=== PATIENT | male | born 1970 | race Caucasian/White ===

== ENCOUNTER 2016-04-18 11:05 | Emergency (ER) | payer MEDICARE, MEDICAID ==
[~2016-04-18 11:05] MED LIST: CIPR-232 PO; GEMF600T3 PO; INSU100V7 SUBQ; INSU500V SUBQ; LISI40TA PO; METO25TA6 PO; METR500T PO; SITA1TAB6 PO; marijuana INH
[2016-04-18 11:09] VITALS: BP 174/76; PULSE 115; RESP 18; O2SAT 95
[2016-04-18 11:33] LABS: BASOPHILS % (AUTO) 0.2 % (0-3); EOSINOPHILS % (AUTO) 1.5 % (0-5); MONOCYTES % (AUTO) 6.5 % (4-12); Mean Corpuscular Hemoglobin 29.2 pg (27.0-35.0); Mean Corpuscular Volume 80.1 fL (81-100); Platelet Count 170 bil/L (150-400)
[2016-04-18 11:44] LABS: Magnesium 1.5 mg/dL (1.6-2.6)
[2016-04-18] MEDS ORDERED: Ondansetron 2 mg/mL 2 mL Inj IVPUSH ONE (11:50)
--- NOTE | 2016-04-18 12:01 | ED.REPORT ---
HPI-General Illness Date of Service Apr 18, 2016 ED Provider: Terence Douglas PA-C Josiah 45-year-old male presents with chief complaint of nausea and vomiting. Patient states his symptoms began last night he felt very fatigued and he "almost passed out." Reports that vomiting and diarrhea began this morning with 6-7 episodes of vomiting without blood to 3 episodes of loose stools without blood. States the family is extremely dehydrated and about to pass out so he called ambulance. Reports that the paramedics measured a fever approximately 101. Patient also complains that "my heart keeps going faster and faster like is going to explode." He also admits through the history of slightly productive cough. Denies chest pain, shortness of breath, wheezing. Denies abdominal pain but states that "something is wrong in there." Reports a history of poorly controlled type II diabetes with left forefoot amputation several years ago and kidney injury in January. Nursing Notes Stated Complaint: NAUSEA FEVER Chief Complaint: Male Abdominal Pain Nursing Notes Reviewed: Yes Allergies: Coded Allergies: No Known Allergies (Verified Allergy, Unknown, 04/18/16) Scheduled Gemfibrozil (Gemfibrozil) 600 Mg Tablet 600 MG PO BID Insulin Glargine (Lantus U100 Insulin Vial) 100 Unit/Ml Vial 60 UNIT SUBQ BID Insulin Regular, Human (HUMulin-R U-500 Insulin Vial) 500 Unit/1 Ml Vial 30-40 UNIT SUBQ TIDWM Lisinopril (Lisinopril) 40 Mg Tablet 40 MG PO DAILY Metoprolol Tartrate (Metoprolol Tartrate) 25 Mg Tablet 25 MG PO BID Ondansetron ODT (Ondansetron ODT) 8 Mg Tab.rapdis 8 MG PO QID Sitagliptin/Metformin 50-1000 mg (Janumet 50-1000 mg) 1 Each Tablet 1 TABLET PO BID Scheduled PRN ([marijuana]) 1 DOSE INH BID PRN PRN For Pain General Time Seen by MD: 11:35 Chief Complaint Other (nausea) Past Medical History Past Medical History Notes: PCP: Dr. Madrid Past Medical History severe peripheral neuropathy Reports: Asthma, Diabetes mellitus, Hypertension Past Surgical History Multiple toe amputations, being followed by wound care Smoking History Former Smoker Social History Alcohol Use: Denies alcohol use Drug Use: THC Ambulatory Status Wheelchair Review of Systems General: Admits fever, malaise. HEENT: Denies congestion, headache, sore throat. Respiratory: Admits cough. Denies dyspnea, shortness of breath, wheezing. Cardiovascular: Admits palpitations. Denies chest pain. Gastrointestinal: Admits denies vomiting, diarrhea, abdominal pain. Genitourinary: Denies frequency, urgency, dysuria, hematuria. Otherwise as noted in HPI. Physical Exam General: Well developed, well nourished, moderate distress. Head: Atraumatic, normocephalic. Eyes: No scleral icterus or injection. No discharge. Vision grossly intact. ENT: Voice clear, hearing grossly intact. Respiratory: Regular rate and rhythm. Breath sounds present, clear to auscultation and equal bilaterally. Cardiovascular: Tachycardic with regular rhythm, without murmur, gallop or rub. No pedal edema. Gastrointestinal: Obese abdomen non-tender without guarding or rebound. Bowel sounds are hypoactive. Lower limbs: Left forefoot amputation with 3 cm nonhealing ulceration. No signs of infection. Right fifth digit amputated and distal phalanx of digits 1 through 4. One 1 cm nonhealing ulceration on the volar aspect of first digit, one 1 cm diameter ulceration volar aspect of the third MTP joint. No signs of infection. DP and PT pulses present and equal bilaterally Skin: Warm and dry. Neurological: Grossly nonfocal. Psychological: alert and oriented. Speech appropriate, linear and logical. Behavior appropriate. . Vital Signs Vital Signs Date Time Temp Pulse Resp B/P Pulse Ox O2 Delivery O2 Flow Rate FiO2 04/18/16 15:57 37.2 100 19 132/70 97 Room Air 04/18/16 15:44 100 132/70 97 Room Air 04/18/16 15:43 37.2 102 04/18/16 15:11 38.8 94 19 119/62 96 Room Air 04/18/16 13:12 38.4 117 19 165/73 96 Room Air 04/18/16 11:09 38.0 115 18 174/76 95 Room Air Initial VS: Reviewed Interpretation & Diagnostics Lab Results Interpretation Result Diagram: 04/18/16 1129 04/18/16 1129 Test 04/18/16 11:29 White Blood Count 8.6th/mm3 (3.8-10.1) Red Blood Count 5.44mil/mm3 (4.40-5.80) Hemoglobin 15.9g/dL (13.8-17.2) Hematocrit 43.6% (41.0-50.0) Mean Corpuscular Volume 80.1fL (81-100) Mean Corpuscular Hemoglobin 29.2pg (27.0-35.0) Mean Corpuscular Hemoglobin Concent 36.5% (32.0-37.0) Red Cell Distribution Width 12.9% (12.3-15.4) Platelet Count 170bil/L (150-400) Neutrophils (%) (Auto) 86.0% (40-74) Lymphocytes (%) (Auto) 5.7% (14-46) Monocytes (%) (Auto) 6.5% (4-12) Eosinophils (%) (Auto) 1.5% (0-5) Basophils (%) (Auto) 0.2% (0-3) D-Dimer 0.5mg/L (<0.50) Sodium Level 136mEq/L (134-144) Potassium Level 3.7mEq/L (3.5-5.2) Chloride Level 97mEq/L (97-108) Carbon Dioxide Level 25mmol/L (18-29) Blood Urea Nitrogen 10mg/dL (6-24) Creatinine 1.01mg/dL (0.76-1.27) Estimat Glomerular Filtration Rate 85mL/min (>59) Glucose Level 200mg/dL (60-99) Calcium Level 9.3mg/dL (8.5-10.1) Magnesium Level 1.5mg/dL (1.6-2.6) Total Bilirubin 0.5mg/dL (0.0-1.2) Aspartate Amino Transf (AST/SGOT) 17U/L (0-50) Alanine Aminotransferase (ALT/SGPT) 16U/L (0-44) Alkaline Phosphatase 83U/L (25-150) Troponin T < 0.010ug/L (0.0-0.011) Total Protein 7.4g/dL (6.4-8.4) Albumin 3.6g/dL (3.4-5.0) Lipase 27U/L (13-60) Lab Results Interpretation: Liver enzymes and kidney function within normal limits. ECG Interpretation ECG Interpretation: No prior ECG available. Anterior Q waves present Time: 12:35 Interpreted by: ED physician Normal ECG Interpretation: Normal sinus rhythm, No acute ischemic changes, Normal axis, Normal intervals Abnormal Rate: 130 X-Ray Chest Interpretation Chest Xray Interpretation: PROCEDURE: X-RAY CHEST ONE VIEW, PORTABLE ([id number]) INDICATIONS: chest pain, tachycardia IMPRESSION: No acute pulmonary process Interpretation / Wet Read by: Interpret - ED physician, Interpret - Radiologist, Interp - AHP Re-Eval/Medical Decision Med Decision/Clinical Course In brief this is a 45-year-old male with a history of poorly controlled type II diabetes resulting in forefoot and toe amputations who presents with approximately one-day history of nausea vomiting and diarrhea. He presents as highly anxious and states that since last night he felt like he has been about to pass out. He also is complaining of chest tightness. Concern over cardiac causes was reduced by normal EKG, troponin, chest x-ray. The patient's initial tachycardia and borderline SPO2 saturation cause me to consider the possibility of pulmonary embolus. This seemed unlikely considering the lack of complaint of shortness of breath, lack of risk factors and no indication of DVT. Normal white count is reassuring that there is unlikely to be a systemic infection. Following several hours in the department 3 L of normal saline, Tylenol and antinausea medications: The patient feels much better, fevers reduced, tachycardia reduced patient's stated baseline of approximately 100 bpm, and he was able to ambulate well in the department. He felt ready to be discharged to home and agreed to follow up with his primary care provider in the next couple of days. I discussed case with Dr. wang, who met with and examined the patient and agrees with the plan. Discharge & Departure Primary Impression: Gastroenteritis Disposition: Home Discharge Condition All VS Reviewed: Yes Condition: Stable Patient Instructions: Gastroenteritis (ED) Additional Instructions: Evaluation for nausea and vomiting in the emergency department. History, physical, EKG and blood tests are reassuring that this is not caused by a cardiac event. Kidney and liver function are within normal limits. Your blood glucose is high at 200 unlikely to be the cause of your symptoms. Initial tachycardia and fever responded well to Tylenol and IV fluids. Able to drink fluids and walk safely around the ED. We believe you are stable and safe for discharge home. your symptoms are most likely caused by a viral gastroenteritis , which should resolve on its own in a few days. Rest and drink small amounts of fluid throughout the day. Small servings of bland food as tolerated. I will provide you with a prescription for antinausea medications. Take 1000 mg of Tylenol every 6 hours to treat the fever. Follow-up with wound care as scheduled and contact your primary care provider in the morning to arrange follow-up in a few days to be sure your recovery is progressing as expected. Return to emergency department for new or worsening symptoms including high fever, chest pain, shortness of breath. Referrals: Thompson Madrid MD (PCP) EDSupervising Provider for APC: Justin Wang MD Attending Statement Attending attestation: I saw this patient in conjunction with Terence Douglas PA-C. I was present for all paredes portions of the history taking and physical examination. I agree with the workup, evaluation, treatment and disposition. Terence Guzman MD, PA-C Apr 18, 2016 12:01 Justin Wang MD Apr 18, 2016 14:23
[2016-04-18] MEDS ORDERED: 0.9% Sodium Chloride 1,000 ML IV ONE ×2 (12:30→13:55)
[2016-04-18 13:12] VITALS: BP 165/73; PULSE 117; RESP 19; O2SAT 96
--- NOTE | 2016-04-18 14:18 | DRSVH ---
PROCEDURE: X-RAY CHEST ONE VIEW, PORTABLE ([id number]) INDICATIONS: chest pain, tachycardia TECHNIQUE: One view of the chest was acquired. COMPARISON: [facility], CR, XR CHEST 1VW (PORTABLE), 02/22/2016, 13:53. FINDINGS: Surgical changes and devices: None. Lungs and pleura: No pleural effusions or pneumothorax. Lungs are clear. Mediastinum: Mediastinal contours appear normal. Heart size is normal. Bones and chest wall: No suspicious bony lesions. Overlying soft tissues appear unremarkable. IMPRESSION: No acute pulmonary process. Dictated by: Ilene Pina M.D. on 04/18/2016 at 14:16 Approved by: Ilene Pina M.D. on 04/18/2016 at 14:16
[2016-04-18 15:11] VITALS: BP 119/62; PULSE 94; RESP 19; O2SAT 96
[2016-04-18 15:43] VITALS: PULSE 102
[2016-04-18 15:44] VITALS: BP 132/70; PULSE 100; O2SAT 97
[2016-04-18] MEDS ORDERED: ONDA8TAB10 PO (15:54)
[2016-04-18 15:57] VITALS: BP 132/70; PULSE 100; RESP 19; O2SAT 97
== END 2016-04-18 15:57 | disposition home or self-care (01) ==
LOC: SED 11:05 → EDBD 11:05 → SED 15:57
DX: K52.9 Noninfective gastroenteritis and colitis, unspecified (principal); E11.40 Type 2 diabetes mellitus with diabetic neuropathy, unspecified; J45.909 Unspecified asthma, uncomplicated; I10 Essential (primary) hypertension; Z89.432 Acquired absence of left foot; Z87.891 Personal history of nicotine dependence; Z79.4 Long term (current) use of insulin; Z79.84 Long term (current) use of oral hypoglycemic drugs
CPT/HCPCS: 36415; 71010; 80053; 83690; 83735; 84484; 85025; 85379; 93005; 96361; 96374; 99285; J2405; J7030

== ENCOUNTER 2016-04-19 22:07 | Inpatient (IN) | payer MEDICARE, MEDICAID ==
[~2016-04-19] VITALS: Ht 198.1 cm; Wt 141.9 kg
[~2016-04-19 22:07] MED LIST changes: -CIPR-232 PO; -METR500T PO; +ONDA8TAB10 PO
[2016-04-19 22:35] VITALS: BP 183/97; PULSE 91; RESP 16; O2SAT 98
--- NOTE | 2016-04-19 22:52 | ED.REPORT ---
HPI-Abd Pain M 40 and Over Date of Service Apr 19, 2016 ED Provider: Julian Hennessy MD The patient is a 45 year old male with history of HTN, diabetes, and multiple toe amputations with chronic ulcerations (followed by wound care) who presents to the ED complaining of continued nausea and vomiting since his visit yesterday for the same symptoms. Associated symptoms of diarrhea and mild hematemesis. He denies hematochezia and any other symptoms at this times. The patient reports that he smokes marijuana on a daily basis. Nursing Notes Stated Complaint: CHEST PAIN Chief Complaint: Male Abdominal Pain Nursing Notes Reviewed: Yes Allergies: Coded Allergies: No Known Allergies (Verified Allergy, Unknown, 04/18/16) Scheduled Gemfibrozil (Gemfibrozil) 600 Mg Tablet 600 MG PO BID Insulin Glargine (Lantus U100 Insulin Vial) 100 Unit/Ml Vial 60 UNIT SUBQ BID Insulin Regular, Human (HUMulin-R U-500 Insulin Vial) 500 Unit/1 Ml Vial 30-40 UNIT SUBQ TIDWM Lisinopril (Lisinopril) 40 Mg Tablet 40 MG PO DAILY Metoprolol Tartrate (Metoprolol Tartrate) 25 Mg Tablet 25 MG PO BID Ondansetron ODT (Ondansetron ODT) 8 Mg Tab.rapdis 8 MG PO QID Sitagliptin/Metformin 50-1000 mg (Janumet 50-1000 mg) 1 Each Tablet 1 TABLET PO BID Scheduled PRN ([marijuana]) 1 DOSE INH BID PRN PRN For Pain General Time Seen by MD: 22:48 Chief Complaint Nausea, Other (Vomiting) Hx Obtained From: Patient Arrived By: Walk-in Sudden in Onset?: No Onset Occurred: 5 days ago Symptom Duration: Since onset Progression since Onset: Unchanged Location: : Diffuse Severity: Current: Mild Severity: Maximum: Moderate Recent Healthcare: No recent hospitalization, Recent doctor visit, Recent testing, Previous diagnosis Similar Sx Previous: Yes Past Medical History Past Medical History Notes: PCP: Dr. Madrid Past Medical History severe peripheral neuropathy Reports: Asthma, Diabetes mellitus, Hypertension Past Surgical History Multiple toe amputations, being followed by wound care Smoking History Former Smoker Social History Alcohol Use: Denies alcohol use Drug Use: THC Ambulatory Status Wheelchair Review of Systems Constitutional: Denies: Chills, Fever Respiratory: Denies: Shortness of breath Cardiovascular: Denies: Chest pain GI: Reports: Abdominal pain, Belching, Diarrhea, Hematemesis, Nausea, Vomiting , Denies: Constipation, Hematochezia, Mucousy stool Complete sys rev & neg: except as marked. Physical Exam Initial Vital Signs Vital Signs (First) Date Time Temp Pulse Resp B/P Pulse Ox O2 Delivery O2 Flow Rate FiO2 04/19/16 22:35 36.7 91 16 183/97 98 Room Air Initial VS: Reviewed, Vital signs abnormal Head / Eyes: Atraumatic, Normocephalic, PERRL Neck: Supple, Non-tender, Full range of motion Extremities: Vascular intact, Neuro intact, No swelling, No tenderness Neurologic: Alert, Oriented, Nonfocal Psychiatric: Mood/affect normal, Behavior normal, Normal thought content General/Constitutional: Awake, Alert Distress / Hydration: Positive: Distress moderate Respiratory / Chest: Atraumatic, Breath sounds NL, Breath sounds = bilat, No respiratory distress Cardiovascular: Regular rhythm, Heart sounds NL Heart Rate / Rhythm: Positive: Tachycardia Abdomen: Atraumatic, Soft Tenderness/Guarding/Rebound: Positive: Tender diffuse Back: Atraumatic, Inspection NL, Full range of motion, Painless range of motion , Non-tender ENT: Atraumatic, Airway patent Mouth: Positive: Mucous membranes dry Skin: Atraumatic Generalized pallor Interpretation & Diagnostics Lab Results Interpretation Result Diagram: 04/19/16224404/19/162244 Test 04/19/16 22:45 04/20/16 00:00 04/20/16 00:10 04/20/16 00:20 White Blood Count 6.6th/mm3 (3.8-10.1) Red Blood Count 5.55mil/mm3 (4.40-5.80) Hemoglobin 15.6g/dL (13.8-17.2) Hematocrit 43.7% (41.0-50.0) Mean Corpuscular Volume 78.7fL (81-100) Mean Corpuscular Hemoglobin 28.1pg (27.0-35.0) Mean Corpuscular Hemoglobin Concent 35.7% (32.0-37.0) Red Cell Distribution Width 13.1% (12.3-15.4) Platelet Count 146bil/L (150-400) Neutrophils (%) (Auto) 85.5% (40-74) Lymphocytes (%) (Auto) 8.1% (14-46) Monocytes (%) (Auto) 5.7% (4-12) Eosinophils (%) (Auto) 0% (0-5) Basophils (%) (Auto) 0.2% (0-3) Sodium Level 131mEq/L (134-144) Potassium Level 4.4mEq/L (3.5-5.2) Chloride Level 93mEq/L (97-108) Carbon Dioxide Level 18mmol/L (18-29) Blood Urea Nitrogen 14mg/dL (6-24) Creatinine 1.13mg/dL (0.76-1.27) Estimat Glomerular Filtration Rate 75mL/min (>59) Glucose Level 328mg/dL (60-99) Lactic Acid Level 2.0mmol/L (0.4-2.0) Calcium Level 8.8mg/dL (8.5-10.1) Phosphorus Level 2.0mg/dL (2.5-4.9) Magnesium Level 1.4mg/dL (1.6-2.6) Total Bilirubin 1.0mg/dL (0.0-1.2) Aspartate Amino Transf (AST/SGOT) 47U/L (0-50) Alanine Aminotransferase (ALT/SGPT) 31U/L (0-44) Alkaline Phosphatase 67U/L (25-150) Total Protein 6.9g/dL (6.4-8.4) Albumin 3.1g/dL (3.4-5.0) Lipase 15U/L (13-60) Hold Spivey Top Tube Received (Received) Urine Opiates Screen Negative Urine Methadone Screen Negative Urine Barbiturates Screen Negative Urine Amphetamines Screen Negative Urine Benzodiazepines Screen Negative Urine Cocaine Metabolite Screen Negative Urine Cannabinoids Screen Positive Hold Urine Received (Received) Lab Results Interpretation: Elevated blood glucose without evidence of acidosis or ketosis. CT Abd / Pelvis Interpretation CONCLUSION: 1. Normal appendix. No free air, bowel obstruction, or gross intestinal inflammation. 2. Moderate splenomegaly of uncertain etiology. Small right renal cyst. Study type: Abdominal CT IV contrast Interpretation / Wet Read by: Interpret - Radiologist Re-Eval/Medical Decision Med Decision/Clinical Course 45-year-old male who has had several days of nausea vomiting and just not feeling well. He has not been taking his insulin or measuring his blood sugars. He does smoke marijuana on a daily basis but says that he has cut back a little bit. He has had recurring similar episodes of this in the past. He was given fluids and multiple medicines for nausea and pain without good effect. He continues to retch and hiccup. He will be admitted to the hospitalist service. Source of Hx: Old records Time of Eval: 00:08 Re-Evaluation/Progress Note: Rechecked the patient who reports that his symptoms have improved but not resolved. He appears to be greatly improved from arrival, but due to his continued pain will consider abdominal CT. Time of Eval: 02:28 Re-Evaluation/Progress Note: Rechecked the patient to discuss abdominal CT. He reports that his symptoms have still not resolved and he wishes to be admitted to the hospital. Consultation : Referral / Consult Name: Shabnam Pulido MD Call Returned at: 02:39 Note: Discussed the patient's history and symptoms in detail with Dr. Pulido, hospitalist, who agrees to admit the patient. Counseled Regarding: Diagnosis, Lab results, Need for admission, Other (imaging ) Discharge & Departure Primary Impression: Intractable abdominal pain Additional Impression: Intractable vomiting with nausea Vomiting type: unspecified Qualified Code: R11.2 - Nausea with vomiting, unspecified Disposition: ADMITTED TO HOSPITAL Vital Signs - All Vital Signs Date Time Temp Pulse Resp B/P Pulse Ox O2 Delivery O2 Flow Rate FiO2 04/19/16 22:35 36.7 91 16 183/97 98 Room Air )( All Prior VS Reviewed: Yes Condition: Stable Referrals: Thompson Madrid MD (PCP) Anita Attestation Portions of this note were transcribed by Bernardo Leon. I, Dr. Hennessy, personally performed the history, physical exam, and medical decision-making; I reviewed and confirmed the accuracy of the information in the transcribed note. Signed by: Anita Yeager, 04/20/16 02:49. copies to: Thompson Madrid MD, Howard L MD Apr 19, 2016 22:52 BERNARDO LEON Apr 19, 2016 23:11
[2016-04-19 23:04] LABS: BASOPHILS % (AUTO) 0.2 % (0-3); EOSINOPHILS % (AUTO) 0 % (0-5); MONOCYTES % (AUTO) 5.7 % (4-12); Mean Corpuscular Hemoglobin 28.1 pg (27.0-35.0); Mean Corpuscular Volume 78.7 fL (81-100); NEUTROPHILS % (AUTO) 85.5 % (40-74); Platelet Count 146 bil/L (150-400)
[2016-04-19] MEDS ORDERED: 0.9% Sodium Chloride 1,000 ML IV ONE (23:07)
[2016-04-19] MEDS ORDERED: Pantoprazole 4 mg/mL 10 mL Inj IVPUSH ONE (23:10)
[2016-04-19 23:30] LABS: Magnesium 1.4 mg/dL (1.6-2.6)
[2016-04-19] MEDS: HYDROmorphone 0.5 mg/0.5 mL iSecure Syringe IVPUSH PRN (23:30)
[2016-04-19] MEDS: Ondansetron 2 mg/mL 2 mL Inj IVPUSH PRN (23:30)
[2016-04-20] VITALS (9 sets, daily range): BP systolic 111–208; BP diastolic 65–111; PULSE 79–109; RESP 16–20; O2SAT 93–98
[2016-04-20] MEDS: HYDROmorphone 0.5 mg/0.5 mL iSecure Syringe IVPUSH PRN ×3 (00:29→03:40)
[2016-04-20] MEDS: Ondansetron 2 mg/mL 2 mL Inj IVPUSH PRN ×8 (00:37→23:33)
[2016-04-20] MEDS ORDERED: Haloperidol 5 mg/mL Inj IVPUSH ONE (02:30)
[2016-04-20] MEDS ORDERED: Magnesium Sulf 4 Gm/100 mL H2O 4 GM in IV Premix 1 EACH IV ONE (03:15)
--- NOTE | 2016-04-20 03:20 | PCM.HPMED ---
Subjective Date of Service Apr 20, 2016 Primary Provider: Admitting Physician: Shabnam Pulido MD Primary Care Physician: Thompson Madrid MD Attending Physician: Shabnam Pulido MD Admit Status: From the Emergency Department, 23-Hour Observation, Non-Telemetry Chief Complaint: Intractable nausea vomiting and abdominal pain History of Present Illness: Is a 45-year-old male who was in the emergency room yesterday and again today with complaints of intractable nausea vomiting and abdominal pain. He notes he had loose stool a few days ago and has had none since. He notes that he had a fever at home. 101. He feels like his heart has been going faster he has not been able to really keep anything down. He is not been taking his insulin and has not been checking his blood sugars at home. He has a history of type II diabetes. He notes no sick contacts. Patient denies any chest pain or shortness of breath. Patient denies any coffee-ground or bloody emesis. He denies any blood or maroon-colored stool. He describes his abdominal pain as cramping. Review of Systems: He denies any urinary frequency or burning. All other review of systems are reviewed and are negative except for as in history of present illness. Allergies Coded Allergies: No Known Allergies (Verified Allergy, Unknown, 04/18/16) Home Medications Scheduled Gemfibrozil (Gemfibrozil) 600 Mg Tablet 600 MG PO BID Insulin Glargine (Lantus U100 Insulin Vial) 100 Unit/Ml Vial 60 UNIT SUBQ BID Insulin Regular, Human (HUMulin-R U-500 Insulin Vial) 500 Unit/1 Ml Vial 30-40 UNIT SUBQ TIDWM Lisinopril (Lisinopril) 40 Mg Tablet 40 MG PO DAILY Metoprolol Tartrate (Metoprolol Tartrate) 25 Mg Tablet 25 MG PO BID Ondansetron ODT (Ondansetron ODT) 8 Mg Tab.rapdis 8 MG PO QID Sitagliptin/Metformin 50-1000 mg (Janumet 50-1000 mg) 1 Each Tablet 1 TABLET PO BID Scheduled PRN ([marijuana]) 1 DOSE INH BID PRN PRN For Pain PMH Past Medical History Notes: PCP: Dr. Madrid Past Medical History Type II diabetes Hyperlipidemia Hypertension severe peripheral neuropathy Reports: Asthma, Diabetes mellitus, Hypertension Past Surgical History Multiple toe amputations, being followed by wound care Social History Hx Alcohol Use: No Hx Substance Use: Yes (daily marijuana-) Hx Tobacco Use: Yes Smoking Status: Former Smoker Living Arrangement: with Family Exam Vital Signs Vital Sign - Last Date Time Temp Pulse Resp B/P Pulse Ox O2 Delivery O2 Flow Rate FiO2 04/19/16 22:35 36.7 91 16 183/97 98 Room Air Exam Constitutional: Middle-aged male in pain distress Head: Normocephalic atraumatic Eyes: PERRLA DC EOMI Mouth: Dry mucosa Neck: No adenopathy Chest: Clear to auscultation Cor: Regular rate and rhythm S1-S2 without murmur Abdomen: Soft mild diffuse tenderness no rebound no guarding bowel sounds are present Extremities: No pedal edema noted Skin: No rashes Psych: Mood and affect are appropriate Neuro: Alert and oriented 3 and moves all extremities equally Lab and Diagnostics Labs Laboratory Tests 72 Hours Test 04/19/16 22:45 04/20/16 00:10 04/20/16 00:20 White Blood Count 6.6th/mm3 (3.8-10.1) Red Blood Count 5.55mil/mm3 (4.40-5.80) Hemoglobin 15.6g/dL (13.8-17.2) Hematocrit 43.7% (41.0-50.0) Mean Corpuscular Volume 78.7fL (81-100) Mean Corpuscular Hemoglobin 28.1pg (27.0-35.0) Mean Corpuscular Hemoglobin Concent 35.7% (32.0-37.0) Red Cell Distribution Width 13.1% (12.3-15.4) Platelet Count 146bil/L (150-400) Neutrophils (%) (Auto) 85.5% (40-74) Lymphocytes (%) (Auto) 8.1% (14-46) Monocytes (%) (Auto) 5.7% (4-12) Eosinophils (%) (Auto) 0% (0-5) Basophils (%) (Auto) 0.2% (0-3) Sodium Level 131mEq/L (134-144) Potassium Level 4.4mEq/L (3.5-5.2) Chloride Level 93mEq/L (97-108) Carbon Dioxide Level 18mmol/L (18-29) Blood Urea Nitrogen 14mg/dL (6-24) Creatinine 1.13mg/dL (0.76-1.27) Estimat Glomerular Filtration Rate 75mL/min (>59) Glucose Level 328mg/dL (60-99) Calcium Level 8.8mg/dL (8.5-10.1) Magnesium Level 1.4mg/dL (1.6-2.6) Total Bilirubin 1.0mg/dL (0.0-1.2) Aspartate Amino Transf (AST/SGOT) 47U/L (0-50) Alanine Aminotransferase (ALT/SGPT) 31U/L (0-44) Alkaline Phosphatase 67U/L (25-150) Total Protein 6.9g/dL (6.4-8.4) Albumin 3.1g/dL (3.4-5.0) Lipase 15U/L (13-60) Hold Spivey Top Tube Received (Received) Hold Urine Received (Received) Result Diagram: 04/19/16224404/19/162244 X-Rays, CTs and MRIs CT of abdomen by [facility] reading reveals normal appendix no free air, bowel obstruction, or gross intestinal inflammation. Moderate splenomegaly of uncertain etiology. Small right renal cyst present. Additional Diagnostics: Urine dip per ER note and report is negative including negative ketones. Assessment & Plan # Intractable nausea vomiting and abdominal pain, acute, present on admission Unclear etiology but may be viral versus bacterial gastroenteritis However WBCs is not elevated hence would lean more towards viral. Check stool PCR Give IV fluids and clear liquid diet Zofran when necessary and morphine when necessary pain Check lactic acid level # Hypomagnesemia, acute, present on admission We will replete with IV magnesium sulfate We will also check phosphate level # Hyponatremia, acute, present on admission Most likely secondary to dehydration so will give IV fluid hydration # Hyperglycemia and type II diabetic, acute, present on admission He has not been taking his Lantus and usually takes 60 units subcutaneous twice a day and will dose 30 units subcutaneous twice a day Also place on regular insulin subcutaneous protocol Check 4 times a day blood sugars # DVT prophylaxis Use SCDs in place on subcutaneous prophylactic Lovenox # CODE STATUS Patient is full code Pain Evaluation: Adequate Pain Control GI Prophylaxis: H2 francisco VTE Prophylaxis: Sub-Q Enoxaparin VTE Mechanical Devices: Intermittant Pneumatic CD Resuscitation Status: CPR: Attempt Resuscitation Time spent 60 minutes Shabnam Pulido MD Apr 20, 2016 03:20
--- NOTE | 2016-04-20 04:00 | NUR ---
Isolation Pt is on isolation due to history of MRSA.
[2016-04-20] MEDS: 0.9% Sodium Chloride 1,000 ML IV SCH ×4 (04:27→19:39)
--- NOTE | 2016-04-20 05:10 | NUR ---
Admit Report given and transported via wheelchair by Jenny Wakefield RN at [phone]
--- NOTE | 2016-04-20 08:01 | NUR ---
Elevated BP Contacted Dr. Juwan Mccall with the following cook page: Patient's current BP is 190/111. Please advise. Thank you. Lisa BUENROSTRO
[2016-04-20] MEDS: Famotidine Inj 20 MG in IV Premix 1 EACH IV SCH ×2 (08:02→20:13)
[2016-04-20] MEDS: Insulin Human REGular 300 Unit/3 mL Inj SUBQ SCH ×3 (08:04→21:35)
--- NOTE | 2016-04-20 08:06 | DRSVH ---
PROCEDURE: CT ABDOMEN AND PELVIS WITH CONTRAST (PNL-7102) INDICATIONS: abd pain and vomiting TECHNIQUE: After the administration of intravenous contrast, 5 mm thick sections acquired from the diaphragm to the symphysis. 5 mm coronal and sagittal reformats were acquired. For radiation dose reduction, the following was used: automated exposure control, adjustment of mA and/or kV according to patient ambika nelson COMPARISON: [facility], CT, CT ABD PELVIS W CON, 02/22/2016, 14:32. FINDINGS: Image quality: Excellent. ABDOMEN: Lung bases: Presumed 4 mm calcified granuloma in the left lung base, unchanged. Solid organs: Liver grossly unremarkable. Spleen is enlarged as before. No focal splenic lesion. Ga llbladder unremarkable. Biliary system is non dilated. Pancreas enhances normally. No adrenal nodu les. Kidneys demonstrate normal size and enhancement, without hydronephrosis. Simple appearing right renal cyst measuring 2.2 cm as before Peritoneum and bowel: Bowel loops demonstrate normal wall thickness and caliber. No free fluid or a ir. Normal appendix. Rectum decompressed otherwise unremarkable. Nodes and vessels: No retroperitoneal or mesenteric adenopathy by size criteria. Aorta and inferior vena cava are normal in size. Miscellaneous: No ventral hernias. PELVIS: Genitourinary: Bladder wall thickness is normal. Miscellaneous: No inguinal hernias or adenopathy. Bones: No suspicious bony lesions. Multiple subacute/chronic left rib fractures as before No verteb ral body compression fractures. IMPRESSION: No acute abnormality. Normal appearance of the appendix. No evidence of bowel obstruction. Moderate splenomegaly. Right renal cyst. Dictated by: Adán Jean M.D. on 04/20/2016 at 8:04 Approved by: Adán Jean M.D. on 04/20/2016 at 8:04
[2016-04-20] MEDS ORDERED: Insulin GLARgine 100 Unit/mL Syringe SUBQ ONE ×3 (08:30→13:35)
[2016-04-20] MEDS ORDERED: hydrALAZINE 20 mg/mL Inj IV SCH (08:30)
--- NOTE | 2016-04-20 10:37 | NUR ---
Morning Rounds Staffed patient's case with Dr. Mccall and case management. Patient will be changed from observation status to inpatient status, no plan for discharge at this time.
--- NOTE | 2016-04-20 10:58 | NUR ---
[facility] signed
--- NOTE | 2016-04-20 11:25 | PCM.PNMED ---
Subjective Date of Service Apr 20, 2016 Subjective He is still having a lot of nausea and epigastric abdominal pain. He was having some diarrhea midweek but none now. He is having some difficulty breathing cancer discomfort. No palpitations. Exam Vital Signs Vital Sign - Last Date Time Temp Pulse Resp B/P Pulse Ox O2 Delivery O2 Flow Rate FiO2 04/20/16 10:52 153/78 04/20/16 08:47 36.5 89 18 95 Room Air Intake and Output 04/19/16 04/19/16 04/20/16 Cumulative From/Thru 15:00 23:00 07:00 04/20/16 04:04 - 04/20/16 06:10 Intake Total 47 ml 47 ml Output Total 0 ml 0 ml Balance 47 ml 47 ml Intake Oral 0 ml 0 ml IV Total 47 ml 47 ml Output Urine Total 0 ml 0 ml # Bowel Movements 0 0 Exam He is uncomfortable in appearance but alert and oriented. Fluent speech Anicteric sclerae. Neck supple. Lungs are clear. Heart is regular. Abdomen is slightly distended tender normal bowel tones no guarding. Extremities are notable for 1+ edema. The left forefoot is wrapped. IVs and Medications Medications Reviewed: Medications were reviewed in detail Lab and Diagnostics Result Diagram: 04/19/16224404/19/162244 X-Rays, CTs and MRIs CT of abdomen by [facility] reading reveals normal appendix no free air, bowel obstruction, or gross intestinal inflammation. Moderate splenomegaly of uncertain etiology. Small right renal cyst present. Additional Diagnostics Urine dip per ER note and report is negative including negative ketones. Assessment & Plan 1. Intractable nausea vomiting and abdominal pain, acute, present on admission. Abdominal CAT scan was unremarkable. Unclear etiology but may be viral versus bacterial gastroenteritis However WBCs is not elevated hence would lean more towards viral. Check stool PCR Give IV fluids and clear liquid diet Zofran when necessary and morphine when necessary pain 2. Hypomagnesemia, acute, present on admission Repleted, we will follow levels. 3. Hyponatremia, acute, present on admission Euvolemic. We will replete with saline and follow. 4. Hyperglycemia and type II diabetic, acute, present on admission He has not been taking his Lantus and usually takes 60 units subcutaneous twice a day and will dose 30 units subcutaneous twice a day Also place on regular insulin subcutaneous protocol Check 4 times a day blood sugars. The patient remains hyperglycemic on the morning of April 20. We will add an additional 15 of Lantus and continue correctional lispro. We will continue volume repletion. # DVT prophylaxis Use SCDs in place on subcutaneous prophylactic Lovenox # CODE STATUS Patient is full code Pain Evaluation: Adequate Pain Control GI Prophylaxis: H2 francisco VTE Prophylaxis: Sub-Q Enoxaparin VTE Mechanical Devices: Intermittant Pneumatic CD Resuscitation Status: CPR: Attempt Resuscitation Time spent 25 minutes Juwan Mccall MD Apr 20, 2016 11:25
--- NOTE | 2016-04-20 12:36 | NUR ---
Order Clarification Contacted Dr. Mccall with the following cook page: Need to clarify Hydralazine order, it appears to be schedule q 4 h and not prn. Please clarify if this is to be an ongoing schedule Rx or needs to be PRN. Thank you. Lisa BUENROSTRO
--- NOTE | 2016-04-20 13:31 | NUR ---
BP recheck Patient's BP was elevated, but he had just been vomiting, waited and rechecked BP and it is now 111/65, did not give Hydralazine at this time.
--- NOTE | 2016-04-20 13:53 | NUR ---
Social Work Note: Screen Note Data& Assessment: EMR reviewed. Josiah Wilkes is a 45 year old male admitted on 04/20/2015 for Intractable nausea, vomiting and diabetes. Pt has Medicare for primary and [facility] Supp. For insurance coverage. Patients primary care physician is Dr. Thompson [place]. Patient NOK is Iona Masterson [phone]. Patient lives in [place] is independent at baseline. Patient is currently SBA in his room. No discharge needs identified at this time. Patients does not have a readmit score. SW to continue to follow in case any needs arise. Plan: Anticipated discharge home via POV when medically ready. No discharge needs identified at this time. SW to continue to follow in case any needs arise. Jeanne Nixon, SUMA, ACM
[2016-04-20 16:57] LABS: Mean Corpuscular Hemoglobin 28.5 pg (27.0-35.0); Mean Corpuscular Volume 79.8 fL (81-100)
[2016-04-20] MEDS: hydrALAZINE 20 mg/mL Inj IV PRN (20:13)
[2016-04-21] VITALS (7 sets, daily range): BP systolic 158–224; BP diastolic 84–111; PULSE 71–91; RESP 16–18; O2SAT 96–98
[2016-04-21] MEDS: 0.9% Sodium Chloride 1,000 ML IV SCH ×5 (01:15→22:45)
[2016-04-21] MEDS: Ondansetron 2 mg/mL 2 mL Inj IVPUSH PRN ×3 (03:56→14:14)
[2016-04-21] MEDS ORDERED: Insulin Human REGular 300 Unit/3 mL Inj SUBQ SCH (07:30)
--- NOTE | 2016-04-21 07:44 | NUR ---
Uncontrolled Nausea/Insulin Needs Contacted Dr. Hamlin with the following cook page: Patient's nausea is not controlled with Zofran, would Phenergan be another option? Patient was on Lantus yesterday, but none ordered today and blood sugar still high, can sliding scale be increased if Lantus is not added? Please advise. Thank you. Nazia BUENROSTRO Addendum: 04/21/16 at 0756 by NAZIA FERNANDEZ RN Dr. Hamlin was listed as the Red Team Hospitalist in the the computer call list, but the doctor for Red Team today is actually Dr. Gates.
[2016-04-21] MEDS ORDERED: Promethazine Inj 25 MG in Dextrose 5%-Pha MIX 50 ML IV ONE (08:00)
--- NOTE | 2016-04-21 08:10 | PCM.PNMED ---
Subjective Date of Service Apr 21, 2016 Subjective continues severe N/V and generalized abdomen pain. Relieved by morphine. Limited stool output x 4days. No fever. No prior history of chronic N/V or gastroparesis. Exam Vital Signs Vital Sign - Last Date Time Temp Pulse Resp B/P Pulse Ox O2 Delivery O2 Flow Rate FiO2 04/21/16 01:40 36.6 91 18 158/91 96 Room Air Intake and Output 04/20/16 04/20/16 04/21/16 Cumulative From/Thru 15:00 23:00 07:00 04/20/16 04:04 - 04/21/16 05:58 Intake Total 3305 ml 1927 ml 5279 ml Output Total 3275 ml 725 ml 4000 ml Balance 30 ml 1202 ml 1279 ml Intake Oral 1276 ml 1276 ml IV Total 2029 ml 1927 ml 4003 ml Output Urine Total 3275 ml 725 ml 4000 ml # Bowel Movements 0 0 Exam General: Obese man sitting forward moderate distress HEENT: sclerae anicteric, oral mucosa moist Neck: no JVD Chest: clear to auscultation Cardiac: S1S2, no murmur Abdomen: BS present, non-tender to palpate Extremities: No edema; bilateral bandaged foot ulcers with status post amputation right forefoot; no erythema swelling or redness Neuro: A&O, cranial nerves symmetric, motor strength 5/5, IVs and Medications Medications Reviewed: Medications were reviewed in detail Lab and Diagnostics Result Diagram: 04/20/16 1645 04/20/16 1645 X-Rays, CTs and MRIs PROCEDURE: CT ABDOMEN AND PELVIS WITH CONTRAST ([id number]) IMPRESSION: No acute abnormality. Normal appearance of the appendix. No evidence of bowel obstruction. Moderate splenomegaly. Right renal cyst. Dictated by: Adán Jean M.D. on 04/20/2016 at 8:04 Additional Diagnostics Urine dip per ER note and report is negative including negative ketones. Assessment & Plan 1. Intractable nausea vomiting and abdominal pain, acute, present on admission. Abdominal CAT scan was unremarkable. Possible marijuana-related vomiting versus gastroenteritis. No fever or diarrhea. Abdomen pain seems related to nausea and vomiting. - Parenteral and oral antiemetics to achieve symptom control - Clear liquid diet until symptom control - Patient counseled to minimize morphine use - Discharge home when patient is able to take oral intake 2. Hypomagnesemia, acute, present on admission - Repleted, we will follow levels. 3. Hyponatremia, acute, present on admission - Euvolemic. We will replete with saline and follow. Resolving as of 04/21- 4. Hyperglycemia and type II diabetic, acute, present on admission He has not been taking his Lantus and usually takes 60 units subcutaneous twice a day - Check 4 times a day blood sugars. - Continue Lantus at two thirds of normal dose (40 units twice a day) - Increase regular insulin correctional scale to high dose 5. Peripheral vascular disease with diabetic foot ulcers. No signs of systemic infection - Wound care consult # DVT prophylaxis Use SCDs in place on subcutaneous prophylactic Lovenox # CODE STATUS Patient is full code Discharge plan: Expect improved symptom control with IV hydration and additional antiemetics, then discharge when able to take oral diet. Likely 1-2 days. GI Prophylaxis: H2 francisco VTE Prophylaxis: Sub-Q Enoxaparin VTE Mechanical Devices: Intermittant Pneumatic CD Resuscitation Status: CPR: Attempt Resuscitation Time spent 30 minutes Jn Gaets MD Apr 21, 2016 08:10
[2016-04-21] MEDS: Famotidine Inj 20 MG in IV Premix 1 EACH IV SCH ×2 (08:30→19:44)
[2016-04-21 08:38] LABS: BASOPHILS % (AUTO) 0.2 % (0-3); EOSINOPHILS % (AUTO) 0.9 % (0-5); MONOCYTES % (AUTO) 9.2 % (4-12); Mean Corpuscular Hemoglobin 28.3 pg (27.0-35.0); Mean Corpuscular Volume 80.4 fL (81-100); NEUTROPHILS % (AUTO) 75.9 % (40-74); Platelet Count 163 bil/L (150-400)
[2016-04-21] MEDS: hydrALAZINE 20 mg/mL Inj IV PRN (08:54)
[2016-04-21 09:02] LABS: Magnesium 1.8 mg/dL (1.6-2.6)
[2016-04-21] MEDS: Insulin GLARgine 100 Unit/mL Syringe SUBQ SCH ×2 (09:08→19:44)
--- NOTE | 2016-04-21 09:10 | NUR ---
BP recheck First SBP over 200, gave Hydralazine, recheck of BP was 160/84.
--- NOTE | 2016-04-21 10:01 | NUR ---
Morning Rounds Staffed patient's case with Dr. Gates. He stated he would like to get patient's nausea under control, stated to keep diet at Clear Liquids for today, stated he has ordered Ativan and would like to try this over Morphine. Stated if the nausea is controlled, patient could likely discharge tomorrow.
[2016-04-21] MEDS: LORazepam 0.5 mg Tablet PO PRN ×2 (11:43→19:57)
[2016-04-21] MEDS: Insulin Human REGular 300 Unit/3 mL Inj SUBQ SCH ×3 (11:44→22:30)
--- NOTE | 2016-04-21 12:01 | NUR ---
Elevated BP Contacted Dr. Gaets with the following cook page: Patient's BP is 224/111, rechecked in other arm and it was 210/101. It is too soon to give another dose of Hydralazine. Please advise. Thank you. Lisa BUENROSTRO
[2016-04-21] MEDS: Labetalol 5 mg/mL 4 mL Inj IVPUSH PRN ×2 (13:03→17:16)
[2016-04-21] MEDS: Enalaprilat 1.25 mg/mL 2 mL Inj IVPUSH SCH ×2 (14:15→19:42)
--- NOTE | 2016-04-21 14:32 | NUR ---
Clonidine Patch/R Upper Arm Scheduled Clonidine patch was applied on patient's right upper arm.
--- NOTE | 2016-04-21 15:36 | NUR ---
Persistent Hiccups/Patient requesting Rx Contacted Dr. Gates with the following cook page: Patient has persistent hiccups that he reports is causing pain and is requesting something to alleviate them, he asked for antacid. Please advise. Thank you. Lisa BUENROSTRO
[2016-04-21] MEDS: Donnatal-Lido-Mylant 1:1:1 15 mL Syringe PO PRN ×2 (17:32→23:04)
[2016-04-22 01:11] VITALS: BP 192/87; PULSE 78; RESP 18; O2SAT 96
[2016-04-22] MEDS: Enalaprilat 1.25 mg/mL 2 mL Inj IVPUSH SCH ×3 (01:12→13:06)
[2016-04-22] MEDS: Ondansetron 2 mg/mL 2 mL Inj IVPUSH PRN ×2 (03:28→20:09)
--- NOTE | 2016-04-22 04:19 | NUR ---
Pain Pt slept wrong on broken left ribs which caused increased pain. Pt nausea also increased and pt vomited approx 50 ml brown bile. While vomiting the pt suffered a bloody nose. Medications given, linens changed. Care continues.
[2016-04-22] MEDS: LORazepam 0.5 mg Tablet PO PRN (05:04)
[2016-04-22 06:26] VITALS: BP 195/104; PULSE 86; RESP 19; O2SAT 96
--- NOTE | 2016-04-22 06:38 | NUR ---
Pain Pt is complaining of pain. Pt has already received his 2mg morphine Q2H. paged.
[2016-04-22] MEDS: 0.9% Sodium Chloride 1,000 ML IV SCH ×5 (07:20→21:30)
[2016-04-22] MEDS: Insulin Human REGular 300 Unit/3 mL Inj SUBQ SCH ×4 (09:15→20:22)
[2016-04-22] MEDS: Insulin GLARgine 100 Unit/mL Syringe SUBQ SCH ×2 (09:16→20:22)
[2016-04-22] MEDS: Famotidine Inj 20 MG in IV Premix 1 EACH IV SCH ×2 (09:16→19:32)
[2016-04-22] MEDS: hydrALAZINE 20 mg/mL Inj IV PRN ×2 (09:18→23:40)
[2016-04-22 10:40] VITALS: BP 157/83; PULSE 92; RESP 22; O2SAT 94
[2016-04-22] MEDS: Donnatal-Lido-Mylant 1:1:1 15 mL Syringe PO PRN ×2 (11:24→23:53)
--- NOTE | 2016-04-22 13:19 | NUR ---
Pain/BP/Hiccups Called MD to report continued hiccups and discomfort. New orders to start compazine and increase IVP MS to 2-4mg.
--- NOTE | 2016-04-22 13:52 | NUR ---
04/22/16 Wound Care Patient seen for wound evaluation. Patient reports worsening of great toe wound. Reports plantar aspect has been open but area to distal tip of toe is new, and he is concerned about infection. Patient found with right distal great toe open area 0.4cmW x 0.4xmL x 0.4cmD with undermining of 0.2cm around except 0.7cm at 5:00. No tunnel noted connecting distal toe wound to plantar toe wound. Wound base appears red. Minimal yellow/brown purulent drainage noted. Culture obtained and sent to lab. Right plantar great toe wound measures 0.7cmW x 1.4cmL x 0.4cmD with 95% yellow slough and 5% dusky red tissue. Minimal brown drainage noted. Wound to lateral plantar 5th met head measures 1.2cmW x 1.5cmL x 0.2cmD with 100% yellow wound base and minimal brown drainage. Cleaned all wounds with saline and covered with Aquacel AG. Covered with 4x4s and secured with 3" conform. Left foot wound at site of transmetatarsal amputation. Entire wound area, including non-viable callous, measures 5.3cmW x 2.8cmL x 0.2cmD. Actual open area measures 0.2cmW x 0.2cmL x 0.1cmD, 100% dusky red tissue and minimal brown drainage. Callous to periwound is black. Patient reports silver nitrate use during outpatient wound care. Cleaned wound area with saline, applied aquacel AG and covered with 4x4 and 1/2 ABD pad, secured with tape. Nursing to change dressings as above every 24 to 48 hours and as needed for soiling. Wound care to follow as needed.
--- NOTE | 2016-04-22 14:27 | PCM.PNMED ---
Subjective Date of Service Apr 22, 2016 Subjective Pt seen and examined. Patient has continual hiccups and rib pain, however patients nausea and vomiting has decreased immensely. Patient additionally has peripheral foot wound ulcers that need to be evaluated. Exam Vital Signs Vital Sign - Last Date Time Temp Pulse Resp B/P Pulse Ox O2 Delivery O2 Flow Rate FiO2 04/22/16 10:40 39.3 92 22 157/83 94 Room Air Intake and Output 04/21/16 04/21/16 04/22/16 Cumulative From/Thru 15:00 23:00 07:00 04/19/16 23:30 - 04/22/16 06:17 Intake Total 2363 ml 2305 ml 89771 ml Output Total 800 ml 1825 ml 6625 ml Balance 1563 ml 480 ml 4322 ml Intake Oral 240 ml 400 ml 1916 ml IV Total 2123 ml 1905 ml 9031 ml Output Urine Total 800 ml 1775 ml 6575 ml Emesis 50 ml 50 ml # Bowel Movements 0 Exam Exam General: Obese man, lying in the position, continuously hiccuping HEENT: sclerae anicteric, oral mucosa moist Neck: no JVD Chest: clear to auscultation Cardiac: S1S2, no murmur Abdomen: BS present, non-tender to palpate Extremities: No edema; bilateral bandaged foot ulcers with status post amputation right forefoot; no erythema swelling or redness Neuro: A&O, cranial nerves symmetric, motor strength 5/5, IVs and Medications Medications Reviewed: Medications were reviewed in detail Lab and Diagnostics Result Diagram: 04/21/1671304/21/16713 X-Rays, CTs and MRIs PROCEDURE: CT ABDOMEN AND PELVIS WITH CONTRAST (PNL-7102) IMPRESSION: No acute abnormality. Normal appearance of the appendix. No evidence of bowel obstruction. Moderate splenomegaly. Right renal cyst. Dictated by: Adán Jean M.D. on 04/20/2016 at 8:04 Additional Diagnostics Urine dip per ER note and report is negative including negative ketones. Assessment & Plan 1. Intractable nausea vomiting and abdominal pain, acute, present on admission. Abdominal CAT scan was unremarkable. Possible marijuana-related vomiting versus gastroenteritis. No fever or diarrhea. Abdomen pain seems related to nausea and vomiting. - Parenteral and oral antiemetics to achieve symptom control - Clear liquid diet until symptom control - given new onset of hiccups, will start compazine for control 2. Hyponatremia, acute, present on admission - Euvolemic. We will replete with saline and follow. - resolved 4. Hyperglycemia and type II diabetic, acute, present on admission He has not been taking his Lantus and usually takes 60 units subcutaneous twice a day - Check 4 times a day blood sugars. - Continue Lantus at two thirds of normal dose (40 units twice a day) - Increase regular insulin correctional scale to high dose 5. Peripheral vascular disease with diabetic foot ulcers. No signs of systemic infection - Wound care consult and podiatry consult - podiatry consult called # DVT prophylaxis Use SCDs in place on subcutaneous prophylactic Lovenox # CODE STATUS Patient is full code Discharge plan: Expect improved symptom control with IV hydration and additional antiemetics, then discharge when able to take oral diet. Likely 1-2 days. GI Prophylaxis: H2 francisco VTE Prophylaxis: Sub-Q Enoxaparin VTE Mechanical Devices: Intermittant Pneumatic CD Resuscitation Status: CPR: Attempt Resuscitation Rajesh Shannon MD Apr 22, 2016 14:27
[2016-04-22 15:29] VITALS: BP 152/68; PULSE 78; RESP 18; O2SAT 94
--- NOTE | 2016-04-22 15:31 | NUR ---
Wound Care/Blood Culture/Temp MD ordered wound cultures based on evaluation and patient now with temp and chills. Blood cultures ordered. IVF infusing. Will monitor vital signs closely.
[2016-04-22 19:34] VITALS: BP 176/85; PULSE 79; RESP 18; O2SAT 96
[2016-04-22] MEDS: Labetalol 5 mg/mL 4 mL Inj IVPUSH PRN (19:53)
[2016-04-22 23:42] VITALS: BP 190/87; PULSE 76; RESP 16; O2SAT 97
--- NOTE | 2016-04-23 00:05 | NUR ---
HTN: pt. has had elevated bp's 170-190's systolic pt. given prn labetolol and prn hydralazine.
[2016-04-23] MEDS: 0.9% Sodium Chloride 1,000 ML IV SCH ×5 (03:27→22:10)
[2016-04-23 04:00] VITALS: BP 169/96; PULSE 89; RESP 16; O2SAT 95
[2016-04-23] MEDS: hydrALAZINE 20 mg/mL Inj IV PRN (04:42)
[2016-04-23 08:18] VITALS: BP 162/80; PULSE 83; RESP 19; O2SAT 95
[2016-04-23] MEDS: Insulin GLARgine 100 Unit/mL Syringe SUBQ SCH ×2 (09:07→20:17)
[2016-04-23] MEDS: Insulin Human REGular 300 Unit/3 mL Inj SUBQ SCH ×4 (09:07→20:16)
[2016-04-23] MEDS: Famotidine Inj 20 MG in IV Premix 1 EACH IV SCH ×2 (09:08→20:03)
[2016-04-23] MEDS: Ondansetron 2 mg/mL 2 mL Inj IVPUSH PRN ×3 (11:10→20:04)
--- NOTE | 2016-04-23 11:14 | NUR ---
Social Work Initial Assessment: SW met with patient at bedside to conduct initial assessment. Patient is a 45 year old male admitted don 04/20/16 for intractable nausea, vomiting, and diabetes. Patient payer as Medicare and [facility]. Patient PCP as MD [place]. Patient resides in [place] with 14 year old son. Emergency contact as mother Iona, . Patient states having no previous HHC history. Patient has a walker, cane and wheelchair at home. Patient states being diabetic and on insulin. Patient states pharmacy of choice as [facility]. Patient denied having AD and declined completion. Patient being followed by wound care. SW to follow wound care notes to determine discharge recommendations. SW to rule out HHC for wound care related needs if patient unable to manage wound needs to toe wound. SW to follow. PLAN: Home with family via POV with r/o of HHC, pending clinical course and wound care needs. SW to follow. Sandy SHEEHAN Addendum: 04/23/16 at 1120 by PALMIRA KATHLEEN Amended: Links added.
--- NOTE | 2016-04-23 12:54 | PCM.CHPPOD ---
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 Patient is a known patient of Dr. Reveles. Patient denies any significant foot pain. He states that he last saw Dr. Reveles in the wound care center a few weeks ago. Patient denies any recent history of fevers chills nausea or vomiting. Allergy Allergies: Coded Allergies: No Known Allergies (Verified Allergy, Unknown, 04/18/16) Medications ([marijuana]) 1 DOSE INH BID PRN PRN For Pain Gemfibrozil (Gemfibrozil) 600 Mg Tablet 600 MG PO BID Insulin Glargine (Lantus U100 Insulin Vial) 100 Unit/Ml Vial 60 UNIT SUBQ BID Insulin Regular, Human (HUMulin-R U-500 Insulin Vial) 500 Unit/1 Ml Vial 30-40 UNIT SUBQ TIDWM Lisinopril (Lisinopril) 40 Mg Tablet 40 MG PO DAILY Metoprolol Tartrate (Metoprolol Tartrate) 25 Mg Tablet 25 MG PO BID Ondansetron ODT (Ondansetron ODT) 8 Mg Tab.rapdis 8 MG PO QID Sitagliptin/Metformin 50-1000 mg (Janumet 50-1000 mg) 1 Each Tablet 1 TABLET PO BID Past Medical History Surgeries: Yes (TOE AMPUTATION) Medical History: Surgical History: Social History Hx Alcohol Use: No Hx Substance Use: Yes (daily marijuana-) Hx Tobacco Use: Yes Smoking Status: Former Smoker Podiatry Consult Exam Vital Signs Vital Sign - Last Date Time Temp Pulse Resp B/P Pulse Ox O2 Delivery O2 Flow Rate FiO2 04/23/16 08:18 37.0 83 19 162/80 95 Room Air Intake and Output 04/22/16 04/22/16 04/23/16 Cumulative From/Thru 15:00 23:00 07:00 04/19/16 23:30 - 04/23/16 05:20 Intake Total 1786 ml 1320 ml 71133 ml Output Total 1200 ml 7825 ml Balance 586 ml 1320 ml 6228 ml Intake Oral 780 ml 2696 ml IV Total 1006 ml 1320 ml 59895 ml Output Urine Total 1200 ml 7775 ml Emesis 50 ml # Voids 4 4 # Bowel Movements 0 0 Result Diagram: 04/21/16 0714 04/21/16 0714 Lab Test 04/19/16 22:45 04/20/16 00:00 04/20/16 00:10 04/20/16 00:20 Lactic Acid Level 2.0mmol/L (0.4-2.0) Phosphorus Level 2.0mg/dL (2.5-4.9) Hold Spivey Top Tube Received (Received) Hemoglobin A1c 9.8% (4.8-5.6) Urine Opiates Screen Negative Urine Methadone Screen Negative Urine Barbiturates Screen Negative Urine Amphetamines Screen Negative Urine Benzodiazepines Screen Negative Urine Cocaine Metabolite Screen Negative Urine Cannabinoids Screen Positive Hold Urine Received (Received) Test 04/20/16 16:45 04/21/16 07:14 Lipase 25U/L (13-60) White Blood Count 6.5th/mm3 (3.8-10.1) Red Blood Count 5.16mil/mm3 (4.40-5.80) Hemoglobin 14.6g/dL (13.8-17.2) Hematocrit 41.5% (41.0-50.0) Mean Corpuscular Volume 80.4fL (81-100) Mean Corpuscular Hemoglobin 28.3pg (27.0-35.0) Mean Corpuscular Hemoglobin Concent 35.2% (32.0-37.0) Red Cell Distribution Width 13.3% (12.3-15.4) Platelet Count 163bil/L (150-400) Neutrophils (%) (Auto) 75.9% (40-74) Lymphocytes (%) (Auto) 13.6% (14-46) Monocytes (%) (Auto) 9.2% (4-12) Eosinophils (%) (Auto) 0.9% (0-5) Basophils (%) (Auto) 0.2% (0-3) Sodium Level 140mEq/L (134-144) Potassium Level 3.8mEq/L (3.5-5.2) Chloride Level 103mEq/L (97-108) Carbon Dioxide Level 23mmol/L (18-29) Blood Urea Nitrogen 14mg/dL (6-24) Creatinine 0.90mg/dL (0.76-1.27) Estimat Glomerular Filtration Rate 97mL/min (>59) Glucose Level 232mg/dL (60-99) Calcium Level 8.3mg/dL (8.5-10.1) Magnesium Level 1.8mg/dL (1.6-2.6) Total Bilirubin 0.4mg/dL (0.0-1.2) Aspartate Amino Transf (AST/SGOT) 23U/L (0-50) Alanine Aminotransferase (ALT/SGPT) 23U/L (0-44) Alkaline Phosphatase 63U/L (25-150) Total Protein 5.8g/dL (6.4-8.4) Albumin 2.8g/dL (3.4-5.0) Exam General: Alert, Oriented X3, No Acute Distress Lower Extremity Pulses: Palpable: Left Dorsalis Pedis Left Posterior Tibal Right Dorsalis Pedis Right Posterior Tibal Podiatry WOUND : Wound Location/Description Left foot transmetatarsal amputation site hyperkeratoses without open ulceration. No surrounding erythema and no signs of acute abscess formation. Right hallux ulceration full-thickness to subcutaneous tissue with mild overlying hyperkeratoses. This wound measures 3 cm x 1.5 cm x 0.4 cm in depth and is 100% fibrotic there is no exposed bone or tendon there is mild yellow drainage and a moderate amount of malodor no signs of abscess formation. Right sub-met 4 full-thickness ulceration measuring 1.5 cm x 1.5 cm x 0.5 cm in depth the wound bed is 100% fibrotic there is no surrounding erythema and mild malodor and mild yellow drainage noted. No exposed bone or tendon Partial limitation of the right first second and third digit complete application of the right fourth digit and partial fifth ray amputation Assessment & Plan Assessment Chronic right lower extremity ulcerations without signs of deep abscess formation Problems: Plan Detailed evaluation today full-thickness excisional debridement of the right hallux and sub-met 4 ulceration with removal of all fibrotic and nonviable soft tissue. These wounds were copiously flushed. Sharp debridement of left foot hyperkeratoses. No underlying ulceration noted to the distal left foot amputation site. The right lower 70 ulcerations were dressed with Betadine soaked gauze and dry sterile gauze Kerlix and a loosely applied Helio bandage. There is mild malodor however no signs of abscess formation. No immediate surgical intervention is necessary. Suggest transition to outpatient care with oral antibiotic therapy for 1-2 weeks. This patient should follow-up with Dr. Citlali Norton at the wound care center within 5 days of discharged. Right lower extremity dressing is to remain clean dry and intact until follow-up. Podiatry will continue to follow this patient while he is admitted. VTE Prophylaxis: Sub-Q Enoxaparin VTE Mechanical Devices: Intermittant Pneumatic CD Thony Cordero DPM Apr 23, 2016 12:54
[2016-04-23 13:06] VITALS: BP 159/74; PULSE 86; RESP 18; O2SAT 94
--- NOTE | 2016-04-23 14:31 | NUR ---
NUTRITION ASSESSMENT Assess: 45 you M w/ intractable nausea/vomiting, hyponatremia, and hyperglycemia. Chronic rt lower extremity ulcerations also present. Pt has been on a clear liquid diet x3 days. Pt states he still feels quite nauseous. He notes that he still has an appetite but does not eat very much because he knows it will cause him to vomit. 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 Glu 232, Ca 8.3, Albumin 2.8 MEDICATIONS: Reviewed. Insulin, Compazine, Zofran DIET: Clear liquid x3 days, PO 0-10% of most meals NUTRITION FOCUSED PHYSICAL ASSESSMENT: GI symptoms/stool: No BM notedBraden: 21 Skin integrity: Chronic lower extremity ulcerations Overall Appearance: Overweight man sitting in bed ANTHROPOMETRICS: Current Wt: 134.2 kgBMI: 34.2 kgAdmit Wt: 134.2 kg IBW: 97.3 kgRecent wt changes: 6.7 kg wt loss x2 months (5% = not significant) ESTIMATED NEEDS: BMI Calories: 3012-9719 kcal/d (20-22 kcal/kg/d) Protein: 115-145 g/d (1.2-1.5 g/kg/d IBW) Fluids: 9540-8767 ml/d (1 ml/kcal/d) NUTRITION DIAGNOSIS: 1) Inadequate oral intake related to GI abnormalities as evidenced by intractable nausea/vomiting and need for clear liquid diet. 2) Altered nutrition related lab values related to type 2 diabetes as evidenced by A1c of 9.8 INTERVENTION: 1) Will send Fruit Punch Gelatein and Ensure Clear TID to promote supplement protein intake. 2) Diabetic education prior to discharge MONITOR/EVALUATE: Diet adv/julio, PO intake, Labs, Wt, GI, Nutrition status, POC. Will follow per high nutrition risk guidelines.
[2016-04-23 15:03] LABS: APPEARANCE,URINE HAZY (CLEAR,HAZY); COLOR,URINE YELLOW (YELLOW); OCCULT BLOOD,URINE MODERATE (NEGATIVE); PH,URINE 6.5 (5.0-8.0)
--- NOTE | 2016-04-23 15:34 | NUR ---
Blood cultures The lab called and notified that the pt had 2 positive blood cultures. Doctor notified.
--- NOTE | 2016-04-23 15:45 | PCM.PNMED ---
Subjective Date of Service Apr 23, 2016 Subjective Pt seen and examined. Patient has no complaints at the moment. Patient has had decreased hiccups since compazine was started. Patient was seen by podiatry today. Exam Vital Signs Vital Sign - Last Date Time Temp Pulse Resp B/P Pulse Ox O2 Delivery O2 Flow Rate FiO2 04/23/16 13:06 37.1 86 18 159/74 94 Room Air Intake and Output 04/22/16 04/22/16 04/23/16 Cumulative From/Thru 15:00 23:00 07:00 04/19/16 23:30 - 04/23/16 05:20 Intake Total 1786 ml 1320 ml 69090 ml Output Total 1200 ml 7825 ml Balance 586 ml 1320 ml 6228 ml Intake Oral 780 ml 2696 ml IV Total 1006 ml 1320 ml 04826 ml Output Urine Total 1200 ml 7775 ml Emesis 50 ml # Voids 4 4 # Bowel Movements 0 0 Exam General: Obese man sitting forward moderate distress HEENT: sclerae anicteric, oral mucosa moist Neck: no JVD Chest: clear to auscultation Cardiac: S1S2, no murmur Abdomen: BS present, non-tender to palpate Extremities: No edema; bilateral bandaged foot ulcers with status post amputation right forefoot; minor erythema, Neuro: A&O, cranial nerves symmetric, motor strength 5/5, IVs and Medications Medications Reviewed: Medications were reviewed in detail Lab and Diagnostics Result Diagram: 04/21/1671304/21/16713 X-Rays, CTs and MRIs PROCEDURE: CT ABDOMEN AND PELVIS WITH CONTRAST ([id number]) IMPRESSION: No acute abnormality. Normal appearance of the appendix. No evidence of bowel obstruction. Moderate splenomegaly. Right renal cyst. Dictated by: Adán Jean M.D. on 04/20/2016 at 8:04 Additional Diagnostics Urine dip per ER note and report is negative including negative ketones. Assessment & Plan 1. Intractable nausea vomiting and abdominal pain, acute, present on admission. Abdominal CAT scan was unremarkable. Possible marijuana-related vomiting versus gastroenteritis. No fever or diarrhea. Abdomen pain seems related to nausea and vomiting. - Pt is improving in terms of his nausea and vomiting - Pt was able to take in more clear liquids and his hiccups have subsided - will work to wean patient off of anti emetics 2. Hyponatremia, acute, present on admission - Euvolemic. We will replete with saline and follow. - resolved 4. Hyperglycemia and type II diabetic, acute, present on admission He has not been taking his Lantus and usually takes 60 units subcutaneous twice a day - Check 4 times a day blood sugars. - Continue Lantus at two thirds of normal dose (40 units twice a day) - Increase regular insulin correctional scale to high dose 5. Peripheral vascular disease with diabetic foot ulcers. No signs of systemic infection - Wound care consult and podiatry consult - podiatry consult called - wounds debrided at bedside - will start augmentin as per podiatry recommendations # DVT prophylaxis Use SCDs in place on subcutaneous prophylactic Lovenox # CODE STATUS Patient is full code Discharge plan: Expect improved symptom control with IV hydration and additional antiemetics, then discharge when able to take oral diet. Likely 1-2 days. GI Prophylaxis: H2 francisco VTE Prophylaxis: Sub-Q Enoxaparin VTE Mechanical Devices: Intermittant Pneumatic CD Resuscitation Status: CPR: Attempt Resuscitation Rajesh Shannon MD Apr 23, 2016 15:44
[2016-04-23 18:20] VITALS: BP 168/87; PULSE 88; RESP 18; O2SAT 96
[2016-04-23] MEDS: Labetalol 5 mg/mL 4 mL Inj IVPUSH PRN (18:25)
[2016-04-23] MEDS: Amoxicillin-Clav 875-125 mg Tablet PO SCH (20:03)
[2016-04-23] MEDS: LORazepam 0.5 mg Tablet PO PRN (20:04)
[2016-04-23 22:00] VITALS: BP 156/75; PULSE 83; RESP 18; O2SAT 94
[2016-04-24] VITALS (8 sets, daily range): BP systolic 155–202; BP diastolic 77–88; PULSE 80–90; RESP 18–20; O2SAT 95–96
[2016-04-24] MEDS: hydrALAZINE 20 mg/mL Inj IV PRN (02:44)
[2016-04-24] MEDS: 0.9% Sodium Chloride 1,000 ML IV SCH ×3 (03:51→18:28)
[2016-04-24] MEDS: Insulin Human REGular 300 Unit/3 mL Inj SUBQ SCH ×4 (07:30→21:12)
[2016-04-24] MEDS: Insulin GLARgine 100 Unit/mL Syringe SUBQ SCH ×2 (07:58→21:07)
[2016-04-24 08:11] LABS: BASOPHILS % (AUTO) 0.1 % (0-3); EOSINOPHILS % (AUTO) 0.7 % (0-5); MONOCYTES % (AUTO) 10.5 % (4-12); Mean Corpuscular Hemoglobin 28.8 pg (27.0-35.0); Mean Corpuscular Volume 79.2 fL (81-100); Platelet Count 195 bil/L (150-400)
[2016-04-24] MEDS: Famotidine Inj 20 MG in IV Premix 1 EACH IV SCH ×2 (08:55→20:55)
[2016-04-24] MEDS: Sucralfate 100 mg/mL 10 mL Suspension PO SCH ×4 (08:56→21:07)
[2016-04-24] MEDS: Amoxicillin-Clav 875-125 mg Tablet PO SCH ×2 (08:56→21:07)
--- NOTE | 2016-04-24 09:07 | NUR ---
[facility] signed @ [id number]
[2016-04-24] MEDS ORDERED: Vancomycin Dose per Pharmacist XX SCH (11:10)
[2016-04-24] MEDS: Labetalol 5 mg/mL 4 mL Inj IVPUSH PRN ×2 (11:33→21:24)
--- NOTE | 2016-04-24 15:10 | NUR ---
Pain- Patient complained of left rib pain this am, rating it 8/10, and being unable to get comfortable in bed. Denied feeling nauseated. IV Toradol given and has been effective for most of discomfort. Patient able to get up and shower, and appears to be moving better. Tolerating clear liquids. Dr Norton in to change bilateral foot dressings. Patient denies discomfort in feet.
--- NOTE | 2016-04-24 16:44 | PCM.PNMED ---
Subjective Date of Service Apr 24, 2016 Subjective Pt seen and examined this am. Patient is improving significantly and has not had any bouts of emesis for the past 24 hours. Will continue to taper down the pain medications and slowly advance diet. Exam Vital Signs Vital Sign - Last Date Time Temp Pulse Resp B/P Pulse Ox O2 Delivery O2 Flow Rate FiO2 04/24/16 14:39 83 96 Room Air 04/24/16 12:24 158/86 04/24/16 08:00 37.2 20 Intake and Output 04/23/16 04/23/16 04/24/16 Cumulative From/Thru 15:00 23:00 07:00 04/19/16 23:30 - 04/24/16 06:35 Intake Total 120 ml 2132 ml 1985 ml 12706 ml Output Total 1200 ml 1800 ml 2100 ml 25691 ml Balance -1080 ml 332 ml -115 ml 5365 ml Intake Oral 120 ml 600 ml 880 ml 4296 ml IV Total 1532 ml 1105 ml 51664 ml Output Urine Total 1200 ml 1800 ml 2100 ml 30299 ml Emesis 50 ml # Voids 4 # Bowel Movements 0 0 Exam General: Obese man in no apparent distress HEENT: sclerae anicteric, oral mucosa moist Neck: no JVD Chest: clear to auscultation Cardiac: S1S2, no murmur Abdomen: BS present, non-tender to palpate Extremities: No edema; bilateral bandaged foot ulcers with status post amputation right forefoot; no erythema swelling or redness Neuro: A&O, cranial nerves symmetric, motor strength 5/5, IVs and Medications Medications Reviewed: Medications were reviewed in detail Lab and Diagnostics Result Diagram: 04/24/1645 04/24/16 0745 X-Rays, CTs and MRIs PROCEDURE: CT ABDOMEN AND PELVIS WITH CONTRAST ([id number]) IMPRESSION: No acute abnormality. Normal appearance of the appendix. No evidence of bowel obstruction. Moderate splenomegaly. Right renal cyst. Dictated by: Adán Jean M.D. on 04/20/2016 at 8:04 Additional Diagnostics Urine dip per ER note and report is negative including negative ketones. Assessment & Plan 1. Intractable nausea vomiting and abdominal pain, acute, present on admission. Abdominal CAT scan was unremarkable. Possible marijuana-related vomiting versus gastroenteritis. No fever or diarrhea. Abdomen pain seems related to nausea and vomiting. - Pt is improving in terms of his nausea and vomiting - Pt was able to take in more clear liquids and his hiccups have subsided - will work to wean patient off of anti emetics 2. Hyponatremia, acute, present on admission - Euvolemic. We will replete with saline and follow. - resolved 4. Hyperglycemia and type II diabetic, acute, present on admission He has not been taking his Lantus and usually takes 60 units subcutaneous twice a day - Check 4 times a day blood sugars. - Continue Lantus at two thirds of normal dose (40 units twice a day) - Increase regular insulin correctional scale to high dose 5. Peripheral vascular disease with diabetic foot ulcers with positive blood cultures - Wound care consult and podiatry consult - podiatry consult called - wounds debrided at bedside - will start augmentin as per podiatry recommendations - blood cultures growing group b strep # DVT prophylaxis Use SCDs in place on subcutaneous prophylactic Lovenox # CODE STATUS Patient is full code Discharge plan: Expect improved symptom control with IV hydration and additional antiemetics, then discharge when able to take oral diet. Likely 1-2 days. GI Prophylaxis: H2 francisco VTE Prophylaxis: Sub-Q Enoxaparin VTE Mechanical Devices: Intermittant Pneumatic CD Resuscitation Status: CPR: Attempt Resuscitation Rajesh Shannon MD Apr 24, 2016 16:42
[2016-04-24] MEDS: Ondansetron 2 mg/mL 2 mL Inj IVPUSH PRN (17:26)
--- NOTE | 2016-04-24 17:58 | PCM.PNPOD ---
Subjective Date of Service: Apr 24, 2016 Date of Service: Apr 24, 2016 Visit Information: Reason for Visit Intractable Nausea/Vomiting/Diabetes/Hyperglycemia Surgery/Surgery Date Post-Op Day # Date of Admission: Apr 20, 2016 at 03:17 Hospital Day # Subjective: The patient is seen at bedside today for reevaluation of bilateral foot ulcers. Tunneling area of purulence showed up on his right great toe and excised the tunneling area yesterday. He has been off of his feet for about 5 days in his left foot ulceration appears to be completely healed. Gastrointestinal: Tolerating Oral Feedings, Complains of Nausea (improved) Neurological: Numbness (peripheral neuropathy at baseline) Objective Vital Sign - Last Date Time Temp Pulse Resp B/P Pulse Ox O2 Delivery O2 Flow Rate FiO2 04/24/16 14:39 83 96 Room Air 04/24/16 12:24 158/86 04/24/16 08:00 37.2 20 Intake and Output 04/23/16 04/23/16 04/24/16 Cumulative From/Thru 15:00 23:00 07:00 04/19/16 23:30 - 04/24/16 06:35 Intake Total 120 ml 2132 ml 1985 ml 51046 ml Output Total 1200 ml 1800 ml 2100 ml 21946 ml Balance -1080 ml 332 ml -115 ml 5365 ml Intake Oral 120 ml 600 ml 880 ml 4296 ml IV Total 1532 ml 1105 ml 80880 ml Output Urine Total 1200 ml 1800 ml 2100 ml 06196 ml Emesis 50 ml # Voids 4 # Bowel Movements 0 0 Result Diagram: 04/24/16 0745 04/24/16 0745 Lab Test 04/19/16 22:45 04/20/16 00:00 04/20/16 00:10 04/20/16 00:20 Lactic Acid Level 2.0mmol/L (0.4-2.0) Phosphorus Level 2.0mg/dL (2.5-4.9) Hold Spivey Top Tube Received (Received) Hemoglobin A1c 9.8% (4.8-5.6) Urine Opiates Screen Negative Urine Methadone Screen Negative Urine Barbiturates Screen Negative Urine Amphetamines Screen Negative Urine Benzodiazepines Screen Negative Urine Cocaine Metabolite Screen Negative Urine Cannabinoids Screen Positive Hold Urine Received (Received) Test 04/20/16 16:45 04/21/16 07:14 04/23/16 14:20 04/24/16 07:45 Lipase 25U/L (13-60) Magnesium Level 1.8mg/dL (1.6-2.6) Urine Color Yellow (YELLOW) Urine Appearance Hazy (CLEAR,HAZY) Urine pH 6.5 (5.0-8.0) Urine Specific [place] 1.025 (1.003-1.035) Urine Protein 300mg/dL (NEG,TRACE) Urine Glucose (UA) 100mg/dL (NEGATIVE) Urine Ketones 40mg/dL (NEGATIVE) Urine Occult Blood Moderate (NEGATIVE) Urine Nitrite Negative (NEGATIVE) Urine Bilirubin Negative (NEGATIVE) Urine Urobilinogen 2.0mg/dL (NORMAL) Urine Leukocyte Esterase Negative (NEGATIVE) White Blood Count 12.2th/mm3 (3.8-10.1) Red Blood Count 4.80mil/mm3 (4.40-5.80) Hemoglobin 13.8g/dL (13.8-17.2) Hematocrit 38.0% (41.0-50.0) Mean Corpuscular Volume 79.2fL (81-100) Mean Corpuscular Hemoglobin 28.8pg (27.0-35.0) Mean Corpuscular Hemoglobin Concent 36.3% (32.0-37.0) Red Cell Distribution Width 12.8% (12.3-15.4) Platelet Count 195bil/L (150-400) Neutrophils (%) (Auto) 80.0% (40-74) Lymphocytes (%) (Auto) 7.9% (14-46) Monocytes (%) (Auto) 10.5% (4-12) Eosinophils (%) (Auto) 0.7% (0-5) Basophils (%) (Auto) 0.1% (0-3) Sodium Level 134mEq/L (134-144) Potassium Level 3.6mEq/L (3.5-5.2) Chloride Level 97mEq/L (97-108) Carbon Dioxide Level 28mmol/L (18-29) Blood Urea Nitrogen 7mg/dL (6-24) Creatinine 0.79mg/dL (0.76-1.27) Estimat Glomerular Filtration Rate 113mL/min (>59) Glucose Level 161mg/dL (60-99) Calcium Level 7.8mg/dL (8.5-10.1) Total Bilirubin 0.6mg/dL (0.0-1.2) Aspartate Amino Transf (AST/SGOT) 14U/L (0-50) Alanine Aminotransferase (ALT/SGPT) 12U/L (0-44) Alkaline Phosphatase 87U/L (25-150) Total Protein 5.0g/dL (6.4-8.4) Albumin 2.3g/dL (3.4-5.0) Diagnostics Microbiology specimens yielded heavy growth of beta Streptococcus, Staphylococcus aureus, Enterobacter cloacae complex Exam Physical Exam The patient is sitting up in bed, alert oriented and cooperative, in no acute distress General: Alert, Oriented X3, No Acute Distress Lungs: Clear to Auscultation Lower Extremity Pulses: Palpable: Left Dorsalis Pedis Left Posterior Tibal Right Dorsalis Pedis Right Posterior Tibal Podiatry WOUND : Wound Location/Description Left transmetatarsal amputation with postulcerative callus. No open ulceration. Right foot plantar fourth metatarsal head ulceration is granular, moist and appears clean. Right plantar great toe ulceration is granular and clean and extends distally to the distal tip of the toe, indicating that this was the previous extension of infection. Assessment & Plan Problems: (1) Diabetic foot ulcer associated with type 2 diabetes mellitus Qualifiers: Laterality: bilateral Qualified Code: E11.621 - Type 2 diabetes mellitus with foot ulcer Plan: The patient's ulcerations thoroughly debrided yesterday. I cleansed them with normal saline and Betadine mixture today. Wet to dry dressing was applied using the same mixture and finishing with an Helio wrap. It is beneficial for the patient to stay on IV antibiotics for another day or 2 can stay in the hospital as he is more prone for a reopening the same ulcerations when he returns home. Dr. Cordero will be back tomorrow for inpatient rounds. I do not anticipate any further debridement will be necessary. He is currently scheduled to be seen as an outpatient in the wound care center. It is important that he follows up within 1 week of discharge. Status: Chronic ICD Code: E11.621 (2) Cellulitis of right foot Plan: At this point, due to multimicrobial infection including staph aureus the patient is on vancomycin. It is thought that staph aureus at this point is the most important player. He has been treated for streptococcal infection as outpatient, but that did not solve the problem. Proper shoe gear and offloading will be permanently important for this patient to prevent further ulcerations and infections. Status: Acute ICD Code: L03.115 VTE Prophylaxis: Sub-Q Enoxaparin Citlali Norton DPM Apr 24, 2016 17:58
[2016-04-25] VITALS (10 sets, daily range): BP systolic 151–201; BP diastolic 68–94; PULSE 73–84; RESP 16–18; O2SAT 95–97
[2016-04-25] MEDS: Ondansetron 2 mg/mL 2 mL Inj IVPUSH PRN ×2 (03:04→09:25)
[2016-04-25] MEDS: 0.9% Sodium Chloride 1,000 ML IV SCH ×3 (03:11→20:14)
[2016-04-25] MEDS: hydrALAZINE 20 mg/mL Inj IV PRN ×2 (04:26→12:08)
[2016-04-25] MEDS: LORazepam 0.5 mg Tablet PO PRN ×2 (05:29→12:08)
--- NOTE | 2016-04-25 05:50 | NUR ---
N/V/Pain per pt he awake and vomited 10 ml yellow in color emesis. administered 8mg of Zofran IVP. Pt not vomiting, but still nauseated. administered Reglan PO. On assessment pt state " it's not just the nausea, the infection is going up into my gut. I was expecting to receive IV ABX per told me instead of oral". reassured pt, gave PO Ativan. C/O abdominal and rib pain related to N/V. Administered IVP Morphine. pt respond pain reduced to 6/10. administered IVP Toradol. pt report pain relief 4/10 which is his tolerable level and state " it comes and goes." Bed is locked and in low position. call light within reach. will continue to monitor.
[2016-04-25] MEDS: Insulin Human REGular 300 Unit/3 mL Inj SUBQ SCH ×3 (07:30→17:00)
--- NOTE | 2016-04-25 08:23 | NUR ---
Antibiotic Clarification Contacted Dr. Shannon with the following cook page: Patient is stating his antibiotic was supposed to be changed to IV Vancomycin, but Augmentin is still ordered. Please advise. Thank you. Lisa BUENROSTRO
[2016-04-25] MEDS: Insulin GLARgine 100 Unit/mL Syringe SUBQ SCH ×2 (08:26→21:21)
[2016-04-25] MEDS: Sucralfate 100 mg/mL 10 mL Suspension PO SCH ×4 (08:28→21:21)
[2016-04-25] MEDS: Famotidine Inj 20 MG in IV Premix 1 EACH IV SCH ×2 (08:29→21:21)
--- NOTE | 2016-04-25 08:42 | NUR ---
Computer Issues Unable to scan most medications this morning, even when scanning patient's ID band, the message would say "scan ID band first". Called [employer] for assistance, was asked to turn the system off and then on, seems to be working again now, but will call for assistance again if problem persists.
[2016-04-25] MEDS: Amoxicillin-Clav 875-125 mg Tablet PO SCH (09:25)
[2016-04-25] MEDS: Labetalol 5 mg/mL 4 mL Inj IVPUSH PRN (09:25)
--- NOTE | 2016-04-25 10:48 | NUR ---
Morning Rounds Staffed patient's case with Dr. Shannon, social work and case management. Dr. Shannon stated patient will hopefully remain on oral antibiotics, but patient has had a return of vomiting and if this persists he would like to obtain a small bowel series for patient. Otherwise, Dr. Shannon stated he would like to discharge patient by 04/27/16.
--- NOTE | 2016-04-25 12:49 | NUR ---
Elevated BP/Uncontrolled Nausea/Vomiting Contacted Dr. Shannon with the following cook page: Patient's current BP 191/81, which is after PRN Hydralazine was given. Have given PRN Labetalol and Hydralazine, but BP still elevated. Also, patient's nausea not controlled, still vomiting, have given Zofran, Ativan and Reglan. Please advise. Thank you. Lisa BUENROSTRO
[2016-04-25] MEDS ORDERED: Promethazine 25 mg/mL Inj IM PRN (13:15)
[2016-04-25] MEDS ORDERED: Labetalol 5 mg/mL 4 mL Inj IVPUSH PRN (13:35)
[2016-04-25] MEDS ORDERED: Promethazine 12.5 mg/50 mL D5W IV PRN ×2 (13:35)
--- NOTE | 2016-04-25 16:40 | PCM.PNMED ---
Subjective Date of Service Apr 25, 2016 Subjective Patient seen and examined. Patient was doing well last night until he developed a sudden onset of vomiting and nausea last night around 3 am. Patient has been nauseous since then. Patient is otherwise doing well. Exam Vital Signs Vital Sign - Last Date Time Temp Pulse Resp B/P Pulse Ox O2 Delivery O2 Flow Rate FiO2 04/25/16 16:25 36.8 84 18 163/71 95 Room Air Intake and Output 04/24/16 04/24/16 04/25/16 Cumulative From/Thru 15:00 23:00 07:00 04/19/16 23:30 - 04/25/16 06:04 Intake Total 2030 ml 1822 ml 09053 ml Output Total 1200 ml 860 ml 10674 ml Balance 830 ml 962 ml 7157 ml Intake Oral 940 ml 400 ml 5636 ml IV Total 1090 ml 1422 ml 63861 ml Output Urine Total 1200 ml 850 ml 03887 ml Emesis 10 ml 60 ml # Voids 4 # Bowel Movements 1 0 1 Exam General: Obese man in no apparent distress HEENT: sclerae anicteric, oral mucosa moist Neck: no JVD Chest: clear to auscultation Cardiac: S1S2, no murmur Abdomen: BS present, non-tender to palpate Extremities: No edema; bilateral bandaged foot ulcers with status post amputation right forefoot; no erythema swelling or redness Neuro: A&O, cranial nerves symmetric, motor strength 5/5, IVs and Medications Medications Reviewed: Medications were reviewed in detail Lab and Diagnostics Result Diagram: 04/24/1674404/24/16744 X-Rays, CTs and MRIs PROCEDURE: CT ABDOMEN AND PELVIS WITH CONTRAST (PNL-7102) IMPRESSION: No acute abnormality. Normal appearance of the appendix. No evidence of bowel obstruction. Moderate splenomegaly. Right renal cyst. Dictated by: Adán Jean M.D. on 04/20/2016 at 8:04 Additional Diagnostics Urine dip per ER note and report is negative including negative ketones. Assessment & Plan 1. Intractable nausea vomiting and abdominal pain, acute, present on admission. Abdominal CAT scan was unremarkable. Possible marijuana-related vomiting versus gastroenteritis. No fever or diarrhea. Abdomen pain seems related to nausea and vomiting. - Pt has decompensated in terms of his vomiting 8 hours after eating dinner last night - Given his history and lack of resolution will consider the possibility of a gastric emptying study - pt is currently back on clear liquid diet. - will continue to monitor, the earliest it can be done is friday - will avoid reglan 48 hours before and morphine 6 hours before 2. Hyponatremia, acute, present on admission - Euvolemic. We will replete with saline and follow. - resolved 4. Hyperglycemia and type II diabetic, acute, present on admission He has not been taking his Lantus and usually takes 60 units subcutaneous twice a day - Check 4 times a day blood sugars. - Continue Lantus at two thirds of normal dose (40 units twice a day) - Increase regular insulin correctional scale to high dose 5. Peripheral vascular disease with diabetic foot ulcers with positive blood cultures - Wound care consult and podiatry consult - podiatry consult called - wounds debrided at bedside - will start augmentin as per podiatry recommendations - blood cultures growing group b strep - infectious disease consult pending # DVT prophylaxis Use SCDs in place on subcutaneous prophylactic Lovenox # CODE STATUS Patient is full code Discharge plan: Expect improved symptom control with IV hydration and additional antiemetics, then discharge when able to take oral diet. Likely 1-2 days. GI Prophylaxis: H2 francisco VTE Prophylaxis: Sub-Q Enoxaparin VTE Mechanical Devices: Intermittant Pneumatic CD Resuscitation Status: CPR: Attempt Resuscitation Rajesh Shannon MD Apr 25, 2016 16:37
--- NOTE | 2016-04-25 17:05 | NUR ---
Blood Sugars/Insulin Needs Contacted Dr. Shannon with the following cook page: Patient has Lantus 40 units scheduled BID, his blood sugars have been 101, 99 and now 93. Please review scheduled Lantus and high dose sliding scale for possible reduction. Thank you. Lisa BUENROSTRO
[2016-04-25] MEDS ORDERED: Promethazine 25 mg/mL Inj IV PRN (17:15)
--- NOTE | 2016-04-25 17:28 | PCM.PNPOD ---
Subjective Date of Service: Apr 25, 2016 Date of Service: Apr 25, 2016 Visit Information: Reason for Visit Intractable Nausea/Vomiting/Diabetes/Hyperglycemia Surgery/Surgery Date Post-Op Day # Date of Admission: Apr 20, 2016 at 03:17 Hospital Day # Subjective: 45 year old male eval at bedside in NAD. No new events overnight Postop General: No Complaints Gastrointestinal: Good Appetite Pain Management: PO Objective Vital Sign - Last Date Time Temp Pulse Resp B/P Pulse Ox O2 Delivery O2 Flow Rate FiO2 04/25/16 16:25 36.8 84 18 163/71 95 Room Air Intake and Output 04/24/16 04/24/16 04/25/16 Cumulative From/Thru 15:00 23:00 07:00 04/19/16 23:30 - 04/25/16 06:04 Intake Total 2030 ml 1822 ml 42435 ml Output Total 1200 ml 860 ml 50803 ml Balance 830 ml 962 ml 7157 ml Intake Oral 940 ml 400 ml 5636 ml IV Total 1090 ml 1422 ml 39247 ml Output Urine Total 1200 ml 850 ml 74557 ml Emesis 10 ml 60 ml # Voids 4 # Bowel Movements 1 0 1 Result Diagram: 04/24/16 0745 04/24/16 0745 Lab Test 04/19/16 22:45 04/20/16 00:00 04/20/16 00:10 04/20/16 00:20 Lactic Acid Level 2.0mmol/L (0.4-2.0) Phosphorus Level 2.0mg/dL (2.5-4.9) Hold Spivey Top Tube Received (Received) Hemoglobin A1c 9.8% (4.8-5.6) Urine Opiates Screen Negative Urine Methadone Screen Negative Urine Barbiturates Screen Negative Urine Amphetamines Screen Negative Urine Benzodiazepines Screen Negative Urine Cocaine Metabolite Screen Negative Urine Cannabinoids Screen Positive Hold Urine Received (Received) Test 04/20/16 16:45 04/21/16 07:14 04/23/16 14:20 04/24/16 07:45 Lipase 25U/L (13-60) Magnesium Level 1.8mg/dL (1.6-2.6) Urine Color Yellow (YELLOW) Urine Appearance Hazy (CLEAR,HAZY) Urine pH 6.5 (5.0-8.0) Urine Specific [place] 1.025 (1.003-1.035) Urine Protein 300mg/dL (NEG,TRACE) Urine Glucose (UA) 100mg/dL (NEGATIVE) Urine Ketones 40mg/dL (NEGATIVE) Urine Occult Blood Moderate (NEGATIVE) Urine Nitrite Negative (NEGATIVE) Urine Bilirubin Negative (NEGATIVE) Urine Urobilinogen 2.0mg/dL (NORMAL) Urine Leukocyte Esterase Negative (NEGATIVE) White Blood Count 12.2th/mm3 (3.8-10.1) Red Blood Count 4.80mil/mm3 (4.40-5.80) Hemoglobin 13.8g/dL (13.8-17.2) Hematocrit 38.0% (41.0-50.0) Mean Corpuscular Volume 79.2fL (81-100) Mean Corpuscular Hemoglobin 28.8pg (27.0-35.0) Mean Corpuscular Hemoglobin Concent 36.3% (32.0-37.0) Red Cell Distribution Width 12.8% (12.3-15.4) Platelet Count 195bil/L (150-400) Neutrophils (%) (Auto) 80.0% (40-74) Lymphocytes (%) (Auto) 7.9% (14-46) Monocytes (%) (Auto) 10.5% (4-12) Eosinophils (%) (Auto) 0.7% (0-5) Basophils (%) (Auto) 0.1% (0-3) Sodium Level 134mEq/L (134-144) Potassium Level 3.6mEq/L (3.5-5.2) Chloride Level 97mEq/L (97-108) Carbon Dioxide Level 28mmol/L (18-29) Blood Urea Nitrogen 7mg/dL (6-24) Creatinine 0.79mg/dL (0.76-1.27) Estimat Glomerular Filtration Rate 113mL/min (>59) Glucose Level 161mg/dL (60-99) Calcium Level 7.8mg/dL (8.5-10.1) Total Bilirubin 0.6mg/dL (0.0-1.2) Aspartate Amino Transf (AST/SGOT) 14U/L (0-50) Alanine Aminotransferase (ALT/SGPT) 12U/L (0-44) Alkaline Phosphatase 87U/L (25-150) Total Protein 5.0g/dL (6.4-8.4) Albumin 2.3g/dL (3.4-5.0) Exam General: Alert, Oriented X3, No Acute Distress Lungs: Clear to Auscultation Lower Extremity Pulses: Palpable: Left Dorsalis Pedis Left Posterior Tibal Right Dorsalis Pedis Right Posterior Tibal Podiatry WOUND : Wound Location/Description right hallux ulceration full thickness to deeptissue without exposed bone or tendon. wound bed in 100% granular no signs of infection right sub met 4 full thickness ulcer 50% fibrotic. no mal odor. no erythema, no signs of infection. minimal serosanguinous drainage. Assessment & Plan Impression stable right foot ulcerations without signs of acute infection. Problems: (1) Diabetic foot ulcer associated with type 2 diabetes mellitus Qualifiers: Laterality: bilateral Qualified Code: E11.621 - Type 2 diabetes mellitus with foot ulcer Plan: dressing changed today wet to dry dressing applied. no signs of infection clinically. xray ordered today. continue ABX per Dr. Waldemar hancock. Podiatry will follow daily. Status: Chronic ICD Code: E11.621 (2) Cellulitis of right foot Status: Acute ICD Code: L03.115 VTE Prophylaxis: Sub-Q Enoxaparin Thony Cordero DPM Apr 25, 2016 17:28
--- NOTE | 2016-04-25 18:15 | NUR ---
Blood Sugars/Insulin Needs Re-paged Dr. Shannon with the following cook page: Patient has Lantus 40 units scheduled BID, his blood sugars have been 101, 99 and 93. Please review scheduled Lantus and high dose sliding scale for possible reduction. Thank you. Lisa BUENROSTRO
--- NOTE | 2016-04-25 20:12 | CONS ---
[address] [address] CONSULTATION REPORT PATIENT: KENNY JOHNSON : 1970 MR#: [id number] ADMIT: 04/20/2016 JOB ID: [id number] DATE OF SERVICE: 04/25/[address] Shannon for this timely consult. REASON FOR CONSULTATION: Group G streptococcal bacteremia. HISTORY OF PRESENT ILLNESS: The patient is an unfortunate, 45-year-old gentleman who is disabled by complications of diabetes. The patient in addition to diabetes has severe peripheral neuropathy which has led to a wide variety of foot problems including osteo abscesses and soft tissue infections. This finally culminated in a TMA on the left and multiple procedures on the right including debridement of the right great toe, resection of the 5th toe and 5th ray as well. The patient also has recently had an episode of acute renal failure precipitated apparently by dehydration and has also recently fallen and broken some ribs on the left. The current admission starts back on April 20 when the patient was admitted through the emergency department with intractable nausea, vomiting, fever and chills. Patient stated at that time, he had a temperature to 101 at home and that he was unable to keep any fluid down and was therefore skipping his insulin because of concerns about his blood sugars. There was no obvious focal source of this nausea, vomiting and fever and chills at the time of his admission and attention was directed toward his abdomen as well as his lower extremity. Over the course of the past several days, the patient has had a variety of studies done including cultures of blood and his right foot which have yielded a variety of organisms including blood cultures positive for a high-grade group G strep bacteremia. He has been treated with antibiotics which currently include oral Augmentin and is improving clinically even though some of his labs are actually going the opposite direction. ID consultation is requested regarding antibiotic management at this time. This evening, we interviewed the patient in his room with Dr. Cordero of Podiatry. The patient related that his left foot seems to be healing up well after his TMA which was done in the recent past. The patient has insensate feet so he is not completely up-to-date on what is going on with his right foot, but he has been receiving frequent wound dressings and re-evaluations by Dr. Cordero, Dr. Norton, and the [facility]. In fact, this evening he denies additional fevers or chills. His nausea and vomiting seems better though he still has a little bit of nausea and he is constipated. PAST MEDICAL HISTORY: 1. Type 2 diabetes with hemoglobin A1c around 10. 2. Severe peripheral neuropathy with insensate feet. 3. History of multiple foot infections eventually requiring left foot TMA as well as debridement of the right toe with loss of the 5th ray and 5th toe. 4. Obesity. 5. Depression. 6. Hypertension. SOCIAL HISTORY: The patient is disabled. He lives with a roommate and some pets in the local area. He does not smoke cigarettes anymore, but used to. He still smokes marijuana on a frequent basis and is not a drinker. FAMILY HISTORY: The patient's family history is positive for diabetes, coronary artery disease and lung cancer. REVIEW OF SYSTEMS: Was done. The patient does have a continued headache. He has some nasal drainage. No ocular complaints that are new. No sore throat or trouble swallowing. He is not having significant cough, chest pain, or shortness of breath. He has some residual nausea, but it is better than admission. No vomiting currently. He has constipation rather than diarrhea. The patient has no troubles with urination. He urinates normal amounts without dysuria. He is unaware of any problems with his feet but, of course, they are insensate and therefore cause him no trouble. He has not noticed any unusual drainage or swelling in his feet and that he probably would notice. No new neurologic complaints. PHYSICAL EXAMINATION: Reveals a gentleman who is sitting in bed in no acute distress. His BMI is 35.6, so he does meet barely the definition of obesity. His temperature is 36.8, and he has been as high as 39.3 on the . Pulse 84, respiratory rate 18, blood pressure 163/71, he is saturating 95% on room air. He is awake and alert. His eyes are without conjunctivitis. His oral cavity is notable for poor dentition. No thrush or pharyngitis is noted. His neck is reasonably supple without adenopathy. His lungs are clear posteriorly. Cardiac tones: Regular rate and rhythm without murmur. Abdomen: Perhaps somewhat obese distended, basically nontender without organomegaly though he does have a small amount of left lower quadrant tenderness. He also has some left chest wall tenderness which he attributes to his recent rib fractures from a fall. He does not have a Chung catheter nor does he have suprapubic distention. His upper legs are relatively normal-appearing with no cellulitis, edema or ischemia. His lower legs have excellent posterior tibial and dorsal pedal pulses which are actually quite startling given his past medical history. His left foot has undergone a TMA and is well healed. The right foot has had debridement of the great toe and there are small open areas there, but these appear uninfected. The 2nd, 3rd and 4th toes appear benign with the 5th toe having been removed. There is also small ulcer on the lateral plantar aspect of the foot which we carefully examined with Dr. Cordero and did not appear to be infected either. The patient's feet are totally insensate and he really has no idea if someone is manipulating his feet. Neurologically, the patient is intact otherwise except for his insensate feet. LABORATORIES: Include a white count that was normal from the to the and then yesterday jumped to 12,000 with a neutrophil percentage of 80. His creatinine is 0.79. His LFTs are normal. Albumin 2.3. Urinalysis negative. Urine tox screen positive for cannabinoids. Blood cultures times 2/4 bottles from April 22 grew group G strep. Right foot culture grew group G strep and Enterobacter which was quite susceptible including being susceptible to ceftriaxone and MSSA. Respiratory viral panel was negative. There has been no significant imaging this admission though he did have a CT scan of the abdomen which just showed moderate splenomegaly. IMPRESSION: This is an interesting case of an unfortunate, 45-year-old man who has been ravaged by diabetes and has terrible neuropathy with recurrent foot infections. His nausea and vomiting, I suspect, on admission were due to sepsis as he had undoubtedly bacteremic group G strep infection. The question now is where did the group G strep come from. It is possible this arose from his right great toe, but that area does not look too bad and we carefully examined him with Dr. Cordero. There is no deep ulceration and no probe to bone present so bacteremic osteomyelitis or severe soft tissue infection of the right foot seems unlikely. Another potential source for the group G strep would be endocarditis, and I think that possibility needs to be evaluated at least a bit more. Group G streps typically cause soft tissue infections, bone infections and occasionally endocarditis. RECOMMENDATIONS: 1. I would transition the patient's antibiotics from oral Augmentin to ceftriaxone 2 g a day as this will provide good coverage for the group G strep in the blood as well as Enterobacter and MSSA in the foot. 2. An x-ray of the foot should be done and Dr. Cordero has indicated he will order that. 3. Repeat blood cultures x2 should be done. 4. A transthoracic echo should be done at least to start with to make sure there is no obvious evidence of endocarditis. 5. The duration of ceftriaxone or similar therapy will depend on what we find in terms of possible osteo and/or endocarditis in this complex patient. Thank you very much for this consult.
[2016-04-26] VITALS (8 sets, daily range): BP systolic 160–184; BP diastolic 77–95; PULSE 73–91; RESP 18–20; O2SAT 94–97
[2016-04-26] MEDS: 0.9% Sodium Chloride 1,000 ML IV SCH ×3 (00:42→16:55)
--- NOTE | 2016-04-26 06:53 | NUR ---
Nausea c/o nausea x1 this shift. Prn zofran given and effective without any further complaints.
[2016-04-26] MEDS: Sucralfate 100 mg/mL 10 mL Suspension PO SCH ×4 (08:11→21:54)
[2016-04-26] MEDS: Ondansetron 2 mg/mL 2 mL Inj IVPUSH PRN (08:12)
[2016-04-26] MEDS: Famotidine Inj 20 MG in IV Premix 1 EACH IV SCH ×2 (08:16→20:19)
[2016-04-26] MEDS: Insulin GLARgine 100 Unit/mL Syringe SUBQ SCH ×2 (08:17→21:54)
[2016-04-26] MEDS: hydrALAZINE 20 mg/mL Inj IV PRN ×2 (08:25→17:17)
--- NOTE | 2016-04-26 09:40 | NUR ---
[facility] Signed 066fm
--- NOTE | 2016-04-26 10:02 | DRSVH ---
PROCEDURE: X-RAY RIGHT FOOT COMPLETE, MINIMUM THREE VIEWS ([id number]) INDICATIONS: chronic wounds TECHNIQUE: 3 views of the foot were acquired. COMPARISON: [facility], CR, XR FOOT 3VW RT, 03/22/2016, 15:09. FINDINGS: Bones: Postsurgical changes are redemonstrated status post multiple amputations including the 1st di stal phalanx, 2nd middle and distal phalanges, 3rd and 4th distal phalanges, and through the level of the 5th mid metatarsal shaft. No new erosions or periosteal reaction. No changes in alignment. No acute fracture or subluxation. Soft tissues: No suspicious soft tissue calcifications. No definite soft tissue gas. IMPRESSION: 1. Extensive post surgical changes redemonstrated as described without definite radiographic evidenc e of osteomyelitis. Dictated by: Arnoldo Parker M.D. on 04/26/2016 at 10:00 Approved by: Arnoldo Parker M.D. on 04/26/2016 at 10:00
[2016-04-26] MEDS: cefTRIAXone Inj 2,000 MG in IV Premix 1 EACH IV SCH (10:20)
--- NOTE | 2016-04-26 12:05 | DRSVH ---
[facility] [address] [place] [address] Echocardiogram Report Name: KENNY JOHNSON CStudy Date : 04/26/2016 Height: 78 in Hospital Exam Location: [facility] Weight: 310 lb Gender: Male BSA: 2.7 m2 : 1970 Age: 45 yrs BP: 180/87 mmHg Reason For Study: BACTEREMIA Ordering Physician: HOSPITALIST [facility] Performed By: John Mackey Referring Physician: CARROLL RUELAS Interpretation Summary 1. Normal left ventricular size with evidence for moderate concentric hypertrophy and normal to hyperdynamic systolic function with an estimated EF in the range of 65 to 70% 2. Normal right ventricular size and systolic function. 3. No evidence for significant valvular pathology compared to the previous study (images and report reviewed), no significant change Procedure: A two-dimensional transthoracic echocardiogram with color flow and Doppler was performed. The study quality was technically adequate. Comparison is made with the echocardiogram of 09/26/14. The patient was in normal sinus rhythm during the exam. Left Ventricle: There is moderate concentric left ventricular hypertrophy. The left ventricle is normal in size. Elevated LVOT velocities at 1.4 m/s. The ejection fraction is estimated to be 65-70%. Left ventricular wall motion is normal. Right Ventricle: The right ventricle is normal in size, thickness and function. Atria: The left atrial size is normal. Right atrium is small. No color doppler evidence for an ASD. Mitral Valve: The mitral valve is normal. Trivial MR. Aortic Valve: The aortic valve is trileaflet. The aortic valve opens well. No aortic regurgitation is present. Tricuspid Valve: The tricuspid valve leaflets are thin and pliable. Pulmonary artery pressures cannot be estimated because of the lack of a measurable TR jet velocity. trivial insufficiency. Pulmonic Valve: The pulmonic valve is not well seen, but is grossly normal. The pulmonic valve is not well visualized. There is no pulmonic valvular regurgitation. Great Vessels: The aortic root is normal size. The dimensions of the ascending aorta are normal. The pulmonary artery is normal size. The IVC is dilated (diameter is greater than 2.1 cm) and it collapses less than 50% with a sniff. This suggests a high right atrial pressure of 15 mm Hg. Pericardium/ Pleura There is no pericardial effusion. There is no pleural effusion. MMode/2D Measurements & Calculations LVIDd: 4.4 cm RA long axis LVOT diam: 2.1 cm LVIDs: 2.7 cm LA A2 area: 16.9 cm AoV Openin.9 cm FS: 39.6 % LA A4 area: 18.9 cm RA area Ao root diam: 3.5 cm EPSS: 0.39 cm LA length (vol) asc Aorta Diam IVSd: 1.5 cm : 13.9 cm LVPWd: 1.6 cm LA vol: 52.1 ml RA vol Ao Arch Diam LA vol index : 36.5 ml (Proximal trans.) RA : 13.4 mm2 IVC diam: 3.0 cm LV hernandez. diameter/BSALV sys. diameter/BSA TAPSE: 2.4 cm (cm/m^2): 1.6 (cm/m^2): 0.98 Doppler Measurements & Calculations Ao V2 max: 159.7 cm/secMV E max bharat MV E/A: 1.4 PA V2 max Ao max P.2 mmHg : 119.4 cm/sec Med Peak E' Bharat : 98.4 cm/sec Ao mean P.8 mmHg MV A max bharat PA mean PG LVOT Max Bharat : 82.8 cm/sec E/E' med: 23.1 : 2.5 mmHg : 138.8 cm/sec Lat Peak E' Bharat SEGUN(I,D): 3.4 cm E/E' lat: 13.2 sev ratio: 0.95 MV dec time: 0.14 sec Ao V2 mean LV V1 max PG PA V2 mean : 103.1 cm/sec : 76.8 cm/sec Ao V2 VTI: 28.2 cm LV V1 VTI: 26.7 cmPA pr(Accel) SEGUN(V,D): 3.1 cm2 : 8.9 mmHg SEGUN indexed to BSA E/e' average (cm^2/m^2): 1.2 : 18.2 Reading Physician:12:04 PM
--- NOTE | 2016-04-26 14:17 | NUR ---
NUTRITION FOLLOW-UP: Assess: 45 you M w/ intractable nausea/vomiting, hyponatremia, and hyperglycemia. Chronic rt lower extremity ulcerations also present-podiatry is following. Pt continues to experience some n/v but reported that he was able to tolerate a chicken salad sandwich with no problems today. His diet is Diabetic but due to n/v his PO intake has been variable from refused-100%. 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 (last labs 04/24) Glu 161, Ca 7.8, Alb 2.3 MEDICATIONS: Reviewed. Insulin, Compazine, Zofran DIET: Diabetic, PO 0-100% GI symptoms/stool: BMx1 04/24 Skin integrity: Chronic lower extremity ulcerations ANTHROPOMETRICS: Current Wt: 140.8kg BMI: 35.9 kg Admit Wt: 134.2 kg IBW: 97.3 kg Recent wt changes: 6.7 kg wt loss x2 months (5% = not significant) ESTIMATED NEEDS: BMI (based off admit wt) Calories: 5303-8570 kcal/d (20-22 kcal/kg/d) Protein: 115-145 g/d (1.2-1.5 g/kg/d IBW) Fluids: 9813-2274 ml/d (1 ml/kcal/d) NUTRITION DIAGNOSIS: 1) Inadequate oral intake related to GI abnormalities as evidenced by intractable nausea/vomiting and need for clear liquid diet.--PERSISTS 2) Altered nutrition related lab values related to type 2 diabetes as evidenced by A1c of 9.3- Diet ed completed 04/26 INTERVENTION: 1) Continue on Diabetic Diet. Pt was encourage to continue ordering meals that sound appetizing and will not promote increased nausea (bland foods) 2) Diabetic diet education provided 04/26 MONITOR/EVALUATE: Diet julio, PO intake, Labs, Wt, GI, Nutrition status, POC. Will follow per moderate nutrition risk guidelines.
--- NOTE | 2016-04-26 15:15 | NUR ---
Blood Pressure Pt blood pressure 184/95. Scheduled PO Lisinopril given. PRN IV Hydralazine given, BP continued to be elevated 184/77. PRN IV Labetalol given, BP 169/77 after IV push. MD notified at rounds. Verbal order received to resume home BP medications.
--- NOTE | 2016-04-26 15:43 | DRSVH ---
PROCEDURE: X-RAY CHEST, TWO VIEWS ([id number]) INDICATIONS: Chest Pain TECHNIQUE: 2 views of the chest were acquired. COMPARISON: [facility], , CHEST 1VW (PORTABLE), 09/20/2011, 22:24. [facility], CR, CHEST 1VW (PORTABLE), 08/08/2014, 19:02. FINDINGS: Surgical changes and devices: None. Lungs and pleura: No pleural effusions or pneumothorax. There are a few small dense nodules redemon strated bilaterally compatible with small calcified granulomas. No acute consolidation. Mediastinum: Mediastinal contours are unchanged. Heart size is normal. Bones and chest wall: No suspicious bony abnormalities. Soft tissues appear unremarkable. IMPRESSION: 1. No acute cardiopulmonary disease. Dictated by: Arnoldo Parker M.D. on 04/26/2016 at 15:41 Approved by: Arnoldo Parker M.D. on 04/26/2016 at 15:41
[2016-04-26] MEDS: Insulin Human REGular 300 Unit/3 mL Inj SUBQ SCH ×2 (17:00→21:53)
--- NOTE | 2016-04-26 17:22 | NUR ---
Temperature Pt temp 38.3 at 1708. notified. Blood cultures ordered.
--- NOTE | 2016-04-26 17:24 | NUR ---
Isolation Per Dr. Medeiros, pt contact isolation d/c'd. 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 MRSA nasal swab ordered. Does not need to be on isolation while results are pending b/c hx MRSA greater than 1yr.
--- NOTE | 2016-04-26 17:36 | PROG NOTE ---
[address] [address] PROGRESS NOTE PATIENT: KENNY JOHNSON : 1970 MR#: [id number] ADMIT: 04/20/2016 JOB ID: [id number] DATE: 04/26/2016 INFECTIOUS DISEASE FOLLOWUP NOTE: REASON FOR FOLLOWUP: Bacteremic group G streptococcal infection secondary to infected left foot. INTERVAL HISTORY: Over the past 24 hours the patient reports he has been feeling a bit better, feeling stronger. He has had some low-grade temperatures by his description but has not felt overly feverish and has had no chills. His breathing and GI functions have been stable and he has no pain in his foot. PHYSICAL EXAMINATION: Reveals a gentleman who just now is 38.3 degrees which represents his first fever spike in the past four days. His pulse is 76, respiratory rate is stable at about 18, blood pressure 174/86. He is in no acute distress. Awake and alert. Oral cavity is benign. Lungs relatively clear. Cardiac tones without new murmur. Abdomen benign. His left foot, which we carefully examined yesterday with the power station operator, is now dressed and I did not see a reason to unwrap it as we carefully examined it yesterday.. LABORATORY: No new labs are available. His white count is 11,000 but that was two days ago. Likewise we have no new creatinine. Repeat blood cultures from the are negative. The initial blood cultures from the are positive for group G strep. Recall that the foot culture grew group G strep, as well as Enterobacter and Staph aureus, all susceptible to ceftriaxone. The x-ray that was ordered yesterday of his foot shows no evidence of osteo, though there has obviously been a lot of surgery on the foot. A chest x-ray shows no infiltrates. Also note an echo showed no evidence of vegetations. IMPRESSION: This is a patient we saw in consult yesterday for bacteremic group G streptococcal infection. It would appear that the group G strep arose from his foot, as we have no evidence of endocarditis in that his echo is negative, he does not have a new murmur, and his blood cultures quickly turned negative. It is a bit odd that he became bacteremic from this chronically infected left foot, however, because the infection appears quite minimal with respect to the foot and there is certainly no radiographic or clinical evidence of osteomyelitis. RECOMMENDATIONS: 1. This case discussed in person with Dr. Grimm of the hospitalist service. 2. We plan to order an MRI scan of the foot to make absolutely sure there is no underlying osteo or abscess contributing to this bacteremia. 3. If the MRI is negative, and the patient defervesces and looks good for 48 hours or so, I think he could be discharged on oral amoxicillin. If, on the other hand, the patient's MRI shows osteo, we will have to make provisions for long-term IV therapy for presumably a group G streptococcal osteomyelitis. 4. We saw the patient just before his 1700 fever was taken and I optimistically told the patient she could be home in a day or two. Obviously if the fevers continue to be documented we will have to push back that time line.
--- NOTE | 2016-04-26 23:17 | PCM.PNMED ---
Subjective Date of Service Apr 26, 2016 Subjective Patient had no new complaints earlier the day however late in the afternoon he developed a fever. The nurse checked his temperature and it was 38.3F. Exam Vital Signs Vital Sign - Last Date Time Temp Pulse Resp B/P Pulse Ox O2 Delivery O2 Flow Rate FiO2 04/26/16 22:01 74 160/82 04/26/16 20:26 37.2 20 94 Room Air Intake and Output 04/25/16 04/25/16 04/26/16 Cumulative From/Thru 15:00 23:00 07:00 04/19/16 23:30 - 04/26/16 06:25 Intake Total 2235 ml 1961 ml 00416 ml Output Total 800 ml 600 ml 11432 ml Balance 1435 ml 1361 ml 9953 ml Intake Oral 750 ml 700 ml 7086 ml IV Total 1485 ml 1261 ml 70865 ml Output Urine Total 800 ml 600 ml 24580 ml Emesis 60 ml # Voids 4 # Bowel Movements 1 Exam General: Patient is in no apparent distress and appears quite comfortable sitting in bed earlier in the day. Later in the day he had a fever. HEENT: Head is atraumatic normocephalic. Eyes: Pupils are equally round and reactive to light and accommodation. Extraocular muscles are intact. Sclera are white anicteric. Subconjunctival mucosa is pink. Ears and nose are unremarkable. Oropharynx: There is no mucosal lesions, there is no thrush, there is no pharyngitis. Neck: Is supple, there are no nodes or masses or tenderness. Chest: Is clear to auscultation and percussion. There are no rales, rhonchi, wheezes or rubs. Heart: Rate , rhythm is regular. There is no murmur, rub or gallop. Abdomen: Good bowel sounds are present. Abdomen is soft, nontender, no organomegaly or masses were appreciated. Extremities: Are symmetrical and well perfused. There is no edema, there is no cellulitis, no rash. The right fifth toe is missing and amputation site is unremarkable. The right first toe dressing is clean dry and intact. Neurologic: There are no focal neurological deficits. Cranial nerves II through XII are intact. There are no sensory or motor deficits. Psychiatric: Patients mood is calm and shows no sign of agitation. Genital: Deferred Rectal: Deferred Lab and Diagnostics Result Diagram: 04/24/16 0745 04/24/16 0745 X-Rays, CTs and MRIs PROCEDURE: CT ABDOMEN AND PELVIS WITH CONTRAST ([id number]) IMPRESSION: No acute abnormality. Normal appearance of the appendix. No evidence of bowel obstruction. Moderate splenomegaly. Right renal cyst. Dictated by: Adán Jean M.D. on 04/20/2016 at 8:04 Cardiac Echo Impressions Echocardiogram Report Name: KENNY JOHNSON CStudy Date : 04/26/2016 Height: 78 in Hospital Exam Location: [facility] Weight: 310 lb Gender: Male BSA: 2.7 m2 : 1970 Age: 45 yrs BP: 180/87 mmHg Reason For Study: BACTEREMIA Ordering Physician: HOSPITALIST [facility] Performed By: John Mackey Referring Physician: CARROLL RUELAS Interpretation Summary 1. Normal left ventricular size with evidence for moderate concentric hypertrophy and normal to hyperdynamic systolic function with an estimated EF in the range of 65 to 70% 2. Normal right ventricular size and systolic function. 3. No evidence for significant valvular pathology compared to the previous study (images and report reviewed), no significant change Additional Diagnostics Urine dip per ER note and report is negative including negative ketones. Assessment & Plan Is a 45-year-old male who was in the emergency room yesterday and again today with complaints of intractable nausea vomiting and abdominal pain. He notes he had loose stool a few days ago and has had none since. He notes that he had a fever at home. 101. He feels like his heart has been going faster he has not been able to really keep anything down. He is not been taking his insulin and has not been checking his blood sugars at home. He has a history of type II diabetes. He notes no sick contacts. Patient denies any chest pain or shortness of breath. Patient denies any coffee-ground or bloody emesis. He denies any blood or maroon-colored stool. He describes his abdominal pain as cramping. 1. Intractable nausea vomiting and abdominal pain, acute, present on admission. Abdominal CAT scan was unremarkable. Possible marijuana-related vomiting versus gastroenteritis. No fever or diarrhea. Abdomen pain seems related to nausea and vomiting. - Pt has decompensated in terms of his vomiting 8 hours after eating dinner last night - Given his history and lack of resolution will consider the possibility of a gastric emptying study - pt is currently back on clear liquid diet. - will continue to monitor, the earliest it can be done is friday - will avoid reglan 48 hours before and morphine 6 hours before 2. Hyponatremia, acute, present on admission - Euvolemic. We will replete with saline and follow. - resolved 4. Hyperglycemia and type II diabetic, acute, present on admission He has not been taking his Lantus and usually takes 60 units subcutaneous twice a day - We will continue to Check 4 times a day blood sugars. - Continue Lantus at two thirds of normal dose (40 units twice a day) - The regular insulin correctional scale to high dose 5. Peripheral vascular disease with diabetic foot ulcers with positive blood cultures - Wound care consult and podiatry consult - Podiatry consult appreciated - Wounds debrided at bedside - Blood cultures growing group b strep and patient remains febrile today - Infectious disease consult pre-shaded and Dr. Medeiros's recommendations are as follows: Clinical IMPRESSION: This is a patient we saw in consult yesterday for bacteremic group G streptococcal infection. It would appear that the group G strep arose from his foot, as we have no evidence of endocarditis in that his echo is negative, he does not have a new murmur, and his blood cultures quickly turned negative. It is a bit odd that he became bacteremic from this chronically infected left foot, however, because the infection appears quite minimal with respect to the foot and there is certainly no radiographic or clinical evidence of osteomyelitis. RECOMMENDATIONS: 1. This case discussed in person with Dr. Grimm of the hospitalist service. 2. We plan to order an MRI scan of the foot to make absolutely sure there is no underlying osteo or abscess contributing to this bacteremia. 3. If the MRI is negative, and the patient defervesces and looks good for 48 hours or so, I think he could be discharged on oral amoxicillin. If, on the other hand, the patient's MRI shows osteo, we will have to make provisions for long-term IV therapy for presumably a group G streptococcal osteomyelitis. 4. We saw the patient just before his 1700 fever was taken and I optimistically told the patient she could be home in a day or two. Obviously if the fevers continue to be documented we will have to push back that time line." Appreciate infectious disease consultation. Will continue with Dr. Medeiros' s recommendations with IV ceftriaxone. However, due to fever will add Flagyl IV to cover anaerobic bacteria that may be present in this diabetic foot infection. # DVT prophylaxis Use SCDs in place on subcutaneous prophylactic Lovenox # CODE STATUS Patient is full code Discharge plan: As patient remains febrile despite the above antibody changes this will put his length of stay out of bit longer. Pain Evaluation: Adequate Pain Control GI Prophylaxis: H2 francisco VTE Prophylaxis: Sub-Q Enoxaparin VTE Mechanical Devices: Intermittant Pneumatic CD Resuscitation Status: CPR: Attempt Resuscitation Paolo Grimm MD Apr 26, 2016 23:17
[2016-04-27 00:33] VITALS: BP 159/74; PULSE 71; RESP 16; O2SAT 95
[2016-04-27] MEDS: metroNIDAZOLE Inj 500 MG in IV Premix 1 EACH IV SCH ×3 (00:40→16:46)
[2016-04-27 04:33] VITALS: BP 159/80; PULSE 77; RESP 16; O2SAT 96
--- NOTE | 2016-04-27 04:57 | NUR ---
New ABX Pt given first dose of flagyl at 0030, pt teaching regarding adverse reactions and to call for any s/sx. Pt asymptomatic during infusion and continues to report no reaction or new sx.
[2016-04-27] MEDS: 0.9% Sodium Chloride 1,000 ML IV SCH (05:52)
[2016-04-27] MEDS: Insulin Human REGular 300 Unit/3 mL Inj SUBQ SCH ×4 (07:28→20:52)
[2016-04-27 07:40] LABS: BASOPHILS % (AUTO) 0.3 % (0-3); EOSINOPHILS % (AUTO) 2.7 % (0-5); MONOCYTES % (AUTO) 13.9 % (4-12); Mean Corpuscular Hemoglobin 27.7 pg (27.0-35.0); Mean Corpuscular Volume 79.3 fL (81-100); NEUTROPHILS % (AUTO) 63.1 % (40-74); Platelet Count 264 bil/L (150-400)
[2016-04-27 08:02] LABS: Magnesium 1.7 mg/dL (1.6-2.6); Phosphorus 2.9 mg/dL (2.5-4.9)
[2016-04-27] MEDS: Sucralfate 100 mg/mL 10 mL Suspension PO SCH ×4 (08:22→21:28)
[2016-04-27] MEDS: Lisinopril 40 Tablet PO SCH (08:25)
[2016-04-27] MEDS: Insulin GLARgine 100 Unit/mL Syringe SUBQ SCH ×2 (08:26→20:51)
[2016-04-27] MEDS: Famotidine Inj 20 MG in IV Premix 1 EACH IV SCH ×2 (09:15→19:45)
[2016-04-27 10:10] VITALS: BP 176/93; PULSE 65; RESP 16; O2SAT 96
--- NOTE | 2016-04-27 10:50 | PCM.PNPOD ---
Subjective Date of Service: Apr 27, 2016 Date of Service: Apr 27, 2016 Visit Information: Reason for Visit Intractable Nausea/Vomiting/Diabetes/Hyperglycemia Surgery/Surgery Date Post-Op Day # Date of Admission: Apr 20, 2016 at 03:17 Hospital Day # Subjective: 45-year-old male admitted to [facility] for intractable pain and possible sepsis evaluated resting comfortably in bed in no acute distress. Patient denies any change in his past medical health history no new issues or complaints overnight. Postop General: No Complaints Gastrointestinal: Good Appetite Objective Vital Sign - Last Date Time Temp Pulse Resp B/P Pulse Ox O2 Delivery O2 Flow Rate FiO2 04/27/16 10:10 37.1 65 16 176/93 96 04/27/16 00:33 Room Air Intake and Output 04/26/16 04/26/16 04/27/16 Cumulative From/Thru 15:00 23:00 07:00 04/19/16 23:30 - 04/27/16 06:41 Intake Total 1766 ml 1953 ml 09611 ml Output Total 1450 ml 1725 ml 54226 ml Balance 316 ml 228 ml 82426 ml Intake Oral 636 ml 872 ml 8594 ml IV Total 1130 ml 1081 ml 38816 ml Output Urine Total 1450 ml 1725 ml 01178 ml Emesis 60 ml # Voids 4 # Bowel Movements 1 Result Diagram: 04/27/16 0702 04/27/16 0702 Lab Test 04/19/16 22:45 04/20/16 00:10 04/20/16 00:20 04/20/16 16:45 Lactic Acid Level 2.0mmol/L (0.4-2.0) Urine Opiates Screen Negative Urine Methadone Screen Negative Urine Barbiturates Screen Negative Urine Amphetamines Screen Negative Urine Benzodiazepines Screen Negative Urine Cocaine Metabolite Screen Negative Urine Cannabinoids Screen Positive Hold Urine Received (Received) Lipase 25U/L (13-60) Test 04/23/16 14:20 04/25/16 19:12 04/27/16 07:02 Urine Color Yellow (YELLOW) Urine Appearance Hazy (CLEAR,HAZY) Urine pH 6.5 (5.0-8.0) Urine Specific [place] 1.025 (1.003-1.035) Urine Protein 300mg/dL (NEG,TRACE) Urine Glucose (UA) 100mg/dL (NEGATIVE) Urine Ketones 40mg/dL (NEGATIVE) Urine Occult Blood Moderate (NEGATIVE) Urine Nitrite Negative (NEGATIVE) Urine Bilirubin Negative (NEGATIVE) Urine Urobilinogen 2.0mg/dL (NORMAL) Urine Leukocyte Esterase Negative (NEGATIVE) Hemoglobin A1c 9.3% (4.8-5.6) Hold Spivey Top Tube Received (Received) White Blood Count 6.8th/mm3 (3.8-10.1) Red Blood Count 4.44mil/mm3 (4.40-5.80) Hemoglobin 12.3g/dL (13.8-17.2) Hematocrit 35.2% (41.0-50.0) Mean Corpuscular Volume 79.3fL (81-100) Mean Corpuscular Hemoglobin 27.7pg (27.0-35.0) Mean Corpuscular Hemoglobin Concent 34.9% (32.0-37.0) Red Cell Distribution Width 12.7% (12.3-15.4) Platelet Count 264bil/L (150-400) Neutrophils (%) (Auto) 63.1% (40-74) Lymphocytes (%) (Auto) 19.0% (14-46) Monocytes (%) (Auto) 13.9% (4-12) Eosinophils (%) (Auto) 2.7% (0-5) Basophils (%) (Auto) 0.3% (0-3) Erythrocyte Sedimentation Rate 59mm/hr (0-15) Sodium Level 141mEq/L (134-144) Potassium Level 3.3mEq/L (3.5-5.2) Chloride Level 104mEq/L (97-108) Carbon Dioxide Level 26mmol/L (18-29) Blood Urea Nitrogen 9mg/dL (6-24) Creatinine 0.85mg/dL (0.76-1.27) Estimat Glomerular Filtration Rate 104mL/min (>59) Glucose Level 116mg/dL (60-99) Calcium Level 7.7mg/dL (8.5-10.1) Phosphorus Level 2.9mg/dL (2.5-4.9) Magnesium Level 1.7mg/dL (1.6-2.6) Total Bilirubin 0.3mg/dL (0.0-1.2) Aspartate Amino Transf (AST/SGOT) 23U/L (0-50) Alanine Aminotransferase (ALT/SGPT) 20U/L (0-44) Alkaline Phosphatase 97U/L (25-150) C-Reactive Protein 3.2mg/dL (0.0-0.5) Total Protein 5.0g/dL (6.4-8.4) Albumin 2.2g/dL (3.4-5.0) Triglycerides Level 136mg/dL (0-149) Cholesterol Level 143mg/dL (100-199) LDL Cholesterol, Calculated 97.800mg/dL (0-99) VLDL Cholesterol 27.200mg/dL HDL Cholesterol 18mg/dL (>39) Cholesterol/HDL Ratio 7.94 (0.0-4.4) Procalcitonin 0.26ng/mL (See Comment) Exam General: Alert, Oriented X3, No Acute Distress Lungs: Clear to Auscultation Lower Extremity Pulses: Palpable: Left Dorsalis Pedis Left Posterior Tibal Right Dorsalis Pedis Right Posterior Tibal Postop Sensory Motor: Motor 5/5, Decreased Sensation Podiatry WOUND : Wound Location/Description Left transmetatarsal amputation site dorsal lateral ulceration measures 1 cm x 1 cm and is superficial in nature is 100% granular there is no signs of infection or surrounding erythema and there is mild surrounding hyperkeratoses. Right hallux ulceration measuring 2.8 cm x 0.5 cm x 0.2 cm in depth is 50% fibrotic and 50% red firm granulation tissue there is no surrounding erythema minimal surrounding hyperkeratoses no signs of acute infection. Right sub-met 4 full-thickness ulceration to subcutaneous tissue without exposed bone or tendon there is no malodor no signs of acute infectionaround erythema minimal serosanguineous drainage is noted this wound bed is 80% fibrotic with 20% red firm granulation tissue this wound measures 1.3 cm x 1 cm x 0.2 cm in depth Assessment & Plan Impression Stable bilateral lower extremity ulcerations without signs of acute infection Problems: (1) Diabetic foot ulcer associated with type 2 diabetes mellitus Qualifiers: Laterality: bilateral Qualified Code: E11.621 - Type 2 diabetes mellitus with foot ulcer Plan: Chronic ulceration bilateral lower extremity without signs of acute infection. Wound dressings changed today. Dressing replaced with a Betadine soaked gauze dressing dry sterile 4 x 4's Kerlix and Helio bandage bilaterally. These wounds appear stable at this time and are unlikely source of this patient' s previous leukocytosis. X-rays reviewed with the patient today, no signs of acute osteomyelitis Weightbearing as tolerated bilateral heel Continue to follow Dr. Medeiros recommendation for antibiotic regimen Patient is stable for discharge to outpatient care from podiatry standpoint follow-up with Dr. Norton within 5 days of discharge Bilateral lower extremity dressings may be left intact for up to 1 week and are to be kept clean dry and intact. Podiatry will continue to follow while admitted and will perform dressing changes every 48-72 hours Status: Chronic ICD Code: E11.621 (2) Cellulitis of right foot Status: Acute ICD Code: L03.115 VTE Prophylaxis: Sub-Q Enoxaparin Thony Cordero DPM Apr 27, 2016 10:50
[2016-04-27] MEDS: cefTRIAXone Inj 2,000 MG in IV Premix 1 EACH IV SCH (11:55)
--- NOTE | 2016-04-27 12:00 | NUR ---
Elevated BP Pt's BP elevated at 1010 at 176/93. Pt soon left for MRI and hydralazine was not administered. Upon return from MRI, BP was 162/77. Will continue to monitor. Addendum: 04/27/16 at 1233 by WILLI PATEL RN Per MILI Mendoza not to give IV labetolol for current BP (pt is not on tele). Pt will be given hydralazine if systolic BP is greater than 170.
--- NOTE | 2016-04-27 12:09 | DRSVH ---
PROCEDURE: MRI FOREFOOT RIGHT WITH AND WITHOUT CONTRAST ([id number]) INDICATIONS: diabetic foot infection with persistent fevers TECHNIQUE: Noncontrast sagittal T1 spin echo and T2 fast spin echo with fat saturation, long-axis T1 spin echo a nd T2 fast spin echo with fat saturation; short-axis T1 spin echo, proton density fast spin echo, and T2 fast spin echo with fat saturation through the forefoot. Post-contrast short axis, long axis, an d sagittal T1 spin echo with fat saturation through the forefoot. COMPARISON: [facility], CR, XR FOOT 3VW RT, 04/25/2016, 18:14. [facility], C R, FOOT 2VW (RT), 09/23/2014, 10:42. FINDINGS: Image quality: Diagnostic. Bones and joints: Postoperative changes are present involving all of the toes. The distal phalanges of the first, third, and fourth toes are noted to have been amputated. The middle and distal phalan ges of the second toe has been amputated. All of the fifth toe phalanges are amputated and there is partial amputation of the fifth metatarsal. No osseous erosions are appreciated involving the toes. There are [id number] degenerative changes involving the midfoot joints. No suspicious osseous lesions are identified. Mild bone marrow edema and corresponding enhancement is present involving the first and second proxim al phalangeal heads. There is also mild marrow edema and enhancement involving the head of the proxi mal phalanx of the fourth toe and diffusely throughout the middle phalanx of the fourth toe. There i s questionable enhancement and edema involving the head of the proximal phalanx of the third toe. No additional areas of suspicious marrow edema or enhancement are evident. Specifically, the metatarsa ls do not appear to be involved. Soft tissues: Extensive subcutaneous edema about the right forefoot is identified, that is more prom inent overlying the dorsum of the toes and is slightly more pronounced over the second and third toes . No loculated fluid collections or drainable abscess ease are evident. No soft tissue masses are iden tified. There is atrophy of the intrinsic muscles of the forefoot. The imaged tendons are grossly w ithin normal limits. Although, there may be mild flexor tendinopathy. IMPRESSION: 1. Postoperative changes of the forefoot related to multifocal amputations. 2. Mild edema and enhancement of the 1st - 4th proximal phalangeal heads. There is questionable sub tle edema/enhancement of the middle phalanx of the third toe. There is edema and enhancement of the middle phalanx of the fourth toe. These findings are suspicious for osteomyelitis. 3. Extensive cellulitis of the forefoot. No drainable abscess. Dictated by: Pedro Oneill M.D. on 04/27/2016 at 11:07 Approved by: Pedro Oneill M.D. on 04/27/2016 at 11:07
[2016-04-27 12:10] VITALS: BP 162/77; PULSE 63
[2016-04-27] MEDS ORDERED: Magnesium Hydroxide 10 mL Oral Concentration PO PRN (14:10)
[2016-04-27 15:42] VITALS: BP 149/62; PULSE 74; RESP 16; O2SAT 96
--- NOTE | 2016-04-27 15:47 | NUR ---
Elevated temp Pt's temp is 38 Celsius. Hospitalist notified.
--- NOTE | 2016-04-27 18:54 | PCM.PNMED ---
Subjective Date of Service Apr 27, 2016 Subjective Patient continues to have fever with a temperature of 38C today. Exam Vital Signs Vital Sign - Last Date Time Temp Pulse Resp B/P Pulse Ox O2 Delivery O2 Flow Rate FiO2 04/27/16 16:57 37.5 04/27/16 15:42 74 16 149/62 96 Room Air Intake and Output 04/26/16 04/26/16 04/27/16 Cumulative From/Thru 15:00 23:00 07:00 04/19/16 23:30 - 04/27/16 06:41 Intake Total 1766 ml 1953 ml 74189 ml Output Total 1450 ml 1725 ml 21854 ml Balance 316 ml 228 ml 21820 ml Intake Oral 636 ml 872 ml 8594 ml IV Total 1130 ml 1081 ml 03490 ml Output Urine Total 1450 ml 1725 ml 69772 ml Emesis 60 ml # Voids 4 # Bowel Movements 1 Exam General: Patient is in no apparent distress and appears quite comfortable sitting in bed earlier in the day. Later in the day he had a fever again today. HEENT: Head is atraumatic normocephalic. Patient has normal male pattern baldness. Eyes: Pupils are equally round and reactive to light and accommodation. Extraocular muscles are intact. Sclera are white anicteric. Subconjunctival mucosa is pink. Ears and nose are unremarkable. Oropharynx: There is no mucosal lesions, there is no thrush, there is no pharyngitis. Neck: Is supple, there are no nodes or masses or tenderness. Chest: Is clear to auscultation and percussion. There are no rales, rhonchi, wheezes or rubs. Heart: Rate , rhythm is regular. There is no murmur, rub or gallop. Abdomen: Good bowel sounds are present. Abdomen is soft, nontender, no organomegaly or masses were appreciated. Extremities: Dr. Thony Jenkins perform dressing changes on both of the patient's feet today and his physical exam findings are as follows: " Left transmetatarsal amputation site dorsal lateral ulceration measures 1 cm x 1 cm and is superficial in nature is 100% granular there is no signs of infection or surrounding erythema and there is mild surrounding hyperkeratoses. Right hallux ulceration measuring 2.8 cm x 0.5 cm x 0.2 cm in depth is 50% fibrotic and 50% red firm granulation tissue there is no surrounding erythema minimal surrounding hyperkeratoses no signs of acute infection. Right sub-met 4 full-thickness ulceration to subcutaneous tissue without exposed bone or tendon there is no malodor no signs of acute infectionaround erythema minimal serosanguineous drainage is noted this wound bed is 80% fibrotic with 20% red firm granulation tissue this wound measures 1.3 cm x 1 cm x 0.2 cm in depth" Currently dressings are clean dry and intact. The remainder of the extremities are unremarkable. Neurologic: There are no focal neurological deficits. Cranial nerves II through XII are intact. There are no sensory or motor deficits. Psychiatric: Patients mood is calm and shows no sign of agitation. Genital: Deferred Rectal: Deferred Lab and Diagnostics Result Diagram: 04/27/1670104/27/16701 Microbiology RUN DATE: 04/25/16 [facility] LIVE PAGE 1 RUN TIME: 1115 Specimen Inquiry PHYSICIAN Name: ALEXKENNY Cresencio Age/Sex: 45/M Attend Dr: Shabnam Pulido MD Acct: [id number] Unit: [id number] Status: ADM IN [place] [facility] [place] 240-1 Re04/20/16 Disch: Specimen: [id number] Collected: 04/22/16-1199 Status: COMP Req#: [id number] Received: 04/22/16-1356 Source: FOOT Sp Desc : Subm Dr: Rajesh Shannon MD Ordered: CS & GS Comments: Collected by Nurse/Unit? Y/N Y Procedure Result Verified Site Microbiology BIJU GS (GRAM STAIN) Final 04/23/16-0937 GRAM STAIN RESULT FEW POLYS NO ORGANISMS SEEN BIJU CULT AEROBIC Final 04/25/16-1115 Organism 1 BETA STREPTOCOCCUS GROUP G COLONY COUNT/QUANTITY HEAVY GROWTH Organism 2 ENTEROBACTER CLOACAE COMPLEX COLONY COUNT/QUANTITY HEAVY GROWTH Organism 3 STAPHYLOCOCCUS AUREUS COLONY COUNT/QUANTITY HEAVY GROWTH BETA STREPTOCOCCUS GROUP G "Penicillin and ampicillin continues to be the drugs of choice for treatment of B-hemolytic streptoccal infections. Susceptibility testing of penicillin and other B-lactams approved by the FDA for treatment of B-hemolytic streptococcal infections need not be performed routinely. because non-susceptible isolates (ie. penicillin BIJU's >0.12 and ampicillin MICs >0.25 ug/ml) are extremely rare in any B-hemolytic streptococcal isolate and have not been reported for Streptococcus pyogenes. (CLSI Z430-O11 VOL.31 NO 1 2010) STAPHYLOCOCCUS AUREUS Oxacillin Susceptible Penicillin Resistant Staph spp. are Susceptible to Penicillin stable penicillins, Blactam/Blactamase inhibitor combinations, antistaphyloccal cephems, and carbapenems. CONTINUED ON NEXT PAGE RUN DATE: 04/25/16 [facility] LIVE PAGE 2 RUN TIME: 1115 Specimen Inquiry PHYSICIAN Patient: KENNY JOHNSON Cresencio [id number] (Continued) Specimen: [id number] Collected: 04/22/16-1199 Received: 04/22/16-205 (Continued) Procedure Result Verified Site BIJU CULT AEROBIC Final (continued) 04/25/16-1629 2. ENTEROBACTER CLOACAE COMPLEX M.I.C Interp --------- ------ * AMIKACIN <=2 S * CEFAZOLIN >=64 R * CEFEPIME <=1 S * CEFOXITIN >=64 R * CEFTRIAXONE <=1 S * CIPROFLOXACIN <=0.25 S * ERTAPENEM <=0.5 S * GENTAMICIN <=1 S * MEROPENEM <=0.25 S * TOBRAMYCIN <=1 S * TRIMETHOPRIM/SULFAMETHOXAZOLE <=20 S 3. STAPHYLOCOCCUS AUREUS M.I.C Interp --------- ------ * CEFAZOLIN S * CLINDAMYCIN <=0.25 S * ERYTHROMYCIN <=0.25 S * LINEZOLID 2 S * MOXIFLOXACIN <=0.25 S * OXACILLIN BIJU <=0.25 S * RIFAMPIN <=0.5 S * TETRACYCLINE <=1 S * TRIMETHOPRIM/SULFAMETHOXAZOLE <=10 S * VANCOMYCIN 1 S X-Rays, CTs and MRIs PROCEDURE: CT ABDOMEN AND PELVIS WITH CONTRAST ([id number]) IMPRESSION: No acute abnormality. Normal appearance of the appendix. No evidence of bowel obstruction. Moderate splenomegaly. Right renal cyst. Dictated by: Adán Jean M.D. on 04/20/2016 at 8:04 Patient Name: KENNY JOHNSON MR#: [id number] [place] [facility] [place]ing Phys: Paolo Grimm MD Date of Service: 04/27/16 0500 PROCEDURE: MRI FOREFOOT RIGHT WITH AND WITHOUT CONTRAST (21650) INDICATIONS: diabetic foot infection with persistent fevers TECHNIQUE: Noncontrast sagittal T1 spin echo and T2 fast spin echo with fat saturation, long-axis T1 spin echo and T2 fast spin echo with fat saturation; short-axis T1 spin echo, proton density fast spin echo, and T2 fast spin echo with fat saturation through the forefoot. Post-contrast short axis, long axis, and sagittal T1 spin echo with fat saturation through the forefoot. COMPARISON: [facility], CR, XR FOOT 3VW RT, 04/25/2016, 18:14. [facility], CR, FOOT 2VW (RT), 09/23/2014, 10:42. FINDINGS: Image quality: Diagnostic. Bones and joints: Postoperative changes are present involving all of the toes. The distal phalanges of the first, third, and fourth toes are noted to have been amputated. The middle and distal phalanges of the second toe has been amputated. All of the fifth toe phalanges are amputated and there is partial amputation of the fifth metatarsal. No osseous erosions are appreciated involving the toes. There are vbyy-up-pyvvtxbo degenerative changes involving the midfoot joints. No suspicious osseous lesions are identified. Mild bone marrow edema and corresponding enhancement is present involving the first and second proximal phalangeal heads. There is also mild marrow edema and enhancement involving the head of the proximal phalanx of the fourth toe and diffusely throughout the middle phalanx of the fourth toe. There is questionable enhancement and edema involving the head of the proximal phalanx of the third toe. No additional areas of suspicious marrow edema or enhancement are evident. Specifically, the metatarsals do not appear to be involved. Soft tissues: Extensive subcutaneous edema about the right forefoot is identified, that is more prominent overlying the dorsum of the toes and is slightly more pronounced over the second and third toes. No loculated fluid collections or drainable abscess ease are evident. No soft tissue masses are identified. There is atrophy of the intrinsic muscles of the forefoot. The imaged tendons are grossly within normal limits. Although, there may be mild flexor tendinopathy. IMPRESSION: 1. Postoperative changes of the forefoot related to multifocal amputations. 2. Mild edema and enhancement of the 1st - 4th proximal phalangeal heads. There is questionable subtle edema/enhancement of the middle phalanx of the third toe. There is edema and enhancement of the middle phalanx of the fourth toe. These findings are suspicious for osteomyelitis. 3. Extensive cellulitis of the forefoot. No drainable abscess. Dictated by: Pedro Oneill M.D. on 04/27/2016 at 11:07 Approved by: Pedro Oneill M.D. on 04/27/2016 at 11:07 Cardiac Echo Impressions Echocardiogram Report Name: KENNY JOHNSON CStudy Date : 04/26/2016 Height: 78 in Hospital Exam Location: [facility] Weight: 310 lb Gender: Male BSA: 2.7 m2 : 1970 Age: 45 yrs BP: 180/87 mmHg Reason For Study: BACTEREMIA Ordering Physician: HOSPITALIST [facility] Performed By: John Mackey Referring Physician: CARROLL RUELAS Interpretation Summary 1. Normal left ventricular size with evidence for moderate concentric hypertrophy and normal to hyperdynamic systolic function with an estimated EF in the range of 65 to 70% 2. Normal right ventricular size and systolic function. 3. No evidence for significant valvular pathology compared to the previous study (images and report reviewed), no significant change Additional Diagnostics Urine dip per ER note and report is negative including negative ketones. Assessment & Plan Is a 45-year-old male who was in the emergency room yesterday and again today with complaints of intractable nausea vomiting and abdominal pain. He notes he had loose stool a few days ago and has had none since. He notes that he had a fever at home. 101. He feels like his heart has been going faster he has not been able to really keep anything down. He is not been taking his insulin and has not been checking his blood sugars at home. He has a history of type II diabetes. He notes no sick contacts. Patient denies any chest pain or shortness of breath. Patient denies any coffee-ground or bloody emesis. He denies any blood or maroon-colored stool. He describes his abdominal pain as cramping. 1. Intractable nausea vomiting and abdominal pain, acute, present on admission. I suspect this was due to sepsis from a diabetic foot infection with possible osteomyelitis and bacteremia. - Abdominal CAT scan was unremarkable. Possible marijuana-related vomiting versus gastroenteritis. No fever or diarrhea. Abdomen pain seems related to nausea and vomiting. - Pt has decompensated in terms of his vomiting 8 hours after eating dinner last night - Given his history will consider the possibility of a gastric emptying study and however, symptoms have improved. - Patient is now on a diabetic diet. - Gastric emptying study would be done on Friday if it is to be done. - Will avoid reglan 48 hours before and morphine 6 hours before 2. Hyponatremia, acute, present on admission resolved - Now with hypokalemia. Will add when necessary IV potassium. - We will change IV normal saline to IV normal saline with 20 mg K CL that 75 mL an hour maintenance fluids. 4. Hyperglycemia and type II diabetic, acute, present on admission was less than optimal control. - He has not been taking his Lantus and usually takes 60 units subcutaneous twice a day. And his hemoglobin A1c was 9.3 - We will continue to Check 4 times a day blood sugars. - The regular insulin correctional scale to high dose 5. Peripheral vascular disease with diabetic foot ulcers with positive blood cultures - Wound care consult and podiatry consult - Podiatry consult appreciated - Wounds debrided at bedside - Blood cultures growing group b strep and patient remains febrile today - Infectious disease consult was obtained and Dr. Medeiros's recommendations are as follows: Clinical IMPRESSION: This is a patient we saw in consult yesterday for bacteremic group G streptococcal infection. It would appear that the group G strep arose from his foot, as we have no evidence of endocarditis in that his echo is negative, he does not have a new murmur, and his blood cultures quickly turned negative. It is a bit odd that he became bacteremic from this chronically infected left foot, however, because the infection appears quite minimal with respect to the foot and there is certainly no radiographic or clinical evidence of osteomyelitis. RECOMMENDATIONS: 1. This case discussed in person with Dr. Grimm of the hospitalist service. 2. We plan to order an MRI scan of the foot to make absolutely sure there is no underlying osteo or abscess contributing to this bacteremia. 3. If the MRI is negative, and the patient defervesces and looks good for 48 hours or so, I think he could be discharged on oral amoxicillin. If, on the other hand, the patient's MRI shows osteo, we will have to make provisions for long-term IV therapy for presumably a group G streptococcal osteomyelitis. 4. We saw the patient just before his 1700 fever was taken and I optimistically told the patient she could be home in a day or two. Obviously if the fevers continue to be documented we will have to push back that time line." Appreciate infectious disease consultation. Will continue with Dr. Medeiros' s recommendations with IV ceftriaxone. However, due to fever will add Flagyl IV to cover anaerobic bacteria that may be present in this diabetic foot infection. Unfortunately for the patient, the MRI is suggestive of significant amount of cellulitis of the right forefoot with osteomyelitis. Please see report. The Rocephin should provide adequate coverage for the group G strep the Enterobacter and the methicillin sensitive staph aureus. The Flagyl should provide adequate coverage for any anaerobes that may be present in this diabetic foot infection. Patient may need debridement, especially if fevers persist which they appear to be persisting with a temperature of 38 today. Recommend discussion with Dr. Medeiros and podiatry.. # DVT prophylaxis Use SCDs in place on subcutaneous prophylactic Lovenox # CODE STATUS Patient is full code Discharge plan: As patient remains febrile despite the above antibody changes this will put his length of stay out of bit longer. Pain Evaluation: Adequate Pain Control GI Prophylaxis: H2 francisco VTE Prophylaxis: Sub-Q Enoxaparin VTE Mechanical Devices: Intermittant Pneumatic CD Resuscitation Status: CPR: Attempt Resuscitation Paolo Grimm MD Apr 27, 2016 18:54
[2016-04-27] MEDS ORDERED: Magnesium Sulf 4 Gm/100 mL H2O 4 GM in IV Premix 1 EACH IV ONE (18:55)
[2016-04-27] MEDS: hydrALAZINE 20 mg/mL Inj IV PRN (19:43)
[2016-04-27] MEDS: Senna-Docusate 8.6-50 mg Tablet PO SCH (19:44)
[2016-04-27] MEDS: Potassium Chloride 20 mEq SR Tablet PO SCH (19:44)
[2016-04-27] MEDS: 0.9% NaCl + KCl 20 mEq/L 1,000 ML IV SCH (20:23)
[2016-04-27 20:33] VITALS: BP 174/86; PULSE 77; RESP 16; O2SAT 97
[2016-04-28] VITALS (8 sets, daily range): BP systolic 147–186; BP diastolic 72–94; PULSE 64–80; RESP 10–16; O2SAT 95–99
[2016-04-28] MEDS: metroNIDAZOLE Inj 500 MG in IV Premix 1 EACH IV SCH ×3 (00:44→16:05)
[2016-04-28] MEDS: hydrALAZINE 20 mg/mL Inj IV PRN ×4 (00:58→19:56)
--- NOTE | 2016-04-28 04:58 | NUR ---
HTN/VS BP through the night were hypertensive, 2 doses of hydralazine given. AM BP was 147/72, pt was sleeping and well relaxed. Labetalol avoided r/t pt not on tele. Addendum: 04/28/16 at 0501 by TYRESE BLANCA RN Pt has been afebrile all night as well.
[2016-04-28] MEDS: Insulin Human REGular 300 Unit/3 mL Inj SUBQ SCH ×4 (07:30→21:07)
[2016-04-28] MEDS: Sucralfate 100 mg/mL 10 mL Suspension PO SCH ×4 (08:05→21:06)
[2016-04-28] MEDS: 0.9% NaCl + KCl 20 mEq/L 1,000 ML IV SCH (08:09)
[2016-04-28] MEDS: Lisinopril 40 Tablet PO SCH (08:10)
[2016-04-28] MEDS: Potassium Chloride 20 mEq SR Tablet PO SCH ×2 (08:10→19:56)
[2016-04-28] MEDS: Senna-Docusate 8.6-50 mg Tablet PO SCH ×2 (08:11→19:57)
[2016-04-28] MEDS: Insulin GLARgine 100 Unit/mL Syringe SUBQ SCH ×2 (08:14→21:07)
[2016-04-28] MEDS: cefTRIAXone Inj 2,000 MG in IV Premix 1 EACH IV SCH (08:20)
[2016-04-28] MEDS: Famotidine Inj 20 MG in IV Premix 1 EACH IV SCH (08:20)
[2016-04-28 09:19] LABS: BASOPHILS % (AUTO) 0.3 % (0-3); EOSINOPHILS % (AUTO) 1.8 % (0-5); MONOCYTES % (AUTO) 10.4 % (4-12); Mean Corpuscular Hemoglobin 28.2 pg (27.0-35.0); NEUTROPHILS % (AUTO) 71.1 % (40-74); Platelet Count 295 bil/L (150-400)
[2016-04-28 09:56] LABS: ERYTHROCYTE SEDIMENTATION RATE 16 mm/hr (0-15)
--- NOTE | 2016-04-28 10:13 | NUR ---
Swallowing Pt has baseline issues, states medications are much easier tolerated in applesauce. meds given in applesauce, tolerated breakfast w/o issue. Addendum: 04/28/16 at 1057 by WILIAN ELIZALDE RN wrong pt, disregard
--- NOTE | 2016-04-28 10:58 | NUR ---
Roel TERESA aware of recent INR 1.33. POC is to wait for INR to be therapeutic prior to dc. Pt stable and w/o complaints. Addendum: 04/28/16 at 1059 by WILIAN ELIZALDE RN wrong pt, disregard
--- NOTE | 2016-04-28 10:59 | NUR ---
Roel Dang notified of continued elevated BP. Hydralazine is already on emar prn. MD to d/c prn labetolol due to need for tele for Iv labetolol. Md to also address fluids and possibly dc. Notified of k 3.5 this am, per MD request this am po K given with current fluids orders (NS with 20K). Md to switch pepcid to po. Pt has no complaints today. Will be assessed by podiatry tomorrow 04/29. Continues on Iv antibiotics.
--- NOTE | 2016-04-28 12:03 | PCM.PNMED ---
Subjective Date of Service Apr 28, 2016 Subjective He has no new symptoms to discuss today. He seems to be stable, just waiting for the antibiotics and the podiatry follow-up to be able to see a discharge plan on the horizon. The MRI scan showed osteomyelitis in the foot, and so he will need IV antibiotics for a number of weeks or months, presumably. Exam Vital Signs Vital Sign - Last Date Time Temp Pulse Resp B/P Pulse Ox O2 Delivery O2 Flow Rate FiO2 04/28/16 11:13 70 179/85 96 Room Air 04/28/16 07:55 36.9 10 Intake and Output 04/27/16 04/27/16 04/28/16 Cumulative From/Thru 15:00 23:00 07:00 04/19/16 23:30 - 04/28/16 06:13 Intake Total 2482 ml 1500 ml 63672 ml Output Total 1900 ml 2400 ml 58907 ml Balance 582 ml -900 ml 03053 ml Intake Oral 1554 ml 400 ml 85577 ml IV Total 928 ml 1100 ml 53183 ml Output Urine Total 1900 ml 2400 ml 11200 ml Emesis 60 ml # Voids 4 8 # Bowel Movements 3 1 5 Exam Alert and oriented 3, in no apparent distress. Heart is regular rate and rhythm without murmur. Lungs are clear to auscultation bilaterally. The right foot elastic wrap is removed and then replaced and the gauze dressing is noted to be relatively clean, pending change by podiatry later on. There is no ankle edema. Lab and Diagnostics Result Diagram: 04/28/1690604/28/16906 Microbiology RUN DATE: 04/25/16 [facility] LAB LIVE PAGE 1 RUN TIME: 1115 Specimen Inquiry PHYSICIAN Name: ALEXKENNY Age/Sex: 45/M Attend Dr: Shabnam Pulido MD Acct: [id number] Unit: [id number] Status: [place] IN [place] [facility] [place] 240-1 Re04/20/16 Disch: Specimen: [id number] Collected: 04/22/16 Status: COMP Req#: [id number] Received: 04/22/16 Source: FOOT Sp Desc : Subm Dr: Rajesh Shannon MD Ordered: CS & GS Comments: Collected by Nurse/Unit? Y/N Y Procedure Result Verified Site Microbiology BIJU GS (GRAM STAIN) Final 04/23/16-936 GRAM STAIN RESULT FEW POLYS NO ORGANISMS SEEN BIJU CULT AEROBIC Final 04/25/16-111 Organism 1 BETA STREPTOCOCCUS GROUP G COLONY COUNT/QUANTITY HEAVY GROWTH Organism 2 ENTEROBACTER CLOACAE COMPLEX COLONY COUNT/QUANTITY HEAVY GROWTH Organism 3 STAPHYLOCOCCUS AUREUS COLONY COUNT/QUANTITY HEAVY GROWTH BETA STREPTOCOCCUS GROUP G "Penicillin and ampicillin continues to be the drugs of choice for treatment of B-hemolytic streptoccal infections. Susceptibility testing of penicillin and other B-lactams approved by the FDA for treatment of B-hemolytic streptococcal infections need not be performed routinely. because non-susceptible isolates (ie. penicillin BIJU's >0.12 and ampicillin MICs >0.25 ug/ml) are extremely rare in any B-hemolytic streptococcal isolate and have not been reported for Streptococcus pyogenes. (CLSI U517-Q99 VOL.31 NO 1 2010) STAPHYLOCOCCUS AUREUS Oxacillin Susceptible Penicillin Resistant Staph spp. are Susceptible to Penicillin stable penicillins, Blactam/Blactamase inhibitor combinations, antistaphyloccal cephems, and carbapenems. CONTINUED ON NEXT PAGE RUN DATE: 04/25/16 [facility] LIVE PAGE 2 RUN TIME: 1115 Specimen Inquiry PHYSICIAN Patient: KENNY JOHNSON [id number] (Continued) Specimen: [id number] Collected: 04/22/16-1200 Received: 04/22/16-1356 (Continued) Procedure Result Verified Site BIJU CULT AEROBIC Final (continued) 04/25/16-1115 2. ENTEROBACTER CLOACAE COMPLEX M.I.C Interp --------- ------ * AMIKACIN <=2 S * CEFAZOLIN >=64 R * CEFEPIME <=1 S * CEFOXITIN >=64 R * CEFTRIAXONE <=1 S * CIPROFLOXACIN <=0.25 S * ERTAPENEM <=0.5 S * GENTAMICIN <=1 S * MEROPENEM <=0.25 S * TOBRAMYCIN <=1 S * TRIMETHOPRIM/SULFAMETHOXAZOLE <=20 S 3. STAPHYLOCOCCUS AUREUS M.I.C Interp --------- ------ * CEFAZOLIN S * CLINDAMYCIN <=0.25 S * ERYTHROMYCIN <=0.25 S * LINEZOLID 2 S * MOXIFLOXACIN <=0.25 S * OXACILLIN BIJU <=0.25 S * RIFAMPIN <=0.5 S * TETRACYCLINE <=1 S * TRIMETHOPRIM/SULFAMETHOXAZOLE <=10 S * VANCOMYCIN 1 S X-Rays, CTs and MRIs PROCEDURE: CT ABDOMEN AND PELVIS WITH CONTRAST ([id number]) IMPRESSION: No acute abnormality. Normal appearance of the appendix. No evidence of bowel obstruction. Moderate splenomegaly. Right renal cyst. Dictated by: Adán Jean M.D. on 04/20/2016 at 8:04 Patient Name: KENNY JOHNSON MR#: [id number] [place] [facility] [place] Ordering Phys: Paolo Grimm MD Date of Service: 04/27/16 0500 PROCEDURE: MRI FOREFOOT RIGHT WITH AND WITHOUT CONTRAST ([id number]) INDICATIONS: diabetic foot infection with persistent fevers TECHNIQUE: Noncontrast sagittal T1 spin echo and T2 fast spin echo with fat saturation, long-axis T1 spin echo and T2 fast spin echo with fat saturation; short-axis T1 spin echo, proton density fast spin echo, and T2 fast spin echo with fat saturation through the forefoot. Post-contrast short axis, long axis, and sagittal T1 spin echo with fat saturation through the forefoot. COMPARISON: [facility], CR, XR FOOT 3VW RT, 04/25/2016, 18:14. [facility], CR, FOOT 2VW (RT), 09/23/2014, 10:42. FINDINGS: Image quality: Diagnostic. Bones and joints: Postoperative changes are present involving all of the toes. The distal phalanges of the first, third, and fourth toes are noted to have been amputated. The middle and distal phalanges of the second toe has been amputated. All of the fifth toe phalanges are amputated and there is partial amputation of the fifth metatarsal. No osseous erosions are appreciated involving the toes. There are [id number]-gg-[id number] degenerative changes involving the midfoot joints. No suspicious osseous lesions are identified. Mild bone marrow edema and corresponding enhancement is present involving the first and second proximal phalangeal heads. There is also mild marrow edema and enhancement involving the head of the proximal phalanx of the fourth toe and diffusely throughout the middle phalanx of the fourth toe. There is questionable enhancement and edema involving the head of the proximal phalanx of the third toe. No additional areas of suspicious marrow edema or enhancement are evident. Specifically, the metatarsals do not appear to be involved. Soft tissues: Extensive subcutaneous edema about the right forefoot is identified, that is more prominent overlying the dorsum of the toes and is slightly more pronounced over the second and third toes. No loculated fluid collections or drainable abscess ease are evident. No soft tissue masses are identified. There is atrophy of the intrinsic muscles of the forefoot. The imaged tendons are grossly within normal limits. Although, there may be mild flexor tendinopathy. IMPRESSION: 1. Postoperative changes of the forefoot related to multifocal amputations. 2. Mild edema and enhancement of the 1st - 4th proximal phalangeal heads. There is questionable subtle edema/enhancement of the middle phalanx of the third toe. There is edema and enhancement of the middle phalanx of the fourth toe. These findings are suspicious for osteomyelitis. 3. Extensive cellulitis of the forefoot. No drainable abscess. Dictated by: Pedro Oneill M.D. on 04/27/2016 at 11:07 Approved by: Pedro Oneill M.D. on 04/27/2016 at 11:07 Cardiac Echo Impressions Echocardiogram Report Name: KENNY JOHNSON CStudy Date : 04/26/2016 Height: 78 in Hospital Exam Location: [facility] Weight: 310 lb Gender: Male BSA: 2.7 m2 : 1970 Age: 45 yrs BP: 180/87 mmHg Reason For Study: BACTEREMIA Ordering Physician: HOSPITALIST [facility] Performed By: John Mackey Referring Physician: CARROLL RUELAS Interpretation Summary 1. Normal left ventricular size with evidence for moderate concentric hypertrophy and normal to hyperdynamic systolic function with an estimated EF in the range of 65 to 70% 2. Normal right ventricular size and systolic function. 3. No evidence for significant valvular pathology compared to the previous study (images and report reviewed), no significant change Assessment & Plan 1. Intractable nausea vomiting and abdominal pain, acute, present on admission. I suspect this was due to sepsis from a diabetic foot infection with possible osteomyelitis and bacteremia. - Abdominal CAT scan was unremarkable. Possible marijuana-related vomiting versus gastroenteritis. No fever or diarrhea. Abdomen pain seems related to nausea and vomiting. - Pt has decompensated in terms of his vomiting 8 hours after eating dinner last night - Given his history will consider the possibility of a gastric emptying study and however, symptoms have improved. - Patient is now on a diabetic diet. - Gastric emptying study will be confirmed for tomorrow. - Will avoid reglan 48 hours before and morphine 6 hours before 2. Hyponatremia, acute, present on admission resolved, 3.5 today. - Now with hypokalemia. Continue 20 mg of oral potassium twice a day and recheck potassium level tomorrow -Stopping IV fluid and IV potassium for now. 4. Hyperglycemia and type II diabetic, acute, present on admission was less than optimal control. - He has not been taking his Lantus and usually takes 60 units subcutaneous twice a day. And his hemoglobin A1c was 9.3 - We will continue to Check 4 times a day blood sugars. - Continue Lantus at 30 units twice a day along with high-dose correctional scale. High dose 5. Peripheral vascular disease with diabetic foot ulcers with positive blood cultures - Wound care consult and podiatry consult - Podiatry consult appreciated - Wounds debrided at bedside - Blood cultures growing group G strep - Infectious disease consult was obtained and Dr. Medeiros's recommendations are as follows: Clinical IMPRESSION: This is a patient we saw in consult yesterday for bacteremic group G streptococcal infection. It would appear that the group G strep arose from his foot, as we have no evidence of endocarditis in that his echo is negative, he does not have a new murmur, and his blood cultures quickly turned negative. It is a bit odd that he became bacteremic from this chronically infected left foot, however, because the infection appears quite minimal with respect to the foot and there is certainly no radiographic or clinical evidence of osteomyelitis. RECOMMENDATIONS: 1. This case discussed in person with Dr. Grimm of the hospitalist service. 2. We plan to order an MRI scan of the foot to make absolutely sure there is no underlying osteo or abscess contributing to this bacteremia. 3. If the MRI is negative, and the patient defervesces and looks good for 48 hours or so, I think he could be discharged on oral amoxicillin. If, on the other hand, the patient's MRI shows osteo, we will have to make provisions for long-term IV therapy for presumably a group G streptococcal osteomyelitis. Appreciate infectious disease consultation. Will continue with Dr. Medeiros' s recommendations with IV ceftriaxone. However, due to fever will add Flagyl IV to cover anaerobic bacteria that may be present in this diabetic foot infection. Unfortunately for the patient, the MRI is suggestive of significant amount of cellulitis of the right forefoot with osteomyelitis. Please see report. The Rocephin should provide adequate coverage for the group G strep the Enterobacter and the methicillin sensitive staph aureus. The Flagyl should provide adequate coverage for any anaerobes that may be present in this diabetic foot infection. Patient may need debridement, especially if fevers persist which they appear to be persisting with a temperature of 38 yesterday. Recommend discussion with Dr. Medeiros and podiatry.. # DVT prophylaxis Use SCDs in place on subcutaneous prophylactic Lovenox # CODE STATUS Patient is full code Discharge plan: Long-term IV antibiotics are in his future, most likely at a [facility] facility or at home with home health IV infusion. The duration to be determined on follow-up by infectious disease tomorrow. GI Prophylaxis: H2 francisco VTE Prophylaxis: Sub-Q Enoxaparin VTE Mechanical Devices: Intermittant Pneumatic CD Resuscitation Status: CPR: Attempt Resuscitation Tatyana Gonzalez MD Apr 28, 2016 11:59
--- NOTE | 2016-04-28 16:18 | NUR ---
Social Work Note: Continued Discharge Planning Data& Assessment: Pt is not medically ready for discharge at this time. SW met with pt at bedside to assess for any unmet needs. Pt confirmed plan to discharge home when medically ready. SW to continue to follow to r/o home health services if recommended and appropriate. Per MD in morning rounds, per MRI, pt has osteomyelitis. SW to continue to follow for MD recommendations. Pt denies any needs at this time. SW to continue to follow if any needs arise. Plan: Anticipated discharge home via POV when medically ready. SW to follow to r/o home health services. SW to continue to follow for MD recommendations. Pt denies any needs at this time. SW to continue to follow if any needs arise. AGUILA Menchaca
--- NOTE | 2016-04-28 16:18 | NUR ---
KATIUSKA Signed AGUILA Menchaca
--- NOTE | 2016-04-28 17:41 | NUR ---
Blood pressure Pt's blood pressure was 180/91 at 1600. IV hydralazine given per PRN orders. Blood pressure was rechecked and was 186/92 a hour later. Pt complained of a headache was was given tylenol. Doctor notified of BP. Continue to monitor.
[2016-04-29] VITALS (7 sets, daily range): BP systolic 162–176; BP diastolic 81–96; PULSE 71–80; RESP 12–18; O2SAT 96–97
[2016-04-29] MEDS ORDERED: 0.9% Sodium Chloride 100 ML ONE (00:14)
[2016-04-29] MEDS: metroNIDAZOLE Inj 500 MG in IV Premix 1 EACH IV SCH ×2 (00:17→08:01)
[2016-04-29] MEDS: hydrALAZINE 20 mg/mL Inj IV PRN ×2 (00:35→14:00)
--- NOTE | 2016-04-29 06:24 | NUR ---
NPO Pt now NPO as of midnight for gastric emptying study. Pt doing well.
[2016-04-29] MEDS: Insulin Human REGular 300 Unit/3 mL Inj SUBQ SCH ×4 (07:30→22:18)
[2016-04-29] MEDS: Sucralfate 100 mg/mL 10 mL Suspension PO SCH ×4 (07:30→22:11)
[2016-04-29] MEDS: Lisinopril 40 Tablet PO SCH (07:59)
[2016-04-29] MEDS: Insulin GLARgine 100 Unit/mL Syringe SUBQ SCH ×2 (08:00→20:35)
[2016-04-29] MEDS: cefTRIAXone Inj 2,000 MG in IV Premix 1 EACH IV SCH (08:01)
[2016-04-29] MEDS: Senna-Docusate 8.6-50 mg Tablet PO SCH ×2 (08:30→20:30)
--- NOTE | 2016-04-29 09:37 | NUR ---
Gastric emptying study Pt taken down at 0905. Given cardiac/Bp meds and tylenol per ok from nuc med. Pt stable. Addendum: 04/29/16 at 1349 by WILIAN ELIZALDE RN Pt stable and back from study at 1340.
[2016-04-29] MEDS: Potassium Chloride 20 mEq SR Tablet PO SCH ×2 (13:59→20:34)
--- NOTE | 2016-04-29 14:45 | NUR ---
BP Md notified via cook page that hydralazine appears ineffective at lowering SBP. Pt trends high. Otherwise stable and resting in bed, to be seen by podiatry today after [address] Cordero.
--- NOTE | 2016-04-29 14:48 | DRSVH ---
PROCEDURE: [place] GASTRIC EMPTYING STUDY (70201) RADIOPHARMACEUTICAL: 0.407 mCi Tc-99m sulfur colloid in an egg sandwich. INDICATIONS: POSSIBLE GASTROPORESIS TECHNIQUE: A Tc-99m labeled sulfur colloid labeled egg sandwich or oatmeal was served to the patient. Anterior and posterior planar images of the abdomen were obtained at 0 minutes and 30 minutes, then at hourly intervals up to 4 hours. The patient was upright and ambulating during the interval. COMPARISON: None. FINDINGS: The stomach has normal size, morphology, and position. There is normal emptying of solid gastric con tents from the stomach by visual inspection. No gastroesophageal reflux is visualized. The percentage of tracer retained at specific time points are as follows: Time point Percent gastric retention Normal range 30 minutes 100% 70% or more 1 hour 75% 30% to 90% 2 hours 41% 60% or less 3 hours 24% 30% or less 4 hours 10% 10% or less Gastric retention of less than 70% at 30 minutes, or less than 30% at 1 hour, would suggest abnormall y rapid gastric emptying (dumping). IMPRESSION: Normal study as above Dictated by: Adán Jean M.D. on 04/29/2016 at 14:46 Approved by: Adán Jean M.D. on 04/29/2016 at 14:46
[2016-04-29] MEDS ORDERED: hydrALAZINE 20 mg/mL Inj IV PRN (15:20)
--- NOTE | 2016-04-29 16:59 | PROG NOTE ---
[address] [address] PROGRESS NOTE PATIENT: KENNY JOHNSON : 1970 MR#: [id number] ADMIT: 04/20/2016 JOB ID: [id number] DATE: 04/29/2016 REASON FOR FOLLOWUP: Bacteremic group G strep osteomyelitis. INTERVAL HISTORY: Over the weekend, the patient has felt relatively well. He has had no significant fevers, chills or pulmonary symptoms. No notable GI symptoms. He did undergo a gastric emptying study today which proved to be normal. He has no pain in his feet but, of course, his feet are completely insensate so this is not a good measure of how impacted his feet are by possible infection. We discussed the patient's prior experiences with home IV antibiotic therapy and the patient is certainly aware of the risks and benefits of such therapy. He agrees to have a PICC line placed and undergo six weeks of IV antibiotic therapy for what we believe to be bacteremic osteo. PHYSICAL EXAMINATION: Reveals an afebrile gentleman, temperature 37.1, blood pressure 172/96. He is saturating well on room air. No acute distress. Oral cavity negative. Lungs clear. Abdomen benign. We examined his right foot after we carefully removed the dressings. The lesions present around the right great toe as well as the right 4th plantar metatarsophalangeal joint are little changed. Overall, one would think by looking at it, his foot is not especially infected. I see no evidence for cellulitis. IMAGING: The MRI scan of the foot was done over the weekend, as we had previously discussed. It shows mild edema and enhancement of the first 4th proximal phalangeal heads with subtle enhancement of the middle phalanx of the third toe. There is also edema and enhancement of the middle phalanx of the 4th toe which the radiologist felt was suspicious for osteo. Surprisingly, the radiologist also reports extensive cellulitis of the forefoot. This is not in any way visible on physical examination, and, rather, he has some brawny, dry appearance to the forefoot which is entirely nontender and not warm. IMPRESSION: We are forced to conclude that the patient's high-grade group G strep bacteremia combined with a culture from his right great toe that yielded group G strep and these findings consistent with osteo make it more likely than not that the patient has a bacteremic group G streptococcal osteomyelitis. This process will require a full six weeks of IV antibiotic therapy. The patient has had many prior episodes of serious foot infection which has led to the TMA on the left and missing 5th ray and other structures on other portions of other toes on the right foot and is now prepared to undergo this repeat prolonged IV antibiotic therapy. Given the fact that his renal function is fine, I see no reason to avoid the use of PICC lines in this gentleman as this would be the most expedient way to give him the antibiotics. RECOMMENDATIONS: 1. A PICC line has been ordered today. 2. I agree with the Flagyl that was started over the weekend because of a possible anaerobic infection, but I would confine the dose to 500 mg p.o. b.i.d. to be given for four weeks which would take us through May 23. 3. The patient should continue on ceftriaxone 2 g a day through May 30 including the therapy he has received here. This will complete six weeks of therapy. 4. I have ordered outpatient weekly labs to include CMP, CBC, CRP to be faxed to my office. 5. The patient should follow up with me on May 08. 6. I see no reason not to discharge the patient tomorrow once the PICC line is in place and the arrangements for home health and home IV antibiotics have been made. If the patient is still here, I will make an effort to come by and see him tomorrow to make sure all is ready.
--- NOTE | 2016-04-29 18:23 | PCM.PNMED ---
Subjective Date of Service Apr 29, 2016 Subjective 45-year-old man with diabetes peripheral vascular disease and osteomyelitis. No new symptoms today. Nausea and vomiting has abated. Taking by mouth well. Anticipating discharge with outpatient antibiotic plan. Exam Vital Signs Vital Sign - Last Date Time Temp Pulse Resp B/P Pulse Ox O2 Delivery O2 Flow Rate FiO2 04/29/16 07:40 37.1 77 12 172/90 97 Room Air Intake and Output 04/28/16 04/28/16 04/29/16 Cumulative From/Thru 15:00 23:00 07:00 04/19/16 23:30 - 04/29/16 06:31 Intake Total 1388 ml 820 ml 40954 ml Output Total 3150 ml 1500 ml 10589 ml Balance -1762 ml -680 ml 7737 ml Intake Oral 1257 ml 700 ml 58196 ml IV Total 131 ml 120 ml 92673 ml Output Urine Total 3150 ml 1500 ml 55798 ml Emesis 60 ml # Voids 8 # Bowel Movements 5 Exam Alert and oriented 3, in no apparent distress. Vital signs noted - hypertensive Heart regular without murmur. Lungs are clear to auscultation bilaterally. Abdomen benign Right foot wound and bandage. A pitting pedal edema Lab and Diagnostics Result Diagram: 04/28/16 0907 04/28/16 1241 Microbiology RUN DATE: 04/25/16 [facility] LAB LIVE PAGE 1 RUN TIME: 1115 Specimen Inquiry PHYSICIAN Name: KENNY JOHNSON Age/Sex: 45/M Attend Dr: Shabnam Pulido MD Acct: [id number] Unit: [id number] Status: ADM IN Location: [facility] 240-1 Re04/20/16 Disch: Specimen: [id number] Collected: 04/22/16 Status: CYRIL Maher#: [id number] Received: 04/22/16 Source: FOOT Sp Desc : Subm Dr: Rajesh Shannon MD Ordered: CS & GS Comments: Collected by Nurse/Unit? Y/N Y Procedure Result Verified Site Microbiology BIJU GS (GRAM STAIN) Final 04/23/16-936 GRAM STAIN RESULT FEW POLYS NO ORGANISMS SEEN BIJU CULT AEROBIC Final 04/25/16-111 Organism 1 BETA STREPTOCOCCUS GROUP G COLONY COUNT/QUANTITY HEAVY GROWTH Organism 2 ENTEROBACTER CLOACAE COMPLEX COLONY COUNT/QUANTITY HEAVY GROWTH Organism 3 STAPHYLOCOCCUS AUREUS COLONY COUNT/QUANTITY HEAVY GROWTH BETA STREPTOCOCCUS GROUP G "Penicillin and ampicillin continues to be the drugs of choice for treatment of B-hemolytic streptoccal infections. Susceptibility testing of penicillin and other B-lactams approved by the FDA for treatment of B-hemolytic streptococcal infections need not be performed routinely. because non-susceptible isolates (ie. penicillin BIJU's >0.12 and ampicillin MICs >0.25 ug/ml) are extremely rare in any B-hemolytic streptococcal isolate and have not been reported for Streptococcus pyogenes. (CLSI Y730-R38 VOL.31 NO 1 2010) STAPHYLOCOCCUS AUREUS Oxacillin Susceptible Penicillin Resistant Staph spp. are Susceptible to Penicillin stable penicillins, Blactam/Blactamase inhibitor combinations, antistaphyloccal cephems, and carbapenems. CONTINUED ON NEXT PAGE RUN DATE: 04/25/16 [facility] LIVE PAGE 2 RUN TIME: 1115 Specimen Inquiry PHYSICIAN Patient: KENNY JOHNSON [id number] (Continued) Specimen: [id number] Collected: 04/22/16-1199 Received: 04/22/16-1356 (Continued) Procedure Result Verified Site BIJU CULT AEROBIC Final (continued) 04/25/16-1115 2. ENTEROBACTER CLOACAE COMPLEX M.I.C Interp --------- ------ * AMIKACIN <=2 S * CEFAZOLIN >=64 R * CEFEPIME <=1 S * CEFOXITIN >=64 R * CEFTRIAXONE <=1 S * CIPROFLOXACIN <=0.25 S * ERTAPENEM <=0.5 S * GENTAMICIN <=1 S * MEROPENEM <=0.25 S * TOBRAMYCIN <=1 S * TRIMETHOPRIM/SULFAMETHOXAZOLE <=20 S 3. STAPHYLOCOCCUS AUREUS M.I.C Interp --------- ------ * CEFAZOLIN S * CLINDAMYCIN <=0.25 S * ERYTHROMYCIN <=0.25 S * LINEZOLID 2 S * MOXIFLOXACIN <=0.25 S * OXACILLIN BIJU <=0.25 S * RIFAMPIN <=0.5 S * TETRACYCLINE <=1 S * TRIMETHOPRIM/SULFAMETHOXAZOLE <=10 S * VANCOMYCIN 1 S X-Rays, CTs and MRIs PROCEDURE: CT ABDOMEN AND PELVIS WITH CONTRAST ([id number]) IMPRESSION: No acute abnormality. Normal appearance of the appendix. No evidence of bowel obstruction. Moderate splenomegaly. Right renal cyst. Dictated by: Adán Jean M.D. on 04/20/2016 at 8:04 Patient Name: KENNY JOHNSON MR#: [id number] Location: [facility] Ordering Phys: Paolo Grimm MD Date of Service: 04/27/16 0500 PROCEDURE: MRI FOREFOOT RIGHT WITH AND WITHOUT CONTRAST ([id number]) INDICATIONS: diabetic foot infection with persistent fevers TECHNIQUE: Noncontrast sagittal T1 spin echo and T2 fast spin echo with fat saturation, long-axis T1 spin echo and T2 fast spin echo with fat saturation; short-axis T1 spin echo, proton density fast spin echo, and T2 fast spin echo with fat saturation through the forefoot. Post-contrast short axis, long axis, and sagittal T1 spin echo with fat saturation through the forefoot. COMPARISON: [facility], CR, XR FOOT 3VW RT, 04/25/2016, 18:14. [facility], CR, FOOT 2VW (RT), 09/23/2014, 10:42. FINDINGS: Image quality: Diagnostic. Bones and joints: Postoperative changes are present involving all of the toes. The distal phalanges of the first, third, and fourth toes are noted to have been amputated. The middle and distal phalanges of the second toe has been amputated. All of the fifth toe phalanges are amputated and there is partial amputation of the fifth metatarsal. No osseous erosions are appreciated involving the toes. There are muxy-fo-bozmsyyd degenerative changes involving the midfoot joints. No suspicious osseous lesions are identified. Mild bone marrow edema and corresponding enhancement is present involving the first and second proximal phalangeal heads. There is also mild marrow edema and enhancement involving the head of the proximal phalanx of the fourth toe and diffusely throughout the middle phalanx of the fourth toe. There is questionable enhancement and edema involving the head of the proximal phalanx of the third toe. No additional areas of suspicious marrow edema or enhancement are evident. Specifically, the metatarsals do not appear to be involved. Soft tissues: Extensive subcutaneous edema about the right forefoot is identified, that is more prominent overlying the dorsum of the toes and is slightly more pronounced over the second and third toes. No loculated fluid collections or drainable abscess ease are evident. No soft tissue masses are identified. There is atrophy of the intrinsic muscles of the forefoot. The imaged tendons are grossly within normal limits. Although, there may be mild flexor tendinopathy. IMPRESSION: 1. Postoperative changes of the forefoot related to multifocal amputations. 2. Mild edema and enhancement of the 1st - 4th proximal phalangeal heads. There is questionable subtle edema/enhancement of the middle phalanx of the third toe. There is edema and enhancement of the middle phalanx of the fourth toe. These findings are suspicious for osteomyelitis. 3. Extensive cellulitis of the forefoot. No drainable abscess. Dictated by: Pedro Oneill M.D. on 04/27/2016 at 11:07 Approved by: Pedro Oneill M.D. on 04/27/2016 at 11:07 Cardiac Echo Impressions Echocardiogram Report Name: KENNY JOHNSON CStudy Date : 04/26/2016 Height: 78 in Hospital Exam Location: [facility] Weight: 310 lb Gender: Male BSA: 2.7 m2 : 1970 Age: 45 yrs BP: 180/87 mmHg Reason For Study: BACTEREMIA Ordering Physician: [facility] Performed By: John Mackey Referring Physician: CARROLL RUELAS Interpretation Summary 1. Normal left ventricular size with evidence for moderate concentric hypertrophy and normal to hyperdynamic systolic function with an estimated EF in the range of 65 to 70% 2. Normal right ventricular size and systolic function. 3. No evidence for significant valvular pathology compared to the previous study (images and report reviewed), no significant change Additional Diagnostics Urine dip per ER note and report is negative including negative ketones. Assessment & Plan 1. Peripheral vascular disease with diabetic foot ulcers with positive blood cultures - Podiatry consult appreciated - Wounds debrided at bedside - Blood cultures growing group G strep - MRI positive osteomyelitis right third fourth and use - Infectious disease to determine antibiotic choice and duration 2. Intractable nausea vomiting and abdominal pain, acute, present on admission. I suspect this was due to sepsis from a diabetic foot infection with possible osteomyelitis and bacteremia. - Abdominal CAT scan was unremarkable. Possible marijuana-related vomiting versus gastroenteritis. No fever or diarrhea. Abdomen pain seems related to nausea and vomiting. - Given his history will consider the possibility of a gastric emptying study and however, symptoms have improved. - Gastric emptying study confirmed for 04/29 - Will avoid reglan 48 hours before and morphine 6 hours before 2. Hypertension. Poorly controlled despite high-dose lisinopril, metoprolol, clonidine and when necessary hydralazine - Added amlodipine on 04/29 - Increased correctional hydralazine - Patient probably needs a thiazide at time of discharge 2. Hyponatremia, acute, present on admission resolved, -Resolved 4. Hyperglycemia and type II diabetic, acute, present on admission was less than optimal control. - He has not been taking his Lantus and usually takes 60 units subcutaneous twice a day. And his hemoglobin A1c was 9.3 - We will continue to Check 4 times a day blood sugars. - Continue Lantus at 30 units twice a day along with high-dose correctional scale. High dose 5. DVT prophylaxis Use SCDs in place on subcutaneous prophylactic Lovenox # CODE STATUS Patient is full code Discharge plan: Long-term IV antibiotics are in his future, most likely at a [facility] facility or at home with home health IV infusion. The duration to be determined on follow-up by infectious disease program evaluation consultant. Expect discharge when antibiotic plan is established. GI Prophylaxis: H2 francisco VTE Prophylaxis: Sub-Q Enoxaparin VTE Mechanical Devices: Intermittant Pneumatic CD Resuscitation Status: CPR: Attempt Resuscitation Time spent 25 minutes Jn Gates MD Apr 29, 2016 11:11
[2016-04-30 00:30] VITALS: BP 175/91; PULSE 74; RESP 16; O2SAT 97
[2016-04-30 04:31] VITALS: BP 142/77; PULSE 86; RESP 16; O2SAT 95
--- NOTE | 2016-04-30 05:38 | NUR ---
Blood pressure Pt's blood pressure at 0030 was 175/91. PRN IV hydralazine given per orders. Blood pressure was rechecked at 0431 and it was 142/77. pt afebrile. Bed is locked and in low position. call light within reach. Continue to monitor.
[2016-04-30 08:05] VITALS: BP 169/89; PULSE 79; RESP 20; O2SAT 96
[2016-04-30] MEDS: Potassium Chloride 20 mEq SR Tablet PO SCH (08:15)
[2016-04-30] MEDS: Sucralfate 100 mg/mL 10 mL Suspension PO SCH ×2 (08:15→12:32)
[2016-04-30] MEDS: Lisinopril 40 Tablet PO SCH (08:16)
[2016-04-30] MEDS: Senna-Docusate 8.6-50 mg Tablet PO SCH (08:30)
[2016-04-30] MEDS ORDERED: cefTRIAXone Inj 2,000 MG in Dextrose 5% Minibag Plus 50 ML IV SCH (08:30)
[2016-04-30] MEDS: Insulin Human REGular 300 Unit/3 mL Inj SUBQ SCH ×2 (08:35→12:33)
[2016-04-30] MEDS: Insulin GLARgine 100 Unit/mL Syringe SUBQ SCH (08:36)
--- NOTE | 2016-04-30 11:42 | NUR ---
Social Work Continued Discharge Plan: DOROTHEA following on discharge plan. DOROTHEA met with patient at bedside to discuss discharge plan. Patient states plan as home with IV abx for Ceftriaxone 2 gm until May 30. Patient states choice as [facility] and Critical access hospital. [facility] choice list offered and declined. Patient states being on IV abx previously and states being able to manage again. DOROTHEA spoke to [facility] rep Yessica, who was advised of order and to verify benefits. DOROTHEA faxed order to [facility] [phone]. DOROTHEA provided access to Critical access hospital and [facility]. DOROTHEA spoke to Critical access hospital rep Lonny and provided face to face. Patient to obtain picc line today. SW to follow. PLAN: Home with [facility] and Critical access hospital, pending clinical course. DOROTHEA following for Medicare auth for abx. SW to follow. Sandy SHEEHAN Addendum: 04/30/16 at 1429 by PALMIRA KATHLEEN Per [facility], patient has no covered benefit for outpt abx. 1 week of abx is $682.20. DOROTHEA discussed with patient. Patient states having no available funds. Patient states being able to report outpatient for abx treatments. MO advised and scheduled outpatient appointment for tomorrow at 3pm. No other needs. PLAN: Home with outpt abx follow up at outpatient MO at 3pm. Sandy SHEEHAN
--- NOTE | 2016-04-30 13:50 | PROG NOTE ---
[address] [address] PROGRESS NOTE PATIENT: KENNY JOHNSON : 1970 MR#: [id number] ADMIT: 04/20/2016 JOB ID: [id number] DATE: 04/30/2016 INFECTIOUS DISEASE FOLLOW UP NOTE: REASON FOR FOLLOWUP: Bacteremic group G streptococcal osteomyelitis. INTERVAL HISTORY: Overnight, the patient reports he has been feeling quite well. No fevers, chills, or sweats. No specific pulmonary or GI symptoms. He has not yet received his PICC line and I discussed this with the PICC team. They plan to put in sometime after noon today and he can be discharged at that time. I also discussed this case with Dr. Cordero of Podiatry. He told me that he is surprised that the MRI was read as osteo but he nonetheless thinks we probably should at least treat for four weeks rather than the full six weeks. PHYSICAL EXAMINATION: Reveals an afebrile gentleman, in no acute distress. Temperature 37.4, pulse 79, respiratory rate 20, blood pressure 169/89. He is saturating well on room air. Examination of the oral cavity unremarkable. Lungs fairly clear. Cardiac tones without new murmur. Abdomen benign. The feet are dressed and I did not remove those dressings. Last white blood count 7300, was two days ago. Last procalcitonin 0.15 two days ago and last CRP 1.8 two days ago. We have no new cultures available. Recall that both blood in the foot grew group G strep. The foot also grew some Enterobacter as well as Staph aureus which were sensitive to ceftriaxone. The MRI of the foot was discussed yesterday but appeared to show osteomyelitis. IMPRESSION: Bacteremic group G strep osteomyelitis in a patient with severe underlying diabetes. RECOMMENDATIONS: 1. IV ceftriaxone through May 30. 2. Weekly laboratories which were ordered yesterday. 3. The patient will be seeing me in clinic one time on November 05. 4. The patient can be discharged at any time today once his PICC line is placed. 5. ID will be signing off on this case at this time.
--- NOTE | 2016-04-30 14:12 | NUR ---
NUTRITION FOLLOW-UP: Assess: 45 you M w/ intractable nausea/vomiting, hyponatremia, and hyperglycemia. Chronic rt lower extremity ulcerations also present-podiatry is following. Pt's N/V has resolved. Plan is to have PICC placed for home IV antibiotics. PO has improved to 100% most meals. 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 (04/28/16) Glu 152, Ca 8.1, Alb 2.3 MEDICATIONS: Reviewed. Insulin, Zofran DIET: Diabetic, PO 100% GI symptoms/stool: BMx1 04/28 Skin integrity: Chronic lower extremity ulcerations ANTHROPOMETRICS: Current Wt: 141.9kg BMI: 36.2 kg Admit Wt: 134.2 kg IBW: 97.3 kg Recent wt changes: 6.7 kg wt loss x2 months (5% = not significant) ESTIMATED NEEDS: BMI (based off admit wt) Calories: 4719-8371 kcal/d (20-22 kcal/kg/d) Protein: 115-145 g/d (1.2-1.5 g/kg/d IBW) Fluids: 7904-4670 ml/d (1 ml/kcal/d) NUTRITION DIAGNOSIS: 1) Inadequate oral intake related to GI abnormalities as evidenced by intractable nausea/vomiting and need for clear liquid diet.--RESOLVED 2) Altered nutrition related lab values related to type 2 diabetes as evidenced by A1c of 9.3- Diet ed completed 04/26 INTERVENTION: 1) Continue on Diabetic Diet. PO adequate for needs. 2) Diabetic diet education provided 04/26 MONITOR/EVALUATE: Diet julio, PO intake, Labs, Wt, GI, Nutrition status, POC. Will follow per low nutrition risk guidelines.
[2016-04-30] MEDS ORDERED: AMLO5TAB2 PO (14:53)
--- NOTE | 2016-04-30 14:57 | PCM.DIMED ---
Discharge Instructions Date of Service Apr 30, 2016 Dates of Hospitalization Apr 20, 2016 at 03:17 Discharge Diagnosis Discharge Diagnosis Diabetic foot infection; osteomyelitis; hypertension; type II diabetes mellitus poorly controlled Medication Instructions Your blood pressure was not at the goal of 130/80. An additional prescription for amlodipine 10 mg daily has been faxed to your pharmacy. You will receive home infusion of ceftriaxone antibiotic for your foot infection to complete after the dose on 05/30. Test Results Hemoglobin A1c 9.3, 9.8%. Goal less than 7% Diet Diabetic Patient Instructions Podiatry follow-up: Patient is stable for discharge to outpatient care from podiatry standpoint follow-up with Dr. Norton within 5 days of discharge Bilateral lower extremity dressings may be left intact for up to 1 week and are to be kept clean dry and intact. Follow-up plan Discharge home with home health to include home infusion services. Follow-up Provider: Thompson Madrid MD Follow-up with PCP in: 1 week Provider: Citlali Norton DPM Follow-up in: 1 week Jn Gates MD Apr 30, 2016 14:57
--- NOTE | 2016-04-30 15:05 | NUR ---
Picc suite Pt taken to Picc suite for line placement prior to discharge.
--- NOTE | 2016-04-30 15:07 | PCM.DC.MED ---
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 RECOMMENDATIONS: 1. IV ceftriaxone through May 30. 2. Weekly laboratories which were ordered yesterday. 3. The patient will be seeing me in clinic one time on November 05. 4. The patient can be discharged at any time today once his PICC line is placed. 5. ID will be signing off on this case at this time. Jordy Medeiros MD 04/30/16 1324 Podiatry: Impression Stable bilateral lower extremity ulcerations without signs of acute infection Problems: (1) Diabetic foot ulcer associated with type 2 diabetes mellitus Qualifiers: Laterality: bilateral Qualified Code: E11.621 - Type 2 diabetes mellitus with foot ulcer Plan: Chronic ulceration bilateral lower extremity without signs of acute infection. Wound dressings changed today. Dressing replaced with a Betadine soaked gauze dressing dry sterile 4 x 4's Kerlix and Helio bandage bilaterally. These wounds appear stable at this time and are unlikely source of this patient' s previous leukocytosis. Weightbearing as tolerated bilateral heel Continue to follow Dr. Medeiros recommendation for antibiotic regimen Patient is stable for discharge to outpatient care from podiatry standpoint follow-up with Dr. Norton within 5 days of discharge Bilateral lower extremity dressings may be left intact for up to 1 week and are to be kept clean dry and intact. Status: Chronic ICD Code: E11.621 (2) Cellulitis of right foot Status: Acute ICD Code: L03.115 VTE Prophylaxis: Sub-Q Enoxaparin Thony Cordero DPM Apr 27, 2016 10:50 <Electronically signed by Thony Cordero DPM> 04/27/16 1050 . Procedures XRay, CTs & MRIs PROCEDURE: CT ABDOMEN AND PELVIS WITH CONTRAST ([id number]) IMPRESSION: No acute abnormality. Normal appearance of the appendix. No evidence of bowel obstruction. Moderate splenomegaly. Right renal cyst. Dictated by: Adán Jean M.D. on 04/20/2016 at 8:04 Patient Name: KENNY JOHNSON MR#: [id number] Location: [facility] [place] Ordering Phys: Paolo Grimm MD Date of Service: 04/27/16 0500 PROCEDURE: MRI FOREFOOT RIGHT WITH AND WITHOUT CONTRAST ([id number]) INDICATIONS: diabetic foot infection with persistent fevers TECHNIQUE: Noncontrast sagittal T1 spin echo and T2 fast spin echo with fat saturation, long-axis T1 spin echo and T2 fast spin echo with fat saturation; short-axis T1 spin echo, proton density fast spin echo, and T2 fast spin echo with fat saturation through the forefoot. Post-contrast short axis, long axis, and sagittal T1 spin echo with fat saturation through the forefoot. COMPARISON: [facility], CR, XR FOOT 3VW RT, 04/25/2016, 18:14. [facility], CR, FOOT 2VW (RT), 09/23/2014, 10:42. FINDINGS: Image quality: Diagnostic. Bones and joints: Postoperative changes are present involving all of the toes. The distal phalanges of the first, third, and fourth toes are noted to have been amputated. The middle and distal phalanges of the second toe has been amputated. All of the fifth toe phalanges are amputated and there is partial amputation of the fifth metatarsal. No osseous erosions are appreciated involving the toes. There are [id number] degenerative changes involving the midfoot joints. No suspicious osseous lesions are identified. Mild bone marrow edema and corresponding enhancement is present involving the first and second proximal phalangeal heads. There is also mild marrow edema and enhancement involving the head of the proximal phalanx of the fourth toe and diffusely throughout the middle phalanx of the fourth toe. There is questionable enhancement and edema involving the head of the proximal phalanx of the third toe. No additional areas of suspicious marrow edema or enhancement are evident. Specifically, the metatarsals do not appear to be involved. Soft tissues: Extensive subcutaneous edema about the right forefoot is identified, that is more prominent overlying the dorsum of the toes and is slightly more pronounced over the second and third toes. No loculated fluid collections or drainable abscess ease are evident. No soft tissue masses are identified. There is atrophy of the intrinsic muscles of the forefoot. The imaged tendons are grossly within normal limits. Although, there may be mild flexor tendinopathy. IMPRESSION: 1. Postoperative changes of the forefoot related to multifocal amputations. 2. Mild edema and enhancement of the 1st - 4th proximal phalangeal heads. There is questionable subtle edema/enhancement of the middle phalanx of the third toe. There is edema and enhancement of the middle phalanx of the fourth toe. These findings are suspicious for osteomyelitis. 3. Extensive cellulitis of the forefoot. No drainable abscess. Dictated by: Pedro Oneill M.D. on 04/27/2016 at 11:07 Approved by: Pedro Oneill M.D. on 04/27/2016 at 11:07 Cardiac Echo Impression Echocardiogram Report Name: KENNY JOHNSON CStudy Date : 04/26/2016 Height: 78 in Hospital Exam Location: [facility] Weight: 310 lb Gender: Male BSA: 2.7 m2 : 1970 Age: 45 yrs BP: 180/87 mmHg Reason For Study: BACTEREMIA Ordering Physician: HOSPITALIST [facility] Performed By: John Mackey Referring Physician: CARROLL RUELAS Interpretation Summary 1. Normal left ventricular size with evidence for moderate concentric hypertrophy and normal to hyperdynamic systolic function with an estimated EF in the range of 65 to 70% 2. Normal right ventricular size and systolic function. 3. No evidence for significant valvular pathology compared to the previous study (images and report reviewed), no significant change Other Diagnostics Urine dip per ER note and report is negative including negative ketones. Brief History History of Present Illness (per admission note): Is a 45-year-old male who was in the emergency room yesterday and again today with complaints of intractable nausea vomiting and abdominal pain. He notes he had loose stool a few days ago and has had none since. He notes that he had a fever at home. 101. He feels like his heart has been going faster he has not been able to really keep anything down. He is not been taking his insulin and has not been checking his blood sugars at home. He has a history of type II diabetes. He notes no sick contacts. Patient denies any chest pain or shortness of breath. Patient denies any coffee-ground or bloody emesis. He denies any blood or maroon-colored stool. He describes his abdominal pain as cramping. Hospital Course 1. Peripheral vascular disease with diabetic foot ulcers with positive blood cultures - Wounds debrided at bedside - Blood cultures growing group G strep - MRI positive osteomyelitis right third fourth and use - Infectious disease advises daily ceftriaxone infusion by home infusion service to finish on 05/30/16 2. Intractable nausea vomiting and abdominal pain, acute, present on admission. I suspect this was due to sepsis from a diabetic foot infection with possible osteomyelitis and bacteremia. - Abdominal CAT scan was unremarkable. Possible marijuana-related vomiting versus gastroenteritis. No fever or diarrhea. Abdomen pain seems related to nausea and vomiting. - Gastric emptying study was unremarkable 3. Hypertension. Poorly controlled despite high-dose lisinopril, metoprolol, clonidine and when necessary hydralazine - Added amlodipine on 04/29 - Added amlodipine - Patient probably needs a thiazide to be considered by PCP 4. Hyponatremia, acute, present on admission resolved, -Resolved 5. Hyperglycemia and type II diabetic, acute, present on admission was less than optimal control. Blood sugars were controlled with basal bolus insulin while admitted. - He has not been taking his Lantus and usually takes 60 units subcutaneous twice a day. And his hemoglobin A1c was 9.8% - Defer changes in his diabetic regimen to his PCP # CODE STATUS Patient is full code Discharge plan: Long-term IV antibiotics are in his future, most likely at a nursing home facility or at home with home health IV infusion. The duration to be determined on follow-up by infectious disease internet consultant. Expect discharge when antibiotic plan is established. Exam Vital Signs (Last) Date Time Temp Pulse Resp B/P Pulse Ox O2 Delivery O2 Flow Rate FiO2 04/30/16 08:05 37.4 79 20 169/89 96 Room Air Exam General: Comfortable appearing and foot bandages, no acute distress HEENT: sclerae anicteric, oral mucosa moist Neck: no JVD, supple Chest: clear to auscultation Cardiac: S1S2, regular Abdomen: BS normal, non-tender Extremities: Bilateral foot bandages, status post forefoot amputation Neuro: A&O, cranial nerves symmetric, motor strength 5/5, coordination normal Test 04/19/16 22:45 04/20/16 00:10 04/20/16 00:20 1/7/17 16:45 Lactic Acid Level 2.0mmol/L (0.4-2.0) Urine Opiates Screen Negative Urine Methadone Screen Negative Urine Barbiturates Screen Negative Urine Amphetamines Screen Negative Urine Benzodiazepines Screen Negative Urine Cocaine Metabolite Screen Negative Urine Cannabinoids Screen Positive Hold Urine Received (Received) Lipase 25U/L (13-60) Test 04/23/16 14:20 04/25/16 19:12 04/27/16 07:02 04/28/16 09:07 Urine Color Yellow (YELLOW) Urine Appearance Hazy (CLEAR,HAZY) Urine pH 6.5 (5.0-8.0) Urine Specific [place] 1.025 (1.003-1.035) Urine Protein 300mg/dL (NEG,TRACE) Urine Glucose (UA) 100mg/dL (NEGATIVE) Urine Ketones 40mg/dL (NEGATIVE) Urine Occult Blood Moderate (NEGATIVE) Urine Nitrite Negative (NEGATIVE) Urine Bilirubin Negative (NEGATIVE) Urine Urobilinogen 2.0mg/dL (NORMAL) Urine Leukocyte Esterase Negative (NEGATIVE) Hemoglobin A1c 9.3% (4.8-5.6) Hold Spivey Top Tube Received (Received) Phosphorus Level 2.9mg/dL (2.5-4.9) Triglycerides Level 136mg/dL (0-149) Cholesterol Level 143mg/dL (100-199) LDL Cholesterol, Calculated 97.800mg/dL (0-99) VLDL Cholesterol 27.200mg/dL HDL Cholesterol 18mg/dL (>39) Cholesterol/HDL Ratio 7.94 (0.0-4.4) White Blood Count 7.3th/mm3 (3.8-10.1) Red Blood Count 4.75mil/mm3 (4.40-5.80) Hemoglobin 13.4g/dL (13.8-17.2) Hematocrit 38.0% (41.0-50.0) Mean Corpuscular Volume 80.0fL (81-100) Mean Corpuscular Hemoglobin 28.2pg (27.0-35.0) Mean Corpuscular Hemoglobin Concent 35.3% (32.0-37.0) Red Cell Distribution Width 12.7% (12.3-15.4) Platelet Count 295bil/L (150-400) Neutrophils (%) (Auto) 71.1% (40-74) Lymphocytes (%) (Auto) 15.9% (14-46) Monocytes (%) (Auto) 10.4% (4-12) Eosinophils (%) (Auto) 1.8% (0-5) Basophils (%) (Auto) 0.3% (0-3) Erythrocyte Sedimentation Rate 16mm/hr (0-15) Magnesium Level 2.0mg/dL (1.6-2.6) Total Bilirubin 0.3mg/dL (0.0-1.2) Aspartate Amino Transf (AST/SGOT) 20U/L (0-50) Alanine Aminotransferase (ALT/SGPT) 18U/L (0-44) Alkaline Phosphatase 96U/L (25-150) C-Reactive Protein 1.8mg/dL (0.0-0.5) Total Protein 5.4g/dL (6.4-8.4) Albumin 2.3g/dL (3.4-5.0) Procalcitonin 0.15ng/mL (See Comment) Test 04/28/16 12:41 Sodium Level 137mEq/L (134-144) Potassium Level 3.7mEq/L (3.5-5.2) Chloride Level 102mEq/L (97-108) Carbon Dioxide Level 24mmol/L (18-29) Blood Urea Nitrogen 7mg/dL (6-24) Creatinine 0.77mg/dL (0.76-1.27) Estimat Glomerular Filtration Rate 117mL/min (>59) Glucose Level 152mg/dL (60-99) Calcium Level 8.1mg/dL (8.5-10.1) Microbiology Results RUN DATE: 04/25/16 [facility] LIVE PAGE 1 RUN TIME: 1115 Specimen Inquiry PHYSICIAN Name: KENNY JOHNSON Age/Sex: 45/M Attend Dr: Shabnam Pulido MD Acct: [id number] Unit: [id number] Status: ADM IN Location: [place] [address]-1 Re04/20/16 Disch: Specimen: [id number] Collected: 04/22/16 Status: COMP Req#: [id number] Received: 04/22/16 Source: FOOT Sp Desc : Subm Dr: Rajesh Shannon MD Ordered: CS & GS Comments: Collected by Nurse/Unit? Y/N Y Procedure Result Verified Site Microbiology BIJU GS (GRAM STAIN) Final 04/23/16 GRAM STAIN RESULT FEW POLYS NO ORGANISMS SEEN BIJU CULT AEROBIC Final 04/25/16-111 Organism 1 BETA STREPTOCOCCUS GROUP G COLONY COUNT/QUANTITY HEAVY GROWTH Organism 2 ENTEROBACTER CLOACAE COMPLEX COLONY COUNT/QUANTITY HEAVY GROWTH Organism 3 STAPHYLOCOCCUS AUREUS COLONY COUNT/QUANTITY HEAVY GROWTH BETA STREPTOCOCCUS GROUP G "Penicillin and ampicillin continues to be the drugs of choice for treatment of B-hemolytic streptoccal infections. Susceptibility testing of penicillin and other B-lactams approved by the FDA for treatment of B-hemolytic streptococcal infections need not be performed routinely. because non-susceptible isolates (ie. penicillin BIJU's >0.12 and ampicillin MICs >0.25 ug/ml) are extremely rare in any B-hemolytic streptococcal isolate and have not been reported for Streptococcus pyogenes. (CLSI R544-Z86 VOL.31 NO 1 2010) STAPHYLOCOCCUS AUREUS Oxacillin Susceptible Penicillin Resistant Staph spp. are Susceptible to Penicillin stable penicillins, Blactam/Blactamase inhibitor combinations, antistaphyloccal cephems, and carbapenems. CONTINUED ON NEXT PAGE RUN DATE: 04/25/16 [facility] LIVE PAGE 2 RUN TIME: 1115 Specimen Inquiry PHYSICIAN Patient: KENNY JOHNSON [id number] (Continued) Specimen: [id number] Collected: 04/22/16-1200 Received: 04/22/16-1356 (Continued) Procedure Result Verified Site BIJU CULT AEROBIC Final (continued) 04/25/16-1114 2. ENTEROBACTER CLOACAE COMPLEX M.I.C Interp --------- ------ * AMIKACIN <=2 S * CEFAZOLIN >=64 R * CEFEPIME <=1 S * CEFOXITIN >=64 R * CEFTRIAXONE <=1 S * CIPROFLOXACIN <=0.25 S * ERTAPENEM <=0.5 S * GENTAMICIN <=1 S * MEROPENEM <=0.25 S * TOBRAMYCIN <=1 S * TRIMETHOPRIM/SULFAMETHOXAZOLE <=20 S 3. STAPHYLOCOCCUS AUREUS M.I.C Interp --------- ------ * CEFAZOLIN S * CLINDAMYCIN <=0.25 S * ERYTHROMYCIN <=0.25 S * LINEZOLID 2 S * MOXIFLOXACIN <=0.25 S * OXACILLIN BIJU <=0.25 S * RIFAMPIN <=0.5 S * TETRACYCLINE <=1 S * TRIMETHOPRIM/SULFAMETHOXAZOLE <=10 S * VANCOMYCIN 1 S Discharge Medications Discharge Medications Amlodipine (Amlodipine) 5 Mg Tablet 10 MG PO DAILY Prescribed by: EPHRAIM KISER MD Gemfibrozil (Gemfibrozil) 600 Mg Tablet 600 MG PO BID (Reported) Insulin Glargine (Lantus U100 Insulin Vial) 100 Unit/Ml Vial 60 UNIT SUBQ BID ( Reported) Insulin Regular, Human (HUMulin-R U-500 Insulin Vial) 500 Unit/1 Ml Vial 30-40 UNIT SUBQ TIDWM (Reported) Lisinopril (Lisinopril) 40 Mg Tablet 40 MG PO DAILY (Reported) Metoprolol Tartrate (Metoprolol Tartrate) 25 Mg Tablet 25 MG PO BID (Reported) Ondansetron ODT (Ondansetron ODT) 8 Mg Tab.rapdis 8 MG PO QID Prescribed by: ROBINSON SANTANA Sitagliptin/Metformin 50-1000 mg (Janumet 50-1000 mg) 1 Each Tablet 1 TABLET PO BID (Reported) As needed ([marijuana]) 1 DOSE INH BID PRN PRN For Pain (Reported) Additional med instructions Your blood pressure was not at the goal of 130/80. An additional prescription for amlodipine 10 mg daily has been faxed to your pharmacy. You will receive home infusion of ceftriaxone antibiotic for your foot infection to complete after the dose on 05/30. Followup Plan Follow-up plan Discharge home with home health to include home infusion services. Discharge Diet: Diabetic Patient Instructions Podiatry follow-up: Patient is stable for discharge to outpatient care from podiatry standpoint follow-up with Dr. Norton within 5 days of discharge Bilateral lower extremity dressings may be left intact for up to 1 week and are to be kept clean dry and intact. Follow-up Provider: Thompson Madrid MD Follow-up with PCP in: 1 week Provider: Citlali Norton DPM Follow-up in: 1 week Time spent 35 minutes copies to: Thompson Madrid MD; Citlali Norton DPM, Jeffrey W MD Apr 30, 2016 15:06
--- NOTE | 2016-04-30 15:49 | DRSVH ---
PROCEDURE: X-RAY PICC LINE PLACEMENT BY NURSE ([id number]) INDICATIONS: EXTRACORPOREAL CIRCULATION SPECIALIST IV ANTIBIOTICS COMPARISON: [facility], , PICC LINE PLACE BY NURSE (FREDRICK), 09/29/2014, 11:11. FINDINGS: PICC was placed by the intravenous therapy team from the left side. Fluoroscopic spot tashia m demonstrates tip projected over the lower SVC. IMPRESSION: Tip of PICC projected over the lower SVC . Dictated by: Rafal FIERRO Interpreted: Ilene Pina MD on 04/30/2016 at 15:49 Transcribed by: PETRA on 04/30/2016 at 15:49 Approved by: Ilene Pina M.D. on 04/30/2016 at 16:29
--- NOTE | 2016-04-30 16:20 | NUR ---
Discharge Reviewed DC instructions with patient. Script faxed electronically by MD to pharmacy of choice. Stated understanding. All belongings taken. Friend took patient out in w/ch, to home in private auto Aware of need to come to OP MOC for abx daily.
== END 2016-04-30 16:20 | disposition home health service (06) | DRG 464 ==
LOC: SED 22:07 → MOC 04-20 03:17 → OBSVTOIN 04-20 03:17 → MOC 04-20 03:48
PROVIDERS: ADMIT Specialist; ATTEND Specialist
PROC: 0HBMXZZ Excision of Right Foot Skin, External Approach (ICD-10-PCS; principal; 2016-04-23)
DX: M86.8X7 Other osteomyelitis, ankle and foot (principal); E87.1 Hypo-osmolality and hyponatremia; L03.115 Cellulitis of right lower limb; R78.81 Bacteremia; E11.621 Type 2 diabetes mellitus with foot ulcer; R11.2 Nausea with vomiting, unspecified; E11.65 Type 2 diabetes mellitus with hyperglycemia; L97.519 Non-pressure chronic ulcer of other part of right foot with unspecified severity; B95.4 Other streptococcus as the cause of diseases classified elsewhere; I10 Essential (primary) hypertension; Z79.4 Long term (current) use of insulin

== ENCOUNTER 2016-11-09 18:36 | Emergency (ER) | payer MEDICARE, MEDICAID ==
[~2016-11-09 18:36] MED LIST changes: +AMLO5TAB2 PO
[2016-11-09 18:44] VITALS: BP 198/98; PULSE 76; RESP 26; O2SAT 100
--- NOTE | 2016-11-09 20:26 | ED.REPORT ---
HPI-General Illness Date of Service Nov 09, 2016 ED Provider: Doc,Ed MD Nursing Notes Stated Complaint: NAUSEA/INFECTION ON FOOT Chief Complaint: General Complaint Allergies: Coded Allergies: No Known Allergies (Verified Allergy, Unknown, 11/09/16) Scheduled Amlodipine (Amlodipine) 5 Mg Tablet 10 MG PO DAILY Gemfibrozil (Gemfibrozil) 600 Mg Tablet 600 MG PO BID Insulin Glargine (Lantus U100 Insulin Vial) 100 Unit/Ml Vial 60 UNIT SUBQ BID Insulin Regular, Human (HUMulin-R U-500 Insulin Vial) 500 Unit/1 Ml Vial 30-40 UNIT SUBQ TIDWM Lisinopril (Lisinopril) 40 Mg Tablet 40 MG PO DAILY Metoprolol Tartrate (Metoprolol Tartrate) 25 Mg Tablet 25 MG PO BID Ondansetron ODT (Ondansetron ODT) 8 Mg Tab.rapdis 8 MG PO QID Sitagliptin/Metformin 50-1000 mg (Janumet 50-1000 mg) 1 Each Tablet 1 TABLET PO BID Scheduled PRN ([marijuana]) 1 DOSE INH BID PRN PRN For Pain General Time Seen by MD: 20:26 Past Medical History Past Medical History Notes: PCP: Dr. Madrid Past Medical History severe peripheral neuropathy Reports: Asthma, Diabetes mellitus, Hypertension Past Surgical History Multiple toe amputations, being followed by wound care Smoking History Former Smoker Social History Alcohol Use: Denies alcohol use Drug Use: THC Ambulatory Status Wheelchair Physical Exam Vital Signs Vital Signs Date Time Temp Pulse Resp B/P Pulse Ox O2 Delivery O2 Flow Rate FiO2 11/09/16 18:44 37.0 76 26 198/98 100 Room Air Discharge & Departure Referrals: Thompson Madrid MD (PCP) Ashvin Robert MD Nov 09, 2016 20:26
== END 2016-11-09 19:40 | disposition left against medical advice (07) ==
LOC: SED 18:36
DX: R11.0 Nausea (principal); Z53.21 Procedure and treatment not carried out due to patient leaving prior to being seen by health care provider

== ENCOUNTER 2016-11-10 09:49 | Inpatient (IN) | payer MEDICAID, MEDICARE ==
[~2016-11-10] VITALS: Ht 198.1 cm; Wt 133.3 kg
[2016-11-10] VITALS (7 sets, daily range): BP systolic 128–206; BP diastolic 66–97; PULSE 59–87; RESP 13–22; O2SAT 96–98
--- NOTE | 2016-11-10 09:58 | ED.REPORT ---
HPI-Extremity Problem Lower Date of Service Nov 10, 2016 ED Provider: Kali Salvador MD The patient is a 46-year-old gentleman with type 2 diabetes and peripheral neuropathy, bilateral partial forefoot amputations and recurrent ulcerations who presents to the ED c/o of right posterior foot abscess worsening for the past 2 days. Associated symptoms include diaphoresis, fever, abdominal pain, weakness, and dizziness. Pt has been unable to eat due to vomiting, his last meal was 2 days ago. Last night, pt's sugar was in the 400's. Pt was seen at [facility] yesterday evening and given fluids for his nausea and vomiting. His wound care is monitored by Dr. Citlali Norton who told him to come to the ED if his symptoms became any worse. Nursing Notes Stated Complaint: FOOT INFECTION,UNABLE TO EAT Chief Complaint: General Complaint Nursing Notes Reviewed: Yes ([employer] not reconciled) Allergies: Coded Allergies: No Known Allergies (Verified Allergy, Unknown, 11/09/16) Scheduled Amlodipine (Amlodipine) 5 Mg Tablet 10 MG PO DAILY Gemfibrozil (Gemfibrozil) 600 Mg Tablet 600 MG PO BID Insulin Glargine (Lantus U100 Insulin Vial) 100 Unit/Ml Vial 60 UNIT SUBQ BID Insulin Regular, Human (HUMulin-R U-500 Insulin Vial) 500 Unit/1 Ml Vial 30-40 UNIT SUBQ TIDWM Lisinopril (Lisinopril) 40 Mg Tablet 40 MG PO DAILY Metoprolol Tartrate (Metoprolol Tartrate) 25 Mg Tablet 25 MG PO BID Ondansetron ODT (Ondansetron ODT) 8 Mg Tab.rapdis 8 MG PO QID Sitagliptin/Metformin 50-1000 mg (Janumet 50-1000 mg) 1 Each Tablet 1 TABLET PO BID Scheduled PRN ([marijuana]) 1 DOSE INH BID PRN PRN For Pain General Time Seen by MD: 09:56 Chief Complaint Foot injury right Hx Obtained From: Patient Arrived By: Walk-in Onset Occurred: 2 days ago Symptom Duration: Since onset Location: : Foot right Quality: Painful Severity: Current: Mild Associated with: Reports: Nausea, Vomiting, Weakness Recent Healthcare: Recent doctor visit, Recent hospitalization Similar Sx Previous: Yes Past Medical History Past Medical History Notes: PCP: Dr. Madrid Past Medical History severe peripheral neuropathy last admission in April 2016 for diabetic foot infection Reports: Asthma, Diabetes mellitus, Hypertension Past Surgical History Multiple toe amputations, being followed by wound care Smoking History Former Smoker Social History Alcohol Use: Denies alcohol use Drug Use: THC Ambulatory Status Wheelchair Review of Systems Review of Systems Note: inability to eat Constitutional: Reports: Chills, Fever Musculoskeletal: Reports: Extremity pain, Denies: Joint pain, Joint swelling, Neck pain Skin: Reports Diaphoresis, Reports Swelling Neurologic: Reports: Dizziness, Weakness, Denies: Bladder dysfunction, Bowel dysfunction, Change LOC, Numbness, Syncope Complete sys rev & neg: except as marked. GI: Reports: Abdominal pain, Nausea, Vomiting Physical Exam Initial Vital Signs Vital Signs (First) Date Time Temp Pulse Resp B/P Pulse Ox O2 Delivery O2 Flow Rate FiO2 11/10/16 09:55 37.5 87 191/97 96 11/10/16 11:22 13 Room Air Initial VS: Reviewed, Unavailable (none on chart, ordered) Lower Extremity / Pelvis / MS: Pelvis stable Right Foot: Positive: Swelling present... left partial forefoot amputation several ulceration that have been packed packing ist still there foul smell but no surrounding warmth ,cellulitis, purulence decreased pulses and sensation chronically insensate General/Constitutional: Awake sitting upright wretching appears miserable Respiratory / Chest: Breath sounds = bilat, No respiratory distress tachypneic Cardiovascular: Heart rate NL, Regular rhythm, Heart sounds NL Head / Eyes: Atraumatic, Normocephalic, PERRL ENT: Atraumatic, Mucous membranes moist Abdomen: Atraumatic, Soft, Non-tender Upper Extremity / MS: Atraumatic, Full range of motion, No deformity Wrist / Hand: Atraumatic, Full range of motion, No deformity Interpretation & Diagnostics Lab Results Interpretation Result Diagram: 11/10/16 1017 11/10/16 1017 Test 11/10/16 10:17 White Blood Count 9.9th/mm3 (3.8-10.1) Red Blood Count 6.05mil/mm3 (4.40-5.80) Hemoglobin 17.3g/dL (13.8-17.2) Hematocrit 48.2% (41.0-50.0) Mean Corpuscular Volume 79.7fL (81-100) Mean Corpuscular Hemoglobin 28.6pg (27.0-35.0) Mean Corpuscular Hemoglobin Concent 35.9% (32.0-37.0) Red Cell Distribution Width 13.2% (12.3-15.4) Platelet Count 242bil/L (150-400) Neutrophils (%) (Auto) 81.8% (40-74) Lymphocytes (%) (Auto) 8.9% (14-46) Monocytes (%) (Auto) 8.8% (4-12) Eosinophils (%) (Auto) 0.1% (0-5) Basophils (%) (Auto) 0.1% (0-3) Sodium Level 134mEq/L (134-144) Potassium Level 4.0mEq/L (3.5-5.2) Chloride Level 97mEq/L (97-108) Carbon Dioxide Level 16mmol/L (18-29) Blood Urea Nitrogen 24mg/dL (6-24) Creatinine 1.30mg/dL (0.76-1.27) Estimat Glomerular Filtration Rate 63mL/min (>59) Glucose Level 449mg/dL (60-99) Lactic Acid Level 2.9mmol/L (0.4-2.0) Calcium Level 9.0mg/dL (8.5-10.1) Total Bilirubin 0.5mg/dL (0.0-1.2) Aspartate Amino Transf (AST/SGOT) 14U/L (0-50) Alanine Aminotransferase (ALT/SGPT) 12U/L (0-44) Alkaline Phosphatase 67U/L (25-150) Total Protein 7.4g/dL (6.4-8.4) Albumin 3.5g/dL (3.4-5.0) Lab Results Interpretation: CBC normal CMP low CO2, mild renal insufficiency, mild hyperglycemia calculated anion gap is 21 consistent with very mild DKA Glucose: 399 on fingerstick Lactic Acid: 2.9 Blood vCultures 2 pending Cultures positive for Streptococcus Group B ECG Interpretation ECG Interpretation: no ischemic changes no signs of hyperkalemia markedly improved from prior Time: 12:29 Interpreted by: ED physician Normal ECG Interpretation: Normal sinus rhythm (rate 75) X-Ray Interpretation Xray Interpretation: RIGHT FOOT X-RAY IMPRESSION: Sequelae of multiple previous right toe amputation surgeries. No radiographic evidence for advanced bone infection. Radiographs would have decreased sensitivity for early osteomyelitis. Dictated by: Erick Taveras M.D. on 11/10/2016 at 10:30 Approved by: Erick Taveras M.D. on 11/10/2016 at 10:32 X-Ray Ordered: Foot right Interpretation / Wet Read by: Interpret - Radiologist Re-Eval/Medical Decision Med Decision/Clinical Course This is a 46-year-old male insulin-dependent diabetic with peripheral neuropathy and is status post a foot and toe amputations who is followed by podiatry Doctor Errol who reportedly performed an abscess incision and drainage of his ulcers on his right foot on Friday. He is reportedly started on Bactrim. She was worried and advised to come in if he is having any troubles-80s been having increasing discomfort, subjective fevers and chills, then developed nausea and vomiting. He reports that she was concerned that if he was having any difficulties he would need to be admitted and her partner Dr. Cordero might see him in the chance of additional intervention was high. Reports he tried to commit to [facility] yesterday, but saw that it was very busy and left went to [facility] received some IV fluids. he rePorts he is now continue to have ongoing nausea vomiting and inability to take by mouth since Friday. Her sugars remain elevated. And certainly return to the emergency department today. He is retching severely when he enters the ED. He appears very fatigued, but not toxic. He is status post transmetatarsal amputation on the left just bandaged. His right foot was unwrapped, there are several ulcers have been recently debrided, there is packing in place, but no gross purulence-although the smell is poor, there is no gross cellulitis are marked swelling. His feet are insensate from the diabetic neuropathy. there Is no ascending lymphangitis. Patient had an IV placed, received pain and nausea medicine-although reports no allergies, he states that Zofran does not work for him and received promethazine. Plain radiographs demonstrated no gross abnormality or Ostermeier as per my interpretation. Blood work is notable for mild diabetic ketoacidosis with a calculated anion gap of 21. His potassium is normal. In addition IV fluids, the patient received his initial insulin per his report his sliding scale. With his labs returning suggestive very mild DKA, an insulin drip has been ordered. IV antibiotic being initiated with vancomycin and Zosyn. Podiatry has been consulted and the case is discussed with Dr. Cordero who will see the patient today. The patient's diabetic ketoacidosis is quite mild, per hospital policy and protocol the patient is being admitted to the CCU for initial management. Source of Hx: Old records Re-Evaluation/Progress : Time of Eval: 10:48 Re-Evaluation/Progress Note: Pt rechecked. Nausea is much improved. Removed bandanges from right foot and rewrapped bandages. Consultation #1: Referral / Consult Name: ThierryezequielThony Lino DPM Call Returned at: 11:30 Endless Belt Finisher: Agrees with eval, Agrees with plan Note: Case discussed with podiatry. Dr. Cordero will see the patient. Consultation #2: Referral / Consult Name: Betty Borja DO Consulted With: Hospitalist Call Returned at: 11:57 Endless Belt Finisher: Agrees with eval, Agrees with plan Note: Case discussed. She accepts admit. Differential Diagnosis: Positive: Abscess (R foot (suspected)), Negative: Abrasion, Compartment syndrome, Knee ligament injury, Nail bed laceration, Venous thromboembolism Counseled Regarding: Diagnosis, Lab results, Need for admission Discharge & Departure Impression: Primary Impression: Diabetic infection of right foot Additional Impressions: DKA (diabetic ketoacidoses) Diabetes mellitus type: type 2 Diabetes mellitus complication detail: without coma Qualified Code: E13.10 - Other specified diabetes mellitus with ketoacidosis without coma Intractable vomiting with nausea Vomiting type: unspecified Qualified Code: R11.2 - Nausea with vomiting, unspecified Disposition: ADMITTED TO HOSPITAL Discharge Condition All VS Reviewed: Yes Condition: Stable Referrals: Thompson Madrid MD (PCP) Crit Care Except Billable Proc Time Spent: 30-74 minutes Services Performed: Patient management by me, Time spent at bedside, Reviewing test results, Reviewing imaging, Discussing patient care, Documentation in record Scribe Attestation Portion of this note were transcribed by Jerrica Barahona. I, Dr. Salvador, personally performed the history, physical exam, and medical decision-making: I reviewed and confirmed the accuracy for the information in the transcribed note. Signed by: eyal Arroyo, 11/10/16 1200 copies to: Thompson Madrid MD, Matthew F MD Nov 10, 2016 09:58 Jerrica Barahona Nov 10, 2016 10:11
[2016-11-10] MEDS ORDERED: Ondansetron 2 mg/mL 2 mL Inj ONE (10:02)
[2016-11-10] MEDS ORDERED: Promethazine Inj 25 MG in Dextrose 5%-Pha MIX 50 ML IV ONE ×2 (10:10→11:15)
[2016-11-10] MEDS ORDERED: 0.9% Sodium Chloride 1,000 ML IV ONE ×2 (10:10→11:30)
[2016-11-10] MEDS: HYDROmorphone 0.5 mg/0.5 mL iSecure Syringe IVPUSH PRN ×5 (10:25→20:18)
--- NOTE | 2016-11-10 10:34 | DRSVH ---
PROCEDURE: X-RAY RIGHT FOOT COMPLETE, MINIMUM THREE VIEWS ([id number]) INDICATIONS: 46 year-old male with posterior right foot abscess, fevers. TECHNIQUE: 3 views of the foot were acquired. COMPARISON: [facility], CR, XR FOOT MIN 3VW WT [place] RT, 09/06/2016, 15:28. [facility], CR, XR FOOT 3VW RT, 04/25/2016, 18:14. [facility], CR, XR FOOT 3VW RT, 12/2015, 15:09. FINDINGS: Bones: Patient is status post amputation of distal first through fourth toes, as well as the entire fifth toe and distal fifth metatarsal. No bony erosions or destruction. No fractures or dislocations. No suspicious bony lesions. Soft tissues: No soft tissue gas. No radiopaque soft tissue foreign bodies. No tibiotalar joint effu sean. Achilles tendon appears normal. IMPRESSION: Sequelae of multiple previous right toe amputation surgeries. No radiographic evidence fo r advanced bone infection. Radiographs would have decreased sensitivity for early osteomyelitis. Dictated by: Erick Taveras M.D. on 11/10/2016 at 10:30 Approved by: Erick Taveras M.D. on 11/10/2016 at 10:32
[2016-11-10 10:45] LABS: BASOPHILS % (AUTO) 0.1 % (0-3); EOSINOPHILS % (AUTO) 0.1 % (0-5); MONOCYTES % (AUTO) 8.8 % (4-12); Mean Corpuscular Hemoglobin 28.6 pg (27.0-35.0); Mean Corpuscular Volume 79.7 fL (81-100); NEUTROPHILS % (AUTO) 81.8 % (40-74); Platelet Count 242 bil/L (150-400)
[2016-11-10] MEDS ORDERED: Piperacillin-Tazo 3.375 Gm Inj 3.375 GM in Dextrose 5% Minibag Plus 50 ML IV ONE (11:15)
[2016-11-10] MEDS ORDERED: (U-500) Insulin Regluar, Human 500 Unit/mL Syringe SUBQ ONE (11:15)
[2016-11-10] MEDS ORDERED: Vancomycin Dose per Pharmacist XX ONE (11:15)
[2016-11-10] MEDS ORDERED: Vancomycin Inj 2,000 MG in 0.9% Sodium Chloride 500 ML IV ONE (11:30)
[2016-11-10] MEDS ORDERED: Insulin Human REGular 300 Unit/3 mL Inj SUBQ ONE (11:30)
[2016-11-10] MEDS ORDERED: 0.9% Sodium Chloride 50 ML ONE (11:31)
[2016-11-10] MEDS ORDERED: Insulin Human REGular Inj 100 UNIT in 0.9% Sodium Chloride-Pha MIX 100 ML IV ONE (11:50)
[2016-11-10] MEDS ORDERED: Dextrose 10% 250 ML IV PRN (11:50)
[2016-11-10] MEDS ORDERED: 0.9% Sodium Chloride 1,000 ML IV SCH (12:27)
[2016-11-10] MEDS ORDERED: Ondansetron 2 mg/mL 2 mL Inj IVPUSH PRN (12:30)
[2016-11-10] MEDS ORDERED: Alum-Mag Hydrox-Simeth 30 mL Suspension PO PRN (12:30)
[2016-11-10] MEDS ORDERED: Polyethylene Glycol (PEG) 17 Gm Powder PO PRN (12:40)
[2016-11-10] MEDS ORDERED: Insulin Human REGular 300 Unit/3 mL Inj IV PRN (12:50)
[2016-11-10] MEDS ORDERED: Insulin Human REGular 100 Units/100 mL NS IV SCH ×2 (12:50)
[2016-11-10] MEDS ORDERED: Insulin Human REGular Inj 100 UNIT in 0.9% Sodium Chloride-Pha MIX 100 ML IV SCH (12:54)
[2016-11-10] MEDS ORDERED: Promethazine 25 mg/mL Inj IM PRN (12:55)
[2016-11-10] MEDS ORDERED: PROMETHAZINE IV PRN (13:00)
[2016-11-10] MEDS ORDERED: SODIUM CHLORIDE 0.9% IV PRN (13:00)
[2016-11-10] MEDS: 0.9% Sodium Chloride 1,000 ML IV SCH (13:05)
--- NOTE | 2016-11-10 13:07 | PCM.HPMED ---
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 He presented to [facility] yesterday with similar symptoms and was given IV hydration and discharged. He returns to [facility] for further evaluation. 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 He is a patient of Dr. Norton from podiatry. He states that he has been unable to eat for the past 2 days secondary to his intractable nausea and vomiting. He endorses fever, chills, nausea, vomiting, diaphoresis, and dizziness. He denies chest pain, palpitations , cough, SOB, or diarrhea. The patient was recently evaluated by podiatry who cultured the wound on his foot which grew out topete sensitive GBS. In the ED the patient was found to have an elevated blood sugar at 449, an anion gap of 21, normal WBC, and elevated lactic Acid at 2.9. Review of Systems: Comprehensive ROS negative except as listed above in the HPI Allergies Coded Allergies: No Known Allergies (Verified Allergy, Unknown, 11/09/16) Home Medications Amlodipine (Amlodipine) 5 Mg Tablet 10 MG PO DAILY Gemfibrozil (Gemfibrozil) 600 Mg Tablet 600 MG PO BID Insulin Glargine (Lantus U100 Insulin Vial) 100 Unit/Ml Vial 60 UNIT SUBQ BID Insulin Regular, Human (HUMulin-R U-500 Insulin Vial) 500 Unit/1 Ml Vial 30-40 UNIT SUBQ TIDWM Lisinopril (Lisinopril) 40 Mg Tablet 40 MG PO DAILY Metoprolol Tartrate (Metoprolol Tartrate) 25 Mg Tablet 25 MG PO BID Ondansetron ODT (Ondansetron ODT) 8 Mg Tab.rapdis 8 MG PO QID Sitagliptin/Metformin 50-1000 mg (Janumet 50-1000 mg) 1 Each Tablet 1 TABLET PO BID PMH severe peripheral neuropathy last admission in April 2016 for diabetic foot infection Reports: Asthma, Diabetes mellitus, Hypertension . Surgical History Multiple toe amputations, being followed by wound care Trans metatarsal amputation Family History Family history of DM in multiple family members Social History Hx Alcohol Use: No Hx Substance Use: Yes (daily marijuana-) Hx Tobacco Use: Yes Smoking Status: Former Smoker (Quit 10 years ago previous 1PPD for 17 years) Exam Vital Signs Vital Sign - Last Date Time Temp Pulse Resp B/P Pulse Ox O2 Delivery O2 Flow Rate FiO2 11/10/16 11:22 36.8 78 13 206/86 96 Room Air Exam Gen: mildly obtunded a/o x3 pleasant cooperative gentleman in NAD Neck: supple, non tender, no thyromegaly, no JVD HEENT: PERRL, EOMI, no scleral icterus, no conjunctival pallor, small 3mm pupils BL CV: RRR, no murmurs rubs or gallops Resp: Lungs CTA BL, no wheezing rales or rhonchi, no Kassmaul breathing Abd: Soft, non tender, no rebound or guarding, no organomegaly Extr: Left transmetatarsal amputation, right diabetic ulcer on plantar surface of great toe, right foot heavily bandaged this was not disturbed given impending podiatry evaluation Neuro: CN 2-12 grossly intact, no focal neurologic deficit Psych: Pleasant and appropriate mood and affect . Lab and Diagnostics Labs Item Value Date Time Red Blood Count 6.05 mil/mm3 H 11/10/16 1017 Mean Corpuscular Volume 79.7 fL L 11/10/16 1017 Mean Corpuscular Hemoglobin 28.6 pg 11/10/16 1017 Mean Corpuscular Hemoglobin Concent 35.9 % 11/10/16 1017 Red Cell Distribution Width 13.2 % 11/10/16 1017 Neutrophils (%) (Auto) 81.8 % H 11/10/16 1017 Lymphocytes (%) (Auto) 8.9 % L 11/10/16 1017 Monocytes (%) (Auto) 8.8 % 11/10/16 1017 Eosinophils (%) (Auto) 0.1 % 11/10/16 1017 Basophils (%) (Auto) 0.1 % 11/10/16 1017 Erythrocyte Sedimentation Rate 4 mm/hr 11/10/16 1017 Estimat Glomerular Filtration Rate 63 mL/min 11/10/16 1017 Lactic Acid Level 2.9 mmol/L H 11/10/16 1017 Calcium Level 9.0 mg/dL 11/10/16 1017 Total Bilirubin 0.5 mg/dL 11/10/16 1017 Aspartate Amino Transf (AST/SGOT) 14 U/L 11/10/16 1017 Alkaline Phosphatase 67 U/L 11/10/16 1017 Alanine Aminotransferase (ALT/SGPT) 12 U/L 11/10/16 1017 Total Protein 7.4 g/dL 11/10/16 1017 Albumin 3.5 g/dL 11/10/16 1017 Result Diagram: 11/10/16 1017 11/10/16 1017 Microbiology Recent cultures of wounds include MSSA in August, and group G beta-hemolytic strep on this admission X-Rays, CTs and MRIs X-RAY RIGHT FOOT COMPLETE, MINIMUM THREE VIEWS IMPRESSION: Sequelae of multiple previous right toe amputation surgeries. No radiographic evidence for advanced bone infection. Radiographs would have decreased sensitivity for early osteomyelitis. Dictated by: Erick Taveras M.D. on 11/10/2016 at 10:30 Approved by: Erick Taveras M.D. on 11/10/2016 at 10:32 . Assessment & Plan Josiah Landin is a 46 year old poorly controlled diabetic with a history of multiple non healing ulcers and subsequent amputations who presents with a worsening infection of the right forefoot and mild DKA. Right foot infected diabetic ulcer, POA, acute on chronic. Active -Recent cultures indicate beta hemolytic Group G strep, likely sensitive to beta -lactams -Zosyn Q8 -will continue to track CBCs -Dr. Cordero from podiatry will evaluate the patient's wound -Will defer surgical management and wound care to podiatry -Will obtain Trop to ensure that infection and DKA not precipitated by ACS Diabetic Ketoacidosis, present on admission, chronic. ongoing -Mild DKA, anion gap 21, BG 449 upon presentation -Dose insulin 0.1U/kg until the anion gap closes -If blood sugar drops below 250, and the patient still has an AG, give D50 until the AG closes. -Once the gap closes, bridge to SC insulin per home dosing -Give 40mEq KCl if the K falls below 4.5 before the AG closes, Hold fluids if K is above 5.2 -IV Dilaudid for initial pain control, will transition to PO once acute phase is over -Zofran and Phenergan for nausea -Give NS @ 150mls/hr -CMP, fingerstick, and ABG every two hours until normalized Lactic Acidosis, POA, acute. Active -LA 2.9 upon presentation, likely secondary to DKA and infection -IVF as above -Will continue to trend until normalized HTN, POA, chronic. Active -Continue home Amlodipine -Continue home Lisinopril -Continue home Metoprolol -Will withhold diuretic while actively hydrating Disposition: Inpatient, anticipated length of stay >2 midnights due to severity of condition and complexity of treatment plan. Pain Evaluation: Adequate Pain Control GI Prophylaxis: H2 francisco VTE Prophylaxis Indicated: Contraindicated (actively weeping infected foot wound, do not want ot aggravate bleeding) VTE Prophylaxis: Other VTE Mechanical Devices: Intermittant Pneumatic CD Resuscitation Status: CPR: Attempt Resuscitation Attending Statement The patient was seen and examined together with Dr. Maravilla on 11/10/16 and I have added additional information to the note above. Prudencio Maravilla DO Nov 10, 2016 13:07 Betty Borja DO Nov 10, 2016 16:22
--- NOTE | 2016-11-10 15:11 | ABG ---
DateTimeAnalyzed 15:01:01 -_ pH ____7.395 - pCO2 ___41.0__ -mmHg pO2 ___40.6__ -mmHg HCO3- ___25.1__ -mmol/L 22.0 26.0 ABE ____0.1__ -mmol/L tHb ___17.2__ -g/dL O2Hb ___72.5__ -% COHb ____1.5__ -% 1.5 MetHb ____0.0__ -% sO2 ___73.6__ -% FIO2 ___21.0__ -% Drawn By lab - Date/Time Notified____ 15:11:00 -_ Oxygen Device 1 _ROOM AIR - Notified By nb - Notified Whom DR Maravilla - K+ ____3.7__ -mmol/L tO2 ___17.5__ -Vol%
[2016-11-10] MEDS: Piperacillin-Tazo 3.375 Gm Inj 3.375 GM in Dextrose 5% Minibag Plus 50 ML IV SCH (16:55)
[2016-11-10] MEDS ORDERED: (U-500) Insulin Regluar, Human 500 Unit/mL Syringe SUBQ SCH (17:30)
--- NOTE | 2016-11-10 18:10 | NUR ---
Admit/DKA/pain Pt arrived to floor at 1315 in stable condition. Able to transfer himself from [facility] to CCU bed with minimal assistance. A&O x3, vitals stable with O2 97% on RA. Insulin gtt started with DKA protocol, initial sugar 358. N&V resolving with anti-nausea meds and dilaudid. Frequent rounding and BG checks continue.
[2016-11-10] MEDS: MetoCLOpramide 5 mg/mL 2 mL Inj IVPUSH PRN (19:58)
[2016-11-10] MEDS ORDERED: Insulin Human REGular 300 Unit/3 mL Inj SUBQ SCH (20:30)
[2016-11-10] MEDS ORDERED: Insulin GLARgine 100 Unit/mL Syringe SUBQ SCH (20:30)
[2016-11-10] MEDS: Insulin GLARgine 100 Unit/mL Syringe SUBQ SCH (20:48)
[2016-11-10] MEDS: Insulin LISPRO High-Dose Scale SUBQ SCH (20:51)
[2016-11-10] MEDS: Alum-Mag Hydrox-Simeth 30 mL Suspension PO PRN (21:15)
[2016-11-10] MEDS: SODIUM CHLORIDE 0.9% IV PRN (21:16)
[2016-11-10] MEDS: PROMETHAZINE IV PRN (21:16)
[2016-11-11] VITALS (8 sets, daily range): BP systolic 151–203; BP diastolic 85–113; PULSE 61–79; RESP 12–24; O2SAT 94–99
--- NOTE | 2016-11-11 00:23 | NUR ---
nausea/abd pain pt a/o times three, mari, moves self independently in bed, pt c/o abd pain, dilaudid effective for abd pain, pt c/o nausea, sl emesis/dry heaves, pt states zofran makes him feel worse, reglan and benadryl combination order given, ineffective for nausea, phenergan given much more effective, aware of pt's nausea, lantus given per orders, hs pu=776, pt's bp while harawvhuf=721's/80's-90's, bp while comfortable and at rest= 120's-140's/70's, lopressor given, pt able to tolerate hs meds, aware of pt's c/o nausea/abd pain and htn, bmp and lipase done, aware of results, no new orders except to do finger blood sugar check at 0100, ns infusing at 75ml/hr, tele= sr, hr 70's-80's, denies cp, denies sob, ls-clear, ra sats upper 90's, feet warm, difficult to get pulses, distal half of left foot amputated with scab area on end of foot, right foot wrapped in cdi dressing, tips of toes hx of amputation and right fifth toe amputated per pt report, voiding per urinal, no bm, see assessment charting, report given to next rn at approx 2345,
[2016-11-11] MEDS: Piperacillin-Tazo 3.375 Gm Inj 3.375 GM in Dextrose 5% Minibag Plus 50 ML IV SCH ×4 (01:05→23:32)
[2016-11-11] MEDS ORDERED: Insulin LISPRO 300 Unit/3 mL Inj SUBQ ONE (01:45)
[2016-11-11] MEDS: HYDROmorphone 0.5 mg/0.5 mL iSecure Syringe IVPUSH PRN ×3 (01:57→08:15)
[2016-11-11 02:36] LABS: BASOPHILS % (AUTO) 0.2 % (0-3); EOSINOPHILS % (AUTO) 0.6 % (0-5); MONOCYTES % (AUTO) 7.3 % (4-12); Mean Corpuscular Hemoglobin 28.9 pg (27.0-35.0); Mean Corpuscular Volume 81.4 fL (81-100); NEUTROPHILS % (AUTO) 79.5 % (40-74); Platelet Count 232 bil/L (150-400)
[2016-11-11 02:47] LABS: INR 1.02 ratio
[2016-11-11 03:55] LABS: Magnesium 1.8 mg/dL (1.6-2.6); Phosphorus 2.7 mg/dL (2.5-4.9)
[2016-11-11] MEDS: 0.9% Sodium Chloride 1,000 ML IV SCH ×3 (04:23→18:39)
--- NOTE | 2016-11-11 07:57 | NUR ---
BG/Pain Blood sugar checked at 0100 per orders, bedside result was 261, notified, ordered Lispro 5 units one time dose. Pt given Dilaudid PRN for abdominal pain which worsened w/ hiccups. Dilaudid effective as pt appeared to sleep some after admin, though only for short periods of time.
[2016-11-11] MEDS: Insulin GLARgine 100 Unit/mL Syringe SUBQ SCH ×2 (08:12→23:15)
[2016-11-11] MEDS: Insulin LISPRO High-Dose Scale SUBQ SCH ×4 (08:12→22:00)
[2016-11-11] MEDS: MetoCLOpramide 5 mg/mL 2 mL Inj IVPUSH PRN ×2 (08:16→17:32)
[2016-11-11 08:20] LABS: APPEARANCE,URINE CLEAR (CLEAR,HAZY); COLOR,URINE YELLOW (YELLOW); OCCULT BLOOD,URINE MODERATE (NEGATIVE); UROBILINOGEN,URINE NORMAL (NORMAL)
--- NOTE | 2016-11-11 08:25 | PCM.CHPPOD ---
Subjective Date of service Nov 11, 2016 History of Present Illness 46-year-old neuropathic diabetic male with history of left transmetatarsal amputation and multiple previous bilateral lower extremity ulcerations is admitted to [facility] with an abscess of the right plantar foot. Patient was recently evaluated by Dr. Norton 48 hours ago with an ascending abscess of the right plantar foot. Patient states that he began to feel nauseous and develop fevers over the weekend. He reported to [facility] on Friday was given fluids and discharged from the emergency department. Patient states that he is currently lethargic and in significant discomfort involving his lower extremity. Allergy Allergies: Coded Allergies: No Known Allergies (Verified Allergy, Unknown, 11/09/16) Medications ([marijuana]) 1 DOSE INH BID PRN PRN For Pain Amlodipine (Amlodipine) 5 Mg Tablet 10 MG PO DAILY Gemfibrozil (Gemfibrozil) 600 Mg Tablet 600 MG PO BID Insulin Glargine (Lantus U100 Insulin Vial) 100 Unit/Ml Vial 60 UNIT SUBQ BID Insulin Regular, Human (HUMulin-R U-500 Insulin Vial) 500 Unit/1 Ml Vial 30-40 UNIT SUBQ TIDWM Lisinopril (Lisinopril) 40 Mg Tablet 40 MG PO DAILY Metoprolol Tartrate (Metoprolol Tartrate) 25 Mg Tablet 25 MG PO BID Ondansetron ODT (Ondansetron ODT) 8 Mg Tab.rapdis 8 MG PO QID Sitagliptin/Metformin 50-1000 mg (Janumet 50-1000 mg) 1 Each Tablet 1 TABLET PO BID Past Medical History Surgeries: Yes (multiple TOE AMPUTATION) Medical History: Surgical History: Social History Hx Alcohol Use: No Hx Substance Use: Yes (daily marijuana-) Hx Tobacco Use: Yes Smoking Status: Former Smoker (Quit 10 years ago previous 1PPD for 17 years) Podiatry Consult Exam Vital Signs Vital Sign - Last Date Time Temp Pulse Resp B/P Pulse Ox O2 Delivery O2 Flow Rate FiO2 11/11/16 04:05 36.1 65 24 151/89 95 Room Air Intake and Output 11/10/16 11/10/16 11/11/16 Cumulative From/Thru 15:00 23:00 07:00 11/10/16 09:55 - 11/11/16 06:16 Intake Total 1611 ml 1611 ml Output Total 1250 ml 1250 ml Balance 361 ml 361 ml Intake Oral 300 ml 300 ml IV Total 1311 ml 1311 ml Output Urine Total 1250 ml 1250 ml # Voids 3 3 Result Diagram: 11/11/1620911/11/16209 Lab Test 11/10/16 10:17 11/10/16 15:00 11/10/16 21:33 11/11/16 02:10 Erythrocyte Sedimentation Rate 4mm/hr (0-15) Troponin T < 0.010ug/L (0.0-0.011) Lactic Acid Level 2.0mmol/L (0.4-2.0) Lipase 85U/L (13-60) White Blood Count 9.8th/mm3 (3.8-10.1) Red Blood Count 5.64mil/mm3 (4.40-5.80) Hemoglobin 16.3g/dL (13.8-17.2) Hematocrit 45.9% (41.0-50.0) Mean Corpuscular Volume 81.4fL (81-100) Mean Corpuscular Hemoglobin 28.9pg (27.0-35.0) Mean Corpuscular Hemoglobin Concent 35.5% (32.0-37.0) Red Cell Distribution Width 13.3% (12.3-15.4) Platelet Count 232bil/L (150-400) Neutrophils (%) (Auto) 79.5% (40-74) Lymphocytes (%) (Auto) 12.2% (14-46) Monocytes (%) (Auto) 7.3% (4-12) Eosinophils (%) (Auto) 0.6% (0-5) Basophils (%) (Auto) 0.2% (0-3) Prothrombin Time 10.9sec (8.1-12.5) Prothromb Time International Ratio 1.02ratio Sodium Level 137mEq/L (134-144) Potassium Level 4.1mEq/L (3.5-5.2) Chloride Level 102mEq/L (97-108) Carbon Dioxide Level 20mmol/L (18-29) Blood Urea Nitrogen 20mg/dL (6-24) Creatinine 1.01mg/dL (0.76-1.27) Estimat Glomerular Filtration Rate 85mL/min (>59) Glucose Level 288mg/dL (60-99) Calcium Level 8.3mg/dL (8.5-10.1) Phosphorus Level 2.7mg/dL (2.5-4.9) Magnesium Level 1.8mg/dL (1.6-2.6) Total Bilirubin 0.4mg/dL (0.0-1.2) Aspartate Amino Transf (AST/SGOT) 14U/L (0-50) Alanine Aminotransferase (ALT/SGPT) 10U/L (0-44) Alkaline Phosphatase 59U/L (25-150) Total Protein 6.5g/dL (6.4-8.4) Albumin 2.9g/dL (3.4-5.0) Test 11/11/16 07:32 Exam General: Alert, Oriented X3, Cooperative, No Acute Distress Lower Extremities: Bilateral: Extremity warm Lower Extremity Pulses: Palpable: Left Dorsalis Pedis Left Posterior Tibal Right Dorsalis Pedis Right Posterior Tibal Podiatry WOUND : Wound Location/Description History of transmetatarsal amputation of the left lower extremity with hyperkeratoses of the distal plantar stump. No open ulceration is noted of the left distal foot. Right hallux ulceration full-thickness to subcutaneous tissue without exposed bone or tendon. The wound bed is 80% fibrotic with 20% red firm granulation tissue. There is mild surrounding hyperkeratoses. This wound measures approximately 1.2 cm x 1.2 cm x 0.2 cm in depth. There is no surrounding erythema and no sign of acute infection. No exposed bone or tendon. Right plantar foot incision and drainage wound site which tunnels to an adjacent ulceration approximately 3 cm in length. There is a minimal amount of serous drainage with a minimal amount of purulent discharge from the most proximal wound. Minimal malodor no surrounding erythema no fluctuance noted no exposed bone or tendon. Incision General Appearence: No Erythemia Assessment & Plan Assessment Stable right plantar foot ulcerations without signs of acute actively spreading infection Problems: Plan Dressing removed today. The right plantar foot wound was flushed with a copious amount of normal saline. The plantar foot wound of the right foot was packed with packing gauze dressed with dry sterile gauze Kerlix and an Helio bandage. Moist to dry sterile gauze bandage applied to the right plantar hallux ulceration. These dressings will be changed every 24-48 hours by the podiatry service. Continue broad-spectrum antibiotics Nonweightbearing right plantar foot This patient will be evaluated by Dr. Norton November 11. At this time this wound is not likely require further surgical intervention however that ultimate decision will be left up to Dr. Norton podiatry will continue to follow daily VTE Prophylaxis: Other VTE Mechanical Devices: Intermittant Pneumatic CD Thony Cordero DPM Nov 11, 2016 08:25
[2016-11-11] MEDS: Ondansetron 2 mg/mL 2 mL Inj IVPUSH PRN ×2 (11:50→20:50)
[2016-11-11] MEDS: oxyCODONE-Acetamin 10-325 mg Tablet PO PRN ×3 (11:53→20:45)
--- NOTE | 2016-11-11 16:05 | PCM.PNMED ---
Subjective Date of Service Nov 11, 2016 Subjective Nurse reports pt BG above 250. 5U Lispro given. Patient c/o ABD pain w/ Dilaudid given which helped the pain. Patient was removed from insulin drip @ 1700 11/10 Patient recheck: Patient sitting up in bed c/o ABD pain because he has not eaten in the last two days. Denies N/V. C/o mild chest pain that is intermittent. ROS reviewed and otherwise negative unless noted above. Exam Vital Signs Vital Sign - Last Date Time Temp Pulse Resp B/P Pulse Ox O2 Delivery O2 Flow Rate FiO2 11/11/16 12:24 36.8 79 22 170/85 94 Room Air Intake and Output 11/10/16 11/10/16 11/11/16 Cumulative From/Thru 15:00 23:00 07:00 11/10/16 09:55 - 11/11/16 06:16 Intake Total 1611 ml 1611 ml Output Total 1250 ml 1250 ml Balance 361 ml 361 ml Intake Oral 300 ml 300 ml IV Total 1311 ml 1311 ml Output Urine Total 1250 ml 1250 ml # Voids 3 3 Exam Constitutional: Awake and alert. in no acute distress Head: normocephalic and atraumatic Eyes: EOMI. no scleral icterus Heart: regular rate and rhythm. No peripheral edema Lungs: clear to auscultation bilaterally ABD: soft. mildly tender to palpation throughout. bowel sounds present throughout. Musculoskeletal: moves all four extremities appropriately Neuro: CN II-XII intact. No focal deficits Psych: appropriate mood and affect. IVs and Medications IV Fluids 2L NS received in the last 24 hours Medications Reviewed: Medications were reviewed in detail Medications High Risk IV Medications. Zosyn Promethazine Insulin Lab and Diagnostics Item Value Date Time Red Blood Count 5.64 mil/mm3 11/11/16 021 Mean Corpuscular Volume 81.4 fL 11/11/16 021 Mean Corpuscular Hemoglobin 28.9 pg 11/11/16 021 Mean Corpuscular Hemoglobin Concent 35.5 % 11/11/16 021 Red Cell Distribution Width 13.3 % 11/11/16 021 Neutrophils (%) (Auto) 79.5 % H 11/11/16 021 Lymphocytes (%) (Auto) 12.2 % L 11/11/16 021 Monocytes (%) (Auto) 7.3 % 11/11/16209 Eosinophils (%) (Auto) 0.6 % 11/11/16209 Basophils (%) (Auto) 0.2 % 11/11/16209 Estimat Glomerular Filtration Rate 85 mL/min 11/11/16209 Calcium Level 8.3 mg/dL L 11/11/16209 Phosphorus Level 2.7 mg/dL 11/11/16209 Total Bilirubin 0.4 mg/dL 11/11/16209 Magnesium Level 1.8 mg/dL 11/11/16209 Aspartate Amino Transf (AST/SGOT) 14 U/L 11/11/16209 Alanine Aminotransferase (ALT/SGPT) 10 U/L 11/11/16209 Alkaline Phosphatase 59 U/L 11/11/16209 Total Protein 6.5 g/dL 11/11/16209 Albumin 2.9 g/dL L 11/11/16209 Lipase 37 U/L 11/11/16209 Result Diagram: 11/11/1620911/11/16209 Microbiology Recent cultures of wounds include MSSA in August, and group G beta-hemolytic strep on this admission X-Rays, CTs and MRIs X-RAY RIGHT FOOT COMPLETE, MINIMUM THREE VIEWS IMPRESSION: Sequelae of multiple previous right toe amputation surgeries. No radiographic evidence for advanced bone infection. Radiographs would have decreased sensitivity for early osteomyelitis. Dictated by: Erick Taveras M.D. on 11/10/2016 at 10:30 Approved by: Erick Taveras M.D. on 11/10/2016 at 10:32 . Assessment & Plan Josiah Landin is a 46 year old poorly controlled diabetic with a history of multiple non healing ulcers and subsequent amputations who presents with a worsening infection of the right forefoot and mild DKA. Right foot infected diabetic ulcer, POA, acute on chronic. Active -Recent cultures indicate beta hemolytic Group G strep, likely sensitive to beta -lactams -Zosyn Q8 -will continue to track CBCs -Dr. Cordero from podiatry evaluated the patient's wound. Patient will be evaluated by Dr. Norton 11/11, awaiting further recommendations. Wound is not likely require further surgical intervention. -Will defer surgical management and wound care to podiatry -Will obtain Trop to ensure that infection and DKA not precipitated by ACS Diabetic Ketoacidosis, present on admission, chronic. ongoing -AG 15 as of 10/23 - Patient receiving Lantus 80U HS and Lispro 20U prandial with gtt - Dilaudid IV discontinued. Pt on Oxycodone 10-325mg PO PRN pain Q4 -Zofran and Phenergan for nausea -Give NS @ 75mls/hr -CMP, fingerstick, and ABG every two hours until normalized Intractable Nausea, Present on Admission, Ongoing - Patient not tolerating PO foods, reports nausea with meals for the past three to four weeks. -Zofran and Phenergan as above - Consider outpatient gastric emptying study for gastroparesis. Patient received reglan today @17:32 and would not eligible for accurate study until (11/13) Lactic Acidosis, POA, acute. Active -LA 2 as of (11/10) -IVF as above -Will continue to trend until normalized HTN, POA, chronic. Active -Continue home Amlodipine -Continue home Lisinopril -Continue home Metoprolol -Will withhold diuretic while actively hydrating Disposition: Patient now receiving SubQ insulin, however still nauseous with meals and not tolerating PO foods, pending on patient improvement plan for d/c to home in the next 2 days. GI Prophylaxis: H2 francisco VTE Prophylaxis: Other VTE Mechanical Devices: Intermittant Pneumatic CD Resuscitation Status: CPR: Attempt Resuscitation Attending Statement The patient was seen and examined together with Dr. Solis on 11/11/2016 and I agree with the history, exam and plan as outlined in the note above. . Hank Solis DO Nov 11, 2016 16:05 Thompson Ring MD Nov 14, 2016 08:00
--- NOTE | 2016-11-11 16:30 | NUR ---
Social Work Note: Initial Assessment Data& Assessment: EMR reviewed. SW met with pt at bedside to confirm discharge plan and assess for any unmet needs, SW role explained and discharge planning checklist provided. Josiah Landin is a 46 year old male admitted on 11/10/2016 for diabetic foot with infection. Pt has Medicare insurance coverage and sees Thompson Madrid MD for primary care. Pt lives in [place] with his family and is Independent with ADL's and drives at baseline. Pt owns a cane and wheelchair if needed. Pt does not have HH or SNF hx. PT does not have LTC insurance or VA insurance. Wound Care following. No MD orders identified at this time. SW to continue to follow. Plan: Anticipated discharge home via POV when medically ready. No MD orders identified at this time. SW to continue to follow. AGUILA Menchaca Addendum: 11/11/16 at 1634 by THALIA KATHLEEN Amended: Links added.
--- NOTE | 2016-11-11 18:11 | NUR ---
Pain/Nausea, BP Pt reports pain, mostly in abdomen. Pt tearful with pain. Pt also reports nausea, which he says he is only experiencing because of his severe pain. Pt states that he needs reglan to be accompanied by IV benadryl. When asked why, pt states "I don't know", and that he might be willing to try reglan without benadryl "next time, but not now, I'm kind of desperate". Medicated as appropriate. Pt also reports a vague feeling in his chest. Denies pain or pressure or other sensations, unable to describe the feeling, but thinks it may be anxiety. States that he has felt this way "all day", though was able to sleep for several hours after pain medication and benadryl. Throughout shift has been inconsistent in describing pain/nausea/anxiety, and occasionally unable to give answer regarding pain scale. Will continue to medicate as appropriate. Held AM metoprolol d/t bradycardia. BP elevated in evening. Gave dose of metoprolol in evening. BP improved after benadryl administration. Hospitalist team aware.
[2016-11-11] MEDS: Alum-Mag Hydrox-Simeth 30 mL Suspension PO PRN ×2 (18:41→23:32)
[2016-11-11] MEDS: PROMETHAZINE IV PRN (23:59)
[2016-11-11] MEDS: SODIUM CHLORIDE 0.9% IV PRN (23:59)
[2016-11-12] VITALS (9 sets, daily range): BP systolic 157–209; BP diastolic 72–100; PULSE 58–85; RESP 13–20; O2SAT 93–99
[2016-11-12] MEDS: oxyCODONE-Acetamin 10-325 mg Tablet PO PRN ×5 (00:53→23:12)
[2016-11-12 03:35] LABS: BASOPHILS % (AUTO) 0.4 % (0-3); EOSINOPHILS % (AUTO) 0.9 % (0-5); MONOCYTES % (AUTO) 10.1 % (4-12); Mean Corpuscular Hemoglobin 28.6 pg (27.0-35.0); Mean Corpuscular Volume 80.4 fL (81-100); NEUTROPHILS % (AUTO) 68.8 % (40-74); Platelet Count 259 bil/L (150-400)
--- NOTE | 2016-11-12 06:33 | NUR ---
Pain, nausea, Hiccups pt complaint of constant nausea, with on going hiccups, medicated with zofran, given Maalox, and then phenergan, which appeared to have the best results for pt and he was able to sleep for a few hours, takes very little PO, IVF NS at 75 mls hour, see flow records
[2016-11-12] MEDS: 0.9% Sodium Chloride 1,000 ML IV SCH ×2 (06:47→13:57)
--- NOTE | 2016-11-12 06:58 | NUR ---
pt refused his BID HS dose lopressor 25mg 11-11-16
--- NOTE | 2016-11-12 07:26 | PCM.PNPOD ---
Subjective Date of Service: Nov 11, 2016 Visit Information: Reason for Visit Diabetic Foot With Infection/Hyperglycemic Date of Admission: Nov 10, 2016 at 12:00 Hospital Day # Subjective: Patient somewhat sedated, blunt affect, but cooperative during my visit. He was complaining of some chest tightness to the primary team. Objective Vital Sign - Last Date Time Temp Pulse Resp B/P Pulse Ox O2 Delivery O2 Flow Rate FiO2 11/12/16 06:56 63 16 209/100 98 Room Air 11/12/16 03:50 36.9 Intake and Output 11/11/16 11/11/16 11/12/16 Cumulative From/Thru 15:00 23:00 07:00 11/10/16 09:55 - 11/12/16 05:10 Intake Total 2854 ml 1700 ml 6165 ml Output Total 1650 ml 2100 ml 5000 ml Balance 1204 ml -400 ml 1165 ml Intake Oral 1800 ml 800 ml 2900 ml IV Total 1054 ml 900 ml 3265 ml Output Urine Total 1650 ml 2100 ml 5000 ml # Voids 3 Result Diagram: 11/12/16 0250 11/12/16 0250 Lab Test 11/10/16 10:17 11/10/16 15:00 11/11/16 02:10 11/11/16 07:32 Erythrocyte Sedimentation Rate 4mm/hr (0-15) Hemoglobin A1c 9.9% (4.8-5.6) Troponin T < 0.010ug/L (0.0-0.011) Lactic Acid Level 2.0mmol/L (0.4-2.0) Prothrombin Time 10.9sec (8.1-12.5) Prothromb Time International Ratio 1.02ratio Phosphorus Level 2.7mg/dL (2.5-4.9) Magnesium Level 1.8mg/dL (1.6-2.6) Lipase 37U/L (13-60) Urine Color Yellow (YELLOW) Urine Appearance Clear (CLEAR,HAZY) Urine pH 6.0 (5.0-8.0) Urine Specific [place] 1.025 (1.003-1.035) Urine Protein 300mg/dL (NEG,TRACE) Urine Glucose (UA) 1000mg/dL (NEGATIVE) Urine Ketones 15mg/dL (NEGATIVE) Urine Occult Blood Moderate (NEGATIVE) Urine Nitrite Negative (NEGATIVE) Urine Bilirubin Negative (NEGATIVE) Urine Urobilinogen Normalmg/dL (NORMAL) Urine Leukocyte Esterase Negative (NEGATIVE) Urine RBC 11-50/hpf (0-2) Urine WBC 0-5/hpf (0-5) Urine Epithelial Cells Occasional/hpf (NONE-MOD) Urine Crystals None seen (NONE SEEN) Urine Bacteria None/hpf (NONE-FEW) Urine Hyaline Casts None/lpf (NONE) Urine Granular Casts None seen (NONE SEEN) Urine Waxy Casts None seen (NONE SEEN) Urine Red Blood Cell Casts None seen (NONE SEEN) Urine White Blood Cell Casts None seen (NONE SEEN) Urine Mucus None seen (None Seen) Urine Trichomonas None seen (NONE SEEN) Urine Yeast None (NONE SEEN) Urinalysis Comment None Urine Culture Reflexed Not indicated Test 11/12/16 02:50 White Blood Count 9.9th/mm3 (3.8-10.1) Red Blood Count 5.66mil/mm3 (4.40-5.80) Hemoglobin 16.2g/dL (13.8-17.2) Hematocrit 45.5% (41.0-50.0) Mean Corpuscular Volume 80.4fL (81-100) Mean Corpuscular Hemoglobin 28.6pg (27.0-35.0) Mean Corpuscular Hemoglobin Concent 35.6% (32.0-37.0) Red Cell Distribution Width 12.8% (12.3-15.4) Platelet Count 259bil/L (150-400) Neutrophils (%) (Auto) 68.8% (40-74) Lymphocytes (%) (Auto) 19.6% (14-46) Monocytes (%) (Auto) 10.1% (4-12) Eosinophils (%) (Auto) 0.9% (0-5) Basophils (%) (Auto) 0.4% (0-3) Sodium Level 137mEq/L (134-144) Potassium Level 3.7mEq/L (3.5-5.2) Chloride Level 100mEq/L (97-108) Carbon Dioxide Level 23mmol/L (18-29) Blood Urea Nitrogen 14mg/dL (6-24) Creatinine 1.07mg/dL (0.76-1.27) Estimat Glomerular Filtration Rate 79mL/min (>59) Glucose Level 153mg/dL (60-99) Calcium Level 8.4mg/dL (8.5-10.1) Total Bilirubin 0.4mg/dL (0.0-1.2) Aspartate Amino Transf (AST/SGOT) 13U/L (0-50) Alanine Aminotransferase (ALT/SGPT) 8U/L (0-44) Alkaline Phosphatase 57U/L (25-150) Total Protein 5.9g/dL (6.4-8.4) Albumin 2.7g/dL (3.4-5.0) Exam General: Alert, Oriented X3, Cooperative, No Acute Distress Lower Extremities: Bilateral: Extremity warm (improving erythema and edema, resolved lymphangitis) Lower Extremity Pulses: Palpable: Left Dorsalis Pedis Left Posterior Tibal Right Dorsalis Pedis Right Posterior Tibal Podiatry WOUND : Wound Location/Description Right plantar 4th metatarsal head area ulcer and tracking sinus are improving. No purulence. Mild fibrin, less drainage. Right great toe ulcer is stable. Left distal TMA ulcer is healed Postulcerative callus in distal area (due to equinus). Assessment & Plan Problems: (1) Diabetic infection of right foot Plan: Patient is need of a more definitive procedure to decrease equinus on his forefoot bilaterally, but that is not going to be the goal of this hospitalization. Continue IV antibiotics until at least 11/13/16, mainly due to recurrence of infections outpatient. He should not be discharged on PO medication due to inconsistency of taking it, especially when he is affected mentally by anxiety, DKA, etc. Ulcer and sinus tract were irrigated with NS, re-packed with NS moistened gauze , dressed with gauze and Kerlix, Xeroform was placed on the right great toe ulcer. I will change it all tomorrow and debride at bedside. No OR planned. Status: Acute ICD Code: E11.69 VTE Prophylaxis: Other Citlali Norton DPM Nov 12, 2016 07:26
[2016-11-12] MEDS: Insulin LISPRO High-Dose Scale SUBQ SCH ×5 (08:00→22:00)
[2016-11-12] MEDS: Piperacillin-Tazo 3.375 Gm Inj 3.375 GM in Dextrose 5% Minibag Plus 50 ML IV SCH ×2 (08:54→17:06)
[2016-11-12] MEDS: Alum-Mag Hydrox-Simeth 30 mL Suspension PO PRN ×2 (08:55→17:07)
[2016-11-12] MEDS: MetoCLOpramide 5 mg/mL 2 mL Inj IVPUSH PRN (08:56)
[2016-11-12] MEDS: Insulin GLARgine 100 Unit/mL Syringe SUBQ SCH ×2 (09:01→20:30)
--- NOTE | 2016-11-12 11:10 | PCM.DIMED ---
Hank Solis DO 11/12/16 1110: Discharge Instructions Date of Service Nov 13, 2016 Dates of Hospitalization Nov 10, 2016 at 12:00 Discharge Diagnosis Discharge Diagnosis Diabetic Ketoacidosis Right foot infected diabetic ulcer Intractable Nausea Lactic Acidosis HTN Medication Instructions Additional med instructions I will be adjusting your diabetic medications. Continue taking your Metforming 1000mg dose twice a day.. Stop taking your Janumet. I am adjusting your insulin regiment. You will take the Lantus 80 units twice a day. You will take your Lispro (Humalog) 20 units before breakfast, 20 units before lunch, and 20 unit before dinner, and you will continue to use your sliding scale as before. I am going to prescribe you with Hydrochlorothiazide 12.5 mg tablets to take by mouth for your blood pressure. I will be sending you home with Metoclopramide 5mg tablet to take 4 times a day. This will help with your nausea. Stop taking this if you start experiencing difficulty speaking, muscle twitching or an uncomfortable sensation in your mouth. Diet Discharge Diet: Diabetic Activity Discharge Activity: No restrictions Call your provider Call your provider for: Fever or Chills, Shortness of breath, Bleeding, Chest pain, Vomitting, Excessive diarrhea, Weakness (unilateral) Patient Instructions Patient Instructions Please follow a very strict no carb diet. Substitute your carbs with proteins and green vegetables. Follow-up plan Please follow up with your primary care provider in one week, and follow up with wound care as directed through your treatment plan with podiatry. Follow-up Provider: Thompson Madrid MD Follow-up with PCP in: 1 week Thompson Ring MD 11/14/16 0801: Discharge Instructions Attending's Statement The patient was seen and examined together with Dr. Solis on 11/13/2016 and I agree with the history, exam and plan as outlined in the note above. . Hank Solis DO Nov 12, 2016 11:10 Thompson Ring MD Nov 14, 2016 08:01
[2016-11-12] MEDS ORDERED: HYDR12.55 PO (11:34)
[2016-11-12] MEDS ORDERED: INSU100V7 SUBQ (11:34)
[2016-11-12] MEDS ORDERED: INSLIS SUBQ (11:34)
[2016-11-12] MEDS ORDERED: MTC5T PO (11:45)
--- NOTE | 2016-11-12 14:21 | NUR ---
NUTRITION ASSESSMENT: ASSESS: Pt is a 46yo M admitted for diabetic foot infection. Podiatry is following, no plans for OR. He has been experiencing persistent n/v for the past couple weeks. He has been on CL dietx1 day with good po of 100%. Diet has been advanced to Diabetic today. PMHX: DM, peripheral neuropathy, HTN LABS: Reviewed. Glu 153, Ca 8.4, Alb 2.7, A1C 9.9 MEDS: Reviewed. zofran GI: persistent n/v SKIN: diabetic foot wound, podiatry following CURRENT WTS: 133.3kg, BMI 34kg/m2, admit wt 133.3kg, IBW: 97.2kg DIET: Diabetic EST. NEEDS: BMI Kcals: 2665-2935kcal/day (20-22kcal/kg) Pro: 100-120g/day (1.0-1.2g/kg IBW) NUTRITION DIAGNOSIS: 1.) Altered nutrition related lab values related to endocrine dysfunction as evidence by A1C of 9.9. NUTRITION INTERVENTION: 1.) Will monitor for PO intake/tolerance 2.) Attempted DM ed but pt was nauseous pt requested RD return tomorrow. Will f/u with ed. Of note, pt has been through oupt DM education classes twice. Last received Inpt DM ed 04/26/16 MONITOR / EVAL: PO, GI, ed, wt, labs, POC, nutrition status. Will continue to monitor per moderate nutrition risk guidelines
--- NOTE | 2016-11-12 15:24 | DRSVH ---
PROCEDURE: US ABDOMEN INDICATIONS: RUQ pain, tenderness. TECHNIQUE: Real-time scanning was performed of the abdominal and retroperitoneal organs, with image documentatio n. COMPARISON: [facility], US, ABDOMEN SONOGRAM, 01/22/2013, 7:56. FINDINGS: Liver length: 18.66 cm Gallbladder Wall Thickness: 3.40 mm CBD: 5.90 mm Spleen length: 15.46 cm Right kidney length: 15.12 cm Left kidney length: 13.52 cm Aorta(Proximal): 2.33 cm Aorta(Mid): 2.18 cm Aorta(Distal): 1.94 cm RCIA: 1.19 cm LCIA: 1.21 cm Liver: Liver is diffusely increased in echogenicity. No focal hepatic abnormalities identified. No rmal hepatic size. Gallbladder: Multiple gallstones present. No gallbladder wall thickening or pericholecystic fluid. Positive sonographic Rondon sign. Biliary ducts: Intrahepatic bile ducts are non-dilated. Extrahepatic bile duct caliber is normal. Normal is 6-7 mm or less in diameter, or 10 mm or less post-cholecystectomy. Pancreas: Visualized portions of the pancreas are sonographically normal. Spleen: Spleen is normal in size and homogeneous in echotexture. Kidneys: Kidneys are normal in size and echotexture. No hydronephrosis or nephrolithiasis. No pamela d masses. Aorta: Visualized aorta is normal in caliber at less than 3 cm. Iliacs: Proximal common iliac arteries are normal in caliber at less than 2.5 cm. IVC: Intrahepatic inferior vena cava is patent. Miscellaneous: No free abdominal fluid. IMPRESSION: 1. Increased hepatic echogenicity noted likely related to fatty infiltration of the liver but other s ources of hepatocellular disease cannot be excluded. Recommend clinical correlation. 2. Cholelithiasis with positive sonographic Rondon sign and prominence of the gallbladder wall. Otilio y developing cholecystitis cannot be excluded and clinical correlation and followup is recommended. Dictated by: Rafal KAISERA Interpreted: Natacha Kang MD on 11/12/2016 at 14:37 Approved by: Natacha Kang MD, PhD on 11/12/2016 at 15:20
--- NOTE | 2016-11-12 17:20 | NUR ---
Intermittent nausea, abd discomfort relieved with Percocet, Maalox, small meals, Reglan. Sitting up bedside most of day, amb'd in room. Vital signs stable, continued hypertension despite anti-hypertensives. Brisk UOP via urinal. Afebrile. Poor appetite. BG's 101, 127 this shift, 1/2 insulin dosage given due to poor PO intake/patient collaboration. Possible discharge home this evening, awaiting Podiatry to see. Abd ultrasound done today.
--- NOTE | 2016-11-12 18:04 | PCM.PNPOD ---
Subjective Date of Service: Nov 12, 2016 Visit Information: Reason for Visit Diabetic Foot With Infection/Hyperglycemic Surgery/Surgery Date Post-Op Day # Date of Admission: Nov 10, 2016 at 12:00 Hospital Day # Subjective: Patient is in mild distress due to nausea and stomach pain. His feet have not been bothering him. Gastrointestinal: Complains of Nausea Pain Management: Continued Pain Issues (stomach) Objective Vital Sign - Last Date Time Temp Pulse Resp B/P Pulse Ox O2 Delivery O2 Flow Rate FiO2 11/12/16 15:52 37.0 67 18 157/72 97 Room Air Intake and Output 11/11/16 11/11/16 11/12/16 Cumulative From/Thru 15:00 23:00 07:00 11/10/16 09:55 - 11/12/16 05:10 Intake Total 2854 ml 1700 ml 6165 ml Output Total 1650 ml 2100 ml 5000 ml Balance 1204 ml -400 ml 1165 ml Intake Oral 1800 ml 800 ml 2900 ml IV Total 1054 ml 900 ml 3265 ml Output Urine Total 1650 ml 2100 ml 5000 ml # Voids 3 Result Diagram: 11/12/16 0250 11/12/16 0250 Lab Test 11/10/16 10:17 11/10/16 15:00 11/11/16 02:10 11/11/16 07:32 Erythrocyte Sedimentation Rate 4mm/hr (0-15) Hemoglobin A1c 9.9% (4.8-5.6) Troponin T < 0.010ug/L (0.0-0.011) Lactic Acid Level 2.0mmol/L (0.4-2.0) Prothrombin Time 10.9sec (8.1-12.5) Prothromb Time International Ratio 1.02ratio Phosphorus Level 2.7mg/dL (2.5-4.9) Magnesium Level 1.8mg/dL (1.6-2.6) Lipase 37U/L (13-60) Urine Color Yellow (YELLOW) Urine Appearance Clear (CLEAR,HAZY) Urine pH 6.0 (5.0-8.0) Urine Specific [place] 1.025 (1.003-1.035) Urine Protein 300mg/dL (NEG,TRACE) Urine Glucose (UA) 1000mg/dL (NEGATIVE) Urine Ketones 15mg/dL (NEGATIVE) Urine Occult Blood Moderate (NEGATIVE) Urine Nitrite Negative (NEGATIVE) Urine Bilirubin Negative (NEGATIVE) Urine Urobilinogen Normalmg/dL (NORMAL) Urine Leukocyte Esterase Negative (NEGATIVE) Urine RBC 11-50/hpf (0-2) Urine WBC 0-5/hpf (0-5) Urine Epithelial Cells Occasional/hpf (NONE-MOD) Urine Crystals None seen (NONE SEEN) Urine Bacteria None/hpf (NONE-FEW) Urine Hyaline Casts None/lpf (NONE) Urine Granular Casts None seen (NONE SEEN) Urine Waxy Casts None seen (NONE SEEN) Urine Red Blood Cell Casts None seen (NONE SEEN) Urine White Blood Cell Casts None seen (NONE SEEN) Urine Mucus None seen (None Seen) Urine Trichomonas None seen (NONE SEEN) Urine Yeast None (NONE SEEN) Urinalysis Comment None Urine Culture Reflexed Not indicated Test 11/12/16 02:50 White Blood Count 9.9th/mm3 (3.8-10.1) Red Blood Count 5.66mil/mm3 (4.40-5.80) Hemoglobin 16.2g/dL (13.8-17.2) Hematocrit 45.5% (41.0-50.0) Mean Corpuscular Volume 80.4fL (81-100) Mean Corpuscular Hemoglobin 28.6pg (27.0-35.0) Mean Corpuscular Hemoglobin Concent 35.6% (32.0-37.0) Red Cell Distribution Width 12.8% (12.3-15.4) Platelet Count 259bil/L (150-400) Neutrophils (%) (Auto) 68.8% (40-74) Lymphocytes (%) (Auto) 19.6% (14-46) Monocytes (%) (Auto) 10.1% (4-12) Eosinophils (%) (Auto) 0.9% (0-5) Basophils (%) (Auto) 0.4% (0-3) Sodium Level 137mEq/L (134-144) Potassium Level 3.7mEq/L (3.5-5.2) Chloride Level 100mEq/L (97-108) Carbon Dioxide Level 23mmol/L (18-29) Blood Urea Nitrogen 14mg/dL (6-24) Creatinine 1.07mg/dL (0.76-1.27) Estimat Glomerular Filtration Rate 79mL/min (>59) Glucose Level 153mg/dL (60-99) Uric Acid 4.2mg/dL (2.6-7.2) Calcium Level 8.4mg/dL (8.5-10.1) Total Bilirubin 0.4mg/dL (0.0-1.2) Aspartate Amino Transf (AST/SGOT) 13U/L (0-50) Alanine Aminotransferase (ALT/SGPT) 8U/L (0-44) Alkaline Phosphatase 57U/L (25-150) Total Protein 5.9g/dL (6.4-8.4) Albumin 2.7g/dL (3.4-5.0) Exam General: Alert, Oriented X3, Cooperative, No Acute Distress Lower Extremities: Bilateral: Extremity warm (erythema and edema resolved.) Lower Extremity Pulses: Palpable: Left Dorsalis Pedis Left Posterior Tibal Right Dorsalis Pedis Right Posterior Tibal Podiatry WOUND : Wound Location/Description Right plantar 4th metatarsal head area ulcer and tracking sinus are improving. No purulence. Mild fibrin, less drainage. Right great toe ulcer is stable. Left distal TMA ulcer is healed Postulcerative callus in distal area (due to equinus). Assessment & Plan Problems: (1) Diabetic infection of right foot Plan: Patient is need of a more definitive procedure to decrease equinus on his forefoot bilaterally, but that is not going to be the goal of this hospitalization. Right foot Ulcer and sinus tract were irrigated with NS, re-packed with NS moistened packing gauze, dressed with gauze and Kerlix. He will need another dressing change later this week. [facility] for a dressing change, as described here. I will see him myself in one week. Status: Acute ICD Code: E11.69 VTE Prophylaxis: Other Citlali Norton DPM Nov 12, 2016 18:04
--- NOTE | 2016-11-12 18:43 | PCM.PNMED ---
Subjective Date of Service Nov 12, 2016 Subjective Josiah Landin is a 46 year old poorly controlled diabetic with a history of multiple non healing ulcers and subsequent amputations who presents with a worsening infection of the right forefoot and mild DKA.. Hospital Day 2. Nursing reports patient had continued ABD pain with associated nausea. Pt refused his nighttime blood pressure medication, but requested Phenergen for his nausea. Patient has had elevated blood pressure throughout the night. Otherwise no acute events overnight. Patient seen and examined sitting up in bed. C/o nausea and ABD pain. Denies vomiting, diarrhea, CP, SOB, or headache. Is ambulating in the room. Patient is having good urine output and has had a bowel movement since yesterday. Exam Vital Signs Vital Sign - Last Date Time Temp Pulse Resp B/P Pulse Ox O2 Delivery O2 Flow Rate FiO2 11/12/16 15:52 37.0 67 18 157/72 97 Room Air Intake and Output 11/11/16 11/11/16 11/12/16 Cumulative From/Thru 15:00 23:00 07:00 11/10/16 09:55 - 11/12/16 05:10 Intake Total 2854 ml 1700 ml 6165 ml Output Total 1650 ml 2100 ml 5000 ml Balance 1204 ml -400 ml 1165 ml Intake Oral 1800 ml 800 ml 2900 ml IV Total 1054 ml 900 ml 3265 ml Output Urine Total 1650 ml 2100 ml 5000 ml # Voids 3 Exam Constitutional: Awake, alert and cooperative. In no acute distress. Head: normocephalic and atraumatic Eyes: EOMI, pupils equal round and reactive to light. No scleral icterus Heart: regular rate and rhythm. No peripheral edema. Lungs: clear to auscultation bilaterally. no wheeze, rales, or rhonchi. ABD: RUQ tenderness with mild hepatomegaly. + Rondon's sign. Bowel sounds present throughout. Musculoskeletal: moves all four extremities appropriately. Skin: warm, dry, no rash. Neuro: CN II-XII intact. No focal deficits. Psych: appropriate mood and affect. IVs and Medications IV Fluids 2L NS given in the last 24 hours. Medications Reviewed: Medications were reviewed in detail Medications High Risk IV Medications: Zosyn Lab and Diagnostics Item Value Date Time Red Blood Count 5.66 mil/mm3 11/12/16 0250 Mean Corpuscular Volume 80.4 fL L 11/12/16249 Mean Corpuscular Hemoglobin 28.6 pg 11/12/16249 Mean Corpuscular Hemoglobin Concent 35.6 % 11/12/16249 Red Cell Distribution Width 12.8 % 11/12/16249 Neutrophils (%) (Auto) 68.8 % 11/12/16249 Lymphocytes (%) (Auto) 19.6 % 11/12/16249 Monocytes (%) (Auto) 10.1 % 11/12/16249 Eosinophils (%) (Auto) 0.9 % 11/12/16249 Basophils (%) (Auto) 0.4 % 11/12/16249 Uric Acid 4.2 mg/dL 11/12/16249 Estimat Glomerular Filtration Rate 79 mL/min 11/12/16249 Calcium Level 8.4 mg/dL L 11/12/16249 Total Bilirubin 0.4 mg/dL 11/12/16249 Aspartate Amino Transf (AST/SGOT) 13 U/L 11/12/16249 Alanine Aminotransferase (ALT/SGPT) 8 U/L 11/12/16 025 Alkaline Phosphatase 57 U/L 11/12/16249 Total Protein 5.9 g/dL L 11/12/16249 Albumin 2.7 g/dL L 11/12/16249 Result Diagram: 11/12/16 02511/12/16249 Microbiology Recent cultures of wounds include MSSA in August, and group G beta-hemolytic strep on this admission X-Rays, CTs and MRIs X-RAY RIGHT FOOT COMPLETE, MINIMUM THREE VIEWS IMPRESSION: Sequelae of multiple previous right toe amputation surgeries. No radiographic evidence for advanced bone infection. Radiographs would have decreased sensitivity for early osteomyelitis. Dictated by: Erick Taveras M.D. on 11/10/2016 at 10:30 Approved by: Erick Taveras M.D. on 11/10/2016 at 10:32 ABD US IMPRESSION: 1. Increased hepatic echogenicity noted likely related to fatty infiltration of the liver but other sources of hepatocellular disease cannot be excluded. Recommend clinical correlation. 2. Cholelithiasis with positive sonographic Rondon sign and prominence of the gallbladder wall. Early developing cholecystitis cannot be excluded and clinical correlation and followup is recommended. Dictated by: Rafal Choffel RRA Interpreted: Natacha Kang MD on 11/12/2016 at 14:37 Assessment & Plan Josiah Landin is a 46 year old poorly controlled diabetic with a history of multiple non healing ulcers and subsequent amputations who presents with a worsening infection of the right forefoot and mild DKA. Hospital day 2. Right foot infected diabetic ulcer, POA, acute on chronic. Active -Recent cultures indicate beta hemolytic Group G strep, likely sensitive to beta -lactams -Zosyn Q8 -will continue to track CBCs -Dr. Cordero from podiatry evaluated the patient's wound. Patient will be evaluated by Dr. Norton 11/11, awaiting further recommendations. Wound is not likely require further surgical intervention. -Will defer surgical management and wound care to podiatry -Will obtain Trop to ensure that infection and DKA not precipitated by ACS Right Upper Quadrant Pain with positive findings on ultrasound. Not present on admission. Ongoing. - Likely related to fatty liver vs. cholelithiasis with intermittent obstruction from stone - Patient is showing no current signs of systemic infection, has normal white blood cell count, and normal liver enzymes as well as normal bilirubin - Will instruct patient to follow up with outpatient GI for further treatment for Cholelithiasis. - Have instructed patient to follow up with his PCP to follow up with his Diabetes, and counseled on a more strict diet for better glucose control. Intractable Nausea, Present on Admission, Ongoing - Patient not tolerating PO foods, reports nausea with meals for the past three to four weeks. -Zofran and Phenergan as above - Patient reported receiving gastric emptying test previously, will review old records. Will give Metoclopramide Rx for patient to follow up with PCP. Diabetic Ketoacidosis, present on admission, chronic. Resolved - Patient receiving Lantus 80U HS and Lispro 20U prandial with gtt - Pt on Oxycodone 10-325mg PO PRN pain Q4 -Zofran and Phenergan for nausea -Give NS @ 75mls/hr -CMP, fingerstick, and ABG every two hours until normalized Lactic Acidosis, POA, acute. Resolved -Levels normalized 11/12 HTN, POA, chronic. Active -Continue home Amlodipine -Continue home Lisinopril -Continue home Metoprolol - Will give HCTZ 12.5mg PO Rx for discharge as patient is inadequately controlled at this time. Disposition: Patient now receiving SubQ insulin, however patient requires one more day of abx as per podiatry recommendation, pending on patient improvement plan for d/c to home in the next day. GI Prophylaxis: H2 francisco VTE Prophylaxis: Other VTE Mechanical Devices: Intermittant Pneumatic CD Resuscitation Status: CPR: Attempt Resuscitation Attending Statement The patient was seen and examined together with Dr. Solis on 11/12/2016 and I agree with the history, exam and plan as outlined in the note above. . Hank Solis DO Nov 12, 2016 18:43 Thompson Ring MD Nov 14, 2016 08:00
[2016-11-12] MEDS ORDERED: Ketorolac 15 mg/mL Inj IVPUSH ONE (20:10)
[2016-11-13] MEDS: Piperacillin-Tazo 3.375 Gm Inj 3.375 GM in Dextrose 5% Minibag Plus 50 ML IV SCH ×2 (01:53→09:07)
[2016-11-13] MEDS: 0.9% Sodium Chloride 1,000 ML IV SCH (01:53)
[2016-11-13 02:35] LABS: Mean Corpuscular Hemoglobin 28.5 pg (27.0-35.0); Mean Corpuscular Volume 78.5 fL (81-100)
[2016-11-13 03:39] VITALS: BP 130/66; PULSE 52; RESP 14; O2SAT 96
--- NOTE | 2016-11-13 04:49 | NUR ---
Pain/BG Pt reports worsening pain ~3 hrs after percocet administration, rec'd order for IVP toradol x1 with effective results per pt, who was able to sleep most of this shift. Percocet given q4 for abdominal pain. Pt tolerated 600cc clear liquids without n/v. 40 units lantus given at HS instead of normal 80 unit dose r/t poor PO intake. One episode of hypoglycemia, BG 55 around 0215, varsha to 100 after juice/crackers. Pleasant, compliant with care. WCTM.
[2016-11-13] MEDS ORDERED: Potassium Chloride 20 mEq SR Tablet PO ONE (06:25)
[2016-11-13] MEDS: Insulin LISPRO High-Dose Scale SUBQ SCH ×2 (08:00→11:46)
[2016-11-13] MEDS: Insulin GLARgine 100 Unit/mL Syringe SUBQ SCH (08:30)
[2016-11-13 09:00] VITALS: BP 161/84; PULSE 63; RESP 16; O2SAT 95
[2016-11-13 11:10] VITALS: PULSE 61
[2016-11-13 12:57] VITALS: BP 199/98; PULSE 63; RESP 20; O2SAT 97
[2016-11-13 13:34] VITALS: BP 147/88
[2016-11-13] MEDS ORDERED: METF500T4 PO (13:35)
--- NOTE | 2016-11-13 14:19 | NUR ---
Social Work: Discharge Data: Pt is on day 3 of hospitalization. EMR reviewed. D/C orders are in. No d/c planning needs at this time. Pt will d/c home via outpt wound care. No d/c planning needs at this time. SPORTS INSTRUCTOR will continue to follow if needs arise. Assessment: Pt who is independent at baseline, currently capable of self care. Plan: Pt iwll d/c home via POV today with outpt wound care. No d/c planning needs at this time. SPORTS INSTRUCTOR will continue to follow if needs arise. AGUILA Castillo
--- NOTE | 2016-11-13 14:44 | NUR ---
Discharge Pt. was discharged to home and Pts. mother was here to pick him up, Pt. took all his belongings from room [address] [place] [address]. Educational material on new prescriptions was given and to watch for side effects, especially metoclopramide if Pt. experiences symptoms like difficulty speaking, muscle twitching, or an uncomfortable sensation in his mouth and to call his PCP. Pt. stated "I will watch out for that". Pt. was educated on insulin glargine and insulin lispro. Pt. was instructed to check his blood sugar prior to eating meals and too stay away from carbs and focus more on protein and green vegetables. Pt. stated he understood and would "check his blood sugar more often, even when I dont eat". Pt. was also instructed to follow up with his treatment plan with the wound care and core driller helper and to follow up with Dr. Madrid on November 28 at 4:40pm. Pt. stated that he will go to the appointment and stick to the wound treatment plan.
--- NOTE | 2016-11-13 22:14 | PCM.DC.MED ---
Discharge Summary Date of Service Nov 13, 2016 Dates of Hospitalization Date of Hospital Admission Nov 10, 2016 at 12:00 Date of Discharge: Nov 13, 2016 Providers: Admitting Physician: Betty Borja DO Primary Care Physician: Thompson Madrid MD Attending Physician: Thompson Ring MD Diagnosis at Time of Discharge Diagnosis at Time of Discharge Diabetic Ketoacidosis Right foot infected diabetic ulcer Intractable Nausea Lactic Acidosis HTN Consultations Dr. Citlali Norton MD - Podiatry Procedures XRay, CTs & MRIs X-RAY RIGHT FOOT COMPLETE, MINIMUM THREE VIEWS IMPRESSION: Sequelae of multiple previous right toe amputation surgeries. No radiographic evidence for advanced bone infection. Radiographs would have decreased sensitivity for early osteomyelitis. Dictated by: Erick Taveras M.D. on 11/10/2016 at 10:30 Approved by: Erick Taveras M.D. on 11/10/2016 at 10:32 ABD US IMPRESSION: 1. Increased hepatic echogenicity noted likely related to fatty infiltration of the liver but other sources of hepatocellular disease cannot be excluded. Recommend clinical correlation. 2. Cholelithiasis with positive sonographic Rondon sign and prominence of the gallbladder wall. Early developing cholecystitis cannot be excluded and clinical correlation and followup is recommended. 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 He presented to [facility] yesterday with similar symptoms and was given IV hydration and discharged. He returns to [facility] for further evaluation. 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 He is a patient of Dr. Norton from podiatry. He states that he has been unable to eat for the past 2 days secondary to his intractable nausea and vomiting. He endorses fever, chills, nausea, vomiting, diaphoresis, and dizziness. He denies chest pain, palpitations , cough, SOB, or diarrhea. The patient was recently evaluated by podiatry who cultured the wound on his foot which grew out topete sensitive GBS. Hospital Course Josiah Landin is a 46 year old poorly controlled diabetic with a history of multiple non healing ulcers and subsequent amputations who presents with a worsening infection of the right forefoot and mild DKA. Patient switched to subQ insulin once anion gap closed. Monitored patient over the next day while patient had continued nausea and abdominal pain with meals. Patient became tender in RUQ, and ABD US ordered showing the results as above. Patient had no signs of infection, normal liver enzymes, and normal vitals. With adjustment of home medication regimen and insulin regimen, patient was medically stable to be discharged to home with close follow up with PCP. Right foot infected diabetic ulcer -Gave Zosyn Q8 for 4 days. -Dr. Norton following wound. Patient set up in wound care outpatient center. -Will defer surgical management and wound care to podiatry Right Upper Quadrant Pain with positive findings on ultrasound - Likely related to fatty liver vs. cholelithiasis with intermittent obstruction from stone. Refer to GI for further follow up of positive US study for possible outpatient surgery. - Patient is showing no current signs of systemic infection, has normal white blood cell count, and normal liver enzymes as well as normal bilirubin Intractable Nausea - Patient not tolerating PO foods, reports nausea with meals for the past three to four weeks. - Zofran and Phenergan as above - Patient reported receiving gastric emptying test previously, will review old records. - Gave Metoclopramide Rx Diabetic Ketoacidosis - Patient received Lantus 80U HS and Lispro 20U prandial with gtt. Sent patient home with updated insulin Rx. - Gave Oxycodone 10-325mg PO PRN pain Q4 - Gave Zofran and Phenergan for nausea -Gave NS @ 75mls/hr -counseled on a more strict diet for better glucose control - Discontinued Janumet - Continued Metformin. Lactic Acidosis -normalized 11/12 HTN -Continued home Amlodipine -Continued home Lisinopril -Continued home Metoprolol - Gave HCTZ 12.5mg PO Rx for discharge as patient is inadequately controlled at this time. Exam Vital Signs (Last) Date Time Temp Pulse Resp B/P Pulse Ox O2 Delivery O2 Flow Rate FiO2 11/13/16 13:34 147/88 11/13/16 12:57 36.9 63 20 97 Room Air Test 11/10/16 10:17 11/10/16 15:00 11/11/16 02:10 11/11/16 07:32 Erythrocyte Sedimentation Rate 4mm/hr (0-15) Hemoglobin A1c 9.9% (4.8-5.6) Troponin T < 0.010ug/L (0.0-0.011) Lactic Acid Level 2.0mmol/L (0.4-2.0) Prothrombin Time 10.9sec (8.1-12.5) Prothromb Time International Ratio 1.02ratio Phosphorus Level 2.7mg/dL (2.5-4.9) Magnesium Level 1.8mg/dL (1.6-2.6) Lipase 37U/L (13-60) Urine Color Yellow (YELLOW) Urine Appearance Clear (CLEAR,HAZY) Urine pH 6.0 (5.0-8.0) Urine Specific [place] 1.025 (1.003-1.035) Urine Protein 300mg/dL (NEG,TRACE) Urine Glucose (UA) 1000mg/dL (NEGATIVE) Urine Ketones 15mg/dL (NEGATIVE) Urine Occult Blood Moderate (NEGATIVE) Urine Nitrite Negative (NEGATIVE) Urine Bilirubin Negative (NEGATIVE) Urine Urobilinogen Normalmg/dL (NORMAL) Urine Leukocyte Esterase Negative (NEGATIVE) Urine RBC 11-50/hpf (0-2) Urine WBC 0-5/hpf (0-5) Urine Epithelial Cells Occasional/hpf (NONE-MOD) Urine Crystals None seen (NONE SEEN) Urine Bacteria None/hpf (NONE-FEW) Urine Hyaline Casts None/lpf (NONE) Urine Granular Casts None seen (NONE SEEN) Urine Waxy Casts None seen (NONE SEEN) Urine Red Blood Cell Casts None seen (NONE SEEN) Urine White Blood Cell Casts None seen (NONE SEEN) Urine Mucus None seen (None Seen) Urine Trichomonas None seen (NONE SEEN) Urine Yeast None (NONE SEEN) Urinalysis Comment None Urine Culture Reflexed Not indicated Test 11/12/16 02:50 11/13/16 02:18 11/13/16 11:35 Neutrophils (%) (Auto) 68.8% (40-74) Lymphocytes (%) (Auto) 19.6% (14-46) Monocytes (%) (Auto) 10.1% (4-12) Eosinophils (%) (Auto) 0.9% (0-5) Basophils (%) (Auto) 0.4% (0-3) Uric Acid 4.2mg/dL (2.6-7.2) White Blood Count 11.1th/mm3 (3.8-10.1) Red Blood Count 6.20mil/mm3 (4.40-5.80) Hemoglobin 17.7g/dL (13.8-17.2) Hematocrit 48.7% (41.0-50.0) Mean Corpuscular Volume 78.5fL (81-100) Mean Corpuscular Hemoglobin 28.5pg (27.0-35.0) Mean Corpuscular Hemoglobin Concent 36.3% (32.0-37.0) Red Cell Distribution Width 12.7% (12.3-15.4) Platelet Count 304bil/L (150-400) Sodium Level 135mEq/L (134-144) Potassium Level 3.8mEq/L (3.5-5.2) Chloride Level 100mEq/L (97-108) Carbon Dioxide Level 21mmol/L (18-29) Blood Urea Nitrogen 11mg/dL (6-24) Creatinine 1.00mg/dL (0.76-1.27) Estimat Glomerular Filtration Rate 86mL/min (>59) Glucose Level 109mg/dL (60-99) Calcium Level 8.4mg/dL (8.5-10.1) Total Bilirubin 0.4mg/dL (0.0-1.2) Aspartate Amino Transf (AST/SGOT) 16U/L (0-50) Alanine Aminotransferase (ALT/SGPT) 10U/L (0-44) Alkaline Phosphatase 59U/L (25-150) Total Protein 5.5g/dL (6.4-8.4) Albumin 2.9g/dL (3.4-5.0) Microbiology Results Recent cultures of wounds include MSSA in August, and group G beta-hemolytic strep on this admission Discharge Medications Discharge Medications Amlodipine (Amlodipine) 5 Mg Tablet 10 MG PO DAILY Prescribed by: EPHRAIM KISER MD Gemfibrozil (Gemfibrozil) 600 Mg Tablet 600 MG PO BID (Reported) Insulin Glargine (Lantus U100 Insulin Vial) 100 Unit/Ml Vial 80 UNIT SUBQ BID Prescribed by: Myrtle TOLENTINO Insulin Human Lispro (HumaLOG U100 Insulin Vial) 100 Unit/Ml Unit 0 UNIT SUBQ WMHS Check blood sugars before meals and at bedtime. Use correction factor only before meals. Blood Sugar Lispro Correction: <151, 0 units; 151-175, 1 unit; 176-200, 2 units; 201-225, 3 units; 226-250, 4 units; 251-275, 5 units; 276-300 , 6 units; 301-325, 7 units; 326-350, 8 units; 351-375, 9 units; 376-400, 10 units; >400, 12 units. Prescribed by: Myrtle TOLENTINO Lisinopril (Lisinopril) 40 Mg Tablet 40 MG PO DAILY (Reported) Metformin (Metformin) 500 Mg Tablet 1,000 MG PO BID Prescribed by: Myrtle TOLENTINO Metoprolol Tartrate (Metoprolol Tartrate) 25 Mg Tablet 25 MG PO BID (Reported) Ondansetron ODT (Ondansetron ODT) 8 Mg Tab.rapdis 8 MG PO QID Prescribed by: ROBINSON SANTANA As needed ([marijuana]) 1 DOSE INH BID PRN PRN For Pain (Reported) Hydrochlorothiazide (Hydrochlorothiazide) 12.5 Mg Tablet 12.5 MG PO DAILY PRN PRN HYPERtension Prescribed by: Myrtle TOLENTINO Metoclopramide (Metoclopramide) 5 Mg Tablet 5 MG PO QID PRN PRN For Nausea Prescribed by: Myrtle TOLENTINO Additional med instructions I will be adjusting your diabetic medications. Continue taking your Metforming 1000mg dose twice a day.. Stop taking your Janumet. I am adjusting your insulin regiment. You will take the Lantus 80 units twice a day. You will take your Lispro (Humalog) 20 units before breakfast, 20 units before lunch, and 20 unit before dinner, and you will continue to use your sliding scale as before. I am going to prescribe you with Hydrochlorothiazide 12.5 mg tablets to take by mouth for your blood pressure. I will be sending you home with Metoclopramide 5mg tablet to take 4 times a day. This will help with your nausea. Stop taking this if you start experiencing difficulty speaking, muscle twitching or an uncomfortable sensation in your mouth. Followup Plan Disposition: Home Follow-up plan Please follow up with your primary care provider in one week, and follow up with wound care as directed through your treatment plan with podiatry. Discharge Diet: Diabetic Discharge Activity: No restrictions Patient Instructions Please follow a very strict no carb diet. Substitute your carbs with proteins and green vegetables. Follow-up Provider: Thompson Madrid MD Follow-up with PCP in: 1 week Provider: Citlali Norton DPM Follow-up in: 1 week Time spent Greater than 35 minutes coordinating plan, setting up discharge, and discussing with family. Attending Statement The patient was seen and examined together with Dr. Solis on 11/13/2016 and I agree with the history, exam and plan as outlined in the note above. . copies to: Thompson Ring MD; Thompson Madrid MD; Citlali Norton DPM, Anthony P DO Nov 13, 2016 22:14 Thompson Ring MD Nov 14, 2016 08:02
== END 2016-11-13 14:44 | disposition home or self-care (01) | DRG 638 ==
LOC: SED 09:49 → CCU 12:00 → PCC 17:18
PROVIDERS: ADMIT Neuromusculoskeletal Medicine & OMM; ATTEND Internal Medicine
PROC: 4A033R1 Measurement of Arterial Saturation, Peripheral, Percutaneous Approach (ICD-10-PCS; principal; 2016-11-10)
DX: E11.621 Type 2 diabetes mellitus with foot ulcer (principal); L97.411 Non-pressure chronic ulcer of right heel and midfoot limited to breakdown of skin; L97.511 Non-pressure chronic ulcer of other part of right foot limited to breakdown of skin; Z79.4 Long term (current) use of insulin; Z79.84 Long term (current) use of oral hypoglycemic drugs; Z89.422 Acquired absence of other left toe(s); Z89.421 Acquired absence of other right toe(s); L08.89 Other specified local infections of the skin and subcutaneous tissue; R11.0 Nausea; K76.0 Fatty (change of) liver, not elsewhere classified; K80.20 Calculus of gallbladder without cholecystitis without obstruction; Z87.891 Personal history of nicotine dependence; I10 Essential (primary) hypertension; E13.10 Other specified diabetes mellitus with ketoacidosis without coma

== ENCOUNTER 2016-11-22 10:17 | Inpatient (IN) | payer MEDICARE, MEDICAID ==
[2016-11-22] VITALS (9 sets, daily range): BP systolic 176–225; BP diastolic 72–124; PULSE 70–110; RESP 12–22; O2SAT 94–99
[~2016-11-22] VITALS: Ht 198.1 cm; Wt 127.9 kg
[~2016-11-22 10:17] MED LIST changes: +HYDR12.55 PO; +INSLIS SUBQ; -INSU500V SUBQ; +METF500T4 PO; +MTC5T PO; -SITA1TAB6 PO
[2016-11-22] MEDS ORDERED: Ondansetron 2 mg/mL 2 mL Inj ONE (10:32)
--- NOTE | 2016-11-22 10:33 | ED.REPORT ---
HPI-Abd Pain M 40 and Over Date of Service Nov 22, 2016 ED Provider: Akira Abdi DO The pt is a 46 y/o male with a hx of DM type II, peripheral neuropathy, bilateral partial forefoot amputations and recurrent ulcerations who presents to the ED complaining of vomiting, onset today. Associated sx include mild periumbilical abdominal pain, constipation, subjective fever, and chills. He also states "it hurts to breathe and talk". He denies coughing. His blood glucose was 170 this morning. The pt was seen at the ED about a week ago for DKA and right foot infection. He is unsure if his foot infection is getting better. Nursing Notes Stated Complaint: VOMITING Chief Complaint: General Complaint Nursing Notes Reviewed: Yes Allergies: Coded Allergies: No Known Allergies (Verified Allergy, Unknown, 11/09/16) Scheduled Amlodipine (Amlodipine) 5 Mg Tablet 10 MG PO DAILY Gemfibrozil (Gemfibrozil) 600 Mg Tablet 600 MG PO BID Insulin Glargine (Lantus U100 Insulin Vial) 100 Unit/Ml Vial 80 UNIT SUBQ BID Insulin Human Lispro (HumaLOG U100 Insulin Vial) 100 Unit/Ml Unit 0 UNIT SUBQ WMHS Check blood sugars before meals and at bedtime. Use correction factor only before meals. Blood Sugar Lispro Correction: <151, 0 units; 151-175, 1 unit; 176-200, 2 units; 201-225, 3 units; 226-250, 4 units; 251-275, 5 units; 276-300 , 6 units; 301-325, 7 units; 326-350, 8 units; 351-375, 9 units; 376-400, 10 units; >400, 12 units. Lisinopril (Lisinopril) 40 Mg Tablet 40 MG PO DAILY Metformin (Metformin) 500 Mg Tablet 1,000 MG PO BID Metoprolol Tartrate (Metoprolol Tartrate) 25 Mg Tablet 25 MG PO BID Ondansetron ODT (Ondansetron ODT) 8 Mg Tab.rapdis 8 MG PO QID Scheduled PRN ([marijuana]) 1 DOSE INH BID PRN PRN For Pain Hydrochlorothiazide (Hydrochlorothiazide) 12.5 Mg Tablet 12.5 MG PO DAILY PRN PRN HYPERtension Metoclopramide (Metoclopramide) 5 Mg Tablet 5 MG PO QID PRN PRN For Nausea General Time Seen by MD: 10:32 Chief Complaint Other (vomiting) Hx Obtained From: Patient Arrived By: Walk-in Sudden in Onset?: Yes Onset Occurred: 1 - 4 hours ago Symptom Duration: Since onset Location: : Periumbilical Quality: Painful Radiation: : Does not radiate Severity: Current: Mild Severity: Maximum: Mild Recent Healthcare: Recent doctor visit Past Medical History Past Medical History Notes: PCP: Dr. Madrid Past Medical History severe peripheral neuropathy last admission in April 2016 for diabetic foot infection Reports: Asthma, Diabetes mellitus, Hypertension Past Surgical History Multiple toe amputations, being followed by wound care Smoking History Former Smoker Social History Alcohol Use: Denies alcohol use Drug Use: THC Ambulatory Status Wheelchair Review of Systems Reports: "hurts to talk and breathe" Constitutional: Reports: Chills, Fever (subjective) Respiratory: Denies: Non-productive cough GI: Reports: Abdominal pain, Nausea, Vomiting Complete sys rev & neg: except as marked. Physical Exam Initial Vital Signs Vital Signs (First) Date Time Temp Pulse Resp B/P Pulse Ox O2 Delivery O2 Flow Rate FiO2 11/22/16 10:22 36.8 70 12 211/107 99 Room Air Initial VS: Reviewed Head / Eyes: Atraumatic, Normocephalic Neck: Supple, Non-tender, Full range of motion Extremities: Vascular intact, Neuro intact, No swelling, No tenderness Skin: Warm, Dry, No cyanosis Neurologic: Alert, Oriented, Nonfocal General/Constitutional: Awake, Alert Distress / Hydration: Positive: Distress mild Respiratory / Chest: Atraumatic, Breath sounds NL, Breath sounds = bilat, No respiratory distress, No rales, No rhonchi, No wheezing Cardiovascular: Heart rate NL, Regular rhythm, Heart sounds NL, No gallop, No murmurs, No rubs Abdomen: Atraumatic, Soft, Non-tender, No guarding, No rebound Back: Atraumatic, Full range of motion ENT: Atraumatic, Airway patent, Pharynx NL Mouth: Positive: Mucous membranes dry Ankle / Foot: Atraumatic, No deformity, Neurologic intact, Vascular intact 4 lesions on the bottom of the right foot. Interpretation & Diagnostics Lab Results Interpretation Result Diagram: 11/22/16 1044 11/22/16 1044 Test 11/22/16 10:44 11/22/16 12:42 White Blood Count 10.8th/mm3 (3.8-10.1) Red Blood Count 6.54mil/mm3 (4.40-5.80) Hemoglobin 18.5g/dL (13.8-17.2) Hematocrit 52.9% (41.0-50.0) Mean Corpuscular Volume 80.9fL (81-100) Mean Corpuscular Hemoglobin 28.3pg (27.0-35.0) Mean Corpuscular Hemoglobin Concent 35.0% (32.0-37.0) Red Cell Distribution Width 13.3% (12.3-15.4) Platelet Count 256bil/L (150-400) Neutrophils (%) (Auto) 82.2% (40-74) Lymphocytes (%) (Auto) 11.0% (14-46) Monocytes (%) (Auto) 4.7% (4-12) Eosinophils (%) (Auto) 1.6% (0-5) Basophils (%) (Auto) 0.1% (0-3) Erythrocyte Sedimentation Rate 1mm/hr (0-15) Sodium Level 136mEq/L (134-144) Potassium Level 4.7mEq/L (3.5-5.2) Chloride Level 98mEq/L (97-108) Carbon Dioxide Level 21mmol/L (18-29) Blood Urea Nitrogen 16mg/dL (6-24) Creatinine 1.12mg/dL (0.76-1.27) Estimat Glomerular Filtration Rate 75mL/min (>59) Glucose Level 232mg/dL (60-99) Calcium Level 9.7mg/dL (8.5-10.1) Magnesium Level 1.7mg/dL (1.6-2.6) Total Bilirubin 0.4mg/dL (0.0-1.2) Aspartate Amino Transf (AST/SGOT) 26U/L (0-50) Alanine Aminotransferase (ALT/SGPT) 16U/L (0-44) Alkaline Phosphatase 65U/L (25-150) C-Reactive Protein 0.3mg/dL (0.0-0.5) Total Protein 7.8g/dL (6.4-8.4) Albumin 3.8g/dL (3.4-5.0) Lipase 47U/L (13-60) Hold Spivey Top Tube Received (Received) Hold Urine Received (Received) ECG Interpretation ECG Interpretation: Sinus arrhythmia. Rate 74. Time: 10:51 Interpreted by: ED physician Re-Eval/Medical Decision Med Decision/Clinical Course Patient presents with reported nausea and vomiting. No evidence of infection. He looks uncomfortable on exam however is not having any persistent vomiting. He has been medicated and hydrated with fluids. His hemoglobin and hematocrit are ever elevated suggesting probable dehydration. Stable bicarbonate. Not likely to be DKA. We will plan to discharge given that he is now tolerating oral fluids. Abdominal exam is benign, pt does not have an acute abdomen. Source of Hx: Old records Time of Eval: 13:22 Re-Evaluation/Progress Note: Rechecked pt. He is tolerating orals well but is still nauseated. Discussed lab results, imaging results, diagnosis and plan to discharge. Pt understands and agrees with the plan. F/U instruction and RTER warning given. All questions addressed. Counseled Regarding: Diagnosis, Lab results, Need for follow-up, When/why to return to ED Discharge & Departure Primary Impression: Nausea Additional Impression: Dehydration Disposition: Home Vital Signs - All Vital Signs Date Time Temp Pulse Resp B/P Pulse Ox O2 Delivery O2 Flow Rate FiO2 11/22/16 12:00 36.8 83 16 207/102 94 Room Air 11/22/16 10:22 36.8 70 12 211/107 99 Room Air )( All Prior VS Reviewed: Yes Condition: Stable Additional Instructions: You may be dehydrated. Continue your home medication. Return to the ER as needed for severe persistent vomiting or other concerns Referrals: Thompson Madrid MD (PCP) Scribe Attestation Portions of this note were transcribed by Juan Miguel Barraza. I,, personally performed the history, physical exam and medical decision-making;I reviewed and confirmed the accuracy of the information in the transcribed note. Signed by Anita Molina. 11/22/16 copies to: Thompson Madrid MDAkira Ortiz Nov 22, 2016 10:33 Juan Miguel Barraza Nov 22, 2016 10:47
[2016-11-22] MEDS ORDERED: 0.9% Sodium Chloride 1,000 ML IV ONE ×3 (10:34→16:15)
[2016-11-22] MEDS: Ondansetron 2 mg/mL 2 mL Inj IVPUSH PRN ×4 (10:45→16:51)
[2016-11-22 10:50] LABS: BASOPHILS % (AUTO) 0.1 % (0-3); EOSINOPHILS % (AUTO) 1.6 % (0-5); MONOCYTES % (AUTO) 4.7 % (4-12); Mean Corpuscular Hemoglobin 28.3 pg (27.0-35.0); Mean Corpuscular Volume 80.9 fL (81-100); NEUTROPHILS % (AUTO) 82.2 % (40-74); Platelet Count 256 bil/L (150-400)
[2016-11-22] MEDS: HYDROmorphone 0.5 mg/0.5 mL iSecure Syringe IVPUSH PRN ×5 (10:52→20:45)
[2016-11-22 11:20] LABS: Magnesium 1.7 mg/dL (1.6-2.6)
[2016-11-22] MEDS ORDERED: MetoCLOpramide 5 mg/mL 2 mL Inj IVPUSH ONE (13:20)
[2016-11-22] MEDS ORDERED: Promethazine Inj 25 MG in Dextrose 5%-Pha MIX 50 ML IV ONE (16:10)
--- NOTE | 2016-11-22 16:36 | ABG ---
DateTimeAnalyzed 16:24:15 -_ pH ____7.393 - 7.320 7.420 pCO2 ___41.4__ -mmHg 41.0 51.0 pO2 ___54.9__ -mmHg 24.0 40.0 HCO3- ___25.2__ -mmol/L 22.0 26.0 ABE ____0.2__ -mmol/L -2.0 2.0 tHb ___20.4__ -g/dL 12.0 18.0 O2Hb ___83.8__ -% COHb ____2.5__ -% 0.0 1.5 MetHb ____0.0__ -% 0.4 1.5 sO2 ___85.8__ -% FIO2 ___21.0__ -% Drawn By lab - Date/Time Notified____ 16:36:00 -_ Notified By rs - Notified Whom __okelley - K+ ____5.5__ -mmol/L 3.5 5.0 tO2 ___23.9__ -Vol%
[2016-11-22] MEDS ORDERED: AMLO10TA3 PO (17:23)
[2016-11-22] MEDS ORDERED: INSU100V7 SUBQ (17:26)
[2016-11-22] MEDS ORDERED: Labetalol 5 mg/mL 20 mL Inj IVPUSH ONE ×2 (17:50→18:35)
[2016-11-22] MEDS ORDERED: Polyethylene Glycol (PEG) 17 Gm Powder PO PRN (17:50)
[2016-11-22] MEDS ORDERED: Promethazine 25 mg/mL Inj IM SCH (18:55)
[2016-11-22] MEDS ORDERED: Promethazine 25 mg/mL Inj IV SCH (19:21)
[2016-11-22] MEDS: Promethazine Inj 12.5 MG in 0.9% Sodium Chloride 50 ML IV SCH (21:46)
[2016-11-22] MEDS ORDERED: Glucose 40% Oral Gel 15 Gm Tube PO PRN (21:55)
--- NOTE | 2016-11-22 22:03 | PCM.HPMED ---
Subjective Date of Service Nov 22, 2016 Primary Provider: Admitting Physician: Miles Soares Primary Care Physician: Thompson Madrid MD Attending Physician: Miles Soares Chief Complaint: Nausea and vomiting History of Present Illness: The pt is a 46 y/o male with a hx of DM type II, peripheral neuropathy, bilateral partial forefoot amputations and recurrent ulcerations who presents to the ED complaining of vomiting, onset today. Associated sx include mild periumbilical abdominal pain, constipation, subjective fever, and chills. He also states "it hurts to breathe and talk". He denies coughing. His blood glucose was 170 this morning. The pt was seen at the ED about a week ago for DKA and right foot infection. He is unsure if his foot infection is getting better. 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 He presented to [facility] yesterday with similar symptoms and was given IV hydration and discharged. He returns to [facility] for further evaluation. 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 He is a patient of Dr. Norton from podiatry. He states that he has been unable to eat for the past 2 days secondary to his intractable nausea and vomiting. He endorses fever, chills, nausea, vomiting, diaphoresis, and dizziness. He denies chest pain, palpitations , cough, SOB, or diarrhea. The patient was recently evaluated by podiatry who cultured the wound on his foot which grew out topete sensitive GBS. In the ED the patient was found to have an elevated blood sugar at 449, an anion gap of 21, normal WBC, and elevated lactic Acid at 2.9. Review of Systems: Comprehensive ROS negative except as listed above in the HPI Allergies Coded Allergies: No Known Allergies (Verified Allergy, Unknown, 11/09/16) Home Medications Scheduled Amlodipine (Amlodipine) 5 Mg Tablet 10 MG PO DAILY Gemfibrozil (Gemfibrozil) 600 Mg Tablet 600 MG PO BID Insulin Glargine (Lantus U100 Insulin Vial) 100 Unit/Ml Vial 80 UNIT SUBQ BID Insulin Human Lispro (HumaLOG U100 Insulin Vial) 100 Unit/Ml Unit 0 UNIT SUBQ WMHS Check blood sugars before meals and at bedtime. Use correction factor only before meals. Blood Sugar Lispro Correction: <151, 0 units; 151-175, 1 unit; 176-200, 2 units; 201-225, 3 units; 226-250, 4 units; 251-275, 5 units; 276-300 , 6 units; 301-325, 7 units; 326-350, 8 units; 351-375, 9 units; 376-400, 10 units; >400, 12 units. Lisinopril (Lisinopril) 40 Mg Tablet 40 MG PO DAILY Metformin (Metformin) 500 Mg Tablet 1,000 MG PO BID Metoprolol Tartrate (Metoprolol Tartrate) 25 Mg Tablet 25 MG PO BID Ondansetron ODT (Ondansetron ODT) 8 Mg Tab.rapdis 8 MG PO QID Scheduled PRN ([marijuana]) 1 DOSE INH BID PRN PRN For Pain Hydrochlorothiazide (Hydrochlorothiazide) 12.5 Mg Tablet 12.5 MG PO DAILY PRN PRN HYPERtension Metoclopramide (Metoclopramide) 5 Mg Tablet 5 MG PO QID PRN PRN For Nausea PMH severe peripheral neuropathy last admission in April 2016 for diabetic foot infection Reports: Asthma, Diabetes mellitus, Hypertension Surgical History Multiple toe amputations, being followed by wound care Trans metatarsal amputation Family History Mother - diabetes Father - lung cancer Social History Hx Alcohol Use: No Hx Substance Use: Yes (THC) Hx Tobacco Use: Yes Smoking Status: Former Smoker Exam Vital Signs Vital Sign - Last Date Time Temp Pulse Resp B/P Pulse Ox O2 Delivery O2 Flow Rate FiO2 11/22/16 18:13 81 191/109 11/22/16 17:56 36.6 16 95 Room Air Exam General: Middle aged gentleman lying in bed in acute distress due to active singultus, Nausea, and vomiting.well-developed, well-nourished, appropriately interactive HEENT: Normocephalic, atraumatic. External ears without defect. Poor dentition Pupils equal, round, and reactive to light and accommodation. Anicteric sclerae , moist conjunctivae, and no lid lag. Oropharynx free of erythema and cobble stoning with moist mucosa. Neck: Supple with full range of motion. No jugular venous distension. No bruits. No lymphadenopathy or thyromegaly. Cardiovascular: Regular rate and rhythm with no murmurs, rubs, or gallops appreciated Pulmonary: Clear to auscultation bilaterally with no crackles, wheezes, or rhonchi. Normal respiratory effort with no use of accessory muscles. Abdomen: Bowel tones present. Soft, mildly-tender, nondistended. No hepatosplenomegaly or masses appreciated. Extremities: No clubbing, cyanosis, edema, or lymphadenopathy appreciated.Left transmetatarsal amputation, right diabetic ulcer on plantar surface of great toe , right foot with bandage hanging off. Skin: Normal temperature, turgor, and texture; no rash, ulcers, or subcutaneous nodules appreciated. Neurological: Cranial nerves grossly intact. Normal muscle strength, tone, and bulk. Reflexes, coordination, and sensory function within normal limits. No known gait impairment. Psychiatric: Normal mood and affect. Alert and oriented to person, place, and time. Lab and Diagnostics Result Diagram: 11/22/16 1044 11/22/16 0792 Assessment & Plan Josiah Landin is a 46 year old poorly controlled diabetic with a history of multiple non healing ulcers and subsequent amputations who presents with intractable nausea and vomiting that began earlier in the morning. Intractable Nausea and Vomiting, present on admission. Active. - Likely 2nd to gastroparesis and poorly controlled DM. - Scheduled Phenergan, PRN Zofran, PRN Reglan. - On Tele monitor for QT. - Give NS @ 100mls/hr. - Clear liquid diet for now. Will advance as tolerated. Uncontrolled hypertension - Continue home Amlodipine. - Continue home Lisinopril. - Continue home Metoprolol. - Continue home Hydralazine. - Labetalol PRN 20 mg push for SBP >180. Poorly controlled insulin requiring diabetes, - Mild DKA on recent visit 1 week ago. - Continue home Lantus insulin regimen, 50 U BID. - High dose correctional scale, 5 U meal time nutritional insulin. - Accu-check Q2H this evening. - Most recent A1c - 9.9. Chronic foot ulcers, B/L, 2nd to diabetes, Present on admission. Active. - Recent cultures taked from prior visit 1 week ago, due to uncontrolled DM foot infection grew beta hemolytic Group G strep, likely sensitive to beta- lactams - Dr. Cordero from podiatry will re-consult along with wound care. - Will defer surgical management and wound care to podiatry Acetaminophen for mild pain when necessary. Bowel regimen Senna and MiraLAX scheduled and PRN. Zofran when necessary for nausea and vomiting. SubQ heparin for now. SCDs in place. High-risk medications: IV Dilaudid prn. Patient Status: Patient is admitted under observation status with expected length of stay less than 2 midnights due to severity of presenting symptoms. Pain Evaluation: Adequate Pain Control Resuscitation Status: CPR: Attempt Resuscitation Attending Statement The patient was seen and examined together with Dr. Lawrence on 11/22 and I agree with the history, exam and plan as outlined in the note above. BHANU PATRICK DO Nov 22, 2016 18:31 Neil Patel MD Nov 23, 2016 01:20
[2016-11-22] MEDS ORDERED: Dextrose 10% 250 ML IV PRN (22:15)
--- NOTE | 2016-11-22 22:39 | NUR ---
ADMIT; pt admitted to room 1017 from e.r. per don with c/o intractable nausea and vomiting at approx. 1845. Pt c/o some nausea while transferring to bed but appeared to subside. Pt placed on tele. Dilaudid given for 4/10 abd pain with relief. Pt received multiple antiemetics in e.r. Had 200cc emesis @ approx. 2100. Phenergan given. Hypertensive. No c/o chest pain. Bp 192/102 at 2058 after iv bp rx given earlier. - Dr. Magallanes aware. BP 225/114 at 221- Dr. Magallanes on unit and notified. Instructed to give Iv bp rx as well. Pt was able to swallow po metropolol with water.
[2016-11-22] MEDS: Insulin GLARgine 100 Unit/mL Syringe SUBQ SCH (23:18)
[2016-11-22] MEDS: Labetalol 5 mg/mL 20 mL Inj IVPUSH PRN (23:32)
[2016-11-22] MEDS: 0.9% Sodium Chloride 1,000 ML IV SCH (23:33)
[2016-11-22] MEDS: Lisinopril 40 Tablet PO SCH (23:33)
--- NOTE | 2016-11-22 23:39 | NUR ---
GI; pt c/o sore throat from bile. Dr. Downs notified and came into room to talk to pt. Carafate ordered. Able to take his lisinopril.
[2016-11-22] MEDS: Insulin LISPRO 300 Unit/3 mL Inj SUBQ SCH (23:55)
[2016-11-22] MEDS: Sucralfate 1,000 mg Tablet PO SCH (23:56)
[2016-11-23] VITALS (8 sets, daily range): BP systolic 149–168; BP diastolic 84–96; PULSE 79–100; RESP 16–18; O2SAT 95–97
--- NOTE | 2016-11-23 00:47 | NUR ---
CV; bp 168/93.
[2016-11-23] MEDS: Promethazine Inj 12.5 MG in 0.9% Sodium Chloride 50 ML IV SCH ×5 (01:37→21:30)
[2016-11-23] MEDS: HYDROmorphone 0.5 mg/0.5 mL iSecure Syringe IVPUSH PRN ×5 (01:37→21:27)
[2016-11-23] MEDS: Ondansetron 2 mg/mL 2 mL Inj IVPUSH PRN (03:25)
[2016-11-23] MEDS: MetoCLOpramide 5 mg/mL 2 mL Inj IVPUSH PRN ×2 (06:23→15:39)
[2016-11-23 06:32] LABS: BASOPHILS % (AUTO) 0.1 % (0-3); EOSINOPHILS % (AUTO) 0.1 % (0-5); Mean Corpuscular Hemoglobin 28.4 pg (27.0-35.0); Mean Corpuscular Volume 81.3 fL (81-100); NEUTROPHILS % (AUTO) 86.6 % (40-74); Platelet Count 304 bil/L (150-400)
[2016-11-23] MEDS: Alum-Mag Hydrox-Simeth 30 mL Suspension PO PRN ×3 (06:32→15:30)
[2016-11-23] MEDS: Insulin LISPRO 300 Unit/3 mL Inj SUBQ SCH ×4 (08:43→21:34)
[2016-11-23] MEDS: Sucralfate 1,000 mg Tablet PO SCH ×4 (08:49→21:32)
--- NOTE | 2016-11-23 08:54 | DRSVH ---
PROCEDURE: US ABDOMEN, LIMITED ([id number]) INDICATIONS: intractable n/v eary cholecysitis in previous US TECHNIQUE: Real-time focused scanning was performed of the abdomen, with image documentation. COMPARISON: None. FINDINGS: Liver: Diffusely increased echogenicity. No hepatic masses. Gallbladder: There is gallbladder sludge. Gallbladder wall measures 3-4. Negative sonographic Rondon' s sign. No pericholecystic fluid. Bile ducts: No intrahepatic or extrahepatic biliary ductal dilatation. Pancreas: Within normal limits where seen. Right kidney: The right kidney measures 13 cm with normal echogenicity. No renal calculi or hydroneph rosis. IMPRESSION: 1. Sludge with gallbladder wall thickness measuring 3-4 mm which is slightly thickened. Overall ultra sound findings do not support acute cholecystitis. There is continued clinical concern for acute chol ecystitis recommend a HIDA scan. 2. Fatty infiltration of the liver. Dictated by: Martin Reynoso M.D. on 11/23/2016 at 8:50 Approved by: Martin Reynoso M.D. on 11/23/2016 at 8:53
--- NOTE | 2016-11-23 10:31 | PCM.PNMED ---
Subjective Date of Service Nov 23, 2016 Subjective pt still c/o 5/10 abd pain, mild nausea, more periumbilical and chest with heartburn. Maalox helped for heart burn. denied RUQ pain, Exam Vital Signs Vital Sign - Last Date Time Temp Pulse Resp B/P Pulse Ox O2 Delivery O2 Flow Rate FiO2 11/23/16 06:05 90 11/23/16 05:07 36.5 16 163/84 95 Room Air Intake and Output 11/22/16 11/22/16 11/23/16 Cumulative From/Thru 15:00 23:00 07:00 11/22/16 10:22 - 11/23/16 06:10 Intake Total 2000 ml 766 ml 2766 ml Output Total 2000 ml 2000 ml Balance 2000 ml -1234 ml 766 ml Intake Oral 200 ml 200 ml IV Total 2000 ml 566 ml 2566 ml Output Urine Total 1500 ml 1500 ml Emesis 500 ml 500 ml # Bowel Movements 0 0 Exam Obese male distressed due to pain, mildly drowsy but oriented X4 RRR, n1 s1 s2 no mrg CTAB, no w,c S,ND,NT,hypoactiveBS+ 1+pitting edema on bilaterally, Left foot-amputated, necrotic stump end IVs and Medications Medications Reviewed: Medications were reviewed in detail Lab and Diagnostics Result Diagram: 11/23/1660311/23/16603 Assessment & Plan Josiah Landin is a 46 year old poorly controlled diabetic with a history of multiple non healing ulcers and subsequent amputations who presents with intractable nausea and vomiting that began earlier in the morning. acute, active Intractable Nausea and Vomiting, POA, likely due to gastroparesis and poorly controlled DM, pt was started GI cocktails of anti-emetics and prokinetics. Since pt had GB wall thickening from last US abd recently. abd US repeated today although exam was unremarkable, which showed sludges and still mildly thickened GB wall but unlikely acute cholecystitis. - continue scheduled Phenergan, PRN Zofran, PRN Reglan. - On Tele monitor for QT. - continue NS @ 100mls/hr. - continue clear liquid diet for now. Will advance as tolerated. Uncontrolled hypertension, POA, pt presented SBP 200-220s, likely due to stress response, retching. - BP better controlled today 150-160s - Continue home Amlodipine, Lisinopril, Metoprolol, Continue home Hydralazine. - Labetalol PRN 20 mg push for SBP >180. Poorly controlled insulin requiring diabetes, POA, pt had mild DKA on recent hospitalization 1 week ago. A1c was 9.9 despite patient's reading 70-160s fasting glc at home.On admission, labs showed no AG, glc 240-250s. - Continue home Lantus insulin regimen, 50 U BID. - High dose correctional scale, 5 U meal time nutritional insulin. - Accu-check Q2H this evening. Chronic foot ulcers, B/L, 2nd to diabetes, Present on admission. Active. - Recent cultures taked from prior visit 1 week ago, due to uncontrolled DM foot infection grew beta hemolytic Group G strep, likely sensitive to beta- lactams - awaits Dr. Cordero consult today. - Will defer surgical management and wound care to podiatry SubQ heparin for now. SCDs in place. High-risk medications: IV Dilaudid prn. Patient Status: likely1-2more days until symptoms resolve. VTE Mechanical Devices: Intermittant Pneumatic CD Resuscitation Status: CPR: Attempt Resuscitation Time spent 35min Gladys Brown MD Nov 23, 2016 07:36
[2016-11-23] MEDS: Lisinopril 40 Tablet PO SCH (11:17)
[2016-11-23] MEDS: Insulin GLARgine 100 Unit/mL Syringe SUBQ SCH ×2 (11:40→21:34)
[2016-11-23] MEDS: 0.9% Sodium Chloride 1,000 ML IV SCH ×2 (12:35→16:57)
--- NOTE | 2016-11-23 14:16 | NUR ---
NURSING DAYS 7-7 Patient s WBC up to 17.1, Neuro- patient appears passive, CVS- Telemetry d/c per MD order today, patient was SR 80's, , blood pressure better controlled 150/92, and 146/94. PLUM-RA, pulse ox remove during day per patient's request. GI- Nausea but no emesis, Phenegren q6, Maalox. Patient c/o hiccups. Suspected gastroparesis linked to DM. BG 233 and 213 so far. - Urinal SKIN -Left foot no toes, right foot miss one toes, ulcers which WC and Dr Norton following. PAIN-0.5 Dilaudid IVP, IV NS 100 PLAN- U/S of abdomen = sludge in Gall bladder recommend HIDA scan. Dr Norton consult. Addendum: 11/23/16 at 1814 by MICHAELLE SOLITARIO RN Patient has had one bout of emesis today, 300mls. Patient states he has not had BM since being in ER. Reglan and Phenagan given.
--- NOTE | 2016-11-23 15:44 | NUR ---
Inpatient status effective today, KATIUSKA signed.
[2016-11-24] VITALS (9 sets, daily range): BP systolic 139–233; BP diastolic 75–126; PULSE 78–93; RESP 6–20; O2SAT 95–98
[2016-11-24] MEDS: 0.9% Sodium Chloride 1,000 ML IV SCH
[2016-11-24] MEDS: HYDROmorphone 0.5 mg/0.5 mL iSecure Syringe IVPUSH PRN ×8 (01:14→22:19)
[2016-11-24] MEDS: Alum-Mag Hydrox-Simeth 30 mL Suspension PO PRN ×3 (01:18→22:25)
[2016-11-24] MEDS: Promethazine Inj 12.5 MG in 0.9% Sodium Chloride 50 ML IV SCH (02:44)
--- NOTE | 2016-11-24 03:15 | NUR ---
Pain/Nausea Pt. has reported some nausea. No emesis produced. Pt. reports that he thinks Promethazine effective for nausea. Pt. reports pain 5-7/10 in esphogeal and right upper quadrant abdominal area. 1mg IV Dilaudid given for pain. Will continue to monitor.
[2016-11-24] MEDS: Labetalol 5 mg/mL 20 mL Inj IVPUSH PRN ×4 (05:33→20:18)
[2016-11-24 06:12] LABS: BASOPHILS % (AUTO) 0.2 % (0-3); EOSINOPHILS % (AUTO) 0.3 % (0-5); MONOCYTES % (AUTO) 5.6 % (4-12); Mean Corpuscular Hemoglobin 28.3 pg (27.0-35.0); Mean Corpuscular Volume 82.5 fL (81-100); NEUTROPHILS % (AUTO) 82.7 % (40-74); Platelet Count 252 bil/L (150-400)
[2016-11-24 06:35] LABS: Magnesium 1.8 mg/dL (1.6-2.6); Phosphorus 2.8 mg/dL (2.5-4.9)
[2016-11-24] MEDS ORDERED: Propofol 10,000 mCg/mL 20 mL Inj ONE (07:27)
[2016-11-24] MEDS ORDERED: fentaNYL-PF 50 mCg/mL 2 mL Inj ONE (07:27)
[2016-11-24] MEDS: Pantoprazole 40 mg ER24 Tablet PO SCH ×2 (07:30→17:44)
[2016-11-24] MEDS: Sucralfate 1,000 mg Tablet PO SCH ×4 (07:30→21:32)
[2016-11-24] MEDS ORDERED: Dextrose 10% 250 ML IV PRN (07:35)
[2016-11-24] MEDS: Lisinopril 40 Tablet PO SCH (08:30)
[2016-11-24] MEDS: MetoCLOpramide 5 mg/mL 2 mL Inj IVPUSH PRN ×3 (08:37→20:02)
[2016-11-24] MEDS: Insulin GLARgine 100 Unit/mL Syringe SUBQ SCH ×2 (08:38→21:32)
[2016-11-24] MEDS: Insulin LISPRO 300 Unit/3 mL Inj SUBQ SCH ×4 (08:39→21:31)
--- NOTE | 2016-11-24 10:13 | CONS ---
[address] [address] CONSULTATION REPORT PATIENT: KENNY JOHNSON : 1970 MR#: [id number] ADMIT: 11/22/2016 JOB ID: [id number] DATE OF SERVICE: 11/24/2016 REASON FOR CONSULTATION: 1. Nausea. 2. Vomiting. 3. Epigastric pain. HISTORY OF PRESENT ILLNESS: A 46-year-old male with a history of diabetes type 2, history of recent TKA approximately two weeks ago, peripheral neuropathy, bilateral partial foot amputations, recurrent ulcers due to his diabetes, history of asthma, hypertension who presents for consultation for epigastric pain, nausea, and vomiting. The patient states she has had these episodes of nausea and vomiting constantly even without food for the past two weeks. The patient states two weeks ago he was told that it was attributed to DKA. After his diabetic ketoacidosis was resolved. He continues to have nausea, vomiting, epigastric pain, constant moderate in intensity. The patient never had an EGD or colonoscopy in the past. Denies family history of colon cancer, inflammatory bowel disease, or celiac disease. The patient does state he has GERD symptoms for the past two weeks because of his nausea and vomiting and also does marijuana occasionally for the past one year. The patient denies cyclic nausea, vomiting, and denies compulsiveness to take hot showers. The patient denies rectal bleeding, hematemesis, change in bowel habits, or unintentional weight loss. The patient in the past has tried he states Zofran, phenergan, Reglan, and does not recall if any of these helped. The patient states Maalox helps soothe his esophagus because of his reflux. PAST MEDICAL HISTORY: As stated above. PAST SURGICAL HISTORY: As stated above. MEDICATIONS: Sscheduled at home: 1. Amlodipine. 2. Gemfibrozil. 3. Glargine. 4. Lisinopril. 5. Humulin insulin. 6. Metformin. 7. Metoprolol. 8. Zofran 8 mg by mouth four times a day. SOCIAL HISTORY: He does marijuana. He is a former smoker. No alcohol. FAMILY HISTORY: Negative for colon cancer, inflammatory bowel disease, or celiac disease. REVIEW OF SYSTEMS: The patient denies headache, blurred vision. Positive for nausea and vomiting. No chest pain or shortness of breath. Positive for abdominal pain. No skin rash or joint pain. PHYSICAL EXAMINATION: Vital signs upon presentation: Temperature is 37.0, pulse 92, respiratory rate 16, blood pressure 215/109, satting 96% on room air. General no distress. Head no scars. Eyes anicteric. Throat supple. Lungs clear to auscultation. Cardiovascular regular rate. Abdomen soft, nondistended. Positive periumbilical pain upon palpation. Normoactive bowel sounds. Extremities no cyanosis, clubbing, or edema. LABORATORIES: White count 12.6, hemoglobin 17.6, hematocrit 31, platelet count 252. Sodium 138, potassium 4.5, chloride 101. Bicarb 24. BUN 15, creatinine 0.9. Glucose 186, calcium 9.1, total phosphorus 2.8, magnesium 1.8. Total bili 0.4, AST 17, ALT 10, alk phos 59, total protein 6.1, albumin 3.4. The patient had abdominal ultrasound performed on November 23, 2016, which showed sludge with gallbladder wall thickness about 3-4 mm, otherwise normal except for fatty liver. In the past the patient had a gastric emptying study that was performed on April 25, 2016, which showed a 4 hour emptying time of 10% which was normal. ASSESSMENT AND PLAN: This is a 46-year-old, male with history of poorly-controlled diabetes type 2. Hemoglobin A1c 9.9 complicated by peripheral neuropathy, bilateral partial foot amputation, ulcers, asthma, hypertension, multiple toe amputations presents for consultation with intractable nausea, vomiting, and epigastric pain. Differential diagnosis includes uncontrolled GERD versus gastroparesis but his gastric emptying study was borderline normal apr 25, 2016 showing 10% retained at 4 hours versus peptic ulcer disease versus esophagitis versus duodenitis versus H. pyloric gastritis vs marijuana induced. RECOMMENDATIONS: 1. Nothing by mouth except for medications for EGD with anesthesia will be performed today. 2. Continue Protonix 40 mg by mouth twice a day. 3. I do agree with continuing Reglan and Phenergan as needed for his nausea and vomiting. 4. I also do recommend Compazine 10 mg by mouth every 6 as needed for nausea and vomiting to see if this helps him. 5. Avoid narcotics if possible. 6. Marijuana cessation. Will continue to follow. MTDD
--- NOTE | 2016-11-24 10:40 | PCM.PNMED ---
Subjective Date of Service Nov 24, 2016 Subjective pt still remained symptomatic with intractable n/v c/o mild stomach pain, heart burn consulted, plan for EGD today BP trend high with pain, n, v Exam Vital Signs Vital Sign - Last Date Time Temp Pulse Resp B/P Pulse Ox O2 Delivery O2 Flow Rate FiO2 11/24/16 10:01 93 155/88 11/24/16 08:29 37.5 16 98 Room Air Intake and Output 11/23/16 11/23/16 11/24/16 Cumulative From/Thru 15:00 23:00 07:00 11/22/16 10:22 - 11/24/16 05:43 Intake Total 1583 ml 1444 ml 5793 ml Output Total 1200 ml 1820 ml 5020 ml Balance 383 ml -376 ml 773 ml Intake Oral 620 ml 200 ml 1020 ml IV Total 963 ml 1244 ml 4773 ml Output Urine Total 800 ml 1820 ml 4120 ml Emesis 400 ml 900 ml # Bowel Movements 0 Exam Obese male distressed due to pain, mildly drowsy but oriented X4 RRR, n1 s1 s2 no mrg CTAB, no w,c S,ND,NT,hypoactiveBS+ 1+pitting edema on bilaterally, Left foot-amputated, necrotic stump end IVs and Medications Medications Reviewed: Medications were reviewed in detail Lab and Diagnostics Result Diagram: 11/24/16 0555 11/24/16 0555 Assessment & Plan Josiah Landin is a 46 year old poorly controlled diabetic with a history of multiple non healing ulcers and subsequent amputations who presents with intractable nausea and vomiting that began earlier in the morning. acute, active Intractable Nausea and Vomiting, POA, likely due to gastroparesis and poorly controlled DM or possible PUD, pt was started GI cocktails of anti-emetics and prokinetics. Since pt had GB wall thickening from last US abd recently. abd US repeated although exam was unremarkable, which showed sludges and still mildly thickened GB wall but unlikely acute cholecystitis. - appreciate follow up, plan for EGD today - continue PPI 40mg bid po, Phenergan/reglan/compazin q6h prn, Zofran prn. - On Tele monitor for QT. - continue NS @ 100mls/hr. - keep NPO for now Uncontrolled hypertension, POA, pt presented SBP 200-220s, likely due to stress response, retching. - BP was labile likely with ongoing discomfort on abdomen. - Continue home Amlodipine, Lisinopril, Metoprolol, Continue home Hydralazine. - Labetalol PRN 20 mg push for SBP >180. chronic, stable, Poorly controlled insulin requiring diabetes, POA, pt had mild DKA on recent hospitalization 1 week ago. A1c was 9.9 despite patient's reading 70-160s fasting glc at home.On admission, labs showed no AG, glc 240-250s. -glc close to target 186 this AM - Continue home Lantus insulin regimen, 50 U BID. - High dose correctional scale, 5 U meal time nutritional insulin. - Accu-check qac and hs Chronic foot ulcers, B/L, 2nd to diabetes, Present on admission. Active. - Recent cultures taked from prior visit 1 week ago, due to uncontrolled DM foot infection grew beta hemolytic Group G strep, likely sensitive to beta- lactams - awaits Podiatry eval, will speak to today - Will defer surgical management and wound care to podiatry SubQ heparin for now. SCDs in place. High-risk medications: IV Dilaudid prn. Patient Status: likely 1-2more days. VTE Mechanical Devices: Intermittant Pneumatic CD Resuscitation Status: CPR: Attempt Resuscitation Time spent 35min Gladys Brown MD Nov 24, 2016 10:40
[2016-11-24] MEDS ORDERED: Lactated Ringer's 1,000 ML IV ONE (10:59)
--- NOTE | 2016-11-24 11:03 | PCM.HPANE ---
Patient Data Surgeon Admitting Provider:Neil Patel MD Attending Provider:Gladys Brown MD Primary Care Physician:Thompson Madrid MD Other Provider: Reason for Visit Intractable Nausea And Vomiting INTRACTABLE NAUSEA AND VOMITING Ht/WT & BMI Height (Feet): 6 Height (Inches): 6.00 Weight (Kilograms): 146.000 Body Mass Index 37.24 Allergies Coded Allergies: No Known Allergies (Verified Allergy, Unknown, 11/09/16) Past Anesthesia History Anesthesia History: Denies:: Abnormal Airway, Anesthesia Reactions, Difficult Intubation, Fam Anesthesia Reaction, Fam Malignant Hypertherm, Malignant Hyperthermia Diabetes History Hx Diabetes?: Yes Type of Diabetes: Type II Glycemic Control: Insulin & Oral Medication Current Bedside Blood Glucose: 175 MRSA MRSA: Yes (FOOT ) Medications Active Scripts Metformin 500 Mg Tablet1,000 Mg PO BID 30 Days Ref 0 Prov:Hank Solis DO 11/13/16 Metoclopramide 5 Mg Tablet5 Mg PO QID PRN For Nausea 30 Days Ref 1 Prov:Hank Solis DO 11/12/16 Hydrochlorothiazide 12.5 Mg Wbaupj44.5 Mg PO DAILY PRN HYPERtension #30 TABLET Ref 1 Prov:Hank Solis DO 11/12/16 Insulin Human Lispro (HumaLOG U100 Insulin Vial)100 Unit/Ml Unit Subq Wmhs #30 Vial Check blood sugars before meals and at bedtime. Use correction factor only before meals. Blood Sugar Lispro Correction: <151, 0 units; 151-175, 1 unit; 176-200, 2 units; 201-225, 3 units; 226-250, 4 units; 251-275, 5 units; 276-300, 6 units; 301-325, 7 units; 326-350, 8 units; 351-375, 9 units; 376-400, 10 units; >400, 12 units. Prov:Hank Solis DO 11/12/16 Ondansetron ODT 8 Mg Tab.rapdis8 Mg PO QID NAUSEA #20 TABLET Prov:Terence Douglas PA-C 04/18/16 Reported Medications Insulin Glargine (Lantus U100 Insulin Vial)100 Unit/Ml Vial50 Unit SUBQ BID 11/22/16 Amlodipine 10 Mg Cvauzg29 Mg PO DAILY 11/22/16 Gemfibrozil 600 Mg Izhdke058 Mg PO BID #60 TABLET 10/17/15 Metoprolol Tartrate 25 Mg Hdjkdx81 Mg PO BID 30 Days Ref 0 10/11/15 Lisinopril 40 Mg Izuqdw30 Mg PO DAILY 30 Days Ref 0 10/11/15 Discontinued Reported Medications [marijuana] No Conflict Check1 Dose INH BID PRN For Pain 02/22/16 Discontinued Scripts Insulin Glargine (Lantus U100 Insulin Vial)100 Unit/Ml Vial80 Unit SUBQ BID #60 VIAL Ref 0 Prov:Hank Solis DO 11/12/16 Amlodipine 5 Mg Kgpcit52 Mg PO DAILY hypertension #60 TABLET Prov:Jn Gates MD 04/30/16 History History of ENT Problems?: No HEENT History: Denies:: Abnormal Airway Cataracts Difficult Intubation Dysphagia Glaucoma Hearing Problem Sinus Problem TMJ Denture Type: Full- Upper Full- Lower Teeth Condition: Tooth Decay Inflamed Gums Missing Teeth Hx of Heart Problems?: Yes Cardiovascular History: Positive for:: Hypertension Irregular Heartbeat (SOMETIMES) Denies:: Cardiac Surgery Chest Pain Congestive Heart Failure Edema Heart Murmur Pacemaker Thrombophlebitis Hx of Respiratory Problem?: No Respiratory History: Denies:: Asthma COPD Chest Surgery Dyspnea Emphysema Hemoptysis Oxygen Administration Pneumonia Tuberculosis Use of C-PAP Machine Hx Neurologic Problems?: No Neurological History: Denies:: Alzheimer's Disease CVA Dementia Dizziness Headaches Parkinson's Disease Seizures Hx of GI Problems?: Yes Hx of Problems?: No Genitourinary History: Denies:: HX of Hemodialysis Kidney Stones Urinary Tract Infection HX of Peritoneal Dialysis: No Male Hx: Denies:: Prostate Problems Scrotal Mass Testicular Surgery Skin History: Positive for:: History Skin Disorders? (Chronic bilateral diabetic ulcers) Denies:: Pressure Ulcers Hx Musculoskeletal Problems?: Yes Musculoskeletal History: Positive for:: Musculoskeletal Trauma (Foot ULCERS) Denies:: Back Injury Joint Replacement Hx of Psycho/Social Problems?: Yes Psycho Social History: Positive for:: Anxiety Bipolar Disorder Hx Depression Denies:: Suicide Attempt Hx Surgeries?: Yes (multiple TOE AMPUTATION) Hx Any Other Health Problems?: Yes Other History: Positive for:: Endocrine Disease Hospitalization (DIABETES, FOOT ULCERS) Denies:: Cancer Thyroid Disease History Blood Transfusions: Positive for:: Accept Blood Products? Denies:: Blood Transfuse Reaction Blood Transfusions Hx Diabetes: YesBedside Blood Glucose: 175 Hx Alcohol Use: NoHx Substance Use: Yes (THC) Smoking Status: Former Smoker Have You Smoked inLast 12 mo: No Stop/Bang Treated for Sleep Apnea?: No Do You Have a CPAP Machine?: No S-Snoring: Do You Snore Loudly: No T-Tired: feel tired, fatigued: Yes O-Obsered: Observed not breath: No P-Blood Pressure: treated: Yes B- Body Mass Index > 35 kg/m2: Yes A- Age over 50: No N- Neck Large Circumference: No G- Gender Male: Yes NILE Total Score: 5 Risk Assessment Category Category 1A: Patient has history of documented sleep apnea, and HAS NOT received any narcotic, sedative or anesthesia administration during this stay. Category 1B: Patient has history of documented sleep apnea, and HAS received any narcotic , sedative or anesthesia administration during this stay Category 2: Patient has SUSPECTED Obstructive Sleep Apnea, and HAS received any narcotic , sedative or anesthesia administration during this stay. Category 3: Patient has SUSPECTED Obstructive Sleep Apnea and HAS NOT received narcotic, sedative or anesthesia administration during this stay. Category 4: Outpatient in Procedural Areas with known sleep apnea or who screen positive for High Risk via the STOP/BANG questionnaire. Exam Exam Vital Signs Vital Signs Date Time Temp Pulse Resp B/P Pulse Ox O2 Delivery O2 Flow Rate FiO2 11/24/16 10:01 93 155/88 11/24/16 08:29 37.5 89 16 233/123 98 Room Air 11/24/16 04:47 37.0 92 16 215/109 96 Room Air General Appearance: Alert, Oriented X3, Cooperative, Mild Distress HEENT/AIRWAY: MP 1, Neck Movement (from), Mouth Opening (wnl - poor dentition) Lungs: Clear to Auscultation Heart: Exam Unremarkable Meds/Labs/Diagnostics Admission Meds Current Medications Promethazine HCl/ Sodium Chloride (Phenergan Inj/ Normal Saline) 50.5 ml @ 200 mls/hr Q6H IV Last administered on 11/24/16 02:44; Start 11/23/16 at 14:00; Stop 11/24/16 at 07:28; Status DC Famotidine (Pepcid) 20 mg ONCE ONCE PO Last administered on 11/23/16 18:03; Start 11/23/16 at 17:50; Stop 11/23/16 at 17:52; Status DC Bedside Blood Glucose: 175 Labs Test 11/22/16 10:44 11/22/16 12:42 11/22/16 16:31 11/23/16 06:04 Erythrocyte Sedimentation Rate 1mm/hr (0-15) C-Reactive Protein 0.3mg/dL (0.0-0.5) Lipase 47U/L (13-60) Hold Spivey Top Tube Received (Received) Hold Urine Received (Received) Ketones Negative (Negative) Procalcitonin 0.07ng/mL (0.00-0.08) Test 11/24/16 05:55 White Blood Count 12.6th/mm3 (3.8-10.1) Red Blood Count 6.23mil/mm3 (4.40-5.80) Hemoglobin 17.6g/dL (13.8-17.2) Hematocrit 51.4% (41.0-50.0) Mean Corpuscular Volume 82.5fL (81-100) Mean Corpuscular Hemoglobin 28.3pg (27.0-35.0) Mean Corpuscular Hemoglobin Concent 34.2% (32.0-37.0) Red Cell Distribution Width 13.4% (12.3-15.4) Platelet Count 252bil/L (150-400) Neutrophils (%) (Auto) 82.7% (40-74) Lymphocytes (%) (Auto) 11.0% (14-46) Monocytes (%) (Auto) 5.6% (4-12) Eosinophils (%) (Auto) 0.3% (0-5) Basophils (%) (Auto) 0.2% (0-3) Sodium Level 138mEq/L (134-144) Potassium Level 4.5mEq/L (3.5-5.2) Chloride Level 101mEq/L (97-108) Carbon Dioxide Level 24mmol/L (18-29) Blood Urea Nitrogen 15mg/dL (6-24) Creatinine 0.98mg/dL (0.76-1.27) Estimat Glomerular Filtration Rate 88mL/min (>59) Glucose Level 186mg/dL (60-99) Calcium Level 9.1mg/dL (8.5-10.1) Phosphorus Level 2.8mg/dL (2.5-4.9) Magnesium Level 1.8mg/dL (1.6-2.6) Total Bilirubin 0.4mg/dL (0.0-1.2) Aspartate Amino Transf (AST/SGOT) 17U/L (0-50) Alanine Aminotransferase (ALT/SGPT) 10U/L (0-44) Alkaline Phosphatase 59U/L (25-150) Total Protein 6.1g/dL (6.4-8.4) Albumin 3.4g/dL (3.4-5.0) Plan Impression Patient chart reviewed, patient interviewed and anesthestic plan with risks, benefits, and alternatives discussed, and informed consent obtained. ASA Physical Status: ASA3 Severe Disease Anesthetic Plan: MAC Bene/Risks/Altern/Consents: Yes HP Complete Prior to Induction: Yes Yuri Xie MD Nov 24, 2016 11:03
--- NOTE | 2016-11-24 13:20 | NUR ---
HANDOFF TO ENDOSCOPY Called report to Moon in Endo. Patient is alert and oriented. Patient is able to transfer independently w/ standby assist. Last blood glucose 139. Transported to Endo by don.
[2016-11-24] MEDS ORDERED: Lactated Ringer's 1,000 ML IV SCH (13:23)
--- NOTE | 2016-11-24 13:50 | PCM.ANEP1 ---
Post Anesthesia PACU Phase 1 Assessment Vital Signs Vital Signs Date Time Temp Pulse Resp B/P Pulse Ox O2 Delivery O2 Flow Rate FiO2 11/24/16 10:01 93 155/88 11/24/16 08:29 37.5 89 16 233/123 98 Room Air Anesthetic Administered: MAC Level of Alertness: Awake, talking HOLT's with Equal Strength: Yes Pain: Yes Pain Scale Score: 3 Nausea or Vomiting: Yes CV Function & Hydration Stable: Yes Airway Device: Oxygen Delivery: Nasal Cannula Lungs: Clear to Auscultation PACU Phase 2 Assessment Complications: No Follow up Care: No Patient Instructions Provided: N/A Yuri Xie MD Nov 24, 2016 13:50
[2016-11-24] MEDS ORDERED: Acetaminophen IV 1,000 MG in IV Premix 1 EACH IV ONE (15:00)
--- NOTE | 2016-11-24 15:09 | ENDO ---
[address] [address] ENDOSCOPY PROCEDURE PATIENT: KENNY JOHNSON : 1970 MR#: [id number] ADMIT: 11/22/2016 JOB ID: [id number] DATE OF SERVICE: 11/24/2016 TYPE OF OPERATION: Esophagogastroduodenoscopy, biopsy. PREOPERATIVE DIAGNOSIS(ES): Intractable nausea, vomiting, and epigastric pain. POSTOPERATIVE DIAGNOSIS(ES): 1. Severe erosive esophagitis from to the mid esophagus, status post biopsy. 2. Mild nonerosive gastritis. ANESTHESIA: Monitored anesthesia care. COMPLICATIONS: None. BLOOD LOSS: Minimal. DESCRIPTION OF PROCEDURE: After risks and benefits explained to the patient, informed consent was obtained. After anesthesia administered, upper endoscope was then inserted in the mouth intubating to the esophagus, stomach, second portion of duodenum. Mucosa carefully examined. After procedure was done, the scope withdrawn, procedure terminated. Upon inspection of the esophagus, there were severe erosive esophagitis seen from the mid to distal esophagus. Z-line located at 40 cm from incisors. Upon entering the stomach, there was mild nonerosive gastritis that was seen. Retroflexion was normal. Duodenal bulb, first and second portion were normal. Biopsies taken of mid and distal esophagus, and antrum, body. IMPRESSIONS: 1. Severe erosive esophagitis from the mid to distal esophagus, status post biopsy. 2. Mild nonerosive gastritis. RECOMMENDATION: 1. Await pathology results. 2. Protonix 40 mg by mouth twice a day. 3. Carafate 1 g by mouth four times a day. Will continue to follow.
[2016-11-24] MEDS: Acetaminophen IV 1,000 MG in IV Premix 1 EACH IV PRN ×2 (15:18→23:02)
[2016-11-24] MEDS: Ondansetron 2 mg/mL 2 mL Inj IVPUSH PRN (15:21)
--- NOTE | 2016-11-24 16:19 | NUR ---
Post-Endoscopy Patient returned from alert and oriented. Complained of nausea and pain. Given Dilaudid and Zofran. Re-oriented patient to room and call light. Patient stated that his pain management was insufficient. Dr. Brown paged. SBP in 200s. Labetolol given. SBP dropped to 160s.
--- NOTE | 2016-11-24 18:56 | NUR ---
Podiatry Consult Contacted Dr. Norton about possible podiatry consult for patient. She stated she would stop by and see him tomorrow (11/25/16) if he is still here.
[2016-11-25 00:42] VITALS: BP 146/76; PULSE 73; RESP 18; O2SAT 98
[2016-11-25] MEDS: HYDROmorphone 0.5 mg/0.5 mL iSecure Syringe IVPUSH PRN ×9 (02:16→22:30)
[2016-11-25] MEDS: MetoCLOpramide 5 mg/mL 2 mL Inj IVPUSH PRN ×3 (02:51→17:05)
[2016-11-25 04:14] VITALS: BP 162/96; PULSE 93; RESP 18; O2SAT 98
[2016-11-25 05:40] LABS: BASOPHILS % (AUTO) 0.2 % (0-3); EOSINOPHILS % (AUTO) 1.2 % (0-5); MONOCYTES % (AUTO) 7.4 % (4-12); Mean Corpuscular Hemoglobin 28.7 pg (27.0-35.0); Mean Corpuscular Volume 81.8 fL (81-100); NEUTROPHILS % (AUTO) 75.6 % (40-74); Platelet Count 247 bil/L (150-400)
[2016-11-25] MEDS: Alum-Mag Hydrox-Simeth 30 mL Suspension PO PRN ×2 (06:19→15:10)
[2016-11-25] MEDS: Ondansetron 2 mg/mL 2 mL Inj IVPUSH PRN ×3 (07:45→22:29)
[2016-11-25] MEDS: Acetaminophen IV 1,000 MG in IV Premix 1 EACH IV PRN ×2 (07:45→14:59)
[2016-11-25 07:51] VITALS: BP 214/117; PULSE 94; RESP 18; O2SAT 98
--- NOTE | 2016-11-25 07:57 | PCM.PNSURG ---
Subjective Date of Service: Nov 25, 2016 Date of Service: Nov 25, 2016 Visit Information: Subjective: s/p egd yesterday. continues to have n/v/abdominal pain Postop General: No Complaints Objective Vital Sign- Last 8 Hours Date Time Temp Pulse Resp B/P Pulse Ox O2 Delivery O2 Flow Rate FiO2 11/25/16 07:51 36.9 94 18 214/117 98 Room Air 11/25/16 04:14 36.6 93 18 162/96 98 Room Air 11/25/16 00:42 36.8 73 18 146/76 98 Room Air Intake and Output- Last 8 Hour 11/25/16 Cumulative From/Thru 07:00 11/22/16 10:22 - 11/25/16 06:07 Intake Total 703 ml 8354 ml Output Total 1750 ml 8095 ml Balance -1047 ml 259 ml Intake Oral 400 ml 2056 ml IV Total 303 ml 6298 ml Output Urine Total 1750 ml 7195 ml Emesis 900 ml # Bowel Movements 0 0 General: Oriented X3 Neck: Supple Lungs: Clear to Auscultation Heart: Exam Unremarkable Abdomen: Benign, Soft, Appropriately tender, Non-distended, Normoactive bowel tones Extremities: Distal Pulses Palpable Result Diagram: 11/25/16 0515 11/25/16 0515 Assessment & Plan Impression This is a 46-year-old, male with history of poorly-controlled diabetes type 2. Hemoglobin A1c 9.9 complicated by peripheral neuropathy, bilateral partial foot amputation, ulcers, asthma, hypertension, multiple toe amputations presents for consultation with intractable nausea, vomiting, and epigastric pain. Differential diagnosis includes uncontrolled GERD versus gastroparesis (most likely given pt most likely has autonomic neuropathy from complication of diabetes). his gastric emptying study was borderline normal apr 25, 2016 showing 10% retained at 4 hours versus peptic ulcer disease versus esophagitis versus duodenitis versus H. pyloric gastritis vs marijuana induced. abdominal u/s 11/23/16- IMPRESSION: 1. Sludge with gallbladder wall thickness measuring 3-4 mm which is slightly thickened. Overall ultrasound findings do not support acute cholecystitis. There is continued clinical concern for acute cholecystitis recommend a HIDA scan. 2. Fatty infiltration of the liver. s/p egd 11/24/2016- IMPRESSIONS: 1. Severe erosive esophagitis from the mid to distal esophagus, status post biopsy. 2. Mild nonerosive gastritis. RECOMMENDATIONS: 1. increase reglan to 10mg po qid 2. Continue Protonix 40 mg by mouth twice a day. 3. cont Compazine 10 mg by mouth every 6 as needed for nausea and vomiting to see if this helps him. 4. Gastroparesis diet- high protein, low cho/fat diet 5. Avoid narcotics if possible. 6. Marijuana cessation. 7. Outpatient Endocrinology consult- re: dm 8. Quality Project Manager consult- re: diet education for DM and most likely gastroparesis 9.. cont phenergan, zofran 10. carafate 1g po qid Will continue to follow. Problems: Resuscitation Status: CPR: Attempt Resuscitation Prudencio Shah MD Nov 25, 2016 07:57
[2016-11-25] MEDS: Labetalol 5 mg/mL 20 mL Inj IVPUSH PRN (08:19)
--- NOTE | 2016-11-25 09:20 | PCM.PNMED ---
Subjective Date of Service Nov 25, 2016 Subjective pt tolerated EGD well, which showed severe erosive esophagitis, gastritis this morning, pt was in severe pain, unchanged from yesterday, became hypertensive to 220s with pain, still has intractable nausea, with intermittent v Exam Vital Signs Vital Sign - Last Date Time Temp Pulse Resp B/P Pulse Ox O2 Delivery O2 Flow Rate FiO2 11/25/16 07:51 36.9 94 18 214/117 98 Room Air Intake and Output 11/24/16 11/24/16 11/25/16 Cumulative From/Thru 15:00 23:00 07:00 11/22/16 10:22 - 11/25/16 06:07 Intake Total 600 ml 1258 ml 703 ml 8354 ml Output Total 1325 ml 1750 ml 8095 ml Balance 600 ml -67 ml -1047 ml 259 ml Intake Oral 636 ml 400 ml 2056 ml IV Total 600 ml 622 ml 303 ml 6298 ml Output Urine Total 1325 ml 1750 ml 7195 ml Emesis 900 ml # Bowel Movements 0 0 0 Exam Obese male, distressed due to pain, mildly drowsy but oriented X4 RRR, n1 s1 s2 no mrg CTAB, no w,c S,ND,diffuse td periumbilical,hypoactiveBS+ 1+pitting edema on bilaterally, Left foot-amputated, necrotic stump end IVs and Medications Medications Reviewed: Medications were reviewed in detail Lab and Diagnostics Result Diagram: 11/25/1651411/25/16514 Assessment & Plan Josiah Landin is a 46 year old poorly controlled diabetic with a history of multiple non healing ulcers and subsequent amputations who presents with intractable nausea and vomiting that began earlier in the morning. acute, active Intractable Nausea and Vomiting, POA, likely due to gastroparesis due to autonomic neuropathy with uncontrolled DM or possible PUD, pt was started GI cocktails of anti-emetics and prokinetics. Since pt had GB wall thickening from last US abd recently. abd US repeated although exam was unremarkable, which showed sludges and still mildly thickened GB wall but unlikely acute cholecystitis. EGD 11/24 showed severe erosive esophagitis, mild gastritis, biopsy done - appreciate follow up, - continue PPI 40mg bid po, Phenergan/reglan/compazin q6h prn, Zofran prn, added sulcralfate per - On Tele monitor for QT. - continue NS @ 100mls/hr, CLD Uncontrolled hypertension, POA, pt presented SBP 200-220s, likely due to stress response, retching. - BP was labile likely with ongoing discomfort on abdomen. - Continue home Amlodipine, Lisinopril, Metoprolol, Continue home Hydralazine. - Labetalol PRN 20 mg push for SBP >180. chronic, stable, Poorly controlled insulin requiring diabetes, POA, pt had mild DKA on recent hospitalization 1 week ago. A1c was 9.9 despite patient's reading 70-160s fasting glc at home.On admission, labs showed no AG, glc 240-250s. -glc is controlled 164 this AM - Continue home Lantus insulin regimen, 50 U BID. - High dose correctional scale, 5 U meal time nutritional insulin. - Accu-check qac and hs Chronic foot ulcers, B/L, 2nd to diabetes, Present on admission. Active. - Recent cultures taked from prior visit 1 week ago, due to uncontrolled DM foot infection grew beta hemolytic Group G strep, likely sensitive to beta- lactams - awaits Podiatry evmanolo, will evaluate today - Will defer surgical management and wound care to podiatry SubQ heparin for now. SCDs in place. High-risk medications: IV Dilaudid prn. Patient Status: clinically not improving, likely 2-3more days. VTE Mechanical Devices: Intermittant Pneumatic CD Resuscitation Status: CPR: Attempt Resuscitation Time spent 35min Gladys Brown MD Nov 25, 2016 09:12
[2016-11-25] MEDS: Insulin GLARgine 100 Unit/mL Syringe SUBQ SCH ×2 (09:30→20:30)
[2016-11-25] MEDS: Insulin LISPRO 300 Unit/3 mL Inj SUBQ SCH ×4 (09:31→22:00)
[2016-11-25 09:45] VITALS: BP 167/82
[2016-11-25] MEDS: Sucralfate 1,000 mg Tablet PO SCH ×3 (10:29→17:00)
[2016-11-25] MEDS: Pantoprazole 40 mg ER24 Tablet PO SCH ×2 (10:29→16:30)
[2016-11-25] MEDS: Sodium Chloride LOK Flush 10 mL Syringe IVFLUSH SCH ×2 (10:44→10:46)
--- NOTE | 2016-11-25 11:29 | NUR ---
NUTRITION ASSESSMENT: ASSESS: Pt is a 46yo M admitted for n/v, likely gastroparesis with EGD showing erosive esophagitis, mild gastritis, biopsy done. PMHX: DM, peripheral neuropathy, HTN LABS: Reviewed. Alb 3.2, Glu 164 MEDS: Reviewed. zofran GI: persistent n/v SKIN: diabetic foot wound, podiatry following CURRENT WTS: 146.0kg, BMI 37.2kg/m2, DIET: Diabetic. PO 0-50% EST. NEEDS: BMI Kcals: 2700-3000kcal/day (20-22kcal/kg) Pro: 100-120g/day (1.0-1.2g/kg IBW) NUTRITION DIAGNOSIS: 1.) Altered nutrition related lab values related to endocrine dysfunction as evidence by uncontrolled diabetes, previous A1c of 9.9. NUTRITION INTERVENTION: 1.) Will monitor for PO intake/tolerance 2.) Pt has declined education on previous admissions, of note pt has been through ou DM education classes twice. Last received In DM ed 04/26/16 3.) With potential gastroparesis diagnosis would modify diet to low fat low fiber small meals to improve GI symptoms. MONITOR / EVAL: PO, GI, wt, labs, POC, nutrition status. Will continue to monitor per moderate nutrition risk guidelines
--- NOTE | 2016-11-25 15:01 | NUR ---
DEVELOPMENT EDUCATOR witnessed [facility]'s signature ROBYN PalmaSW
[2016-11-25 17:08] VITALS: BP 165/87; PULSE 85; RESP 22; O2SAT 99
--- NOTE | 2016-11-25 17:11 | NUR ---
Social Work: Initial Assessment/Multi-Disciplinary Rounds D: EMR reviewed. Please see Initial Assessment linked to this note for more information. Pt is a 46 y/o male admitted [place] with a readmit risk score of 5 for intractable nausea and vomiting per H&P. Pt's insurance is Medicare and Medicaid. PCP is Dave Madrid. SW met with pt at bedside to conduct initial assessment. Pt was alert and oriented x3. SW explained role and wrote phone number on white board. SW provided [facility] Discharge Planning Checklist and encouraged pt to contact SW for any discharge planning questions. Pt discussed in multidisciplinary rounds. Pt likely to remain in hospital for 2-3 more days for work-up of pain. No SW needs identified, no MD orders received. Pt lives at home with his family in [place]. Pt is wheelchair bound at baseline. Pt states he is independent with most ADLs - needs assistance with chores due to being wheelchair bound. Pt drives. Pt has a 15 and 18 y/o child at home. Pt states he lives with his roommate who is caring for his children right now. Pt states his mother also is helping with his children while he is hospitalized. Pt states he uses Marijuana on occasion for medical purposes - pt states he hasn't had alcohol in years and declines any substance abuse. Pt declines any chemical dependency or resources. Pt states he likes to be level headed. Pt states his friend Nat ([phone]) will provide transport at time of discharge and stay with pt for a week while he recovers from hospital stay. SW provided DPOA/advanced directive ppw and encouraged pt to provide a copy to the hospital once complete. A: Pt who is wheelchair bound at baseline and has the capacity for self-care. P: Pt anticipated to discharge home in 2-3 days with friend Nat via POV. Nat will stay with pt for a week while he recovers from the hospital. Pt also states his roommate is available to help with care at home. No SW needs identified, no MD orders received. SW will continue to follow for needs until time of discharge. AGUILA Stern Addendum: 11/25/16 at 1720 by KELIN KATHLEEN Amended: Links added.
--- NOTE | 2016-11-25 18:51 | NUR ---
GI Patient has been complaining of nausea and abdominal pain. Patient states it is exacerbated with movement. Approx 100cc of emesis throughout the day. Dilaudid q2h and IV Tylenol q6h for pain management. Zofran, Reglan, and Maalox for nausea/GERD. Patient states that the Reglan works better for him. Currently only tolerating clear liquids. Patient declined afternoon meds due to nausea/vomitting. Stated that when he does try to take oral meds, that it is when he is given Dilaudid. Voiding without difficulty. Podiatry consult ongoing for foot ulcers with Dr. Norton.
[2016-11-25 20:30] VITALS: BP 183/103; PULSE 93; RESP 16; O2SAT 98
--- NOTE | 2016-11-25 21:54 | PCM.CHPPOD ---
Subjective Date of service Nov 25, 2016 History of Present Illness Patient [facility] manage his diabetic foot ulcers. He states that his infection has resolved, his feet have been free of edema and erythema. I was consulted because of his wounds needing debridement. He missed his appointment with me on Friday. No concerns with his feet. He is experiencing significant epigastric pain. Allergy Allergies: Coded Allergies: No Known Allergies (Verified Allergy, Unknown, 11/09/16) Medications Amlodipine (Amlodipine) 10 Mg Tablet 10 MG PO DAILY Gemfibrozil (Gemfibrozil) 600 Mg Tablet 600 MG PO BID Hydrochlorothiazide (Hydrochlorothiazide) 12.5 Mg Tablet 12.5 MG PO DAILY PRN PRN HYPERtension Insulin Glargine (Lantus U100 Insulin Vial) 100 Unit/Ml Vial 50 UNIT SUBQ BID Insulin Human Lispro (HumaLOG U100 Insulin Vial) 100 Unit/Ml Unit 0 UNIT SUBQ WMHS Check blood sugars before meals and at bedtime. Use correction factor only before meals. Blood Sugar Lispro Correction: <151, 0 units; 151-175, 1 unit; 176-200, 2 units; 201-225, 3 units; 226-250, 4 units; 251-275, 5 units; 276-300 , 6 units; 301-325, 7 units; 326-350, 8 units; 351-375, 9 units; 376-400, 10 units; >400, 12 units. Lisinopril (Lisinopril) 40 Mg Tablet 40 MG PO DAILY Metformin (Metformin) 500 Mg Tablet 1,000 MG PO BID Metoclopramide (Metoclopramide) 5 Mg Tablet 5 MG PO QID PRN PRN For Nausea Metoprolol Tartrate (Metoprolol Tartrate) 25 Mg Tablet 25 MG PO BID Ondansetron ODT (Ondansetron ODT) 8 Mg Tab.rapdis 8 MG PO QID Past Medical History Reviewed Admit H&P dictated by: Dr. Brown Surgeries: Yes (multiple TOE AMPUTATION) Medical History: (1) DIAB W NEURO MANIFEST, TYPE II OR UNSPEC TYPE, UNCONTROLLED (2) ULCER OF HEEL AND MIDFOOT (3) ULCER OF OTHER PART OF FOOT (4) Vomiting (5) Exostosis of bone of foot (6) Rib fracture (7) Nausea, vomiting and diarrhea (8) ALLAN (acute kidney injury) (9) Gastroenteritis (10) Intractable abdominal pain (11) Cellulitis of right foot (12) Diabetic foot ulcer associated with type 2 diabetes mellitus (13) Diabetic infection of right foot (14) DKA (diabetic ketoacidoses) (15) Dehydration Surgical History: Social History Hx Alcohol Use: No Hx Substance Use: Yes (THC) Hx Tobacco Use: Yes Smoking Status: Former Smoker Podiatry Consult Exam Vital Signs Vital Sign - Last Date Time Temp Pulse Resp B/P Pulse Ox O2 Delivery O2 Flow Rate FiO2 11/25/16 20:30 36.8 93 16 183/103 98 Room Air Intake and Output 11/24/16 11/24/16 11/25/16 Cumulative From/Thru 15:00 23:00 07:00 11/22/16 10:22 - 11/25/16 06:07 Intake Total 600 ml 1258 ml 703 ml 8354 ml Output Total 1325 ml 1750 ml 8095 ml Balance 600 ml -67 ml -1047 ml 259 ml Intake Oral 636 ml 400 ml 2056 ml IV Total 600 ml 622 ml 303 ml 6298 ml Output Urine Total 1325 ml 1750 ml 7195 ml Emesis 900 ml # Bowel Movements 0 0 0 Result Diagram: 11/25/16 0515 11/25/16 0515 Lab Test 11/22/16 10:44 11/22/16 12:42 11/22/16 16:31 11/23/16 06:04 Erythrocyte Sedimentation Rate 1mm/hr (0-15) C-Reactive Protein 0.3mg/dL (0.0-0.5) Lipase 47U/L (13-60) Hold Spivey Top Tube Received (Received) Hold Urine Received (Received) Ketones Negative (Negative) Procalcitonin 0.07ng/mL (0.00-0.08) Test 11/24/16 05:55 11/25/16 05:15 Phosphorus Level 2.8mg/dL (2.5-4.9) Magnesium Level 1.8mg/dL (1.6-2.6) White Blood Count 11.2th/mm3 (3.8-10.1) Red Blood Count 5.95mil/mm3 (4.40-5.80) Hemoglobin 17.1g/dL (13.8-17.2) Hematocrit 48.7% (41.0-50.0) Mean Corpuscular Volume 81.8fL (81-100) Mean Corpuscular Hemoglobin 28.7pg (27.0-35.0) Mean Corpuscular Hemoglobin Concent 35.1% (32.0-37.0) Red Cell Distribution Width 13.0% (12.3-15.4) Platelet Count 247bil/L (150-400) Neutrophils (%) (Auto) 75.6% (40-74) Lymphocytes (%) (Auto) 15.4% (14-46) Monocytes (%) (Auto) 7.4% (4-12) Eosinophils (%) (Auto) 1.2% (0-5) Basophils (%) (Auto) 0.2% (0-3) Sodium Level 135mEq/L (134-144) Potassium Level 4.2mEq/L (3.5-5.2) Chloride Level 101mEq/L (97-108) Carbon Dioxide Level 22mmol/L (18-29) Blood Urea Nitrogen 13mg/dL (6-24) Creatinine 0.92mg/dL (0.76-1.27) Estimat Glomerular Filtration Rate 95mL/min (>59) Glucose Level 164mg/dL (60-99) Calcium Level 8.7mg/dL (8.5-10.1) Total Bilirubin 0.5mg/dL (0.0-1.2) Aspartate Amino Transf (AST/SGOT) 13U/L (0-50) Alanine Aminotransferase (ALT/SGPT) 10U/L (0-44) Alkaline Phosphatase 55U/L (25-150) Total Protein 5.8g/dL (6.4-8.4) Albumin 3.2g/dL (3.4-5.0) Exam General: Oriented X3 Neck: Supple Lungs: Clear to Auscultation Cardiac: Regular Rate/Rhythm Lower Extremities: Bilateral: Extremity warm Lower Extremity Pulses: Palpable: Left Dorsalis Pedis Left Posterior Tibal Right Dorsalis Pedis Right Posterior Tibal Podiatry WOUND : Wound Location/Description Right great toe plantar ulcer 0.3cm x 0.3cm, large periwound callus, 0.5cm deep , large area of callus peeled back by patient in an OCD attack. Some fresh bleeding. Right plantar lateral foot, sub 4th metatarsal, 0.5cm x 0.8cm, large periwound callus, 0.6cm deep. Egress wound, right midfoot, linear incisional area 1.3cm x 0.2 cm, 0.4cm deep. Left TMA stump ulceration 2cm x 4cm, superficial, large thick callus. Assessment & Plan Problems: (1) Diabetic foot ulcer associated with type 2 diabetes mellitus Qualifiers: Diabetic foot ulcer location: unspecified part of foot Laterality: right Non-pressure ulcer stage: with fat layer exposed Qualified Code: E11.621 - Type 2 diabetes mellitus with foot ulcer Plan: Skin prepped with Hibiclens and Saline, callus pared down, excisional debridement of all devitalized tissue through skin and subcutaneous layer performed with a #10 scalpel and a #15 scalpel for each open ulceration. Bleeding was controlled with direct pressure. Foam dressing applied and a non- skid sock. Post-debridement measurements: Right great toe plantar ulcer 0.5cm x 0.5cm, large periwound callus, 0.5cm deep Right plantar lateral foot, sub 4th metatarsal, 0.7cm x 0.8cm, 0.6cm deep. Egress wound, right midfoot, linear incisional area 1.3cm x 0.4 cm, 0.4cm deep. Status: Chronic ICD Code: E11.621 (2) Diabetic ulcer of left foot Qualifiers: Diabetic foot ulcer location: midfoot Diabetes mellitus type: type 2 Non- pressure ulcer stage: with fat layer exposed Qualified Code: E11.621 - Type 2 diabetes mellitus with foot ulcer Plan: Skin prepped with Hibiclens and Saline, callus pared down, excisional debridement of all devitalized tissue through skin and subcutaneous layer performed with a #10 scalpel and a #15 scalpel for each open ulceration. Bleeding was controlled with direct pressure. Foam dressing applied and a non- skid sock. Post-debridement measurements: 2cm x 4cm and 0.2cm deep. Status: Acute ICD Code: E11.621 VTE Mechanical Devices: Intermittant Pneumatic CD Citlali Norton DPM Nov 25, 2016 21:54
[2016-11-26 00:23] VITALS: BP 172/92; PULSE 84; RESP 20; O2SAT 97
[2016-11-26] MEDS: Sucralfate 1,000 mg Tablet PO SCH ×5 (00:56→22:14)
[2016-11-26 05:28] VITALS: BP 172/95; PULSE 84; RESP 16; O2SAT 99
--- NOTE | 2016-11-26 06:03 | NUR ---
Nurse Note NOC shift Patient is alert and oriented x4, denies chest pain or SOB but c/o nausea and abdominal pain which was relieved by Zofran, Reglan and Dilaudid 1mg. Pt reports that tonight he has felt better than he has felt in last few days. He required less pain and nausea medication than he did during the day. He is able to communicate needs and is independent in the room. BG was 84 HS, insulin held per pt request. He continues to have very little intake po but was able to drink some nutrition drink.
[2016-11-26 06:09] LABS: BASOPHILS % (AUTO) 0.3 % (0-3); EOSINOPHILS % (AUTO) 1.2 % (0-5); MONOCYTES % (AUTO) 9.9 % (4-12); Mean Corpuscular Hemoglobin 28.2 pg (27.0-35.0); Mean Corpuscular Volume 79.5 fL (81-100); NEUTROPHILS % (AUTO) 66.5 % (40-74); Platelet Count 298 bil/L (150-400)
--- NOTE | 2016-11-26 07:39 | PCM.PNSURG ---
Subjective Date of Service: Nov 26, 2016 Date of Service: Nov 26, 2016 Visit Information: Subjective: no abdominal pain this am. Pt states feels the best in days. pt complains of burning sensation of esophagus most likely from severe esophagitis seen on egd. No vomiting. Tolerating reglan Postop General: No Complaints Objective Vital Sign- Last 8 Hours Date Time Temp Pulse Resp B/P Pulse Ox O2 Delivery O2 Flow Rate FiO2 11/26/16 05:28 37.1 84 16 172/95 99 Room Air 11/26/16 00:23 37.0 84 20 172/92 97 Room Air Intake and Output- Last 8 Hour 11/26/16 Cumulative From/Thru 07:00 11/22/16 10:22 - 11/26/16 05:28 Intake Total 300 ml 9774 ml Output Total 1400 ml 89475 ml Balance -1100 ml -2221 ml Intake Oral 300 ml 3476 ml IV Total 6298 ml Output Urine Total 1400 ml 43056 ml Emesis 900 ml # Bowel Movements 0 0 General: Oriented X3 Neck: Supple Lungs: Clear to Auscultation Heart: Exam Unremarkable Abdomen: Benign, Soft, Non-tender, Non-distended, Normoactive bowel tones Extremities: Distal Pulses Palpable Result Diagram: 11/26/1652211/26/16 0523 Assessment & Plan Impression This is a 46-year-old, male with history of poorly-controlled diabetes type 2. Hemoglobin A1c 9.9 complicated by peripheral neuropathy, bilateral partial foot amputation, ulcers, asthma, hypertension, multiple toe amputations presents for consultation with intractable nausea, vomiting, and epigastric pain. Differential diagnosis includes uncontrolled GERD versus gastroparesis (most likely given pt most likely has autonomic neuropathy from complication of diabetes). his gastric emptying study was borderline normal apr 25, 2016 showing 10% retained at 4 hours versus peptic ulcer disease versus esophagitis versus duodenitis versus H. pyloric gastritis vs marijuana induced. abdominal u/s 11/23/16- IMPRESSION: 1. Sludge with gallbladder wall thickness measuring 3-4 mm which is slightly thickened. Overall ultrasound findings do not support acute cholecystitis. There is continued clinical concern for acute cholecystitis recommend a HIDA scan. 2. Fatty infiltration of the liver. s/p egd 11/24/2016- IMPRESSIONS: 1. Severe erosive esophagitis from the mid to distal esophagus, status post biopsy. 2. Mild nonerosive gastritis. RECOMMENDATIONS: 1. increase reglan to 10mg po qid (30 min before meals and at bedtime) 2. Continue Protonix 40 mg by mouth twice a day. 3. cont Compazine 10 mg by mouth every 6 as needed for nausea and vomiting to see if this helps him. 4. Gastroparesis diet- high protein, low cho/fat diet 5. Avoid narcotics if possible. 6. Marijuana cessation. 7. Outpatient Endocrinology consult- re: dm 8. Resistor Coater consult- re: diet education for DM and most likely gastroparesis 9.. cont phenergan, zofran 10. carafate 1g po qid 11. OK to d/c home today from GI standpoint Problems: (1) Diabetic foot ulcer associated with type 2 diabetes mellitus Qualifiers: Diabetic foot ulcer location: unspecified part of foot Laterality: right Non-pressure ulcer stage: with fat layer exposed Qualified Code: E11.621 - Type 2 diabetes mellitus with foot ulcer Status: Chronic ICD Code: E11.621 (2) Diabetic ulcer of left foot Qualifiers: Diabetic foot ulcer location: midfoot Diabetes mellitus type: type 2 Non- pressure ulcer stage: with fat layer exposed Qualified Code: E11.621 - Type 2 diabetes mellitus with foot ulcer Status: Acute ICD Code: E11.621 Resuscitation Status: CPR: Attempt Resuscitation Prudencio Shah MD Nov 26, 2016 07:39
[2016-11-26] MEDS: HYDROmorphone 0.5 mg/0.5 mL iSecure Syringe IVPUSH PRN ×4 (07:45→18:01)
[2016-11-26] MEDS: Pantoprazole 40 mg ER24 Tablet PO SCH ×2 (07:46→17:02)
[2016-11-26] MEDS: Insulin LISPRO 300 Unit/3 mL Inj SUBQ SCH ×4 (08:00→21:48)
[2016-11-26 09:02] VITALS: BP 160/94; PULSE 78; RESP 17; O2SAT 96
[2016-11-26] MEDS: Ondansetron 2 mg/mL 2 mL Inj IVPUSH PRN ×2 (09:32→16:59)
--- NOTE | 2016-11-26 10:26 | PCM.PNMED ---
Subjective Date of Service Nov 26, 2016 Subjective pt feels better but still not eating yet, still has ongoing pain on esophagus, although requiring less frequent dilaudid increased reglan 10mg ACHS per Dr.Liang Carvajal performed i&D yesterday Exam Vital Signs Vital Sign - Last Date Time Temp Pulse Resp B/P Pulse Ox O2 Delivery O2 Flow Rate FiO2 11/26/16 09:02 37.3 78 17 160/94 96 11/26/16 05:28 Room Air Intake and Output 11/25/16 11/25/16 11/26/16 Cumulative From/Thru 15:00 23:00 07:00 11/22/16 10:22 - 11/26/16 05:28 Intake Total 1120 ml 300 ml 9774 ml Output Total 2500 ml 1400 ml 72178 ml Balance -1380 ml -1100 ml -2221 ml Intake Oral 1120 ml 300 ml 3476 ml IV Total 6298 ml Output Urine Total 2500 ml 1400 ml 78558 ml Emesis 900 ml # Bowel Movements 0 0 Exam Obese male, distressed due to pain, mildly drowsy but oriented X4 RRR, n1 s1 s2 no mrg CTAB, no w,c S,ND,diffuse td periumbilical,hypoactiveBS+ 1+pitting edema on bilaterally, Left foot-amputated, necrotic stump end IVs and Medications Medications Reviewed: Medications were reviewed in detail Lab and Diagnostics Result Diagram: 11/26/1652211/26/16522 Assessment & Plan Josiah Landin is a 46 year old poorly controlled diabetic with a history of multiple non healing ulcers and subsequent amputations who presents with intractable nausea and vomiting that began earlier in the morning. acute, active Intractable Nausea and Vomiting, POA, likely due to gastroparesis due to autonomic neuropathy with uncontrolled DM or possible PUD, pt was started GI cocktails of anti-emetics and prokinetics. Since pt had GB wall thickening from last US abd recently. abd US repeated although exam was unremarkable, which showed sludges and still mildly thickened GB wall but unlikely acute cholecystitis. EGD 11/24 showed severe erosive esophagitis, mild gastritis, biopsy done -pt started to improve clinically, appreciate follow up as outpt - continue PPI 40mg bid po, reglan 10mg qachs, Phenergan, compazin q6h prn, Zofran prn, added sulcralfate per - On Tele monitor for QT. - continue NS @ 100mls/hr, continue CLD, advance further today. Uncontrolled hypertension, POA, pt presented SBP 200-220s, likely due to stress response, retching. - BP was labile likely with ongoing discomfort on abdomen. - Continue home Amlodipine, Lisinopril, Metoprolol, Continue home Hydralazine. - Labetalol PRN 20 mg push for SBP >180. chronic, stable, Poorly controlled insulin requiring diabetes, POA, pt had mild DKA on recent hospitalization 1 week ago. A1c was 9.9 despite patient's reading 70-160s fasting glc at home.On admission, labs showed no AG, glc 240-250s. -glc is controlled 164 this AM - Continue home Lantus insulin regimen, 50 U BID. - High dose correctional scale, 5 U meal time nutritional insulin. - Accu-check qac and hs Chronic foot ulcers, B/L, 2nd to diabetes, Present on admission. Active. - Recent cultures taked from prior visit 1 week ago, due to uncontrolled DM foot infection grew beta hemolytic Group G strep, likely sensitive to beta- lactams - awaits Podiatry evmanolo, will evaluate today - Will defer surgical management and wound care to podiatry SubQ heparin for now. SCDs in place. High-risk medications: IV Dilaudid prn. dispo: likely today if pt can tolerate diet well VTE Mechanical Devices: Intermittant Pneumatic CD Resuscitation Status: CPR: Attempt Resuscitation Time spent 35min Gladys Brown MD Nov 26, 2016 10:15
[2016-11-26] MEDS: Insulin GLARgine 100 Unit/mL Syringe SUBQ SCH ×2 (12:16→22:15)
[2016-11-26 14:59] VITALS: BP 150/71; PULSE 101; RESP 18; O2SAT 97
--- NOTE | 2016-11-26 15:30 | NUR ---
Social Work- Readiness for D/C Data: EMR reviewed. Pt is on day 4 of hospitalization for intractable nausea and vomiting. Pt discussed in multidisciplinary rounds. Pt is not medically stable for d/c. No SW needs identified in rounds. SW received t/c from pt's friend Nat regarding [facility] caregiving. SW spoke with Nat and pt at bedside regarding [facility] application and completing this online. SW also provided Q & A regarding [facility] and information for the application process at bedside. Nat confirms that she will be staying with pt at discharge and is transportation home. No additional SW needs. Questions answered to stated satisfaction. SW will continue to follow. Assessment: Pt who is independent at baseline. Plan: Nat confirms that she will be staying with pt at discharge and is transportation home. No additional SW needs. Questions answered to stated satisfaction. SW will continue to follow. AGUILA Monroe
[2016-11-26] MEDS: Alum-Mag Hydrox-Simeth 30 mL Suspension PO PRN (18:02)
[2016-11-26] MEDS ORDERED: Promethazine 1.25 mg/mL 118 mL Syrup PO PRN (18:45)
--- NOTE | 2016-11-26 18:45 | NUR ---
Pain/nausea- Patient complained of esophogeal pain/burning when taking any liquids, and having bouts of nausea. No emesis. Medicated with Dilaudid 1mg IV for pain which has been effective for most of discomfort. Patient afraid to eat for fear of vomiting and making esophagus pain worse. Prescribed antiemetics given as ordered. Continue to monitor for pain and nausea control.
[2016-11-26 20:09] VITALS: BP 125/79; PULSE 72; RESP 18; O2SAT 92
[2016-11-27] MEDS ORDERED: HYDROmorphone 1 mg/mL Inj IVPUSH PRN (00:30)
[2016-11-27] MEDS: Ondansetron 2 mg/mL 2 mL Inj IVPUSH PRN ×2 (00:37→08:17)
--- NOTE | 2016-11-27 06:09 | NUR ---
Nurse Note NOC shift Pt remains alert and oriented x4, denies SOB. He c/o nausea and pain most of the shift. Pt received Dilaudid for pain and Zofran Iv, reglan po tab and promethazine liquid for nausea. he was able to hold meds in but continues to have very little nutrition intake. BG remains stable, Lantus given per orders. Pt was able to sleep for few hours at a time in between his meds. Pain currently well managed with PRN meds. Pt did not vomit but had episodes of dry heaves.
[2016-11-27 06:32] VITALS: BP 162/95; PULSE 96; RESP 18; O2SAT 96
--- NOTE | 2016-11-27 07:34 | PCM.PNSURG ---
Subjective Date of Service: Nov 27, 2016 Date of Service: Nov 27, 2016 Visit Information: Subjective: no abdominal pain this am. Tolerated popsicle last night without difficulty. Went over gastroparesis and gerd diet. Postop General: No Complaints Objective Vital Sign- Last 8 Hours Date Time Temp Pulse Resp B/P Pulse Ox O2 Delivery O2 Flow Rate FiO2 11/27/16 06:32 37.1 96 18 162/95 96 Room Air Intake and Output- Last 8 Hour 11/27/16 Cumulative From/Thru 07:00 11/22/16 10:22 - 11/26/16 22:10 Intake Total 01629 ml Output Total 20546 ml Balance -3001 ml Intake Oral 4196 ml IV Total 6298 ml Output Urine Total 29989 ml Emesis 900 ml # Bowel Movements 0 General: Oriented X3 Neck: Supple Lungs: Clear to Auscultation Heart: Exam Unremarkable Abdomen: Benign, Soft, Non-tender, Non-distended, Normoactive bowel tones Extremities: Distal Pulses Palpable Result Diagram: 11/26/16 0523 11/26/16 0523 Assessment & Plan Impression This is a 46-year-old, male with history of poorly-controlled diabetes type 2. Hemoglobin A1c 9.9 complicated by peripheral neuropathy, bilateral partial foot amputation, ulcers, asthma, hypertension, multiple toe amputations presents for consultation with intractable nausea, vomiting, and epigastric pain. Differential diagnosis includes uncontrolled GERD versus gastroparesis (most likely given pt most likely has autonomic neuropathy from complication of diabetes). his gastric emptying study was borderline normal apr 25, 2016 showing 10% retained at 4 hours versus peptic ulcer disease versus esophagitis versus duodenitis versus H. pyloric gastritis vs marijuana induced. abdominal u/s 11/23/16- IMPRESSION: 1. Sludge with gallbladder wall thickness measuring 3-4 mm which is slightly thickened. Overall ultrasound findings do not support acute cholecystitis. There is continued clinical concern for acute cholecystitis recommend a HIDA scan. 2. Fatty infiltration of the liver. s/p egd 11/24/2016- IMPRESSIONS: 1. Severe erosive esophagitis from the mid to distal esophagus, status post biopsy. 2. Mild nonerosive gastritis. RECOMMENDATIONS: 1. cont reglan to 10mg po qid (30 min before meals and at bedtime) 2. Continue Protonix 40 mg by mouth twice a day. 3. cont Compazine 10 mg by mouth every 6 as needed for nausea and vomiting to see if this helps him. 4. Gastroparesis diet- high protein, low cho/fat diet and gerd diet 5. Avoid narcotics if possible. 6. Marijuana cessation. 7. Outpatient Endocrinology consult- re: dm 8. Rn Social Work consult- re: diet education for DM and most likely gastroparesis 9.. cont phenergan, zofran 10. carafate 1g po qid 11. OK to d/c home today from GI standpoint Problems: (1) Diabetic foot ulcer associated with type 2 diabetes mellitus Qualifiers: Diabetic foot ulcer location: unspecified part of foot Laterality: right Non-pressure ulcer stage: with fat layer exposed Qualified Code: E11.621 - Type 2 diabetes mellitus with foot ulcer Status: Chronic ICD Code: E11.621 (2) Diabetic ulcer of left foot Qualifiers: Diabetic foot ulcer location: midfoot Diabetes mellitus type: type 2 Non- pressure ulcer stage: with fat layer exposed Qualified Code: E11.621 - Type 2 diabetes mellitus with foot ulcer Status: Acute ICD Code: E11.621 Resuscitation Status: CPR: Attempt Resuscitation Prudencio Shah MD Nov 27, 2016 07:34
[2016-11-27] MEDS: Pantoprazole 40 mg ER24 Tablet PO SCH ×2 (08:30→17:36)
[2016-11-27] MEDS: Sucralfate 1,000 mg Tablet PO SCH ×4 (08:30→21:21)
[2016-11-27] MEDS: Insulin LISPRO 300 Unit/3 mL Inj SUBQ SCH ×4 (08:31→21:10)
[2016-11-27] MEDS: Insulin GLARgine 100 Unit/mL Syringe SUBQ SCH ×2 (08:31→20:30)
[2016-11-27 08:35] VITALS: BP 147/94; PULSE 99
[2016-11-27] MEDS: Alum-Mag Hydrox-Simeth 30 mL Suspension PO PRN (08:54)
--- NOTE | 2016-11-27 14:44 | PATH ---
SURGICAL PATHOLOGY Attending Physician:Denae Reynaga CASE STATUS: Signed Out PATIENT NAME: KENNY JOHNSON PID: [id number] : 1970 DATE COLLECTED:11/24/2016 00:00 SPECIMEN: 1: Stomach, Antrum, Biopsy 2: Gastric, Biopsy 3: Esophagus, Biopsy 4: Esophagus, Biopsy CLINICAL HISTORY: ABDOMINAL PAIN 1). ANTRUM BIOPSY 2). GASTRIC BODY BIOPSY 3). DISTAL ESOPHAGUS BIOPSY 4). MID ESOPHAGUS BIOPSY FINAL DIAGNOSIS: 1.ANTRUM, BIOPSY: GASTRIC ANTRAL-TYPE MUCOSA WITH CHRONIC GASTRITIS. Negative for Helicobacter pylori microorganisms by immunohistochemistry. Negative for intestinal metaplasia. Negative for dysplasia and malignancy. 2.GASTRIC BODY, BIOPSY: GASTRIC BODY-TYPE MUCOSA WITH CHRONIC GASTRITIS. Negative for Helicobacter organisms by immunohistochemistry. Negative for intestinal metaplasia. Negative for dysplasia and malignancy. 3.DISTAL ESOPHAGUS, BIOPSY: SQUAMOUS MUCOSA WITH ULCER AND GRANULATION TISSUE. No obvious viral cytopathic change. No evidence of fungal microorganisms by PAS stain. Negative for dysplasia and malignancy. 4.MID ESOPHAGUS, BIOPSY: FRAGMENT OF ULCER WITH GRANULATION TISSUE AND SMALL FOCUS OF SQUAMOUS MUCOSA WITH REACTIVE CHANGES. No obvious viral cytopathic change. No evidence of fungal microorganisms by PAS stain. Negative for dysplasia and malignancy. [id number] GROSS DESCRIPTION: The specimen is received in four formalin filled containers labeled with the patient's name. 1). The specimen is labeled "antrum" and consists of a 0.3 x 0.2 x 0.2 CM portion of tissue which is entirely submitted in cassette 1A. 2). The specimen is labeled "gastric body" and consists of 2 portions of tissue which aggregate to 0.3 x 0.2 x 0.2 CM. The specimen is entirely submitted in cassette 2A. 3). The specimen is labeled "distal esophagus" and consists of 2 extremely tiny portions of tissue which aggregate to 0.2 x 0.2 x 0.1 CM. The specimen is entirely submitted in cassette 3A. 4). The specimen is labeled "mid esophagus" and consists of a 0.1 x 0.1 x 0.1 CM portion of tissue which is entirely submitted in cassette 4A. 11/25/2016DC MICRO DESCRIPTION: Immunohistochemical stains are performed to evaluate for Helicobacter pylori microorganisms. The control stains show appropriate reactivity. This test was developed and its performance characteristics determined by [facility]. It has not been cleared or approved by the [place]. [place]. Food and Drug Administration. The FDA has determined that such clearance or approval is not necessary. This test is used for clinical purposes. It should not be regarded as investigational or for research. A PAS stain was performed to evaluate for fungal microorganisms. The control stain showed appropriate reactivity. ICD-9 CODES: CPT CODES: 1: 32078, 98382 2: 36695, 73891 3: 35824, 74603 4: 10168, 34802 Electronically Signed Out Harlan Garrett MD [facility] Pathology [facility] [address], [place] [address] Technical component performed at [facility], [address], [place], [address]
[2016-11-27 16:08] VITALS: BP 119/82; PULSE 89; RESP 18; O2SAT 96
--- NOTE | 2016-11-27 16:56 | PCM.PNMED ---
Subjective Date of Service Nov 27, 2016 Subjective Patient feels better today, still has nausea. Exam Vital Signs Vital Sign - Last Date Time Temp Pulse Resp B/P Pulse Ox O2 Delivery O2 Flow Rate FiO2 11/27/16 16:08 37.1 89 18 119/82 96 Room Air Intake and Output 11/26/16 11/26/16 11/27/16 Cumulative From/Thru 15:00 23:00 07:00 11/22/16 10:22 - 11/26/16 22:10 Intake Total 720 ml 40402 ml Output Total 1500 ml 85733 ml Balance -780 ml -3001 ml Intake Oral 720 ml 4196 ml IV Total 6298 ml Output Urine Total 1500 ml 45614 ml Emesis 900 ml # Bowel Movements 0 0 Exam PHYSICAL EXAM: GENERAL: Alert, not in distress, cooperative HEAD: atraumatic, normocephalic, no bruises. EYES: GONZALO, EOMI, anicteric, able to fully open and close eyelids SKIN: Skin color normal, turgor normal. No visible rashes or lesions. EAR, NOSE, MOUTH, THROAT: Lips, oral mucosa, tongue gums, oropharynx are moist , pink, no lesions. Ears normal appearance, no lesions. NECK: no jugulovenous distention, no carotid bruits, carotid pulse normal contour, No carotid bruit, no enlarged lymph nodes appreciated; supple ROM normal. RESPIRATORY: Lungs clear to auscultation. Good diaphragmatic excursion. Normal percussion sound. CARDIAC: normal S1 and S2; no rubs, murmurs, or gallops; regular rate and rhythm ABDOMEN: Abdomen soft, mildly tender. BS normal. No masses or organomegaly. MUSCULOSKELETAL: ROM full, muscles are not tender EXTREMITIES: no pitting edema in LE, no new deformities or skin discoloration. NEURO: Alert, oriented X 3, Sensation grossly intact., Cranial nerves II-XII intact, Grossly normal motor function. PULSES: 2+ radial, 2+ carotid REVIEW OF SYSTEMS: GENERAL: no malaise, no fevers., SEE HPI HEENT: Negative for frequent or significant headaches All other reviewed and negative other than HPI. IVs and Medications Medications Reviewed: Medications were reviewed in detail Lab and Diagnostics Result Diagram: 11/26/16 0523 11/26/16 0523 X-Rays, CTs and MRIs US IMPRESSION: 1. Sludge with gallbladder wall thickness measuring 3-4 mm which is slightly thickened. Overall ultrasound findings do not support acute cholecystitis. There is continued clinical concern for acute cholecystitis recommend a HIDA scan. 2. Fatty infiltration of the liver. Assessment & Plan Josiah Landin is a 46 year old poorly controlled diabetic with a history of multiple non healing ulcers and subsequent amputations who presents with intractable nausea and vomiting that began earlier in the morning. Intractable Nausea and Vomiting, POA, likely due to gastroparesis due to autonomic neuropathy with uncontrolled DM or possible PUD, pt was started GI cocktails of anti-emetics and prokinetics. Since pt had GB wall thickening from last US abd recently. abd US repeated although exam was unremarkable, which showed sludges and still mildly thickened GB wall but unlikely acute cholecystitis. EGD 11/24 showed severe erosive esophagitis, mild gastritis, biopsy done -pt started to improve clinically, appreciate follow up as outpt Plan - c/w current meds Uncontrolled hypertension - stable now - c/w current meds Poorly controlled insulin requiring diabetes, POA, pt had mild DKA on recent hospitalization 1 week ago. A1c was 9.9 despite patient's reading 70-160s fasting glc at home.On admission, labs showed no AG, glc 240-250s. - stable - c/w current meds - Accu-check qac and hs Chronic foot ulcers, B/L, 2nd to diabetes, Present on admission. Active. - Recent cultures taked from prior visit 1 week ago, due to uncontrolled DM foot infection grew beta hemolytic Group G strep, likely sensitive to beta- lactams - awaits Podiatry mariola, will evaluate today - Will defer surgical management and wound care to podiatry Mild hemoconcentration - Unclear etiology - We will monitor DVT PROPHYLAXIS: SCD Disposition: discharge tomorrow Labs, radiology tests, Tele and ECG reviewed. Plan of care, alternatives were discussed and reviewed with patient. All questions answered. Patient verbalized understanding, approved and agreed to plan of care. Given patient's current condition, I certify, in my opinion inpatient services greater than two midnights are medically necessary for this patient. Please see H&P and MD progress notes for additional information about patient's course of treatment. VTE Mechanical Devices: Intermittant Pneumatic CD Resuscitation Status: CPR: Attempt Resuscitation Darwin Lechuga MD Nov 27, 2016 16:56
--- NOTE | 2016-11-27 18:55 | NUR ---
Pain/Nausea Pt with tolerable pain levels, stating discomfort and irritation d/t esophageal burning/inflammation pain. Did not require any IV Dilaudid this shift. Was given Maalox at one point this shift, effective. Pt remained on MARIO PO Reglan for duration of shift post breakfast. Tolerated B/L/D, no emesis, minimal nausea - stated queasy rather than nausea. Keeps on a soft doiet but tolerated macaroni and cheese and mashed potatoes for dinner. This is the most PO intake pt has had in days. Care continues.
[2016-11-27 19:55] VITALS: BP 127/85; PULSE 81; RESP 17; O2SAT 93
--- NOTE | 2016-11-27 22:42 | PCM.PNPOD ---
Subjective Date of Service: Nov 27, 2016 Visit Information: Reason for Visit Intractable Nausea And Vomiting Date of Admission: Nov 22, 2016 at 17:48 Hospital Day # 5 Gastrointestinal: Complains of Nausea (but improving today) Pain Management: IV Push Neurological: Numbness (severe peripheral neuropathy) Objective Vital Sign - Last Date Time Temp Pulse Resp B/P Pulse Ox O2 Delivery O2 Flow Rate FiO2 11/27/16 19:55 37.1 81 17 127/85 93 Room Air Intake and Output 11/26/16 11/26/16 11/27/16 Cumulative From/Thru 15:00 23:00 07:00 11/22/16 10:22 - 11/26/16 22:10 Intake Total 720 ml 69156 ml Output Total 1500 ml 47705 ml Balance -780 ml -3001 ml Intake Oral 720 ml 4196 ml IV Total 6298 ml Output Urine Total 1500 ml 44360 ml Emesis 900 ml # Bowel Movements 0 0 Result Diagram: 11/26/16 0523 11/26/16 0523 Lab Test 11/22/16 10:44 11/22/16 12:42 11/22/16 16:31 11/24/16 05:55 Erythrocyte Sedimentation Rate 1mm/hr (0-15) C-Reactive Protein 0.3mg/dL (0.0-0.5) Lipase 47U/L (13-60) Hold Spivey Top Tube Received (Received) Hold Urine Received (Received) Ketones Negative (Negative) Phosphorus Level 2.8mg/dL (2.5-4.9) Magnesium Level 1.8mg/dL (1.6-2.6) Test 11/26/16 05:23 White Blood Count 10.8th/mm3 (3.8-10.1) Red Blood Count 6.48mil/mm3 (4.40-5.80) Hemoglobin 18.3g/dL (13.8-17.2) Hematocrit 51.5% (41.0-50.0) Mean Corpuscular Volume 79.5fL (81-100) Mean Corpuscular Hemoglobin 28.2pg (27.0-35.0) Mean Corpuscular Hemoglobin Concent 35.5% (32.0-37.0) Red Cell Distribution Width 13.0% (12.3-15.4) Platelet Count 298bil/L (150-400) Neutrophils (%) (Auto) 66.5% (40-74) Lymphocytes (%) (Auto) 21.8% (14-46) Monocytes (%) (Auto) 9.9% (4-12) Eosinophils (%) (Auto) 1.2% (0-5) Basophils (%) (Auto) 0.3% (0-3) Sodium Level 136mEq/L (134-144) Potassium Level 3.6mEq/L (3.5-5.2) Chloride Level 99mEq/L (97-108) Carbon Dioxide Level 22mmol/L (18-29) Blood Urea Nitrogen 13mg/dL (6-24) Creatinine 1.05mg/dL (0.76-1.27) Estimat Glomerular Filtration Rate 81mL/min (>59) Glucose Level 97mg/dL (60-99) Calcium Level 9.3mg/dL (8.5-10.1) Total Bilirubin 0.8mg/dL (0.0-1.2) Aspartate Amino Transf (AST/SGOT) 15U/L (0-50) Alanine Aminotransferase (ALT/SGPT) 11U/L (0-44) Alkaline Phosphatase 59U/L (25-150) Total Protein 6.2g/dL (6.4-8.4) Albumin 3.4g/dL (3.4-5.0) Procalcitonin 0.10ng/mL (0.00-0.08) Exam General: Oriented X3 Lungs: Clear to Auscultation Lower Extremities: Bilateral: Extremity warm Lower Extremity Pulses: Palpable: Left Dorsalis Pedis Left Posterior Tibal Right Dorsalis Pedis Right Posterior Tibal Podiatry WOUND : Wound Location/Description Right great toe plantar ulcer 0.3cm x 0.3cm, large periwound callus, 0.3cm deep , large area of callus peeled back by patient in an OCD attack. Some fresh bleeding. Right plantar lateral foot, sub 4th metatarsal, 0.5cm x 0.8cm, 0.4cm deep. Egress wound, right midfoot, linear incisional area 1cm x 0.2 cm, 0.3cm deep. Left TMA stump ulceration 1cm x 3cm, superficial, large thick callus. Assessment & Plan Problems: (1) Diabetic foot ulcer associated with type 2 diabetes mellitus Qualifiers: Diabetic foot ulcer location: unspecified part of foot Laterality: right Non-pressure ulcer stage: with fat layer exposed Qualified Code: E11.621 - Type 2 diabetes mellitus with foot ulcer Plan: No further debridements necessary, no antibiotics advised. Foam dressing applied and a non-skid sock. Change daily. Ok to shower as long as dressings are changed immediately after. Status: Chronic ICD Code: E11.621 (2) Diabetic ulcer of left foot Qualifiers: Diabetic foot ulcer location: midfoot Diabetes mellitus type: type 2 Non- pressure ulcer stage: with fat layer exposed Qualified Code: E11.621 - Type 2 diabetes mellitus with foot ulcer Plan: No further debridements necessary, no antibiotics advised. Foam dressing applied and a non-skid sock. Change daily. Ok to shower as long as dressings are changed immediately after. Status: Acute ICD Code: E11.621 Citlali Norton DPM Nov 27, 2016 22:41
--- NOTE | 2016-11-28 03:03 | NUR ---
BG At 2100 BG was 80. Patient denies dizziness or diaphoresis. States that he feels weak, but has since his admission. A snack was offered, and upon reassessment BG was 84. Crackers and peanut butter were then offered to patient. At 0300 BG was 116. Will continue to monitor and continue Q1 hour checks.
[2016-11-28 04:50] VITALS: BP 139/83; PULSE 73; RESP 17; O2SAT 93
--- NOTE | 2016-11-28 07:29 | PCM.PNSURG ---
Subjective Date of Service: Nov 28, 2016 Date of Service: Nov 28, 2016 Visit Information: Subjective: pt denies nausea or abdominal pain this am. Postop General: No Complaints Objective Vital Sign- Last 8 Hours Date Time Temp Pulse Resp B/P Pulse Ox O2 Delivery O2 Flow Rate FiO2 11/28/16 04:50 36.8 73 17 139/83 93 Room Air Intake and Output- Last 8 Hour 11/28/16 Cumulative From/Thru 07:00 11/22/16 10:22 - 11/28/16 05:53 Intake Total 1600 ml 90737 ml Output Total 1050 ml 11922 ml Balance 550 ml -2501 ml Intake Oral 1600 ml 6196 ml IV Total 6298 ml Output Urine Total 1050 ml 89949 ml Emesis 900 ml # Bowel Movements 0 0 General: Oriented X3 Neck: Supple Lungs: Clear to Auscultation Heart: Exam Unremarkable Abdomen: Benign, Soft, Non-tender, Non-distended, Normoactive bowel tones Extremities: Distal Pulses Palpable Result Diagram: 11/26/16 0523 11/26/16 0523 Assessment & Plan Impression This is a 46-year-old, male with history of poorly-controlled diabetes type 2. Hemoglobin A1c 9.9 complicated by peripheral neuropathy, bilateral partial foot amputation, ulcers, asthma, hypertension, multiple toe amputations presents for consultation with intractable nausea, vomiting, and epigastric pain. Differential diagnosis includes uncontrolled GERD versus gastroparesis (most likely given pt most likely has autonomic neuropathy from complication of diabetes). his gastric emptying study was borderline normal apr 25, 2016 showing 10% retained at 4 hours versus peptic ulcer disease versus esophagitis versus duodenitis versus H. pyloric gastritis vs marijuana induced. abdominal u/s 11/23/16- IMPRESSION: 1. Sludge with gallbladder wall thickness measuring 3-4 mm which is slightly thickened. Overall ultrasound findings do not support acute cholecystitis. There is continued clinical concern for acute cholecystitis recommend a HIDA scan. 2. Fatty infiltration of the liver. s/p egd 11/24/2016- IMPRESSIONS: 1. Severe erosive esophagitis from the mid to distal esophagus, status post biopsy. 2. Mild nonerosive gastritis. RECOMMENDATIONS: 1. cont reglan 10mg po qid (30 min before meals and at bedtime) 2. Continue Protonix 40 mg by mouth twice a day. 3. cont Compazine 10 mg by mouth every 6 as needed for nausea and vomiting 4. Gastroparesis diet- high protein, low cho/fat diet and gerd diet 5. Avoid narcotics if possible. 6. Marijuana cessation. 7. Outpatient Endocrinology consult- re: dm 8. Coagulating Operator consult- re: diet education for DM and most likely gastroparesis 9.. cont phenergan, zofran 10. carafate 1g po qid 11. OK to d/c home today from GI standpoint Problems: (1) Diabetic foot ulcer associated with type 2 diabetes mellitus Qualifiers: Diabetic foot ulcer location: unspecified part of foot Laterality: right Non-pressure ulcer stage: with fat layer exposed Qualified Code: E11.621 - Type 2 diabetes mellitus with foot ulcer Status: Chronic ICD Code: E11.621 (2) Diabetic ulcer of left foot Qualifiers: Diabetic foot ulcer location: midfoot Diabetes mellitus type: type 2 Non- pressure ulcer stage: with fat layer exposed Qualified Code: E11.621 - Type 2 diabetes mellitus with foot ulcer Status: Acute ICD Code: E11.621 Resuscitation Status: CPR: Attempt Resuscitation Prudencio Shha MD Nov 28, 2016 07:29
[2016-11-28 08:32] VITALS: BP 153/99; PULSE 81; RESP 16; O2SAT 97
[2016-11-28] MEDS: Sucralfate 1,000 mg Tablet PO SCH ×2 (08:32→12:06)
[2016-11-28] MEDS: Pantoprazole 40 mg ER24 Tablet PO SCH (08:32)
[2016-11-28] MEDS: Insulin GLARgine 100 Unit/mL Syringe SUBQ SCH (08:36)
[2016-11-28] MEDS: Insulin LISPRO 300 Unit/3 mL Inj SUBQ SCH ×2 (08:36→12:09)
[2016-11-28] MEDS ORDERED: PANT40TA3 PO (11:39)
[2016-11-28] MEDS ORDERED: SUCR1TAB30 PO (11:39)
[2016-11-28] MEDS ORDERED: PROM6.25 PO (11:45)
--- NOTE | 2016-11-28 11:51 | NUR ---
Social Work- Discharge Data: EMR reviewed. Pt is on day 6 of hospitalization for intractable nausea and vomiting. Pt discussed in multidisciplinary rounds. Pt is medically stable for d/c and will continue with current wound care regimen of [facility]. D/C Orders active. SW met with pt at bedside. Pt confirms that he has transportation to and from these appointments. No HH indicated at this time as pt is not homebound. Pt has no HH services open at this time. Pt confirms that his friend Nat will transport home and be a support for him at home. Pt's family is also available. Pt is agreeable to plan, no additional needs. Assessment: Pt who is independent at baseline and who receives assistance at home. Plan: Pt to follow up at [facility] as an outpt. Pt to d/c home with friend Nat to transport, no additional d/c needs. All updated and agreeable to plan. [place], [employer]
--- NOTE | 2016-11-28 15:41 | NUR ---
DISCHARGE Patient denies pain. Tolerating liquids PO and his diet well. Denies nausea. No emesis noted. Denies SOB. Patient has been ambulating independently in the room. Dressing in his L foot is CDI. Patient stated that he will change his dressing at home. Voiding without any problems. IV saline lock d/cd. Discharge instructions, care notes and prescription was given to the patient and he verbalized understanding. Discharge to home with his friend and all his personal belongings. VERIFIED WITH DR. DOZIER. NO MD DISCHARGE INSTRUCTIONS SINCE PATIENT ALREADY KNOWS HIS INSTRUCTIONS PRIOR TO D/C. PATIENT ALREADY HAS PRE-SCHEDULED APPOINTMENTS FOR WOUNDCARE AND HIS PCP PRIOR TO D/C.
--- NOTE | 2016-11-28 15:52 | PCM.DC.MED ---
Discharge Summary Date of Service Nov 28, 2016 Dates of Hospitalization Date of Hospital Admission Nov 22, 2016 at 17:48 Date of Discharge: Nov 28, 2016 Providers: Admitting Physician: Neil Patel MD Primary Care Physician: Thompson Madrid MD Attending Physician: Darwin Lechuga MD Diagnosis at Time of Discharge Diagnosis at Time of Discharge Intractable Nausea and Vomiting Consultations GI, Podiatry Procedures XRay, CTs & MRIs US IMPRESSION: 1. Sludge with gallbladder wall thickness measuring 3-4 mm which is slightly thickened. Overall ultrasound findings do not support acute cholecystitis. There is continued clinical concern for acute cholecystitis recommend a HIDA scan. 2. Fatty infiltration of the liver. 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 He is a patient of Dr. Norton from podiatry. He was unable to eat 2 days prior to admission The patient was recently evaluated by podiatry who cultured the wound on his foot which grew out topete sensitive GBS. In the ED the patient was found to have an elevated blood sugar at 449, an anion gap of 21, normal WBC, and elevated lactic Acid at 2.9. Podiatry and GI were consulted. GI recommended Protonix twice a day, sucralfate. Podiatry help with wound management. Patient will follow-up with his primary care doctor podiatry patient's settings. After patient improved he was discharged home with recommendation to follow up with his PCP, NIHARIKA Astorga for further management of his medical problems. Most likely his nausea and vomiting were related to uncontrolled diabetes and gastroparesis. Patient Condition @ Discharge: good Discharge Disposition: home Discharge Activity: resume regular activity Discharge Diet: regular DM diet, heart healthy, low fat, low salt, high fiber Information Provided to Patient: information about discharge medications Discharge Medications: I discussed with patient medication dosage, usage, goals of therapy, side effects, alternatives. During discharge patient was allert, oriented, fully competent, able to make own informed decisions. We discussed possible severe side effects, adverse reactions, benefits, risks, alternatives of current and newly prescribed medications and diagnostic procedures. Patient verbalized understanding and agreed to current plan of care and discharge. TIME SPENT IN DISCHARGE ACTIVITY: Face to face activity greater then 30 minutes spent in discharge activity. 1. Discussed with patient re: discharge plan of care/treatment, and follow up care/services. 2. Patient agreed with discharge plan and further plan of care, all questions were answered/addressed, no further questions at the time of discharge. Exam Vital Signs (Last) Date Time Temp Pulse Resp B/P Pulse Ox O2 Delivery O2 Flow Rate FiO2 11/28/16 08:32 37.1 81 16 153/99 97 Room Air Test 11/22/16 10:44 11/22/16 12:42 11/22/16 16:31 11/24/16 05:55 Erythrocyte Sedimentation Rate 1mm/hr (0-15) C-Reactive Protein 0.3mg/dL (0.0-0.5) Lipase 47U/L (13-60) Hold Spivey Top Tube Received (Received) Hold Urine Received (Received) Ketones Negative (Negative) Phosphorus Level 2.8mg/dL (2.5-4.9) Magnesium Level 1.8mg/dL (1.6-2.6) Test 11/26/16 05:23 White Blood Count 10.8th/mm3 (3.8-10.1) Red Blood Count 6.48mil/mm3 (4.40-5.80) Hemoglobin 18.3g/dL (13.8-17.2) Hematocrit 51.5% (41.0-50.0) Mean Corpuscular Volume 79.5fL (81-100) Mean Corpuscular Hemoglobin 28.2pg (27.0-35.0) Mean Corpuscular Hemoglobin Concent 35.5% (32.0-37.0) Red Cell Distribution Width 13.0% (12.3-15.4) Platelet Count 298bil/L (150-400) Neutrophils (%) (Auto) 66.5% (40-74) Lymphocytes (%) (Auto) 21.8% (14-46) Monocytes (%) (Auto) 9.9% (4-12) Eosinophils (%) (Auto) 1.2% (0-5) Basophils (%) (Auto) 0.3% (0-3) Sodium Level 136mEq/L (134-144) Potassium Level 3.6mEq/L (3.5-5.2) Chloride Level 99mEq/L (97-108) Carbon Dioxide Level 22mmol/L (18-29) Blood Urea Nitrogen 13mg/dL (6-24) Creatinine 1.05mg/dL (0.76-1.27) Estimat Glomerular Filtration Rate 81mL/min (>59) Glucose Level 97mg/dL (60-99) Calcium Level 9.3mg/dL (8.5-10.1) Total Bilirubin 0.8mg/dL (0.0-1.2) Aspartate Amino Transf (AST/SGOT) 15U/L (0-50) Alanine Aminotransferase (ALT/SGPT) 11U/L (0-44) Alkaline Phosphatase 59U/L (25-150) Total Protein 6.2g/dL (6.4-8.4) Albumin 3.4g/dL (3.4-5.0) Procalcitonin 0.10ng/mL (0.00-0.08) Discharge Medications Discharge Medications Amlodipine (Amlodipine) 10 Mg Tablet 10 MG PO DAILY (Reported) Gemfibrozil (Gemfibrozil) 600 Mg Tablet 600 MG PO BID (Reported) Insulin Glargine (Lantus U100 Insulin Vial) 100 Unit/Ml Vial 50 UNIT SUBQ BID ( Reported) Insulin Human Lispro (HumaLOG U100 Insulin Vial) 100 Unit/Ml Unit 0 UNIT SUBQ WMHS Check blood sugars before meals and at bedtime. Use correction factor only before meals. Blood Sugar Lispro Correction: <151, 0 units; 151-175, 1 unit; 176-200, 2 units; 201-225, 3 units; 226-250, 4 units; 251-275, 5 units; 276-300 , 6 units; 301-325, 7 units; 326-350, 8 units; 351-375, 9 units; 376-400, 10 units; >400, 12 units. Prescribed by: Myrtle TLOENTINO Lisinopril (Lisinopril) 40 Mg Tablet 40 MG PO DAILY (Reported) Metformin (Metformin) 500 Mg Tablet 1,000 MG PO BID Prescribed by: Myrtle TOLENTINO Metoprolol Tartrate (Metoprolol Tartrate) 25 Mg Tablet 25 MG PO BID (Reported) Ondansetron ODT (Ondansetron ODT) 8 Mg Tab.rapdis 8 MG PO QID Prescribed by: ROBINSON SANTANA Pantoprazole DR (Pantoprazole DR) 40 Mg Tablet.dr 40 MG PO BIDAC Prescribed by: TASIA PAYNE MD Sucralfate (Carafate) 1 Gm Tablet 1,000 MG PO ACHS Prescribed by: TASIA PAYNE MD As needed Hydrochlorothiazide (Hydrochlorothiazide) 12.5 Mg Tablet 12.5 MG PO DAILY PRN PRN HYPERtension Prescribed by: Myrtle TOLENTINO Metoclopramide (Metoclopramide) 5 Mg Tablet 5 MG PO QID PRN PRN For Nausea Prescribed by: Myrtle TOLENTINO Promethazine (Promethazine) 6.25 Mg/5 Ml Syrup 25 MG PO TID PRN PRN For Nausea Prescribed by: TASIA PAYNE MD Followup Plan Follow-up with PCP in: Other (follow up with PCP, Podietry, GI shortly after discharge from the hospital ) Darwin Lechuga MD Nov 28, 2016 15:52 Prescribed by: Myrtle TOLENTINO Metoprolol Tartrate (Metoprolol Tartrate) 25 Mg Tablet 25 MG PO BID (Reported) Ondansetron ODT (Ondansetron ODT) 8 Mg Tab.rapdis 8 MG PO QID Prescribed by: ROBINSON SANTANA Pantoprazole DR (Pantoprazole DR) 40 Mg Tablet.dr 40 MG PO BIDAC Prescribed by: TASIA PAYNE MD Sucralfate (Carafate) 1 Gm Tablet 1,000 MG PO ACHS Prescribed by: TASIA PAYNE MD As needed Hydrochlorothiazide (Hydrochlorothiazide) 12.5 Mg Tablet 12.5 MG PO DAILY PRN PRN HYPERtension Prescribed by: Myrtle TOLENTINO Metoclopramide (Metoclopramide) 5 Mg Tablet 5 MG PO QID PRN PRN For Nausea Prescribed by: Myrtle TOLENTINO Promethazine (Promethazine) 6.25 Mg/5 Ml Syrup 25 MG PO TID PRN PRN For Nausea Prescribed by: MD Tasia TELLEZ Andriy MD Nov 28, 2016 15:52
== END 2016-11-28 14:20 | disposition home or self-care (01) | DRG 41 ==
LOC: SED 10:17 → OBSVTOIN 17:48 → OSC 17:48
PROVIDERS: ADMIT Hospitalist; ATTEND Internal Medicine
PROC: 4A033R1 Measurement of Arterial Saturation, Peripheral, Percutaneous Approach (ICD-10-PCS; 2016-11-22)
PROC: 0DB98ZX Excision of Duodenum, Via Natural or Artificial Opening Endoscopic, Diagnostic (ICD-10-PCS; 2016-11-24)
PROC: 0DB68ZX Excision of Stomach, Via Natural or Artificial Opening Endoscopic, Diagnostic (ICD-10-PCS; 2016-11-24)
PROC: 0JBQ0ZZ Excision of Right Foot Subcutaneous Tissue and Fascia, Open Approach (ICD-10-PCS; principal; 2016-11-25)
PROC: 0JBR0ZZ Excision of Left Foot Subcutaneous Tissue and Fascia, Open Approach (ICD-10-PCS; 2016-11-25)
DX: E11.43 Type 2 diabetes mellitus with diabetic autonomic (poly)neuropathy (principal); K22.10 Ulcer of esophagus without bleeding; L97.422 Non-pressure chronic ulcer of left heel and midfoot with fat layer exposed; E11.65 Type 2 diabetes mellitus with hyperglycemia; K31.84 Gastroparesis; E11.621 Type 2 diabetes mellitus with foot ulcer; L97.512 Non-pressure chronic ulcer of other part of right foot with fat layer exposed; Z89.421 Acquired absence of other right toe(s); Z89.422 Acquired absence of other left toe(s); Z79.4 Long term (current) use of insulin; Z79.84 Long term (current) use of oral hypoglycemic drugs; Z87.891 Personal history of nicotine dependence; R11.2 Nausea with vomiting, unspecified; I10 Essential (primary) hypertension